=== PATIENT | male | born 1960 | race African-American/Black ===

== ENCOUNTER 2017-07-22 15:47 | Inpatient (IN) | payer OTHER ==
[2017-07-22 17:05] LABS: Absolute Lymphocytes (CBC) 0.5 K/uL (0.7-4.9); Absolute Monocytes 0.3 K/uL (0.1-1.3); Absolute Neutrophil 5.4 K/uL (1.8-8.0); Basophils % 0.5 % (0-1.3); Eosinophils % 0.2 % (0-4.4); Hematocrit 24.8 % (39.6-49.0); Lymphocytes % 7.8 % (15.3-44.8); MCH 27.8 pg (27.0-35.0); MCV 83.8 fL (80-100); MPV 8.9 fL (7.6-11.3); Monocytes % 5.3 % (3.3-12.3); RBC Red Blood Cell Count 2.96 M/uL (4.33-5.43)
--- NOTE | 2017-07-22 17:05 | RAD REPORT ---
EXAM DESCRIPTION: CT - Head Brain Wo Cont - 07/22/2017 4:57 pm CLINICAL HISTORY: Alteration of consciousness/ mental status change COMPARISON: August 2016 TECHNIQUE: Computed axial tomography of the head was obtained. IV contrast was not requested. All CT scans are performed using dose optimization technique as appropriate and may include automated exposure control or mA/KV adjustment according to patient size. FINDINGS: Some images are degraded by patient motion artifact. An intracranial bleed is not seen . The ventricles are normal in caliber. No extra-axial fluid collection is noted. A 33 millimeter area of cystic encephalomalacia is present within the left occipital lobe. A moderate to large area of cystic encephalomalacia within the right parietal lobe is present. These probably are secondary to old infarctions. Fluid within the sinuses/ mastoids is not seen. IMPRESSION: No acute intracranial abnormality is seen. If patient's symptoms persist MRI of the bra in would be recommended.
[2017-07-22 17:10] LABS: Protime INR 1.06
[2017-07-22 17:39] LABS: Albumin 3.9 g/dL (3.2-5.5); Bilirubin Direct 0.1 mg/dL (0-0.2); Bilirubin Total 0.7 mg/dL (0.3-1.2); Protein, Total 7.4 g/dL (6.0-8.3)
[2017-07-22 17:43] LABS: Urine Bacteria NONE SEEN /HPF (NONE SEEN); Urine Culture Reflex Order NOT NEEDED
[2017-07-22 17:43] LABS: CKMB Creatine Kinase MB 13.9 ng/ml (0.3-4.0)
[2017-07-22 17:46] LABS: Potassium 7.4 mEq/L (3.6-5.0)
--- NOTE | 2017-07-22 17:57 | RAD REPORT ---
EXAM DESCRIPTION: RAD - Chest Single View - 07/22/2017 5:37 pm CLINICAL HISTORY: Shortness of breath. COMPARISON: None. FINDINGS: Portable technique limits examination quality. Moderate bilateral pulmonary opacities are noted likely representing pulmonary edema. The heart is no rmal in size. No displaced fractures.Right-sided venous catheter tip in SVC. IMPRESSION: Moderate pulmonary edema.
[2017-07-22] MEDS ORDERED: CALCIUM GLUCONATE 1gm/100 ML NS (4.65 mEq/100mL) IV ONE ×2 (18:00)
[2017-07-22] MEDS ORDERED: SOD POLYSTYREN SUL 15 GM/60 ML UCUP ONE (18:14)
--- NOTE | 2017-07-22 18:15 | ER ---
Nurse's Notes [facility] Name: Juan Lozano Age: 56 yrs Sex: Male : 1960 Arrival Date: 07/22/2017 Time: 15:52 Bed 7 Private MD: Diagnosis: Altered mental status, unspecified;Hyperkalemia Presentation: 07/22 15:52 Presenting complaint: EMS states: EMS states [facility] [place] [facility] staff reported ae1 patient is normally A \T\ O x 4 and is now only oriented to self. They report patient refused dialysis today and the previous Wednesday as well. Transition of care: [facility]. Onset of symptoms is unknown. Care prior to arrival: Glucose check: 168 Oxygen administered. via a non-rebreather mask, reported room air sat of 81%. 15:52 Method Of Arrival: EMS: [facility] ae1 15:52 Acuity: DORIS 3 ae1 Triage Assessment: 15:58 General: Appears in no apparent distress. Behavior is cooperative, quiet. Pain: Denies ae1 pain. Neuro: Level of Consciousness is obeys commands, lethargic, responds to verbal stimuli, eye remain closed. Oriented to person. Derm: dialysis port to the right upper chest. Thrill palpated to the right forearm. 15:58 EENT: No signs and/or symptoms were reported regarding the EENT system. Cardiovascular: ae1 Heart tones S1 S2 present Patient's skin is warm and dry. Rhythm is regular. Respiratory: Airway is patent Respiratory effort is even, unlabored, Respiratory pattern is regular, symmetrical, Breath sounds are clear bilaterally. GI: No signs and/or symptoms were reported involving the gastrointestinal system. Abdomen is round non-distended, Bowel sounds present X 4 quads. Abd is soft and non tender X 4 quads. Patient currently denies. : Urine is Patient has adult brief applied. Musculoskeletal: Range of motion: limited in left shoulder and left elbow. Historical: - Allergies: 16:09 No Known Allergies; ae1 - PMHx: 16:09 CVA; ae1 - Immunization history:: Adult Immunizations up to date. - Social history:: Smoking status: unknown. Screenin:26 Abuse screen: Denies threats or abuse. Nutritional screening: No deficits noted. ap3 Tuberculosis screening: No symptoms or risk factors identified. 17:00 Fall Risk Secondary diagnosis (15 points) CVA, IV access (20 points). Ambulatory Aid- ae1 None/Bed Rest/Nurse Assist (0 pts). Gait- Weak (10 pts.). Mental Status- Overestimates/Forgets Limitations (15 pts.). Assessment: 16:09 Reassessment: Spoke to nurse Varghese at [facility] via telephone to obtain ae1 health hx and medication list. Fax number provided, Varghese states he will fax over information. 16:23 Reassessment: patient laying in bed, eyes closed, arms held close to chest, legs bent. ap3 Respirations even and unlabored. Bed locked and in lowest level. Side rales up X's 2. 17:28 Reassessment: Provider notified of scant amount of urine returned from straight cath, ae1 per provider, sent to lab for urine microscope and urine culture. Estella in lab notified by telephone that tiny amount of urine was being sent. 17:38 Reassessment: Patient incontinent of stool, per-area cleansed, new adult brief applied. ae1 New bedding applied. Patient tolerated well. 18:44 Reassessment: Respiratory therapist at bedside for ABG draw. ae1 19:15 Reassessment: Patient appears in no apparent distress at this time. Patient and/or jd3 family updated on plan of care and expected duration. Pain level reassessed. pt resting in bed eyes closed, even and unlabored respirations, no distress noted at this time, call rivera in reach. 19:32 Reassessment: Verified Lasix order and dosage with Provider and Charge nurse. Per ae1 provider, ok to give. 20:30 Reassessment: Patient appears in no apparent distress at this time. No changes from jd3 previously documented assessment. Patient and/or family updated on plan of care and expected duration. Pain level reassessed. 21:00 Reassessment: Patient appears in no apparent distress at this time. No changes from jd3 previously documented assessment. Patient and/or family updated on plan of care and expected duration. Pain level reassessed. pt taken up to ICU for bedside report to Frida SARKAR. Vital Signs: 15:56 BP 175 / 110; Pulse 75; Resp 16; Temp 97.6(A); Pulse Ox 98% on R/A; Weight 79.38 kg (R);ae1 17:39 BP 196 / 110; Pulse 86; Resp 21; Pulse Ox 94% on 4 lpm NC; ae1 18:46 BP 207 / 114; Pulse 94; Resp 20; Pulse Ox 98% on 3 lpm NC; ae1 19:14 BP 197 / 121; Pulse 88; Resp 15 S; Pulse Ox 97% on 2 lpm NC; Pain 0/10; jd3 20:31 BP 169 / 102; Pulse 88; Resp 22; Pulse Ox 95% on 2 lpm NC; tl2 ED Course: 15:52 Patient arrived in ED. ae1 15:56 Triage completed. ae1 15:56 EKG done, by education technician. reviewed by Eris Karimi MD. at1 16:11 Bed in low position. Call light in reach. Side rails up X2. clinical research monitor on. Pulse ae1 ox on. NIBP on. 16:12 Arm band placed on right wrist. EKG completed in triage. Results shown to MD. ae1 16:28 Eris Petersen PA is PHCP. cp 16:28 Eris Karimi MD is Attending Physician. cp 16:49 Tristan Monroe, ANTONINA is Primary Nurse. ae1 16:57 CT Head Brain wo Cont In Process Unspecified. EDMS 17:25 Straight cath inserted, using sterile technique, 16 Fr. Specimen obtained. scant amount ae1 of urine obtained. Returned clear yellow urine. Patient tolerated poorly. Inserted saline lock: 18 gauge in left EJ, using aseptic technique. ,using aseptic technique. By JOSE Tsai. Blood collected. 17:34 X-ray completed. Portable x-ray completed in exam room. Patient tolerated procedure ag1 poorly. 17:36 Chest Single View XRAY In Process Unspecified. EDMS 18:14 Yahir Peña DO is Hospitalizing Provider. cp 20:59 No provider procedures requiring assistance completed. Patient admitted, IV remains in jd3 place. Administered Medications: 18:12 CANCELLED (Physician Discretion): hydrALAZINE 5 mg IV at calculated rate once cp 18:14 Drug: Insulin Regular Human 10 units {Co-Signature: jl7 (Ascencion Silva RN).} Route: IVP; ae1 Site: left jugular; 19:38 Follow up: Response: No adverse reaction jd3 18:15 Drug: D50W 50 ml Route: IVP; Site: Other; ae1 19:39 Follow up: Response: No adverse reaction jd3 18:20 Drug: Calcium Gluconate 1 grams Route: IVPB; Infused Over: 20 mins; Site: left jugular; ae1 19:31 Follow up: IV Status: Completed infusion ae1 18:21 Drug: Kayexalate 45 grams Route: PO; ae1 19:39 Follow up: Response: No adverse reaction jd3 18:23 Drug: Albuterol 2.5 mg Route: Inhalation; ae1 18:23 Drug: Albuterol 2.5 mg Route: Inhalation; ae1 19:25 Drug: Lasix 100 mg {Note: given by Ingrid SARKAR.} Route: IVP; Site: left jugular; jd3 20:08 Follow up: Response: No adverse reaction jd3 19:27 Drug: Zosyn 2.25 grams Route: IVPB; Infused Over: 60 mins; Site: left jugular; ae1 20:08 Follow up: Response: No adverse reaction; IV Status: Completed infusion jd3 19:31 Drug: Albuterol 2.5 mg Route: Inhalation; jd3 20:08 Drug: vancoMYCIN 1 grams Route: IVPB; Infused Over: 2 hrs; Site: left jugular; jd3 21:02 Follow up: Response: No adverse reaction; IV Status: Infusion continued upon admission jd3 Point of Care Testing: Blood Glucose: 15:57 Blood Glucose: 141 mg/dL; ae1 Ranges: Outcome: 18:15 Decision to Hospitalize by Provider. cp 20:59 Admitted to ICU accompanied by nurse, accompanied by tech, via stretcher, room 6, with jd3 oxygen, on monitor, with chart, Report called to bedside report given to Frida SARKAR 20:59 Condition: stable 20:59 Instructed on the need for admit, Demonstrated understanding of instructions. 21:04 Patient left the ED. jd3 Signatures: Dispatcher [employer] EDMS Marcia dowd, production control scheduler EKG Tat1 Tracey You ag1 Eris Petersen PA PA cp Yoly Brito RN RN tl2 Tristan Monroe RN RN ae1 Ulises Gilman RN RN jd3 Marcia Valle ap3 Ascencion Silva RN jl7 Corrections: (The following items were deleted from the chart) 21:06 19:15 Reassessment: Patient appears in no apparent distress at this time. Patient jd3 and/or family updated on plan of care and expected duration. Pain level reassessed. Patient is alert, oriented x 3, equal unlabored respirations, skin warm/dry/pink. pt resting in bed eyes closed, even and unlabored respirations, no distress noted at this time, call rivera in reach jd3
--- NOTE | 2017-07-22 18:15 | EDPHYS ---
Physician Documentation [facility] Name: Juan Lozano Age: 56 yrs Sex: Male : 1960 Arrival Date: 07/22/2017 Time: 15:52 Bed 7 Private MD: ED Physician Eris Karimi HPI: 07/22 16:40 This 56 yrs old Black Male presents to ER via EMS with complaints of Altered Mental cp Status. 16:40 The patient presents with decreased mental status. Onset: The symptoms/episode cp began/occurred at an unknown time. Possible causes: ESRD. Associated signs and symptoms: Pertinent negatives: fever. Patient's baseline: Neuro: alert and fully oriented, Motor: left-sided weakness, Speech: normal, The patient has a previous history of CVA. Unable to obtain HPI due to altered mental status. Patient resident of [facility] and referred to ED by nursing staff this afternoon after being found to be altered this afternoon. Onset of symptoms unknown. Nursing staff reports patient has refused last 2 appointments for dialysis and patient was last dialyzed this past Wednesday. Historical: - Allergies: 16:09 No Known Allergies; ae1 - PMHx: 16:09 CVA; ae1 - Immunization history:: Adult Immunizations up to date. - Social history:: Smoking status: unknown. ROS: 16:45 Constitutional: Negative for fever. cp 16:45 Neuro: Positive for altered mental status. cp 16:45 Neuro: Positive for weakness, of the left arm and left leg. cp 16:45 Unable to obtain ROS due to baseline dementia. cp Exam: 16:45 Constitutional: The patient appears in no acute distress, non-diaphoretic, well cp developed, unkempt. 16:45 Head/Face: Normocephalic, atraumatic. cp 16:45 Eyes: Periorbital structures: appear normal, Pupils: equal, round, and reactive to light and accomodation, Conjunctiva: normal, no exudate, no injection, Sclera: no appreciated abnormality, Lids and lashes: appear normal, bilaterally. 16:45 ENT: External ear(s): are unremarkable, Ear canal(s): are normal, clear, TM's: bulging, is not appreciated, bilaterally, dullness, bilaterally, erythema, is not appreciated, bilaterally, Nose: is normal, Mouth: Lips: dry, Oral mucosa: dry, Posterior pharynx: Airway: no evidence of obstruction, patent, Uvula: midline, swelling, is not appreciated, erythema, is not appreciated, exudate, is not appreciated. 16:45 Neck: ROM/movement: is normal, is supple, no range of motions limitations, no meningismus, no nuchal rigidity. 16:45 Chest/axilla: Inspection: normal, Palpation: crepitus, is not appreciated, tenderness, is not appreciated. 16:45 Cardiovascular: Rate: normal, Rhythm: regular, Pulses: Pulses are 2+ in right radial artery and left radial artery. Edema: is not appreciated, JVD: is not appreciated. 16:45 Respiratory: the patient does not display signs of respiratory distress, Respirations: normal, no use of accessory muscles, no retractions, no splinting, no tachypnea, labored breathing, is not present, Breath sounds: rhonchi, are not appreciated, stridor, is not appreciated, wheezing: is not appreciated. 16:45 Abdomen/GI: Inspection: abdomen appears normal, Bowel sounds: active, all quadrants, Palpation: abdomen is soft and non-tender, in all quadrants, involuntary guarding, is not appreciated. 16:45 Musculoskeletal/extremity: Extremities: grossly normal except: noted in the left arm: contracted. 16:45 Skin: cellulitis, is not appreciated, no rash present. 16:45 Neuro: Orientation: Not oriented to person, place, situation, Mentation: confused, somnolent, Cerebellar function: unable to test. Vital Signs: 15:56 BP 175 / 110; Pulse 75; Resp 16; Temp 97.6(A); Pulse Ox 98% on R/A; Weight 79.38 kg (R);ae1 17:39 BP 196 / 110; Pulse 86; Resp 21; Pulse Ox 94% on 4 lpm NC; ae1 18:46 BP 207 / 114; Pulse 94; Resp 20; Pulse Ox 98% on 3 lpm NC; ae1 19:14 BP 197 / 121; Pulse 88; Resp 15 S; Pulse Ox 97% on 2 lpm NC; Pain 0/10; jd3 20:31 BP 169 / 102; Pulse 88; Resp 22; Pulse Ox 95% on 2 lpm NC; tl2 MDM: 16:28 Patient medically screened. cp 17:00 Differential Diagnosis: CVA, electrolyte abnormality, hypoglycemia, intracranial bleed, cp pneumonia, seizure, sepsis, volume depletion. 17:00 ED course: VSS. Patient not a candidate for tpa due to fact of unknown onset of AMS. cp 18:00 Data reviewed: vital signs, nurses notes, lab test result(s), EKG, radiologic studies, cp CT scan, plain films. 18:00 Test interpretation: by ED physician or midlevel provider: ECG, plain radiologic cp studies. 18:04 Physician consultation: Yahir Peña DO was contacted at 18:04, regarding admission, cp to the telemetry unit. patient's condition, and will see patient in ED, immediately. 18:20 Physician consultation: Brendon Mejia MD was called at 18:20, was contacted cp at 18:20, regarding consult, patient's condition, would like medications started, 1 grm Vancomycin and 2.25 gm Zosyn q 8 hrs. 07/22 16:45 Order name: Urine Culture 07/22 16:45 Order name: Urine Microscopic Only 07/22 16:45 Order name: Basic Metabolic Panel 07/22 16:45 Order name: BNP 07/22 16:45 Order name: CBC with Diff / 16:45 Order name: Ckmb 07/22 16:45 Order name: CPK 07/22 16:45 Order name: Lactate; Complete Time: 17:46 07/22 16:45 Order name: LFT's 07/22 16:45 Order name: Lipase / 16:45 Order name: Procalcitonin; Complete Time: 17:58 04/ 17:58 Interpretation: Abnormal: Procalcitonin 1.56. / 16:45 Order name: Protime (+inr); Complete Time: 17:46 07/22 16:45 Order name: Ptt, Activated; Complete Time: 17:46 07/22 16:45 Order name: Troponin (emerg Dept Use Only); Complete Time: 17:46 07/22 17:59 Interpretation: TROPED 0.11; Reviewed. 07/22 16:45 Order name: AMMONIA; Complete Time: 17:46 07/22 16:45 Order name: Urine Culture EDDE 07/22 16:45 Order name: Urine Microscopic Only; Complete Time: 17:46 EDMS 07/22 16:45 Order name: Basic Metabolic Panel EDDE 07/22 18:00 Interpretation: Normal except: NA 134; K 7.4; CO2 18; CRE 13.85; GFR 5. cp 07/22 16:45 Order name: BNP B-Type Natriuretic Peptide; Complete Time: 17:46 EDDE 07/22 16:45 Order name: CBC with Automated Diff; Complete Time: 17:12 EDDE 07/22 17:13 Interpretation: Normal except: RBC 2.96; HGB 8.2; HCT 24.8; RDW 16.9; ALEX% 86.2; LYM% cp 7.8; LYMA 0.5. 07/22 17:00 Order name: Blood Culture EDDE 07/22 18:27 Order name: ABG Arterial Blood Gas EDDE 07/22 18:31 Order name: Hep B Surface AG w/ Confirm EDDE 07/22 18:31 Order name: Hepatitis B Core Ab, Total EDDE 07/22 18:31 Order name: Hepatitis B Surface Antibody EDDE 07/22 18:31 Order name: Hepatitis C Antibody(Anti HCV) EDDE 07/22 18:45 Order name: CKMB Creatine Kinase MB EDDE 07/22 18:45 Order name: Creatine Phosphokinase EDDE 07/22 16:45 Order name: CT Head Brain wo Cont; Complete Time: 17:12 cp 07/22 16:45 Order name: Chest Single View XRAY; Complete Time: 17:58 cp 07/22 16:45 Order name: Accucheck; Complete Time: 16:50 cp 07/22 16:45 Order name: Cardiac monitoring; Complete Time: 16:50 cp 07/22 16:45 Order name: EKG - Nurse/Tech; Complete Time: 16:50 cp 07/22 16:45 Order name: IV Saline Lock - Large Bore; Complete Time: 16:50 cp 07/22 16:45 Order name: Labs collected and sent; Complete Time: 17:00 cp 07/22 16:45 Order name: O2 Per Protocol; Complete Time: 16:50 cp 05 16:45 Order name: O2 Sat Monitoring; Complete Time: 16:50 cp 07/22 16:45 Order name: Urine Dipstick-Ancillary (obtain specimen); Complete Time: 17:42 cp 0405 16:56 Order name: EKG Electrocardiogram EDMS 07/22 18:45 Order name: CONS Pharmacy Consult EDMS 07/22 18:45 Order name: CONS Physician Consult EDMS 07/22 18:45 Order name: Echo with Doppler EDMS 07/22 18:45 Order name: NPO EDMS 07/22 18:45 Order name: Social Service Consult EDMS 07/22 18:45 Order name: Troponin I EDMS 07/22 18:46 Order name: Respiratory Therapy Consult EDMS Administered Medications: 18:12 CANCELLED (Physician Discretion): hydrALAZINE 5 mg IV at calculated rate once cp 18:14 Drug: Insulin Regular Human 10 units {Co-Signature: jl7 (Ascencion Silva RN).} Route: IVP; ae1 Site: left jugular; 19:38 Follow up: Response: No adverse reaction jd3 18:15 Drug: D50W 50 ml Route: IVP; Site: Other; ae1 19:39 Follow up: Response: No adverse reaction jd3 18:20 Drug: Calcium Gluconate 1 grams Route: IVPB; Infused Over: 20 mins; Site: left jugular; ae1 19:31 Follow up: IV Status: Completed infusion ae1 18:21 Drug: Kayexalate 45 grams Route: PO; ae1 19:39 Follow up: Response: No adverse reaction jd3 18:23 Drug: Albuterol 2.5 mg Route: Inhalation; ae1 18:23 Drug: Albuterol 2.5 mg Route: Inhalation; ae1 19:25 Drug: Lasix 100 mg {Note: given by Ingrid BARRERA} Route: IVP; Site: left jugular; jd3 20:08 Follow up: Response: No adverse reaction jd3 19:27 Drug: Zosyn 2.25 grams Route: IVPB; Infused Over: 60 mins; Site: left jugular; ae1 20:08 Follow up: Response: No adverse reaction; IV Status: Completed infusion jd3 19:31 Drug: Albuterol 2.5 mg Route: Inhalation; jd3 20:08 Drug: vancoMYCIN 1 grams Route: IVPB; Infused Over: 2 hrs; Site: left jugular; jd3 21:02 Follow up: Response: No adverse reaction; IV Status: Infusion continued upon admission jd3 Point of Care Testing: Blood Glucose: 15:57 Blood Glucose: 141 mg/dL; ae1 Ranges: Critical Glucose Levels:Adult <50 mg/dl or >400 mg/dl <40 mg/dl or >180 mg/dl Disposition: 22:00 Chart complete. cp 07/23 10:36 Co-signature as Attending Physician, Eris Karimi MD I agree with the assessment and gail plan of care. Disposition: 07/22/17 18:15 Hospitalization ordered by Yahir Peña for Inpatient Admission. Preliminary diagnosis are Altered mental status, unspecified, Hyperkalemia. - Bed requested for Intensive Care Unit. - Status is Inpatient Admission. jd3 - Condition is Stable. - Problem is new. - Symptoms are unchanged. UTI on Admission? No Signatures: Dispatcher [employer] EDMS Gosia Garcia RN RN kl Anderson, Corey, MD MD cha Page, Corey, JOSE PA cp Tristan Monroe RN RN ae1 Carole Truong RN RN df Ulises Gilman RN RN jd3 Ascencion Silva RN jl7 Corrections: (The following items were deleted from the chart) 07/22 16:46 16:45 Blood Culture ordered. EDMS EDMS 18:12 17:58 hydrALAZINE 5 mg IV at calculated rate once ordered. cp cp 07/23 03:01 07/22 16:45 Unable to obtain ROS due to altered mental status, cp cp
[2017-07-22] MEDS ORDERED: ALBUTEROL 2.5 MG/3 ML NEB SOL ONE ×3 (18:25→19:49)
[2017-07-22] MEDS ORDERED: INSULIN -REGULAR HUMAN 50 UNIT/0.5 ML ML ONE (18:25)
[2017-07-22] MEDS ORDERED: D50W 25 GM/50 ML SYRINGE IV ONE (18:25)
[2017-07-22] MEDS ORDERED: HYDRALAZINE HCL 20 MG/ML VIAL ONE (18:28)
[2017-07-22] MEDS ORDERED: ACETAMINOPHEN 500 MG TAB PO PRN (18:33)
[2017-07-22] MEDS ORDERED: ACETAMINOPHEN 650MG/RECT SUPP PR PRN (18:33)
[2017-07-22] MEDS ORDERED: SODIUM CHLORIDE 0.9% 10ML INJ IV PRN (18:33)
[2017-07-22] MEDS ORDERED: ONDANSETRON 4 MG/2 ML VIAL IV PRN (18:33)
--- NOTE | 2017-07-22 18:51 | P.HP ---
Certification for Inpatient Patient admitted to: Inpatient With expected LOS: >2 Midnights Patient will require the following post-hospital care: Other Practitioner: I am a practitioner with admitting privileges, knowledge of patient current condition, hospital course, and medical plan of care. Services: Services provided to patient in accordance with Admission requirements found in Title 42 Section 412.3 of the Code of Federal Regulations Patient History Date of Service: 07/22/17 Primary Care Provider: [facility] Reason for admission: Altered mental status History of Present Illness: 56-year-old male presented to the emergency room from the [facility] with altered mental status. Most of the history came from the ER physician and the . The ER reports that the patient had refused dialysis over the last week. He had missed 2 dialysis. The patient had altered mental status changes today. Patient usually alert an oriented. Patient was able to follow commands but not able to verbalize. Patient came to the ER for further evaluation. In the ER the patient was evaluated. Patient found to have sodium of 134, potassium 7.4. GFR 5. Hemoglobin 8.2, white count 6.3, platelet count of 172. CK of 4.09. CK MB 13. Troponin 0.11 with a BNP of 1591. Pro calcitonin 1.15. The patient was provided medication for hyperkalemia. The patient was admitted for further evaluation and treatment. Patient given antibiotics in the emergency room. Blood cultures obtained. When I spoke to the the reports that the patient had recently been transferred to the [facility]. The patient had been in residential. He was poor rolled to the [facility]. reports that the patient had been refusing dialysis at a prior location. He had also been refusing dialysis recently. There was some discussion that the patient did not want any further dialysis and that hospice would be arranged. She is to come tomorrow for more details. Home medications list reviewed: Yes - Past Medical/Surgical History Diabetic: Yes -: Diabetes mellitus type 2 -: Hypertension -: History CVA with residual left-sided weakness -: End stage renal disease -: History of noncompliance -: Anxiety disorder -: Hypothyroidism -: Conversion disorder with seizures -: Anemia -: Chronic pain syndrome Past Surgical History: Unable to obtain Psychosocial/ Personal History: Patient in residential. Patient recently paroled to the [facility]. - Family History Family History: Reviewed- Non-Contributory - Social History Smoking Status: Unknown if ever smoked Alcohol use: No Caffeine use: No Place of Residence: [facility] Review of Systems is unable to be obtained Physical Examination - Physical Exam General: Alert, In no apparent distress, Other (Patient able to follow commands but not able to verbalize.) HEENT: Atraumatic, Normocephalic, Other (Dry Mucous membranes) Neck: Supple Respiratory: Diminished (To the bases), Crackles/rales (Bilateral) Cardiovascular: Normal pulses, Regular rate/rhythm Gastrointestinal: Normal bowel sounds, Soft and benign, Non-distended, No masses , No rebound, No guarding Musculoskeletal: No tenderness, No warmth, Contractures (Contractures to the left side. Patient with left-sided residual weakness with history of CVA.) Integumentary: No erythema, No warmth, No cyanosis Neurological: Other (Patient alert but not oriented), Abnormal strength ( History of left-sided ender paresis.) - Studies Laboratory Data (last 24 hrs) 07/22/17 16:43: PT 12.5, INR 1.06, APTT 33.9 07/22/17 16:43: WBC 6.3, Hgb 8.2 L, Hct 24.8 L, Plt Count 171 07/22/17 16:43: B-Natriuretic Peptide 1591 H 07/22/17 16:43: Sodium 134 L, Potassium 7.4 H*, Creatinine 13.85 H*, Glucose 112 , Total Bilirubin 0.7, AST 18, ALT 12, Alkaline Phosphatase 63, Lipase 82 H Assessment and Plan - Problems (Diagnosis) (1) Encephalopathy Current Visit: Yes Status: Acute Plan: Encephalopathy likely related to uremia due to missed dialysis. Blood cultures obtained. Will start IV antibiotic therapy to cover for possible infection. Patient with history of CVA with left-sided residual weakness, hypothyroidism, hypertension, end-stage renal disease on dialysis, conversion disorder with history of seizure. Case discussed with . Patient currently in residential but paroled to the [facility]. Patient has been refusing dialysis in the past and recently at the [facility]. There is some discussion that he no longer wants dialysis. They are considering hospice for the patient. will come tomorrow to further address. For now patient will receive dialysis. (2) End stage renal disease Current Visit: Yes Status: Acute Plan: Patient will get emergent dialysis. Nephrology consulted. (3) Hyperkalemia Current Visit: Yes Status: Acute Plan: Patient get emergent dialysis. (4) Hypertension Current Visit: Yes Status: Chronic Plan: Will need to review [facility] medication. Will provide medication as needed. Qualifiers: Hypertension type: essential hypertension Qualified Code(s): I10 - Essential (primary) hypertension (5) Diabetes mellitus Current Visit: Yes Status: Chronic Plan: Will provide sliding scale. Will check A1c. Qualifiers: Diabetes mellitus type: type 2 Diabetes mellitus intermediate insulin use: unspecified terminal press operator insulin use status Diabetes mellitus complication status : with other specified complication Qualified Code(s): E11.69 - Type 2 diabetes mellitus with other specified complication (6) Hypothyroidism Current Visit: Yes Status: Chronic Plan: Need to verify [facility] medication. Will check TSH Qualifiers: Hypothyroidism type: unspecified Qualified Code(s): E03.9 - Hypothyroidism , unspecified (7) Conversion disorder with seizures or convulsions Current Visit: Yes Status: Chronic Plan: Will need to verify [facility] medication and restart. (8) History of CVA with residual deficit Current Visit: Yes Status: Chronic Plan: Patient with left-sided ender paresis. CT scan unremarkable except for chronic encephalomalacia (9) Anxiety Current Visit: Yes Status: Chronic Plan: Will provide medication as needed (10) Chronic pain Current Visit: Yes Status: Chronic Plan: Will need to review [facility] medication Qualifiers: Chronic pain type: chronic pain syndrome Qualified Code(s): G89.4 - Chronic pain syndrome (11) History of noncompliance with medical treatment Current Visit: Yes Status: Chronic Plan: Patient has been non compliant with dialysis in the past. Continue as above. Discharge Plan: Other (FCI) Plan to discharge in: Greater than 2 days - Advance Directives Does patient have a Living Will: No Does patient have a Durable POA for Healthcare: No Time Spent Managing Pts Care (In Minutes): 55
[2017-07-22] MEDS ORDERED: GLUCAGON 1 MG/VIAL IM PRN (18:55)
[2017-07-22] MEDS ORDERED: D50W 25 GM/50 ML SYRINGE IV PRN (18:55)
--- NOTE | 2017-07-22 19:07 | EKG ---
Test Date: 2017-07-22 Test Time: 15:50:09 Computer Numerical Control Machinist: ASHKAN MEASUREMENT RESULTS: Intervals: Rate: 84 DC: 178 QRSD: 100 QT: 398 QTc: 470 Harrod: P: 73 DC: 178 QRS: 3 T: 77 INTERPRETIVE STATEMENTS: Normal sinus rhythm Possible Left atrial enlargement Borderline ECG No previous ECG available for comparison Electronically Signed On 07-22-17 19:06:48 CDT by Zachary Celis
[2017-07-22] MEDS ORDERED: FUROSEMIDE 100 MG/10 ML VIAL IV ONE (19:17)
[2017-07-22] MEDS ORDERED: VANCOMYCIN/NS 1 gm 1 GM/250 ML BAG ONE (19:18)
[2017-07-22] MEDS ORDERED: PIPER/TAZO/NS 2.25gm 2.25 GM/50 ML BAG ONE (19:18)
[2017-07-22] MEDS: PIPER/TAZO/NS 3.375gm 3.375 GM/100 ML BAG IVPB SCH (21:00)
[2017-07-22] MEDS: INSULIN -REGULAR HUMAN 50 UNIT/0.5 ML ML SQ SCH (21:00)
[2017-07-22] MEDS: ENOXAPARIN 30 MG/0.3 ML SQ SCH (21:00)
[2017-07-22] MEDS ORDERED: VANCOMYCIN/NS 1 gm 1 GM/250 ML BAG IV SCH (21:00)
[2017-07-22 21:20] LABS: CKMB Creatine Kinase MB 14.1 ng/ml (0.3-4.0)
[2017-07-22] MEDS: HYDRALAZINE HCL 20 MG/ML VIAL IV PRN (22:29)
[2017-07-22] MEDS ORDERED: LORazepam 2 MG/ML VIAL IV ONE (23:15)
[2017-07-22] MEDS ORDERED: LORazepam 2 MG/ML VIAL ONE (23:15)
[2017-07-23] MEDS ORDERED: LORazepam 2 MG/ML VIAL IV ONE (00:44)
[2017-07-23] MEDS: PIPER/TAZO/NS 3.375gm 3.375 GM/100 ML BAG IVPB SCH ×2 (00:52→09:00)
[2017-07-23] MEDS ORDERED: NA CHLORIDE 0.9% 100 ML ONE (01:08)
[2017-07-23] MEDS ORDERED: PIPERACIL/TAZO 3.375 GM VIAL IV ONE (01:08)
[2017-07-23] MEDS: HYDRALAZINE HCL 20 MG/ML VIAL IV PRN (04:23)
[2017-07-23 04:58] LABS: Absolute Lymphocytes (CBC) 0.6 K/uL (0.7-4.9); Absolute Monocytes 0.4 K/uL (0.1-1.3); Absolute Neutrophil 4.8 K/uL (1.8-8.0); Eosinophils % 0.4 % (0-4.4); Hematocrit 28.7 % (39.6-49.0); Lymphocytes % 10.6 % (15.3-44.8); MPV 8.5 fL (7.6-11.3); Monocytes % 6.1 % (3.3-12.3); RBC Red Blood Cell Count 3.46 M/uL (4.33-5.43)
[2017-07-23] MEDS ORDERED: TRAMADOL HCL 50 MG TAB PO PRN (06:05)
[2017-07-23 06:21] LABS: Potassium 3.9 mEq/L (3.6-5.0); Thyroid Stimulating Hormone 1.48 uIU/mL (0.34-5.60)
[2017-07-23] MEDS ORDERED: LORazepam 2 MG/ML VIAL IV PRN (07:06)
[2017-07-23] MEDS: INSULIN -REGULAR HUMAN 50 UNIT/0.5 ML ML SQ SCH ×4 (07:30→21:00)
[2017-07-23] MEDS: RISPERIDONE 0.25 MG TABLET PO SCH (07:50)
[2017-07-23] MEDS: NIFEDIPINE XL 90 MG TABLET PO SCH (07:51)
[2017-07-23] MEDS: ISOSORBIDE DINIT 20 MG TAB PO SCH ×2 (07:52→15:18)
[2017-07-23] MEDS: METOPROLOL TAR 50 MG TAB PO SCH (07:52)
--- NOTE | 2017-07-23 07:54 | P.PN ---
Subjective Date of Service: 07/23/17 Primary Care Provider: [facility] Chief Complaint: Altered mental status Subjective: Other (Patient was agitated last night. Patient only had partial dialysis due to agitation. Patient improved this morning. Patient follows commands and is appropriate.) Physical Examination - Vital Signs Temperature: 98.5 F Blood Pressure: 194/114 Pulse: 92 Respirations: 14 Pulse Ox (%): 93 - Physical Exam General: Alert, Cooperative, Other (Patient follows commands. More appropriate than yesterday. Patient able to verbalize.) HEENT: Atraumatic Neck: Supple Respiratory: Crackles/rales (Bilateral) Cardiovascular: Normal pulses, Regular rate/rhythm Gastrointestinal: Normal bowel sounds, Soft and benign, Non-distended, No tenderness, No masses, No rebound, No guarding Musculoskeletal: No erythema, No tenderness, No warmth, Contractures ( Contractures noted to upper and lower extremity.) Integumentary: No warmth, No cyanosis Neurological: Normal speech, Normal strength at 5/5 x4 extr (Left-sided ender paresis), Normal tone, Normal affect (Patient does not appear agitated this morning.) - Studies Laboratory Data (last 24 hrs) 07/22/17 16:43: PT 12.5, INR 1.06, APTT 33.9 07/22/17 16:43: WBC 6.3, Hgb 8.2 L, Hct 24.8 L, Plt Count 171 07/22/17 16:43: B-Natriuretic Peptide 1591 H 07/22/17 16:43: Sodium 134 L, Potassium 7.4 H*, BUN 130 H, Creatinine 13.85 H*, Glucose 112, Total Bilirubin 0.7, AST 18, ALT 12, Alkaline Phosphatase 63, Lipase 82 H Medications List Reviewed: Yes Assessment & Plan - Problems (Diagnosis) (1) Encephalopathy Current Visit: Yes Status: Acute Plan: Encephalopathy likely related to uremia due to missed dialysis. Patient is alert and appropriate. Patient agitated last night while receiving dialysis. Patient only received partial dialysis. I suspect the patient will need dialysis again today. Blood pressure still elevated. Will adjust and review and restart [facility] medication. Patient with history of CVA with left- sided residual weakness, hypothyroidism, hypertension, end-stage renal disease on dialysis, conversion disorder with history of seizure. Case discussed with last night. Patient currently in [facility] but [facility] to the [facility]. Patient has been refusing dialysis in the past and recently at the [facility]. There is some discussion that he no longer wants dialysis. They are considering hospice for the patient. will come today to further address. Will discuss further with nephrology. I will be out of town this weekend. Dr. Palomino will cover for me. (2) End stage renal disease Current Visit: Yes Status: Chronic Plan: Patient will get emergent dialysis. Patient has been refusing dialysis in the past and most recently. There has been some discussion by about stopping dialysis entirely and considering hospice. to come today to address further. (3) Hyperkalemia Current Visit: Yes Status: Acute Plan: This has improved with dialysis. Will continue to monitor. (4) Hypertension Current Visit: Yes Status: Chronic Plan: Medications from [facility] have been reviewed. Will restart medications for better control. Qualifiers: Hypertension type: essential hypertension Qualified Code(s): I10 - Essential (primary) hypertension (5) Diabetes mellitus Current Visit: Yes Status: Chronic Plan: Will provide sliding scale. Will check A1c. Qualifiers: Diabetes mellitus type: type 2 Diabetes mellitus [facility] insulin use: unspecified keno terminal operator insulin use status Diabetes mellitus complication status : with other specified complication Qualified Code(s): E11.69 - Type 2 diabetes mellitus with other specified complication (6) Hypothyroidism Current Visit: Yes Status: Chronic Plan: Will continue with medication. Tsh within normal range. Qualifiers: Hypothyroidism type: unspecified Qualified Code(s): E03.9 - Hypothyroidism , unspecified (7) Conversion disorder with seizures or convulsions Current Visit: Yes Status: Chronic Plan: Will continue with his medication (8) History of CVA with residual deficit Current Visit: Yes Status: Chronic Plan: Patient with left-sided ender paresis. This remained stable. CT head scan unremarkable except for chronic encephalomalacia (9) Anxiety Current Visit: Yes Status: Chronic Plan: Will continue to provide medication as needed (10) Chronic pain Current Visit: Yes Status: Chronic Plan: Will review [facility]p medication and restart. Qualifiers: Chronic pain type: chronic pain syndrome Qualified Code(s): G89.4 - Chronic pain syndrome (11) History of noncompliance with medical treatment Current Visit: Yes Status: Chronic Plan: Patient has been non compliant with dialysis in the past. Family and considering hospice and discontinuing dialysis entirely. to come today to discuss further Discharge Plan: Jail Plan to discharge in: Greater than 2 days Time Spent Managing Pts Care (In Minutes): 55
[2017-07-23] MEDS: SEVELAMER CARBONATE 800 MG TABLET PO SCH ×3 (08:00→17:00)
[2017-07-23] MEDS: PANTOPRAZOLE 40MG TABLET PO SCH ×2 (08:57→10:13)
[2017-07-23] MEDS ORDERED: VANCOMYCIN 1 GM in NA CHLORIDE 0.9% 500 ML IVPB SCH (09:00)
[2017-07-23] MEDS: SUCRALFATE 1 GM TABLET PO SCH ×3 (09:00→21:00)
[2017-07-23] MEDS ORDERED: DRISDOL (VITAMIN D=ERGOCALCIFEROL) 50000 UNIT CAP PO SCH (09:00)
[2017-07-23] MEDS ORDERED: CLONIDINE 0.3 MG/PATCH TD SCH (09:00)
[2017-07-23] MEDS: PANTOPRAZOLE 40 MG INJ IVP SCH (09:00)
--- NOTE | 2017-07-23 09:08 | RAD REPORT ---
EXAM DESCRIPTION: RAD - Chest Single View - 07/23/2017 7:11 am CLINICAL HISTORY: Shortness of breath. COMPARISON: 07/22/2017 FINDINGS: Portable technique limits examination quality. The lower all changes seen in bilateral pulmonary opacities likely representing pulmonary edema. The patient's hand obscures a portion of the left upper lobe of the lung. The heart is mildly enlarged in size. Right-sided venous catheter is in place, unchanged. No displaced fractures. IMPRESSION: Stable chest since 07/22/2017 study.
[2017-07-23] MEDS: ENOXAPARIN 30 MG/0.3 ML SQ SCH (10:13)
[2017-07-23] MEDS: FOLIC ACID 1 MG TABLET PO SCH (10:13)
[2017-07-23] MEDS: ASPIRIN EC 81 MG TAB PO SCH (10:13)
[2017-07-23] MEDS: levETIRAcetam 500 MG TAB PO SCH ×2 (10:13→21:00)
[2017-07-23] MEDS: LEVOTHYROXINE SOD 0.05 MG TABLET PO SCH (10:13)
[2017-07-23 11:35] LABS: CKMB Creatine Kinase MB 9.7 ng/ml (0.3-4.0)
--- NOTE | 2017-07-23 14:58 | ECHO ---
HEIGHT: 6 ft 1 in WEIGHT: 179 lb 0 oz DATE OF STUDY: 07/23/[address]: Yahir Peña DO 2-DIMENSIONAL: YES M.MODE: YES DOPPLER: YES COLOR FLOW: YES TDS: NO PORTABLE: NO DEFINITY: NO BUBBLE STUDY: NO DIAGNOSIS: PULMONARY EDEMA, RENAL DISEASE CARDIAC HISTORY: CATHERIZATION: NO SURGERY: NO PROSTHETIC VALVE: NO PACEMAKER: NO MEASUREMENTS (cm) DIASTOLIC (NORMALS) SYSTOLIC (NORMALS) IVSd 1.3 (0.6-1.2) LA Diam 3.4 (1.9-4.0) LVEF 63% LVIDd 4.7 (3.5-5.7) LVIDs 3.1 (2.0-3.5) %FS 34% LVPWd 1.4 (0.6-1.2) Ao Diam 3.0 (2.0-3.7) 2 DIMENSIONAL ASSESSMENT: RIGHT ATRIUM: NORMAL LEFT ATRIUM: NORMAL RIGHT VENTRICLE: NORMAL LEFT VENTRICLE: LEFT VENTRICULAR HYPERTROPHY TRICUSPID VALVE: NORMAL MITRAL VALVE: NORMAL PULMONIC VALVE: NORMAL AORTIC VALVE: NORMAL PERICARDIAL EFFUSION: NONE AORTIC ROOT: NORMAL LEFT VENTRICULAR WALL MOTION: NORMAL. DOPPLER/COLOR FLOW: MILD MITRAL REGURGITATION. IMPAIRED LEFT VENTRICULAR RELAXATION. COMMENTS: NORMAL LEFT VENTRICULAR EJECTION FRACTION. LEFT VENTRICULAR HYPERTROPHY. MILD MITRAL REGURGITATION. IMPAIRED LEFT VENTRICULAR RELAXATION. TECHNOLOGIST: JOSE JEWELL
[2017-07-23] MEDS ORDERED: PIPER/TAZO/NS 2.25gm 2.25 GM/50 ML BAG IVPB SCH (15:00)
[2017-07-23 16:25] LABS: Potassium 4.7 mEq/L (3.6-5.0)
[2017-07-23] MEDS: PIPER/TAZO/NS 2.25gm 2.25 GM/50 ML BAG IVPB SCH (17:25)
[2017-07-24] MEDS: ISOSORBIDE DINIT 20 MG TAB PO SCH ×3 (00:42→15:21)
[2017-07-24] MEDS: PIPER/TAZO/NS 2.25gm 2.25 GM/50 ML BAG IVPB SCH ×2 (00:43→08:35)
[2017-07-24] MEDS: METOPROLOL TAR 50 MG TAB PO SCH ×2 (00:43→08:35)
--- NOTE | 2017-07-24 03:29 | CON ---
Date of Consultation: 07/23/2017 Chief Complaint: End-stage renal disease. History Of Present Illness: The patient presented to the hospital after he missed dialysis on 3 consecutive occasions. When lab work was done in the Er he was found to have severe hyperkalemia. Potassium was 7.4. The patient was treated with calcium gluconate, IV insulin with dextrose, albuterol inhaler and he received Kayexalate. The patient was found to have severe hyperazotemia. BUN was 130, creatinine 13.85. He was fluid overloaded and had congestive heart failure with interstitial pulmonary edema. He was admitted to ICU. He was treated for hypertensive emergency. Blood pressure systolic was up to 200. Stat dialysis was ordered to control a fluid overload and to treat a severe life-threatening hyperkalemia. The patient was short of breath. He was confuse and he was evaluated for possible acute myocardial infarction. Troponin 0.11. He had severe shortness of breath, hypoxemia, and BNP were 1591. He received dialysis with ultrafiltration and shortness of breath somewhat improved. After dialysis, potassium was evaluated and improved. The patient received dialysis with 1 potassium dialysate. The patient had echo done, which showed normal ejection fraction and left ventricular hypertrophy. The patient has history of hypertensive heart and kidney disease. He is dialysis dependent. He had been dialyzed 3 times per week, although the patient is noncompliant and he has missed 3 dialysis on 3 consecutive occasions and when he was admitted to the hospital STAT hemodialysis was done to provide metabolic clearance and to treat severe hyperkalemia and fluid overload. EMS was called because the patient was confused and his called 911 and brought him to the hospital. He was found to have anemia. Hemoglobin was 8.2. Procalcitonin was 1.15. Blood cultures were obtained and pending. The patient remains in ICU. Review of Systems: General: He denies fever, chills. Eyes: Denies new vision changes. Ears, Nose, Mouth, and Throat: Denies sore throat or earache. Respiratory: Denies PND or orthopnea. He is bed bound. GI: Denies nausea and vomiting. : Denies dysuria, hematuria. Musculoskeletal: Denies muscle ache. Denies gout. Cardiovascular: Denies chest pain. All other systems reviewed and all are negative. Past Medical History: Hypertension, hypertensive heart and kidney disease, CVA , renal osteodystrophy, anemia in CKD, history of noncompliance with medication and dialysis, diabetes mellitus type 2, chronic back pain, hypothyroidism, anxiety, history of CVA with residual left-sided weakness. Social History: Denies tobacco, alcohol, or illicit drugs. Family History: No kidney disease in the family. Physical Examination: General: The patient is alert, oriented x2. Eyes: Anicteric sclerae. EOMI. Ears, Nose, Mouth, and Throat: Oral mucosa moist. No pallor. Neck: Supple. No JVD. No bruits. Lungs: Crackles bilaterally at bases. Heart: S1, S2. No pericardial friction rub. Abdomen: Soft, benign. Extremities: Some edema present. No clubbing. No cyanosis. Neurological: Moving extremities. Cranial nerves intact. Psychiatric: Alert and oriented x2. Normal affect. Laboratory Data: Sodium 144, potassium 7.4, creatinine 13.85, glucose 112, total bilirubin 0.7. AST 18, ALT 12, AP 63, lipase 82, INR 1.068. APTT 33.9, PT 12.5. WBC 6.3, hemoglobin 8.2, platelet count 171,000. Impression And Plan: 1. Altered mental status, confusion. The patient presented to the hospital and was found to have confusion due to likely encephalopathy secondary to uremia. BUN was severely elevated. The patient has underlying history of cerebrovascular accident with left-sided weakness and history of conversion disorder with seizure. 2. Hypertension. Blood pressure was severely elevated. Continue blood pressure medication. Stat dialysis was done to obtain ultrafiltration and treat fluid overload. Stat dialysis was done with 1 potassium dialysate to treat severe hyperkalemia. The patient had emergent medical treatment for severe life-threatening hyperkalemia and subsequently emergent dialysis was done to control potassium level. 3. Diabetes mellitus. Continue insulin. 4. Renal osteodystrophy. Continue renal diet and binders. 5. Hypothyroid. Monitor TSH. Adjust medication. 6. Renal osteodystrophy. Continue low phosphorus diet. Monitor calcium and phosphorus level. 7. Hyperkalemia. After dialysis potassium improved to 3.9. Metabolic acidosis , controlled. The patient will have dialysis today to control hyperazotemia. Potassium level is within normal limits. BUN is 83. There is improvement of uremic symptomatology. The patient is alert and azotemia has improved with dialysis. The patient decided today that he wants to continue dialysis 3 times per week outpatient and he agreed to have dialysis in the hospital as well, to provide treatment for uremia. BRYAN/LUPE Voice ID: [id number] Report ID: [id number] DAVID
[2017-07-24] MEDS: HYDRALAZINE HCL 20 MG/ML VIAL IV PRN (05:52)
[2017-07-24] MEDS: LEVOTHYROXINE SOD 0.05 MG TABLET PO SCH (05:52)
[2017-07-24 05:56] LABS: Absolute Lymphocytes (CBC) 0.8 K/uL (0.7-4.9); Absolute Monocytes 0.5 K/uL (0.1-1.3); Absolute Neutrophil 2.4 K/uL (1.8-8.0); Basophils % 1.9 % (0-1.3); MCV 82.9 fL (80-100); MPV 8.8 fL (7.6-11.3); Monocytes % 11.6 % (3.3-12.3); RBC Red Blood Cell Count 3.38 M/uL (4.33-5.43)
[2017-07-24 06:03] LABS: Potassium 4.1 mEq/L (3.6-5.0)
[2017-07-24] MEDS: INSULIN -REGULAR HUMAN 50 UNIT/0.5 ML ML SQ SCH ×2 (07:30→11:22)
[2017-07-24] MEDS: NIFEDIPINE XL 90 MG TABLET PO SCH (08:34)
[2017-07-24] MEDS: FOLIC ACID 1 MG TABLET PO SCH (08:35)
[2017-07-24] MEDS: levETIRAcetam 500 MG TAB PO SCH (08:35)
[2017-07-24] MEDS: ASPIRIN EC 81 MG TAB PO SCH (08:35)
[2017-07-24] MEDS: PANTOPRAZOLE 40MG TABLET PO SCH (08:35)
[2017-07-24] MEDS: SEVELAMER CARBONATE 800 MG TABLET PO SCH ×2 (08:35→11:07)
[2017-07-24] MEDS: SUCRALFATE 1 GM TABLET PO SCH ×2 (08:36→15:21)
[2017-07-24] MEDS: ENOXAPARIN 30 MG/0.3 ML SQ SCH (08:36)
[2017-07-24] MEDS: PANTOPRAZOLE 40 MG INJ IVP SCH (08:37)
[2017-07-24] MEDS: RISPERIDONE 0.25 MG TABLET PO SCH (08:37)
[2017-07-24] MEDS ORDERED: D50W 25 GM/50 ML SYRINGE IV PRN (09:53)
[2017-07-24] MEDS ORDERED: GLUCAGON 1 MG/VIAL IM PRN (09:53)
[2017-07-24] MEDS ORDERED: EPOETIN ALFA 10,000 UNIT/ML SQ SCH (10:00)
[2017-07-24 11:18] LABS: Phosphorus 6.3 mg/dL (2.5-4.3)
[2017-07-24 11:30] LABS: Magnesium 1.9 mg/dL (1.8-2.5)
--- NOTE | 2017-07-24 11:38 | P.DS ---
Admission Date: 07/22/17 (Hospitalist) Discharge Date: 07/24/17 Primary Care Provider: [facility] [place] Disposition: ROUTINE DISCHARGE Discharge Condition: FAIR Reason for Admission: Altered mental status Consultations: Nephrology Brief History of Present Illness: Patient is 56 years of age who refused dialysis admitted with altered mental status, acute on chronic renal failure Hospital Course: Patient did well no new complications 2 he underwent dialysis and was discharged today at the time of discharge he was alert oriented responsive cooperative vital signs all stable oxygenation satisfactory chest clear cardiovascular muscles normal abdomen soft extremities minimal edema Vital Signs/Physical Exam: Temp Pulse Resp BP Pulse Ox 98 F 68 13 113/80 97 07/24/17 08:00 07/24/17 11:00 07/24/17 11:00 07/24/17 11:00 07/24/17 11:00 Laboratory Data at Discharge: WBC 3.9 K/uL (4.3-10.9) L D 07/24/17 05:14 Hgb 9.1 g/dL (13.6-17.9) L 07/24/17 05:14 Hct 28.0 % (39.6-49.0) L 07/24/17 05:14 Plt Count 199 K/uL (152-406) 07/24/17 05:14 PT 12.5 SECONDS (9.5-12.5) 07/22/17 16:43 INR 1.06 07/22/17 16:43 APTT 33.9 SECONDS (24.3-36.9) 07/22/17 16:43 Sodium 137 mEq/L (135-145) 07/24/17 05:14 Potassium 4.1 mEq/L (3.6-5.0) 07/24/17 05:14 BUN 55 mg/dL (6-20) H D 07/24/17 05:14 Creatinine 7.85 mg/dL (0.61-1.24) H* D 07/24/17 05:14 Glucose 112 mg/dL (65-120) 07/24/17 05:14 Phosphorus 6.3 mg/dL (2.5-4.3) H 07/24/17 10:55 Magnesium 1.9 mg/dL (1.8-2.5) 07/24/17 10:55 Total Bilirubin 0.7 mg/dL (0.3-1.2) 07/22/17 16:43 AST 18 IU/L (10-42) 07/22/17 16:43 ALT 12 IU/L (10-60) 07/22/17 16:43 Alkaline Phosphatase 63 IU/L (42-121) 07/22/17 16:43 Troponin I 0.14 ng/mL (<0.03) H 07/23/17 10:45 B-Natriuretic Peptide 1591 pg/ml (<=100) H 07/22/17 16:43 Triglycerides 82 mg/dL (35-160) 07/23/17 04:11 Cholesterol 96 mg/dL (<200) 07/23/17 04:11 HDL Cholesterol 45 mg/dL (27-67) 07/23/17 04:11 Cholesterol/HDL Ratio 2.13 07/23/17 04:11 Lipase 82 U/L (22-51) H 07/22/17 16:43 Home Medications: Aspirin [Aspirin EC 81 MG] 81 mg PO DAILY 07/23/17 Cholecalciferol (Vitamin D3) [Vitamin D3] 2 cap PO DAILY 07/23/17 Clonidine Patch [Catapres-Tts 3*] 1 patch TD EVERY 7TH DAY 07/23/17 Ergocalciferol (Vitamin D2) [Vitamin D 50,000 Unit Cap] 50,000 unit PO EVERY 7TH DAY 07/23/17 Folic Acid 1 mg PO DAILY 07/23/17 Isosorbide Dinit [Isordil*] 20 mg PO TID 07/23/17 Levetiracetam [Keppra] 500 mg PO BID 07/23/17 Levothyroxine [Synthroid*] 50 mcg PO DAILY 07/23/17 Metoprolol Tartrate [Lopressor] 50 mg PO BID 07/23/17 Nifedipine [Nifedipine ER] 90 mg PO DAILY 07/23/17 Pantoprazole Sodium [Protonix] 40 mg PO DAILY 07/23/17 Risperidone 0.5 mg PO DAILY 07/23/17 Sevelamer HCl [Renagel] 3 tab PO TID 07/23/17 Sucralfate [Carafate] 1 gm PO TID 07/23/17 Tramadol HCl [Ultram] 50 mg PO Q6HR PRN 07/23/17 Diet: Low sodium
--- NOTE | 2017-07-24 15:16 | PN ---
Date of Progress Note: 07/24/2017 Chief Complaint: End-stage renal disease, on dialysis. History Of Present Illness: The patient has history of noncompliance. He missed 3 dialysis sessions and was brought to the hospital because of altered mental status. He was found to have severely elevated BUN. He was uremic and had severe hyperkalemia, potassium was 7.4. The patient was initiated on medication treatment to stabilize potassium and stat dialysis was done to treat hyperkalemia. The patient agreed to continue dialysis. Primarily he decided that he wants to go on hospice after he had stat dialysis done for hyperkalemia but yesterday as well as today definitely, he said that he wants to continue dialysis and today he stated he wants to continue dialysis for end-stage renal disease 3 times per week and wants to have dialysis in outpatient setting. Review of Systems: Denies fever or chills. Physical Examination: Lungs: Clear to auscultation bilaterally. Heart: S1, S2. Abdomen: Soft, benign, and nontender. Extremities: No edema. Laboratory Data: Sodium 137, potassium 4.1, chloride 102, CO2 26, BUN 55, creatinine 7.85, glucose 112, calcium 8.8, magnesium 2.2. Hematology: Hemoglobin 9.1, WBC 3.1, platelet count 1,99,000. Impression And Plan: 1. End-stage renal disease. Azotemia improving with dialysis. The patient is stable and potassium level is controlled. The patient will continue low- potassium diet. Dietary consult will be obtained for education as far as dietary limitation with low potassium, low phosphorous, low sodium. Continue p.o. fluid restriction to prevent hypervolemia. 2. Hypertension. Blood pressure is improving. 3. Anemia and chronic kidney disease. Continue KEEGAN for anemia due to chronic kidney disease. EB/MODL Voice ID: [id number] Report ID: [id number] DAVID
--- NOTE | 2017-07-24 18:03 | RAD REPORT ---
EXAM DESCRIPTION: US - Renal Ultrasound-Complete - 07/24/2017 5:27 pm CLINICAL HISTORY: End-stage renal disease. COMPARISON: None. FINDINGS: Both kidneys are small in size with preserved corticomedullary differentiation. The right kidney measures 8.6 x 4.6 x 3.6 cm. No hydronephrosis, focal mass or perinephric fluid. The left kidney measures 9.1 x 5.0 x 4.4 cm. No hydronephrosis, focal mass or perinephric fluid. IMPRESSION: Mild renal atrophy, otherwise negative study.
[2017-07-25] MEDS ORDERED: THIAMINE HCL 100 MG TABLET PO SCH (09:00)
[2017-07-26 03:34] LABS: HBsAG Nonreactive (Nonreactive)
[2017-07-27 09:12] LABS: HIV 1/2 Antibody Diff Not indicated.; HIV AG/AB 4TH GEN Non-reactive (Non-reactive)
== END 2017-07-24 17:00 | DRG 70 ==
LOC: ER 15:47 → ERHOLD 19:00 → 3RD-ICU 19:11
PROVIDERS: ADMIT Family Medicine; ATTEND Internal Medicine Sleep Medicine
PROC: 5A1D70Z Performance of Urinary Filtration, Intermittent, Less than 6 Hours Per Day (ICD-10-PCS; principal; 2017-07-22)
PROC: 5A1D70Z Performance of Urinary Filtration, Intermittent, Less than 6 Hours Per Day (ICD-10-PCS; 2017-07-23)
DX: G93.49 Other encephalopathy (principal); N18.6 End stage renal disease; I69.354 Hemiplegia and hemiparesis following cerebral infarction affecting left non-dominant side; I12.0 Hypertensive chronic kidney disease with stage 5 chronic kidney disease or end stage renal disease; E87.5 Hyperkalemia; E11.22 Type 2 diabetes mellitus with diabetic chronic kidney disease; E03.9 Hypothyroidism, unspecified; D63.1 Anemia in chronic kidney disease; F44.5 Conversion disorder with seizures or convulsions; G89.4 Chronic pain syndrome; F41.9 Anxiety disorder, unspecified; Z91.15 Patient's noncompliance with renal dialysis; Z99.2 Dependence on renal dialysis
CPT/HCPCS: 36415; 51702; 70450; 71045; 76770; 80048; 80061; 80076; 81015; 82140; 82306; 82550; 82553; 82962; 83605; 83690; 83735; 83880; 84100; 84145; 84439; 84443; 84484; 85025; 85610; 85730; 86704; 86706; 86803; 87040; 87086; 87088; 87340; 87389; 90935; 93005; 93306; 99285; C9113; J0360; J0610; J0885; J1650; J2543; J3370

== ENCOUNTER 2017-11-25 16:43 | Emergency (ER) | payer OTHER ==
--- OUTSIDE RECORDS SUMMARY | 2017-11-25 16:48 | XMS REPORT | Summary of Care ---
:1960 Author Organization [facility] Address [address], [place] [address]- Encounter HQ Jenifer(DAMIEN) [phone] Date(s): 09/17/16 - 09/18/16 [facility] [address] [place] [phone]- Discharge Disposition: Home or Self Care Attending Physician: Laura Randall DO Admitting Physician: Laura Randall DO Vital Signs Most recent to oldest [Reference 1 2 3 Range]: Height 180.34 cm (09/17/16 8:03 PM) Temperature Oral [96.4-99.1 DegF] 98.2 DegF 98.3 DegF 97.5 DegF (09/18/16 9:02 PM) (09/18/16 5:32 PM) (09/18/16 11:46 AM) Blood Pressure [90-140/60-90 140/82 mmHg 172/89 mmHg 141/86 mmHg mmHg] (09/18/16 9:02 PM) *HI* *HI* (09/18/16 5:32 PM) (09/18/16 11:46 AM) Respiratory Rate [14-20 BRMIN] 22 BRMIN 20 BRMIN 20 BRMIN *HI* (09/18/16 5:32 PM) (09/18/16 11:46 AM) (09/18/16 9:02 PM) Peripheral Pulse Rate [60-100 77 bpm 72 bpm 76 bpm bpm] (09/18/16 9:02 PM) (09/18/16 5:32 PM) (09/18/16 11:46 AM) Weight 109.091 kg (09/17/16 8:03 PM) Body Mass Index 33.54 m2 (09/17/16 8:03 PM) Problem List Condition Effective Dates Status Health Status Informant CAD (coronary artery Resolved disease)(Confirmed) CVA (cerebral infarction)(Confirmed) Resolved Diabetes mellitus(Confirmed) Resolved Diabetic neuropathy(Confirmed) Resolved Diabetic retinopathy(Confirmed) Resolved Hyperlipemia(Confirmed) Resolved Hypertension(Confirmed) Resolved Hypothyroidism(Confirmed) Resolved MA (myocardial Resolved infarction)(Confirmed) Spasms, infantile(Confirmed) Resolved Allergies, Adverse Reactions, Alerts Substance Reaction Severity Status NKDA Active Medications acetaminophen 650 mg, 2 tab, Route: PO, Drug form: TAB, Q4H, Dosing Weight 109.091, kg, PRN Pain 1-3/Temp > 100.4 F, Start date: 09/18/16 2:08:00 CDT, Duration: 30 day, Stop date: 10/18/16 2:07:00 CDT Notes: Do not exceed 4 gm/day. (Same as: Tylenol) Start Date: 09/18/16 Stop Date: 09/19/16 Status: Discontinuedalbumin human 25% intravenous solution 12.5 gm, 50 mL, Route: IVPB, Drug form: INJ, PRN, Dosing Weight 109.091, kg, PRN Dialysis, Start date: 09/18/16 10:21:00 CDT, Duration: 30 day, Stop date: 10:20:00 CDT, (Give up to two doses prn each dialysis) Notes: LOT#: Mfg: WASTE: F/P - Red; E -Red (Same as: Albuminar)"blood product derivative" Start Date: 09/18/16 Stop Date: 09/19/16 Status: Discontinuedatorvastatin 40 mg, 1 tab, Route: PO, Drug form: TAB, Bedtime, Dosing Weight 109.091, kg, Start date: 09/18/16 21:00:00 CDT, Duration: 30 day, Stop date: 10/17/16 21:00: 00 CDT Notes: (Same as: Lipitor) Start Date: 09/18/16 Stop Date: 09/19/16 Status: Discontinuedcalcitriol 0.25 microgram, 1 cap, Route: PO, Drug form: CAP, Daily, Dosing Weight 109.091, kg, Start date: 09/19/16 9:00:00 CDT, Duration: 30 day, Stop date: 10/18/16 9:00 :00 CDT Notes: (Same As: Rocaltrol) Start Date: 09/19/16 Stop Date: 09/19/16 Status: Canceledcalcium carbonate 500 mg (200 mg elemental calcium) oral tablet 1,000 mg, 2 tab, Route: CHEW, Drug form: CHEWTAB, TID, Dosing Weight 109.091, kg , PRN Indigestion, Start date: 09/18/16 12:12:00 CDT, Duration: 30 day, Stop date: 10/18/16 12:11:00 CDT Notes: (Same As: Tums)Calcium Carbonate 500 bj=698 mg elemental calcium Dose=_ mg calcium carbonate ( mg elemental calcium) Start Date: 09/18/16 Stop Date: 09/19/16 Status: Discontinuedcarvedilol 12.5 mg, 1 tab, Route: PO, Drug form: TAB, Q12H, Dosing Weight 109.091, kg, Start date: 09/18/16 9:00:00 CDT, Duration: 30 day, Stop date: 10/17/16 21:00: 00 CDT Notes: Give with food. (Same As: Coreg) Start Date: 09/18/16 Stop Date: 09/18/16 Status: Discontinuedcarvedilol 25 mg, 1 tab, Route: PO, Drug form: TAB, BID, Dosing Weight 109.091, kg, Start date: 09/18/16 17:00:00 CDT, Duration: 30 day, Stop date: 10/18/16 9:00:00 CDT Notes: Give with food. (Same As: Coreg) Start Date: 09/18/16 Stop Date: 09/19/16 Status: Discontinuedclopidogrel 75 mg, 1 tab, Route: PO, Drug form: TAB, Daily, Dosing Weight 109.091, kg, Start date: 09/19/16 9:00:00 CDT, Duration: 30 day, Stop date: 10/18/16 9:00:00 CDT Notes: (Same As: Plavix) Start Date: 09/19/16 Stop Date: 09/19/16 Status: CanceledDextrose 50% Syringe 25 gm, 50 mL, Route: IVP, Drug Form: INJ, Dosing Weight 109.091, kg, PRN, PRN Blood Glucose Results,Start date: 09/18/16 2:25:00 CDT, Duration: 30 day, Stop date: 10/18/16 2:24:00 CDT Start Date: 09/18/16 Stop Date: 09/19/16 Status: DiscontinuedDextrose 50% Syringe 12.5 gm, 25 mL, Route: IVP, Drug Form: INJ, Dosing Weight 109.091, kg, PRN, PRN Blood Glucose Results, Start date: 09/18/16 2:25:00 CDT, Duration: 30 day, Stop date: 10/18/16 2:24:00 CDT Start Date: 09/18/16 Stop Date: 09/19/16 Status: Discontinueddocusate 100 mg, 1 cap, Route: PO, Drug form: CAP, BID, Dosing Weight 109.091, kg, Start date: 09/18/16 9:00:00 CDT, Duration: 30 day, Stop date: 10/17/16 17:00:00 CDT Notes: (Same as: Colace) (Do Not Crush) Start Date: 09/18/16 Stop Date: 09/19/16 Status: Discontinuedepoetin aniket (ESRD) 10,000 unit, 1 mL, Route: IVP, Drug form: INJ, PRN, Dosing Weight 109.091, kg, PRN Dialysis, (recommended dosing range - 50-100 units/Kg) 3 times/ Week, Start date: 09/18/16 10:21:00 CDT, Duration: 30 day, Stop date: 10/18/16 10:20:00 CDT Notes: (Same as: Procrit) epoetin aniket 42844 unit/1 ml VL.For dialysis use only. (Procrit)WASTE: F/P- Red; E -Red MEDICATION WASTE Product Size: 12254 unitProduct Wasted: ___ unit Start Date: 09/18/16 Stop Date: 09/19/16 Status: Discontinuedergocalciferol 50,000 IntlUnit, 1 cap, Route: PO, Drug form: CAP, QFri, Dosing Weight 109.091, kg, Start date: 09/18/16 21:00:00 CDT, Duration: 30 day, Stop date: 10/16/16 21: 00:00 CDT Notes: (Same as: Vitamin D) "Do Not Crush" Start Date: 09/18/16 Stop Date: 09/19/16 Status: Discontinuedferrous sulfate 325 mg, 1 tab, Route: PO, Drug form: ECTAB, Daily, Dosing Weight 109.091, kg, Start date: 09/19/16 9:00:00 CDT, Duration: 30 day, Stop date: 10/18/16 9:00:00 CDT Notes: Give with food. "Do Not Crush" Start Date: 09/19/16 Stop Date: 09/19/16 Status: Canceledfolic acid 1 mg, 1 tab, Route: PO, Drug form: TAB, Daily, Dosing Weight 109.091, kg, Start date: 09/19/16 9:00:00 CDT, Duration: 30 day, Stop date: 10/18/16 9:00:00 CDT Notes: (Same as: Folvite) Start Date: 09/19/16 Stop Date: 09/19/16 Status: Canceledfurosemide 40 mg, 1 tab, Route: PO, Drug form: TAB, BID, Dosing Weight 109.091, kg, Start date: 09/18/16 17:00:00 CDT, Duration: 30 day, Stop date: 10/18/16 9:00:00 CDT Notes: (Same as: Lasix) May cause GI upset. Give with food or milk. Start Date: 09/18/16 Stop Date: 09/19/16 Status: Discontinuedglucagon 1 mg, Route: IM, Drug form: PDR/INJ, PRN, Dosing Weight 109.091, kg, PRN Blood Glucose Results, Start date: 09/18/16 2:25:00 CDT, Duration: 30 day, Stop date: 10/18/16 2:24:00 CDT Start Date: 09/18/16 Stop Date: 09/19/16 Status: DiscontinuedhydrALAZINE 20 mg, 1 mL, Route: IVP, Drug form: INJ, Q6H, Dosing Weight 109.091, kg, PRN Elevated BP, Start date: 09/18/16 10:32:00 CDT, Duration: 30 day, Stop date: 06/05 10:31:00 CDT, SBP more than 160mmHg Q 4 to 6hrly Notes: (Same as: Apresoline)Push over 5 minutes Start Date: 09/18/16 Stop Date: 09/19/16 Status: DiscontinuedhydrALAZINE 10 mg, 0.5 mL, Route: IVP, Drug form: INJ, Q4H, Dosing Weight 109.091, kg, PRN Hypertension, Start date: 09/18/16 2:51:00 CDT, Duration: 30 day, Stop date: 06/05 2:50:00 CDT Notes: (Same as: Apresoline)Push over 5 minutes Start Date: 09/18/16 Stop Date: 09/18/16 Status: Discontinuedinsulin aspart 4 unit, 0.04 mL, Route: SUB-Q, Drug form: SOLN, Bedtime, Dosing Weight 109.091, kg, PRN Blood Glucose Results, Start date: 09/18/16 2:25:00 CDT, Duration: 30 day, Stop date: 10/18/16 2:24:00 CDT Notes: Roll in palms of hands gently; Do not shake vigorously. (Same as: NovoLOG)"single patient use only"WASTE: F/P - Black; E - Municipal Trash Bin Stable for 28 days at room temperature.Expires in days from Date Start Date: 09/18/16 Stop Date: 09/19/16 Status: Discontinuedinsulin aspart 8 unit, 0.08 mL, Route: SUB-Q, Drug form: SOLN, TID-Before Meals, Dosing Weight 109.091, kg, PRN Blood Glucose Results, Start date: 09/18/16 2:25:00 CDT, Duration: 30 day, Stop date: 10/18/16 2:24:00 CDT Notes: Roll in palms of hands gently; Do not shake vigorously. (Same as: NovoLOG)"single patient use only"WASTE: F/P - Black; E - Municipal Trash Bin Stable for 28 days at room temperature.Expires in days from Date Start Date: 09/18/16 Stop Date: 09/19/16 Status: Discontinuedinsulin aspart 10 unit, 0.1 mL, Route: SUB-Q, Drug form: SOLN, TID-Before Meals, Dosing Weight 109.091, kg, PRN Blood Glucose Results, Start date: 09/18/16 2:25:00 CDT, Duration: 30 day, Stop date: 10/18/16 2:24:00 CDT Notes: Roll in palms of hands gently; Do not shake vigorously. (Same as: Amino Apps)"single patient use only"WASTE: F/P - Black; E - Municipal Trash Bin Stable for 28 days at room temperature.Expires in days from Date Start Date: 09/18/16 Stop Date: 09/19/16 Status: Discontinuedinsulin aspart 6 unit, 0.06 mL, Route: SUB-Q, Drug form: SOLN, TID-Before Meals, Dosing Weight 109.091, kg, PRN Blood Glucose Results, Start date: 09/18/16 2:25:00 CDT, Duration: 30 day, Stop date: 10/18/16 2:24:00 CDT Notes: Roll in palms of hands gently; Do not shake vigorously. (Same as: Amino Apps)"single patient use only"WASTE: F/P - Black; E - Municipal Trash Bin Stable for 28 days at room temperature.Expires in days from Date Start Date: 09/18/16 Stop Date: 09/19/16 Status: Discontinuedinsulin aspart 3 unit, 0.03 mL, Route: SUB-Q, Drug form: SOLN, Bedtime, Dosing Weight 109.091, kg, PRN Blood Glucose Results, Start date: 09/18/16 2:25:00 CDT, Duration: 30 day, Stop date: 10/18/16 2:24:00 CDT Notes: Roll in palms of hands gently; Do not shake vigorously. (Same as: Get SatisfactionLOG)"single patient use only"WASTE: F/P - Black; E - Municipal Trash Bin Stable for 28 days at room temperature.Expires in days from Date Start Date: 09/18/16 Stop Date: 09/19/16 Status: Discontinuedinsulin aspart 1 unit, 0.01 mL, Route: SUB-Q, Drug form: SOLN, Bedtime, Dosing Weight 109.091, kg, PRN Blood Glucose Results, Start date: 09/18/16 2:25:00 CDT, Duration: 30 day, Stop date: 10/18/16 2:24:00 CDT Notes: Roll in palms of hands gently; Do not shake vigorously. (Same as: NovoLOG)"single patient use only"WASTE: F/P - Black; E - Municipal Trash Bin Stable for 28 days at room temperature.Expires in days from Date Start Date: 09/18/16 Stop Date: 09/19/16 Status: Discontinuedinsulin aspart 2 unit, 0.02 mL, Route: SUB-Q, Drug form: SOLN, Bedtime, Dosing Weight 109.091, kg, PRN Blood Glucose Results, Start date: 09/18/16 2:25:00 CDT, Duration: 30 day, Stop date: 10/18/16 2:24:00 CDT Notes: Roll in palms of hands gently; Do not shake vigorously. (Same as: NovoLOG)"single patient use only"WASTE: F/P - Black; E - Municipal Trash Bin Stable for 28 days at room temperature.Expires in days from Date Start Date: 09/18/16 Stop Date: 09/19/16 Status: Discontinuedinsulin aspart 4 unit, 0.04 mL, Route: SUB-Q, Drug form: SOLN, TID-Before Meals, Dosing Weight 109.091, kg, PRN Blood Glucose Results, Start date: 09/18/16 2:25:00 CDT, Duration: 30 day, Stop date: 10/18/16 2:24:00 CDT Notes: Roll in palms of hands gently; Do not shake vigorously. (Same as: NovoLOG)"single patient use only"WASTE: F/P - Black; E - Municipal Trash Bin Stable for 28 days at room temperature.Expires in days from Date Start Date: 09/18/16 Stop Date: 09/19/16 Status: Discontinuedinsulin aspart 2 unit, 0.02 mL, Route: SUB-Q, Drug form: SOLN, TID-Before Meals, Dosing Weight 109.091, kg, PRN Blood Glucose Results, Start date: 09/18/16 2:25:00 CDT, Duration: 30 day, Stop date: 10/18/16 2:24:00 CDT Notes: Roll in palms of hands gently; Do not shake vigorously. (Same as: NovoLOG)"single patient use only"WASTE: F/P - Black; E - Municipal Trash Bin Stable for 28 days at room temperature.Expires in days from Date Start Date: 09/18/16 Stop Date: 09/19/16 Status: Discontinuedisosorbide mononitrate 30 mg, 1 tab, Route: PO, Drug form: ERTAB, Daily, Dosing Weight 109.091, kg, Start date: 09/19/16 9:00:00 CDT, Duration: 30 day, Stop date: 10/18/16 9:00:00 CDT Notes: (Same as:Imdur)"Do Not Crush" Take on empty stomach/ full glass of water. Do not crush Start Date: 09/19/16 Stop Date: 09/18/16 Status: Deletedisosorbide mononitrate extended release 30 mg, 1 tab, Route: PO, Drug form: ERTAB, QAM, Dosing Weight 109.091, kg, Start date: 09/18/16 9:00:00 CDT, Duration: 30 day, Stop date: 10/17/16 9:00:00 CDT Notes: (Same as:Imdur)"Do Not Crush" Take on empty stomach/ full glass of water. Do not crush Start Date: 09/18/16 Stop Date: 09/19/16 Status: Discontinuedlactulose 10 g/15 mL oral syrup 20 gm, 30 mL, Route: PO, Drug form: SYRP, PRN, Dosing Weight 109.091, kg, PRN as needed for constipation, Start date: 09/18/16 10:33:00 CDT, Duration: 30 day , Stop date: 10/18/16 10:32:00 CDT Notes: (Same as:Chronulac) Start Date: 09/18/16 Stop Date: 09/19/16 Status: DiscontinuedlevETIRAcetam 500 mg, 1 tab, Route: PO, Drug form: TAB, BID, Dosing Weight 109.091, kg, Start date: 09/18/16 12:12:00 CDT, Duration: 30 day, Stop date: 10/18/16 9:00:00 CDT Notes: (Same as:David) Start Date: 09/18/16 Stop Date: 09/19/16 Status: Discontinuedlevothyroxine 50 microgram, 1 tab, Route: PO, Drug form: TAB, Q630AM, Dosing Weight 109.091, kg, Start date: 09/18/16 6:30:00 CDT, Duration: 30 day, Stop date: 10/17/16 6:30 :00 CDT Notes: Take 1 hour before or 2 hours after meal; Enteral feeds may interefere with the absorption ofthis medication.(Same as:Levothroid, Synthroid) Start Date: 09/18/16 Stop Date: 09/19/16 Status: Discontinuedmagnesium sulfate 2 gm, 50 mL, Route: IV, Drug form: INJ, PRN, Dosing Weight 109.091, kg, PRN Abnormal Lab Result, Start date: 09/18/16 10:33:00 CDT, Duration: 30 day, Stop date: 10/18/16 10:32:00 CDT, to be given IV "PRN" only for s. magnesium if < 1.7 Notes: WASTE: F/P - Sink; E - Municipal Trash Bin Start Date: 09/18/16 Stop Date: 09/19/16 Status: Discontinuedminoxidil 5 mg, 2 tab, Route: PO, Drug form: TAB, Q12H, Dosing Weight 109.091, kg, Start date: 09/18/16 9:00:00 CDT, Duration: 30 day, Stop date: 10/17/16 21:00:00 CDT Notes: (Same as:Loniten) Start Date: 09/18/16 Stop Date: 09/19/16 Status: DiscontinuedNephro-Pawan 1 tab, Route: PO, Drug Form: TAB, Dosing Weight 109.091, kg, Daily, Start date: 09/19/16 9:00:00 CDT, Duration: 30 day, Stop date: 10/18/16 9:00:00 CDT Notes: (Same as: Nephro-Pawan Rx and Diatx) Give with food. Start Date: 09/19/16 Stop Date: 09/19/16 Status: CanceledNIFEdipine 30 mg oral tablet, extended release 30 mg, 1 tab, Route: PO, Drug form: ERTAB, Daily, Dosing Weight 109.091, kg, Start date: 09/18/16 9:00:00 CDT, Duration: 30 day, Stop date: 10/17/16 9:00:00 CDT Notes: (Same as: Adalat CC, Procardia XL) h. Take 1 hour before or 2 hours after meal; "Avoid grapefruit and grapefruit juice". Do not crush Start Date: 09/18/16 Stop Date: 09/19/16 Status: Discontinuedondansetron 4 mg, 2 mL, Route: IVP, Drug form: INJ, Q6H, Dosing Weight 109.091, kg, PRN Nausea & Vomiting, Start date: 09/18/16 2:08:00 CDT, Duration: 30 day, Stop date: 10/18/16 2:07:00 CDT Notes: (Same as: Nicole) MEDICATION WASTE Product Size: 4 mgProduct Wasted: ___ mg Start Date: 09/18/16 Stop Date: 09/19/16 Status: Discontinuedparicalcitol 5 microgram, 1 mL, Route: IV, Drug form: INJ, During Dialysis, Dosing Weight 109.091, kg, PRN Other -See Comment, Start date: 09/18/16 10:21:00 CDT, Duration : 30 day, Stop date: 10/18/16 10:20:00 CDT Notes: (Same as: Zemplar) MEDICATION WASTE Product Size: 5 microgram Product Wasted: ___microgram Start Date: 09/18/16 Stop Date: 09/19/16 Status: Discontinuedpotassium chloride 20 mEq, 1 tab, Route: PO, Drug form: ERTAB, PRN, Dosing Weight 109.091, kg, PRN Abnormal Lab Result,Start date: 09/18/16 10:32:00 CDT, Duration: 30 day, Stop date: 10/18/16 10:31:00 CDT Notes: (Same as: K-Dur 20)"Do Not Crush" With food and full glass of water Start Date: 09/18/16 Stop Date: 09/19/16 Status: Discontinuedpotassium chloride 40 mEq, 2 tab, Route: PO, Drug form: ERTAB, PRN, Dosing Weight 109.091, kg, PRN Abnormal Lab Result,Start date: 09/18/16 10:32:00 CDT, Duration: 30 day, Stop date: 10/18/16 10:31:00 CDT Notes: (Same as: K-Dur 20)"Do Not Crush" With food and full glass of water Start Date: 09/18/16 Stop Date: 09/19/16 Status: Discontinuedpotassium chloride 20 mEq, 1 tab, Route: PO, Drug form: ERTAB, PRN, Dosing Weight 109.091, kg, PRN Abnormal Lab Result,Start date: 09/18/16 10:32:00 CDT, Duration: 30 day, Stop date: 10/18/16 10:31:00 CDT Notes: (Same as: K-Dur 20)"Do Not Crush" With food and full glass of water Start Date: 09/18/16 Stop Date: 09/19/16 Status: Discontinuedpotassium chloride 40 mEq, 2 tab, Route: PO, Drug form: ERTAB, PRN, Dosing Weight 109.091, kg, PRN Abnormal Lab Result,Start date: 09/18/16 10:32:00 CDT, Duration: 30 day, Stop date: 10/18/16 10:31:00 CDT Notes: (Same as: K-Dur 20)"Do Not Crush" With food and full glass of water Start Date: 09/18/16 Stop Date: 09/19/16 Status: DiscontinuedRenagel 1,600 mg, 2 tab, Route: PO, Drug form: TAB, TID, Dosing Weight 109.091, kg, Start date: 09/18/16 13:00:00 CDT, Duration: 30 day, Stop date: 10/18/16 9:00: 00 CDT Notes: Same as: Renvela Start Date: 09/18/16 Stop Date: 09/19/16 Status: Discontinuedsodium chloride 0.9% 1000 ml INJ 1,000 mL 1,000 mL, Rate: prn on hdx only ml/hr, Route: IV, Dosing Weight 109.091 kg, Total Volume: 1,000, Start date: 09/18/16 10:21:00 CDT, Duration: 30 day, Stop date: 10/18/16 10:20:00 CDT Start Date: 09/18/16 Stop Date: 09/19/16 Status: Discontinuedsodium chloride 0.9% INJ 250 mL 250 mL, Rate: [employer] for use with blood product administration., Dosing Weight 109.091, kg, Route: IV, Total Volume: 250, Priority: Routine, Start Date: 23:00:00 CDT, Duration: 30 day, Stop date: 10/17/16 22:59:00 CDT, Replace Every: 24 hr Start Date: 09/17/16 Stop Date: 09/19/16 Status: Discontinuedsodium citrate 5 mL, Route: IV, Drug Form: INJ, After Dialysis, PRN Dialysis, Start date: 09/18 14:47:00 CDT, Duration: 30 day, Stop date: 10/18/16 14:46:00 CDT Notes: (Same as: Sodium Citrate, anticoagulant) For Dialysis Only Start Date: 09/18/16 Stop Date: 09/19/16 Status: Discontinuedthiamine 50 mg, 0.5 tab, Route: PO, Drug form: TAB, Daily, Dosing Weight 109.091, kg, Start date: 09/19/16 9:00:00 CDT, Duration: 30 day, Stop date: 10/18/16 9:00:00 CDT Notes: (Same As: Vitamin B1) Start Date: 09/19/16 Stop Date: 09/19/16 Status: CanceledUltram 50 mg oral tablet 50 mg, 1 tab, Route: PO, Drug form: TAB, Q6H, Dosing Weight 109.091, kg, PRN Pain Score 6-10, Start date: 09/18/16 12:13:00 CDT, Duration: 30 day, Stop date : 10/18/16 12:12:00 CDT Notes: Not to exceed 400mg/day. (Same As: Ultram) Start Date: 09/18/16 Stop Date: 09/19/16 Status: Discontinued Results BLOOD BANK RESULTS Most recent to oldest [Reference Range]: 1 ABO/Rh B POS *Unknown* (09/18/16 12:41 AM) Antibody Scrn Negative (09/18/16 12:41 AM) RBC product Product available 1 (09/17/16 11:00 PM) 1Result Comment: 09/18/2016 01:53 [id number] Called [place] readyELECTROLYTES Most recent to oldest [Reference Range]: 1 Sodium Lvl [135-145 mEq/L] 141 mEq/L (09/17/16 9:30 PM) Potassium Lvl [3.5-5.1 mEq/L] 4.2 mEq/L (09/17/16 9:30 PM) Chloride Lvl [95-109 mEq/L] 105 mEq/L (09/17/16 9:30 PM) CO2 [24-32 mEq/L] 26 mEq/L (09/17/16 9:30 PM) AGAP [10.0-20.0 mEq/L] 14.2 mEq/L (09/17/16 9:30 PM) CHEM PANEL Most recent to oldest [Reference Range]: 1 Creatinine Lvl [0.50-1.40 mg/dL] 10.90 mg/dL *HI* (09/17/16 9:30 PM) eGFR 6 mL/min/1.73m2 1 *NA* (09/17/16 9:30 PM) BUN [7-22 mg/dL] 79 mg/dL *HI* (09/17/16 9:30 PM) B/C Ratio [6-25] 7 (09/17/16 9:30 PM) Glucose Lvl [70-99 mg/dL] 129 mg/dL *HI* (09/17/16 9:30 PM) Uric Acid [3.8-8.0 mg/dL] 4.3 mg/dL (09/18/16 2:20 PM) Total Protein [6.4-8.4 g/dL] 6.8 g/dL (09/17/16 9:30 PM) Albumin Lvl [3.5-5.0 g/dL] 3.1 g/dL *LOW* (09/17/16 9:30 PM) Globulin [2.7-4.2 g/dL] 3.7 g/dL (09/17/16 9:30 PM) A/G Ratio [0.7-1.6] 0.8 (09/17/16 9:30 PM) Calcium Lvl [8.5-10.5 mg/dL] 7.9 mg/dL *LOW* (09/17/16 9:30 PM) ALT [0-65 unit/L] 20 unit/L (09/17/16 9:30 PM) AST [0-37 unit/L] 19 unit/L (09/17/16 9:30 PM) Alk Phos [39-136 unit/L] 35 unit/L *LOW* (09/17/16 9:30 PM) Bili Total [0.2-1.3 mg/dL] 0.3 mg/dL (09/17/16 9:30 PM) 1Result Comment: The eGFR is calculated using the CKD-EPI formula. In most young , healthy individualsthe eGFR will be >90 mL/min/1.73m2. The eGFR declines with age. An eGFR of 60-89 may be normal in some populations, particularly the elderly, for whom the CKD-EPI formula has not been extensively validated. Use of the eGFR is not recommended in the following populations: Individuals with unstable creatinine concentrations, including patients and those with serious co-morbid conditions. Patients with extremes in muscle mass or diet. The data above are obtained from the National Kidney Disease Education Program ( NKDEP) which additionally recommends that when the eGFR is used in patients with extremes of body mass index for purposesof drug dosing, the eGFR should be multiplied by the estimated BMI.IMMUNOLOGY Most recent to oldest [Reference Range]: 1 Hep Bs Ag [Negative] Negative *NA* (09/18/16 2:20 PM) HEMATOLOGY Most recent to oldest [Reference Range]: 1 WBC [3.7-10.4 K/CMM] 4.8 K/CMM (09/17/16 9:30 PM) RBC [4.70-6.10 M/CMM] 2.13 M/CMM *LOW* (09/17/16 9:30 PM) Hgb [14.0-18.0 g/dL] 6.3 g/dL 1 *CRIT* (09/17/16 9:30 PM) Hct [42.0-54.0 %] 18.6 % *CRIT* (09/17/16 9:30 PM) MCV [80.0-94.0 fL] 87.5 fL (09/17/16 9:30 PM) MCH [27.0-31.0 pg] 29.6 pg (09/17/16 9:30 PM) MCHC [32.0-36.0 g/dL] 33.8 g/dL (09/17/16 9:30 PM) RDW [11.5-14.5 %] 18.5 % *HI* (09/17/16 9:30 PM) Platelet [133-450 K/CMM] 202 K/CMM (09/17/16 9:30 PM) MPV [7.4-10.4 fL] 8.5 fL (09/17/16 9:30 PM) Segs [45.0-75.0 %] 69.2 % (09/17/16 9:30 PM) Lymphocytes [20.0-40.0 %] 18.5 % *LOW* (09/17/16 9:30 PM) Monocytes [2.0-12.0 %] 7.9 % (09/17/16 9:30 PM) Eosinophils [0.0-4.0 %] 3.3 % (09/17/16 9:30 PM) Basophils [0.0-1.0 %] 1.1 % *HI* (09/17/16 9:30 PM) Segs-Bands # [1.5-8.1 K/CMM] 3.3 K/CMM (09/17/16 9:30 PM) Lymphocytes # [1.0-5.5 K/CMM] 0.9 K/CMM *LOW* (09/17/16 9:30 PM) Monocytes # [0.0-0.8 K/CMM] 0.4 K/CMM (09/17/16 9:30 PM) Eosinophils # [0.0-0.5 K/CMM] 0.2 K/CMM (09/17/16 9:30 PM) Basophils # [0.0-0.2 K/CMM] 0.1 K/CMM (09/17/16 9:30 PM) RBC Morph Normal (09/17/16 9:30 PM) Plt Morph Normal (09/17/16 9:30 PM) PT [12.0-14.7 seconds] 13.2 seconds (09/17/16 9:30 PM) INR [0.85-1.17] 0.98 (09/17/16 9:30 PM) PTT [22.9-35.8 seconds] 45.0 seconds *HI* (09/17/16 9:30 PM) 1Result Comment: Critical Result(s) called to Issa DEJESUS at 09/17/2016 22:10 [facility]. Read back OK. Immunizations No data available for this section Procedures Procedure Date Related Diagnosis Body Site Adjustment of intraluminal device of arteriovenous fistula Social History Social History Type Response Substance Abuse Use: None. Sexual Sexually active: No. Alcohol Past Smoking Status Current every day smoker; Type: Cigarettes; Exposure to Tobacco Smoke None; Cigarette Smoking Last 365 Days Yes; Reg Smoking Cessation Counseling Yes Assessment and Plan Extracted from: Title: Discharge Summary *template Author: Haseeb Hairston MD Date : 09/18/16 Discharge Information Home Care Instructions Notify Physician if any of the Following Occur : Bleeding, Fever, Nausea, Pain, Shortness of breath, Signs of infection, Swelling Special Home Care Instructions : Keep appointments for your dialysis as prescribed Come back to ER if bleeding recurs. Haseeb Hairston MD - 09/18/2016 12:09 CDT Discharge Diet Home Diet : Diet Renal 80,2,2,1 (pro, sod, pot, phos) Fluid Restriction : Yes Fluid Restriction Amount : 1.5 Liters (50 ounces) Discharge Weight Gain : Call for weight gain of 3 pounds in 48 hours Haseeb Hairston MD - 09/18/2016 12:09 CDT Physician Follow-Up v2 Follow-Up With Provider : Non-[facility] physician Non Provider #1 : FU with your Insurance And Benefits Clerk or Dr Mckee Follow-Up Call : Call for appointment Follow-Up Within : 5 Days Reason : Follow Up On Treatment Discharge Plan Discharge Summary Plan Discharge Status: fair. Discharge instructions given: to patient. Discharge disposition: discharge to home. Prescriptions: continue same medications. Education and Follow-up Counseled: patient, family.
--- OUTSIDE RECORDS SUMMARY | 2017-11-25 16:48 | XMS REPORT | Continuity of Care Document ---
:1960 Author Organization Interface Problems Problem Status Onset Classification Date Comments Source Date Reported ESRD NEEDING Active 10/19/19 DIALYS[facility]/HYPO[facility]ALE [facility] [place] KUSHAL WEAKNESS Active 10/19/19 [facility] UNK Active 09/30/19 [facility] [place] R ARM PAIN OR Active 09/18/19 [facility] INJURY [facility] [place] SEVERE ANEMIA, Active 09/18/19 [facility] ESRD ON DIALYSIS, [facility] [place] BLEEDIN END STAGE RENAL Active 06/01/19 [facility] DISEASE [facility] [place] END STAGE RENAL Active 06/01/19 [facility] DISEASE [facility] [place] CHEST PAIN RULE Active 05/18/19 [facility] OUT ACUTE PR [facility] [place] CHEST PAIN Active 05/18/19 [facility] [place] Bipolar disorder Active Problem 10/22/2017 [facility] CAD (<span Resolved Problem 10/22/2017 ID="[id number]"> [place], Confirmed</span>) H [facility] CVA (<span Resolved Problem 10/22/2017 ID="[id number]"> [place], Confirmed</span>) H [facility] Diabetes mellitus Resolved Problem 10/22/2017 [place], [facility] DM (<span Active Problem 10/22/2017 ID="[id number]" [facility] >Confirmed</span> ) 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 [place], [facility] Diabetic Resolved Problem 10/22/2017 retinopathy [place], [facility] ESRD (<span Active Problem 10/22/2017 ID="[id number]" [facility] >Confirmed</span> ) Hyperlipemia Resolved Problem 10/22/2017 [place], [facility] Hyperlipidemia Active Problem 10/22/2017 [facility] Hypertension Resolved Problem 10/22/2017 [place] HTN (<span Active Problem 10/22/2017 ID="[id number]" [facility] >Confirmed</span> ) Hypothyroidism Resolved Problem 10/22/2017 [place], [facility] PR (<span Resolved Problem 10/22/2017 [facility] ID="[id number]"> [place], Confirmed</span>) H [facility] [place] Seizure disorder Active Problem 10/22/2017 [facility] Spasms, infantile Resolved Problem 10/22/2017 [facility], H [facility] END STAGE RENAL Active [facility] DISEASE [place] ANEMIA, Active [facility] UNSPECIFIED [place] HEMORRHAGE DUE TO Active [facility] VASCULAR PROSTH [place] DEV/GR Medications Medication Details Route Status Patient Ordering Order Source Instructions Provider Date Fentanyl 50 microgram, Inactive Route: IVP, 2017 [facility] Q5Min, Dosing Weight 90.909, kg, PRN Pain Score 7-10, Priority: Routine, Start date: 10/19/17 15:46:00 CDT, Duration: 2 doses or times, Stop date: Limited # of times Meperidine 12.5 mg, Route: Inactive 10/19[facility] IVP, Q30Min, 2017 [facility] Dosing Weight 90.909, kg, PRN Other -See Comment, For shivering, Start date: 10/19/17 15:46:00 CDT, Duration: 2 doses or times, Stop date: Limited # of times Ondansetron 4 mg, Route: Inactive 10/19[facility] IVP, ONCE, 2017 [facility] Dosing Weight 90.909, kg, PRN Nausea & Vomiting, Start date: 10/19/17 15:46:00 CDT Diphenhydramine 12.5 mg, Route: Inactive 10/19[facility] IVP, Drug form: 2017 [facility] INJ, Q6H, Dosing Weight 90.909, kg, PRN Itching, Start date: 10/19/17 15:46:00 CDT, Duration: 30 day, Stop date: 11/18/17 15:45:00 CDT Albuterol 0.83 2.49 mg, Route: Inactive MG/ML Inhalant NEB, Q20Min, 2017 [facility] Solution Dosing Weight 90.909, kg, PRN Wheezing, Priority: STAT, Start date: 10/19/17 15:46:00 CDT, Duration: 30 day, Stop date: 11/18/17 15:45:00 CDT Promethazine 6.25 mg, Route: Inactive 10/19[facility] IVPB, ONCE, 2017 [facility] Dosing Weight 90.909, kg, PRN Nausea & Vomiting, Start date: 10/19/17 15:46:00 CDT Naloxone 0.4 mg, Route: Inactive IVP, Q2MIN, 2017 [facility] Dosing Weight 90.909, kg, PRN Narcotic Reversal, Start date: 10/19/17 15:46:00 CDT, Duration: 8 doses or times, Stop date: Limited # of times Flumazenil 0.2 mg, Route: Inactive IVP, PRN, 2018 [facility] Dosing Weight 90.909, kg, PRN Benzodiazepine Reversal, Initial dose, Start date: 10/19/17 15:46:00 CDT, Duration: 30 day, Stop date: 11/18/17 15:45:00 CDT Hydralazine 10 mg, Route: Inactive IVP, Q20Min, 2017 [facility] Dosing Weight 90.909, kg, PRN Elevated BP, Start date: 10/19/17 15:46:00 CDT, Duration: 2 doses or times, Stop date: Limited # of times esmolol 10 mg, Route: Inactive IVP, Q5Min, 2017 [facility] Dosing Weight 90.909, kg, PRN Other -See Comment, Start date: 10/19/17 15:46:00 CDT, Duration: 5 doses or times, Stop date: Limited # of times Labetalol 10 mg, Route: Inactive IVP, Q5Min, 2017 [facility] Dosing Weight 90.909, kg, PRN Elevated BP, Start date: 10/19/17 15:46:00 CDT, Duration: 5 doses or times, Stop date: Limited # of times Calcium Chloride 1,000 mL, Rate: Inactive 0.0014 MEQ/ML / 125 ml/hr, 2017 [facility] Potassium Infuse over: 8 Chloride 0.004 hr, Route: IV, MEQ/ML / Sodium Dosing Weight Chloride 0.103 90.909 kg, MEQ/ML / Sodium Total Volume: Lactate 0.028 1,000, Start MEQ/ML Injectable date: 10/19/17 Solution 15:46:00 CDT, Duration: 30 day, Stop date: 11/18/17 15:45:00 CDT, 2.15, m2 Sodium Chloride 500 mL, Rate: Inactive 0.9% IV 500 mL 25 ml/hr, 2017 [facility] Infuse over: 20 hr, Route: IV, Dosing Weight 90.909 kg, Total Volume: 500, Start date: 10/19/17 14:29:00 CDT, Duration: 30 day, Stop date: 11/18/17 14:28:00 CDT, 2.15, m2 Albuterol 0.833 3 mL, Route: Inactive MG/ML / NEB, Dosing 2017 [facility] Ipratropium Weight 90.909, [place] 0.167 kg, ONCE, STAT, MG/ML Inhalant Start date: Solution 10/19/17 14:28:00 CDT, Stop date: 10/19/17 14:28:00 CDT Calcium Chloride 1,000 mL, Rate: Inactive 0.0014 MEQ/ML / 25 ml/hr, 2017 [facility] Potassium Infuse over: 40 Chloride 0.004 hr, Route: IV, MEQ/ML / Sodium Dosing Weight Chloride 0.103 90.909 kg, MEQ/ML / Sodium Total Volume: Lactate 0.028 1,000, Start MEQ/ML Injectable date: 10/19/17 Solution 14:28:00 CDT, Duration: 30 day, Stop date: 11/18/17 14:27:00 CDT, 2.15, m2 Sucralfate 1 gm, 1 tab, Inactive Route: PO, Drug 2017 [facility] form: TAB, TID, Dosing Weight 90.909, kg, Start date: 10/19/17 9:00:00 CDT, Duration: 30 day, Stop date: 11/17/17 17:00:00 CDTNotes: May interfere w/enteral feeds - Take 1 hr before or 2 hr after antacids, dairy pdt, meals & minerals - On empty stomach. For patients unable to swallow tablet, dissolve in 10mL - 30mL of water or juice and stir before giving. (Same As: Carafate) RenaGel 3,200 mg, No Longer Route: PO, Drug Active 2017 [facility] form: TAB, TID, Dosing Weight 90.909, kg, Start date: 10/19/17 9:00:00 CDT, Duration: 30 day, Stop date: 11/17/17 17:00:00 CDT Risperdal 0.25 mg, 1 tab, Inactive Route: PO, Drug 2017 [facility] form: TAB, Daily, Dosing Weight 90.909, kg, Start date: 10/19/17 9:00:00 CDT, Duration: 30 day, Stop date: 11/17/17 9:00:00 CDTNotes: (Same as: Risperdal) sevelamer 3,200 mg, 4 Inactive tab, Route: PO, 2017 [facility] Drug form: TAB, TID, Start date: 10/19/17 9:00:00 CDT, Duration: 30 day, Stop date: 11/17/17 17:00:00 CDTNotes: Same as: Renvela NIFEdipine 90 mg 90 mg, 1 tab, Inactive oral tablet, Route: PO, Drug 2017 [facility] extended release form: ERTAB, Daily, Dosing Weight 90.909, kg, Start date: 10/19/17 9:00:00 CDT, Duration: 30 day, Stop date: 11/17/17 9:00:00 CDTNotes: (Same as: Adalat CC,Procardia XL) "Do Not Crush" "Avoid grapefruit and grapefruit juice" Nephro-Pawan 1 tab, Route: Inactive PO, Drug Form: 2017 [facility] TAB, Dosing Weight 90.909, kg, Daily, Start date: 10/19/17 9:00:00 CDT, Duration: 30 day, Stop date: 11/17/17 9:00:00 CDTNotes: (Same as: Nephro-Pawan Rx and Diatx) Give with food. Levetiracetam 500 500 mg, 1 tab, Inactive MG Oral Tablet Route: PO, Drug 2017 [facility] [Keppra] form: TAB, BID, Dosing Weight 90.909, kg, Start date: 10/19/17 9:00:00 CDT, Duration: 30 day, Stop date: 11/17/17 17:00:00 CDTNotes: (Same as:Keppra) Isosorbide 20 mg, 2 tab, Inactive Route: PO, Drug 2017 [facility] form: TAB, TID, Dosing Weight 90.909, kg, Start date: 10/19/17 9:00:00 CDT, Duration: 30 day, Stop date: 11/17/17 17:00:00 CDTNotes: (Same as:Monoket) Take on empty stomach/ full glass of water Folic Acid 1 mg, 1 tab, Inactive Route: PO, Drug 2017 [facility] form: TAB, Daily, Dosing Weight 90.909, kg, Start date: 10/19/17 9:00:00 CDT, Duration: 30 day, Stop date: 11/17/17 9:00:00 CDTNotes: (Same as: Folvite) Divalproex Sodium 125 mg, 1 cap, Inactive 125 MG Enteric Route: PO, Drug 2017 [facility] Coated Capsule form: CAP, BID, [Depakote] Dosing Weight 90.909, kg, Start date: 10/19/17 9:00:00 CDT, Duration: 30 day, Stop date: 11/17/17 17:00:00 CDTNotes: (Same as: Depakote Sprinkles) Do not confuse with 250mg capsule or tablets Do not crush. May sprinkle on food. Sensipar 30 mg, 1 tab, Inactive Route: PO, Drug 2017 [facility] form: TAB, Daily, Dosing Weight 90.909, kg, Start date: 10/19/17 9:00:00 CDT, Duration: 30 day, Stop date: 11/17/17 9:00:00 CDTNotes: (Same as: Sensipar) Cholecalciferol 2,000 IntlUnit, Inactive 2000 UNT Oral 2 tab, Route: 2018 [facility] Tablet PO, Drug form: TAB, Daily, Dosing Weight 90.909, kg, Start date: 10/19/17 9:00:00 CDT, Duration: 30 day, Stop date: 11/17/17 9:00:00 CDTNotes: Same as : Vitamin D3 Protonix 40 mg, 1 tab, Inactive Route: PO, Drug 2017 [facility] form: ECTAB, Before Breakfast, Dosing Weight 90.909, kg, Start date: 10/19/17 7:30:00 CDT, Duration: 30 day, Stop date: 11/17/17 7:30:00 CDTNotes: Tablet should not be chewed or crushed. (Same as: Protonix) Thyroxine 50 microgram, 1 Inactive tab, Route: PO, 2017 [facility] Drug form: TAB, Q630AM, Dosing Weight 90.909, kg, Start date: 10/19/17 6:30:00 CDT, Duration: 30 day, Stop date: 11/17/17 6:30:00 CDTNotes: Take 1 hour before or 2 hours after meal; Enteral feeds may interefere with the absorption of this medication.(Garcia e as:Levothroid, Synthroid) Hydralazine 50 mg, 1 tab, Inactive Hydrochloride 50 Route: PO, Drug 2017 [facility] Oral Tablet form: TAB, Q8H, Dosing Weight 90.909, kg, Start date: 10/19/17 0:00:00 CDT, Duration: 30 day, Stop date: 11/17/17 16:00:00 CDTNotes: (Same as: Apresoline) May interfere w/enteral feedings Take With Food Lopressor 50 mg, 1 tab, No Longer Route: PO, Drug Active 2017 [facility] form: TAB, BID, Dosing Weight 90.909, kg, Start date: 10/18/17 21:00:00 CDT, Duration: 30 day, Stop date: 11/17/17 9:00:00 CDTNotes: (Same as: Lopressor) Ergocalciferol 50,000 Inactive 26436 UNT Oral IntlUnit, 1 2017 [facility] Capsule cap, Route: PO, Drug form: CAP, qWeek, Dosing Weight 90.909, kg, Start date: 10/18/17 19:00:00 CDT, Duration: 30 day, Stop date: 11/15/17 9:00:00 CDT 168 HR Clonidine 1 patch, Route: No Longer 0.0125 MG/HR TOP, Drug Form: Active 2017 [facility] Transdermal Patch ERFILM, Dosing Weight 90.909, kg, qWeek, Start date: 10/18/17 19:00:00 CDT, Duration: 30 day, Stop date: 11/15/17 9:00:00 CDTNotes: Patch delivers 0.3 mg/24 hours; Patch is applied weekly. [id number] . "Remove old patch before application of new patch" Aspirin 81 mg, 1 tab, No Longer Route: PO, Drug Active 2017 [facility] form: ECTAB, Daily, Dosing Weight 90.909, kg, Start date: 10/18/17 19:00:00 CDT, Duration: 30 day, Stop date: 11/17/17 9:00:00 CDTNotes: Do not crush or chew. (Same As: Ecotrin) tramadol 50 mg, 1 tab, No Longer hydrochloride 50 Route: PO, Drug Active 2017 [place] [facility] Oral Tablet form: TAB, Q6H, Dosing Weight 90.909, kg, PRN Pain Score 1-5, Start date: 10/18/17 18:32:00 CDT, Duration: 30 day, Stop date: 11/17/17 18:31:00 CDTNotes: Not to exceed 400mg/day. (Same As: Ultram) pneumococcal 0.5 mL, Route: No Longer capsular IM, Drug Form: Active 2017 [facility] polysaccharide INJ, ONCALL, type 1 vaccine / Start date: pneumococcal 10/18/17 capsular 17:06:15 CDT, polysaccharide Stop date: type 10A vaccine 11/17/17 / pneumococcal 17:01:15 capsular CDTNotes: (Same polysaccharide as: Pneumovax type 11A vaccine 23) / pneumococcal Refrigerate capsular polysaccharide type 12F vaccine / pneumococcal capsular polysacchar Risperdal 0.5 mg, 1 tab, Inactive Route: PO, Drug 2017 [facility] form: TAB, Daily, Dosing Weight 90.909, kg, Priority: STAT, Start date: 10/18/17 16:45:00 CDT, Duration: 30 day, Stop date: 11/17/17 9:00:00 CDTNotes: (Same as: Risperdal) Albuterol 0.83 20 mg, Route: Inactive MG/ML Inhalant NEB, ONCE, 2018 [facility] Solution Dosing Weight 90.909, kg, Priority: STAT, Start date: 10/18/17 11:11:00 CDT, Stop date: 10/18/17 11:11:00 CDT Calcium Gluconate 1 gm, 50 mL, Inactive Route: IVPB2017 [facility] Drug form: INJ, ONCE, Dosing Weight 90.909, kg, Priority: STAT, Start date: 10/18/17 11:11:00 CDT, Stop date: 10/18/17 11:11:00 CDTNotes: WASTE: F/P - Sink; E - Municipal Trash Bin Sodium 50 mEq, 50 mL, Inactive Bicarbonate Route: IVP2017 [facility] Drug form: INJ, ONCE, Dosing Weight 90.909, kg, Priority: STAT, Start date: 10/18/17 11:11:00 CDT, Stop date: 10/18/17 11:11:00 CDTNotes: (sodium bicarb 8.4% (1 mEq/ml) 50 ml syringe) Thiamine 50 mg, 0.5 tab, Inactive [facility] Route: PO, Drug 2016 [facility] form: TAB, Daily, Dosing Weight 109.091, kg, Start date: 09/19/16 9:00:00 CDT, Duration: 30 day, Stop date: 10/18/16 9:00:00 CDTNotes: (Same As: Vitamin B1) Nephro-Pawan 1 tab, Route: Inactive PO, Drug Form: 2016 TAB, Dosing Weight 109.091, kg, Daily, Start date: 09/19/16 9:00:00 CDT, Duration: 30 day, Stop date: 10/18/16 9:00:00 CDTNotes: (Same as: Nephro-Pawan Rx and Diatx) Give with food. Isosorbide 30 mg, 1 tab, No Longer Greater Route: PO, Drug Active 2016 [facility] form: ERTAB, Daily, Dosing Weight 109.091, kg, Start date: 09/19/16 9:00:00 CDT, Duration: 30 day, Stop date: 10/18/16 9:00:00 CDTNotes: (Same as:Imdur) "Do Not Crush" Take on empty stomach/ full glass of water. Do not crush Folic Acid 1 mg, 1 tab, Inactive [facility] Route: PO, Drug 2016 [facility] form: TAB, Daily, Dosing Weight 109.091, kg, Start date: 09/19/16 9:00:00 CDT, Duration: 30 day, Stop date: 10/18/16 9:00:00 CDTNotes: (Same as: Folvite) ferrous sulfate 325 mg, 1 tab, Inactive [facility] Route: PO, Drug 2016 [place] form: ECTAB, Daily, Dosing Weight 109.091, kg, Start date: 09/19/16 9:00:00 CDT, Duration: 30 day, Stop date: 10/18/16 9:00:00 CDTNotes: Give with food. "Do Not Crush" clopidogrel 75 mg, 1 tab, Inactive Route: PO, Drug 2016 [facility] form: TAB, Daily, Dosing Weight 109.091, kg, Start date: 09/19/16 9:00:00 CDT, Duration: 30 day, Stop date: 10/18/16 9:00:00 CDTNotes: (Same As: Plavix) Calcitriol 0.25 microgram, Inactive Greater 1 cap, Route: 2016 PO, Drug form: CAP, Daily, Dosing Weight 109.091, kg, Start date: 09/19/16 9:00:00 CDT, Duration: 30 day, Stop date: 10/18/16 9:00:00 CDTNotes: (Same As: Rocaltrol) ergocalciferol 50,000 No Longer Greater IntlUnit, 1 Active 2016 [facility] cap, Route: PO, Drug form: CAP, QFri, Dosing Weight 109.091, kg, Start date: 09/18/16 21:00:00 CDT, Duration: 30 day, Stop date: 10/16/16 21:00:00 CDTNotes: (Same as: Vitamin D) "Do Not Crush" atorvastatin 40 mg, 1 tab, No Longer Greater Route: PO, Drug Active 2016 [facility] form: TAB, Bedtime, Dosing Weight 109.091, kg, Start date: 09/18/16 21:00:00 CDT, Duration: 30 day, Stop date: 10/17/16 21:00:00 CDTNotes: (Same as: Lipitor) Furosemide 40 mg, 1 tab, No Longer Greater Route: PO, Drug Active 2016 form: TAB, BID, Dosing Weight 109.091, kg, Start date: 09/18/16 17:00:00 CDT, Duration: 30 day, Stop date: 10/18/16 9:00:00 CDTNotes: (Same as: Lasix) May cause GI upset. Give with food or milk. carvedilol 25 mg, 1 tab, No Longer Greater Route: PO, Drug Active 2016 form: TAB, BID, Dosing Weight 109.091, kg, Start date: 09/18/16 17:00:00 CDT, Duration: 30 day, Stop date: 10/18/16 9:00:00 CDTNotes: Give with food. (Same As: Coreg) sodium citrate 5 mL, Route: No Longer Greater IV, Drug Form: Active 2016 INJ, After Dialysis, PRN Dialysis, Start date: 09/18/16 14:47:00 CDT, Duration: 30 day, Stop date: 10/18/16 14:46:00 CDTNotes: (Same as: Sodium Citrate, anticoagulant) For Dialysis Only RenaGel 1,600 mg, 2 No Longer Greater tab, Route: PO, Active 2016 Drug form: TAB, TID, Dosing Weight 109.091, kg, Start date: 09/18/16 13:00:00 CDT, Duration: 30 day, Stop date: 10/18/16 9:00:00 CDTNotes: Same as: Renvela tramadol 50 mg, 1 tab, No Longer Greater hydrochloride 50 Route: PO, Drug Active 2016 [facility] Oral Tablet form: TAB, Q6H, [Ultram] Dosing Weight 109.091, kg, PRN Pain Score 6-10, Start date: 09/18/16 12:13:00 CDT, Duration: 30 day, Stop date: 10/18/16 12:12:00 CDTNotes: Not to exceed 400mg/day. (Same As: Ultram) Levetiracetam 500 mg, 1 tab, No Longer Greater Route: PO, Drug Active 2016 form: TAB, BID, Dosing Weight 109.091, kg, Start date: 09/18/16 12:12:00 CDT, Duration: 30 day, Stop date: 10/18/16 9:00:00 CDTNotes: (Same as:David) Calcium Carbonate 1,000 mg, 2 No Longer Greater 500 MG Chewable tab, Route: 2016 Tablet CHEW, Drug form: CHEWTAB, TID, Dosing Weight 109.091, kg, PRN Indigestion, Start date: 09/18/16 12:12:00 CDT, Duration: 30 day, Stop date: 10/18/16 12:11:00 CDTNotes: (Same As: Tomy) Calcium Carbonate 500 sl=672 mg elemental calcium Dose= mg calcium carbonate ( mg elemental calcium) Magnesium Sulfate 2 gm, 50 mL, No Longer Greater Route: IV, Drug Active 2016 [facility] form: INJ, PRN, Dosing Weight 109.091, kg, PRN Abnormal Lab Result, Start date: 09/18/16 10:33:00 CDT, Duration: 30 day, Stop date: 10/18/16 10:32:00 CDT, to be given IV "PRN" only for s. magnesium if Notes: WASTE: F/P - Sink; E - [employer] Trash Bin Lactulose 667 20 gm, 30 mL, No Longer Greater MG/ML Oral Route: PO, Drug Active 2016 Solution form: SYRP, PRN, Dosing Weight 109.091, kg, PRN as needed for constipation, Start date: 09/18/16 10:33:00 CDT, Duration: 30 day, Stop date: 10/18/16 10:32:00 CDTNotes: (Same as:Chronulac) Hydralazine 20 mg, 1 mL, No Longer Greater Route: IVP, Active 2016 Drug form: INJ, Q6H, Dosing Weight 109.091, kg, PRN Elevated BP, Start date: 09/18/16 10:32:00 CDT, Duration: 30 day, Stop date: 10/18/16 10:31:00 CDT, SBP more than 160mmHg Q 4 to 6hrlyNotes: (Same as: Apresoline) Push over 5 minutes potassium 20 mEq, 1 tab, No Longer Greater chloride Route: PO, Drug Active 2016 [facility] form: ERTAB, PRN, Dosing Weight 109.091, kg, PRN Abnormal Lab Result, Start date: 09/18/16 10:32:00 CDT, Duration: 30 day, Stop date: 10/18/16 10:31:00 CDTNotes: (Same as: K-Dur 20) "Do Not Crush" With food and full glass of water epoetin aniket 10,000 unit, 1 No Longer Greater (ESRD) mL, Route: IVP, Active 2016 Drug form: INJ, PRN, Dosing Weight 109.091, kg, PRN Dialysis, (recommended dosing range - 50-100 units/Kg) 3 times/ Week, Start date: 09/18/16 10:21:00 CDT, Duration: 30 day, Stop date: 10/18/16 10:20:00 CDTNotes: (Same as: Procrit) epoetin aniket 74670 unit/1 ml VL. For dialysis use only. (Procrit) WASTE: F/P - Red; E -Red MEDICATION WASTE Product Size: 92820 unit Product Wasted: ___ unit sodium chloride 1,000 mL, Rate: No Longer Greater 0.9% 1000 ml INJ prn on hdx only 2016 [facility] 1,000 mL ml/hr, Route: IV, Dosing Weight 109.091 kg, Total Volume: 1,000, Start date: 09/18/16 10:21:00 CDT, Duration: 30 day, Stop date: 10/18/16 10:20:00 CDT albumin human 25% 12.5 gm, 50 mL, No Longer Greater intravenous Route: IVPB, Active 2016 [facility] solution Drug form: INJ, PRN, Dosing Weight 109.091, kg, PRN Dialysis, Start date: 09/18/16 10:21:00 CDT, Duration: 30 day, Stop date: 10/18/16 10:20:00 CDT, (Give up to two doses prn each dialysis)Notes: LOT#: Mfg: WASTE: F/P - Red; E -Red (Same as: Albuminar) "blood product derivative" paricalcitol 5 microgram, 1 No Longer Greater mL, Route: IV, Active 2016 Drug form: INJ, During Dialysis, Dosing Weight 109.091, kg, PRN Other -See Comment, Start date: 09/18/16 10:21:00 CDT, Duration: 30 day, Stop date: 10/18/16 10:20:00 CDTNotes: (Same as: Zemplar) MEDICATION WASTE Product Size: 5 microgram Product Wasted: ___ microgram isosorbide 30 mg, 1 tab, No Longer Greater mononitrate Route: PO, Drug Active 2016 extended release form: ERTAB, QAM, Dosing Weight 109.091, kg, Start date: 09/18/16 9:00:00 CDT, Duration: 30 day, Stop date: 10/17/16 9:00:00 CDTNotes: (Same as:Imdur) "Do Not Crush" Take on empty stomach/ full glass of water. Do not crush Docusate 100 mg, 1 cap, No Longer Greater Route: PO, Drug Active 2016 form: CAP, BID, Dosing Weight 109.091, kg, Start date: 09/18/16 9:00:00 CDT, Duration: 30 day, Stop date: 10/17/16 17:00:00 CDTNotes: (Same as: Colace) (Do Not Crush) Minoxidil 5 mg, 2 tab, No Longer Greater Route: PO, Drug Active 2016 form: TAB, Q12H, Dosing Weight 109.091, kg, Start date: 09/18/16 9:00:00 CDT, Duration: 30 day, Stop date: 10/17/16 21:00:00 CDTNotes: (Same as:Loniten) 24 HR Nifedipine 30 mg, 1 tab, No Longer Greater 30 MG Extended Route: PO, Drug Active 2016 Release Tablet form: ERTAB, Daily, Dosing Weight 109.091, kg, Start date: 09/18/16 9:00:00 CDT, Duration: 30 day, Stop date: 10/17/16 9:00:00 CDTNotes: (Same as: Adalat CC, Procardia XL) h. Take 1 hour before or 2 hours after meal; "Avoid grapefruit and grapefruit juice". Do not crush carvedilol 12.5 mg, 1 tab, Inactive Greater Route: PO, Drug 2016 form: TAB, Q12H, Dosing Weight 109.091, kg, Start date: 09/18/16 9:00:00 CDT, Duration: 30 day, Stop date: 10/17/16 21:00:00 CDTNotes: Give with food. (Same As: Coreg) Thyroxine 50 microgram, 1 No Longer Greater tab, Route: PO, Active 2016 Drug form: TAB, Q630AM, Dosing Weight 109.091, kg, Start date: 09/18/16 6:30:00 CDT, Duration: 30 day, Stop date: 10/17/16 6:30:00 CDTNotes: Take 1 hour before or 2 hours after meal; Enteral feeds may interefere with the absorption of this medication.(Garcia e as:Levothroid, Synthroid) Hydralazine 10 mg, 0.5 mL, Inactive Greater Route: IVP, 2016 Drug form: INJ, Q4H, Dosing Weight 109.091, kg, PRN Hypertension, Start date: 09/18/16 2:51:00 CDT, Duration: 30 day, Stop date: 10/18/16 2:50:00 CDTNotes: (Same as: Apresoline) Push over 5 minutes Insulin, Aspart, 4 unit, 0.04 No Longer Greater Human mL, Route: Active 2016 SUB-Q, Drug form: SOLN, Bedtime, Dosing Weight 109.091, kg, PRN Blood Glucose Results, Start date: 09/18/16 2:25:00 CDT, Duration: 30 day, Stop date: 10/18/16 2:24:00 CDTNotes: Roll in palms of hands gently; Do not shake vigorously. (Same as: NovoLOG) "single patient use only" WASTE: F/P - Black; E - Municipal Trash Bin Stable for 28 days at room temperature. Expires in days from D ate Glucagon 1 mg, Route: No Longer Greater IM, Drug form: GlobaTrek 2016 [facility] PDR/INJ, PRN, Dosing Weight 109.091, kg, PRN Blood Glucose Results, Start date: 09/18/16 2:25:00 CDT, Duration: 30 day, Stop date: 10/18/16 2:24:00 CDT Dextrose 50% 25 gm, 50 mL, No Longer Greater Syringe Route: IVP, [facility] 2016 [facility] Drug Form: INJ, Dosing Weight 109.091, kg, PRN, PRN Blood Glucose Results, Start date: 09/18/16 2:25:00 CDT, Duration: 30 day, Stop date: 10/18/16 2:24:00 CDT Acetaminophen 650 mg, 2 tab, No Longer Greater Route: PO, Drug [facility] 2016 [facility] form: TAB, Q4H, Dosing Weight 109.091, kg, PRN Pain 1-3/Temp > 100.4 F, Start date: 09/18/16 2:08:00 CDT, Duration: 30 day, Stop date: 10/18/16 2:07:00 CDTNotes: Do not exceed 4 gm/day. (Same as: Tylenol) Ondansetron 4 mg, 2 mL, No Longer Greater Route: IVP, Active 2016 [facility] Drug form: INJ, Q6H, Dosing Weight 109.091, kg, PRN Nausea & Vomiting, Start date: 09/18/16 2:08:00 CDT, Duration: 30 day, Stop date: 10/18/16 2:07:00 CDTNotes: (Same as: Nicole) MEDICATION WASTE Product Size: 4 mg Product Wasted: ___ mg sodium chloride 250 mL, Rate: No Longer Greater 0.9% INJ 250 mL Packaging Mechanic for use [facility] 2016 [facility] with blood product administration. , Dosing Weight 109.091, kg, Route: IV, Total Volume: 250, Priority: Routine, Start Date: 09/17/16 23:00:00 CDT, Duration: 30 day, Stop date: 10/17/16 22:59:00 CDT, Replace Every: 24 hr Hydralazine 10 mg, 0.5 mL, Inactive 06/08/ MH Greater Route: IVP, 2016 [facility] Drug form: INJ, Q20Min, Dosing Weight 104, kg, PRN Elevated BP, Start date: 06/08/16 9:49:00 MILK COLLECTOR, Duration: 2 doses or times, Stop date: Limited # of timesNotes: (Same as: Apresoline) Push over 5 minutes Hydromorphone 0.5 mg, 0.25 Inactive MH Greater mL, Route: IVP2016 [facility] Drug form: INJ, Q5Min, Dosing Weight 104, kg, PRN Pain Score 7-10, Start date: 06/08/16 9:49:00 MILK COLLECTOR, Duration: 4 doses or times, Stop date: Limited # of timesNotes: Same as Dilaudid Oxycodone 10 mg, 2 tab, Inactive MH Greater Route: PO, Drug 2016 [facility] form: TAB, Q4H, Dosing Weight 104, kg, PRN Pain Score 7-10, Start date: 06/08/16 9:49:00 MILK COLLECTOR, Duration: 30 day, Stop date: 07/08/16 9:48:00 CDTNotes: (Same as: Roxicodone) Labetalol 10 mg, 2 mL, Inactive MH Greater Route: IVP2016 [facility] Drug form: INJ, Q5Min, Dosing Weight 104, kg, PRN Elevated BP, Start date: 06/08/16 9:49:00 MILK COLLECTOR, Duration: 5 doses or times, Stop date: Limited # of times Ondansetron 4 mg, 2 mL, Inactive MH [facility] Route: IVP2016 [facility] Drug form: INJ, ONCE, Dosing Weight 104, kg, PRN Nausea & Vomiting, Start date: 06/08/16 9:49:00 CSTNotes: (Same as: Zofran) MEDICATION WASTE Product Size: 4 mg Product Wasted: ___ mg Naloxone 0.4 mg, 1 mL, Inactive Greater Route: IVP, 2016 Drug form: INJ, Q2MIN, Dosing Weight 104, kg, PRN Narcotic Reversal, Start date: 06/08/16 9:49:00 MILK COLLECTOR, Duration: 8 doses or times, Stop date: Limited # of timesNotes: Same as Narcan Flumazenil 0.2 mg, 2 mL, Inactive Greater Route: IVP, 2016 Drug form: INJ, PRN, Dosing Weight 104, kg, PRN Benzodiazepine Reversal, Initial dose, Start date: 06/08/16 9:49:00 MILK COLLECTOR, Duration: 30 day, Stop date: 07/08/16 10:48:00 CDTNotes: (Same as: Romazicon) Dexamethasone 4 mg, 1 mL, Inactive MH [facility] Route: IV2016 Drug form: INJ, ONCE, Dosing Weight 104, kg, PRN Nausea & Vomiting, Start date: 06/08/16 9:49:00 CSTNotes: Concentration: 4mg/ml Promethazine 6.25 mg, 0.25 Inactive MH Greater mL, Route: 2016 IVPB, ONCE, Dosing Weight 104, kg, PRN Nausea & Vomiting, Start date: 06/08/16 9:49:00 CSTNotes: Do not give IV push. (Same as: Phenergan) Acetaminophen 300 1 tab, PO, Q6H, Active MH [facility] MG / Codeine PRN Pain, X 7 2016 Phosphate 30 MG day, # 28 tab, Oral Tablet 0 Refill(s) [Tylenol with Codeine #3] heparin (ANES) Route: IV, Drug Inactive Greater form: INJ, 2016 ONCE, Stop date: 06/08/16 9:22:00 MILK COLLECTOR metoprolol (ANES) Route: IV, Drug Inactive 06/08/ MH [facility] form: INJ, 2016 ONCE, Stop date: 06/08/16 9:22:00 MILK COLLECTOR ketAMINE (ANES) Route: IV, Drug Inactive 06/08/ MH [facility] form: INJ, 2016 ONCE, Stop date: 06/08/16 9:18:00 MILK COLLECTOR propofol (ANES) Route: IV, Drug Inactive 02/20/ MH Greater form: INJ, 2016 ONCE, Stop date: 06/08/16 9:03:00 MILK COLLECTOR ceFAZolin (ANES) Route: IV, Drug Inactive Greater form: INJ, 2016 ONCE, Stop date: 06/08/16 9:03:00 MILK COLLECTOR ondansetron Route: IV, Drug Inactive Greater (ANES) form: INJ, 2016 ONCE, Stop date: 06/08/16 9:02:00 MILK COLLECTOR sodium chloride Route: IV, Inactive Greater 0.9% 500 ml INJ Total Volume: 2016 (ANES) 500, Start date: 06/08/16 8:20:00 MILK COLLECTOR, Stop date: 06/08/16 9:20:00 MILK COLLECTOR Sodium Chloride 500 mL, Route: Inactive Greater 0.154 MEQ/ML IV, ONCE, 2016 Injectable Dosing Weight Solution 104.545 kg, Start date: 06/08/16 7:52:00 MILK COLLECTOR, Stop date: 06/08/16 7:52:00 MILK COLLECTOR, Bolus thiamine 50 mg 50 mg=1 tab, Active Greater oral tablet PO, Daily, # 7 2016 [facility] tab, 0 Refill(s) Folic Acid 1 mg, PO, Active Greater Daily, 0 2016 [facility] Refill(s) clopidogrel 75 mg, PO, Active Greater Daily, 0 2016 [facility] Refill(s) 24 HR Nifedipine 30 mg=1 tab, Active Greater 30 MG Extended PO, Daily, # 30 2016 [facility] Release Tablet tab, 0 Refill(s) Furosemide 40 mg, PO, BID, Active Greater 0 Refill(s) 2016 Isosorbide 30 mg, PO, Active Greater Daily, 0 2016 [facility] Refill(s) ferrous sulfate 325 mg, PO, Active Greater Daily, 0 2016 [facility] Refill(s) Calcitriol 0.25 microgram, Active Greater PO, Daily, 0 2016 [facility] Refill(s) loperamide 1 mg/5 2 mg=10 ml, PO, Active Greater mL oral liquid QID, PRN Loose 2016 Stools, # 120 ml, 0 Refill(s) Loperamide 2 mg, PO, Q4H, Active Greater PRN, 0 2016 Refill(s) tramadol 50 mg=1 tab, Active Greater hydrochloride 50 PO, Q6H, PRN 2016 [facility] Oral Tablet pain, # 20 tab, [Ultram] 0 Refill(s) Calcium Carbonate 1,000 mg=2 tab, Active Greater 500 MG Chewable CHEW, TID, PRN 2016 [facility] Tablet for indigestion, # 30 tab, 0 Refill(s) Nystatin 100 1 appl, TOP, Active Greater UNT/MG Topical BID, # 30 gm, 1 2016 [facility] Powder Refill(s) Nephro-Pawan 1 tab, PO, Active Greater Daily, 0 2016 [facility] Refill(s) RenaGel 1,600 mg, PO, Active Greater TID, 0 2016 Refill(s) Levetiracetam 500 mg, PO, Active Greater BID, 0 2016 Refill(s) Aspirin 81 MG 81 mg, 1 tab, Inactive Greater Enteric Coated Route: PO, Drug 2014 Tablet form: ECTAB, Daily, Dosing Weight 104.545, kg, Start date: 05/19/14 9:00:00, Duration: 30 day, Stop date: 06/17/14 9:00:00Notes: Do not crush or chew. (Same As: Ecotrin) Saline Flush 0.9% 10 ml, Route: No Longer IVP, Drug Form: Active 2014 INJ, Dosing Weight 104.545, kg, Q12H, Start date: 05/18/14 21:00:00, Duration: 30 day, Stop date: 06/17/14 9:00:00Notes: Same as: BD Posiflush Sterile Hydralazine 50 mg=1 tab, No Longer Greater Hydrochloride 50 PO, TID, 0 Active 2014 MG Oral Tablet Refill(s) levothyroxine 50 50 microgram=1 Active Greater mcg (0.05 mg) tab, PO, Daily, 2014 oral tablet # 30 tab, 0 Refill(s) amLODIPine 10 mg 10 mg=1 tab, Active Greater oral tablet PO, Daily, 0 2014 Refill(s) minoxidil 2.5 mg 2.5 mg=1 tab, Active Greater oral tablet PO, BID, 0 2014 Refill(s) baclofen 10 mg 10 mg=1 tab, Active Greater oral tablet PO, TID, 0 2014 Refill(s) Nitroglycerin 0.4 0.4 mg=1 tab, Active Greater MG Sublingual SL, Q5Min, 2014 Tablet Chest Pain, # [Nitrostat] 100 tab, 0 Refill(s) Novolin R 0 Refill(s) No Longer Greater Active 2014 Novolin N 15 unit, SUB-Q, Active Greater Bedtime, 0 2014 Refill(s) carvedilol 25 mg 25 mg=1 tab, Active Greater oral tablet PO, BID, 0 2014 Refill(s) isosorbide 60 mg=1 tab, No Longer Greater mononitrate 60 mg PO, Daily, 0 Active 2014 oral tablet, Refill(s) extended release atorvastatin 40 40 mg=1 tab, Active Greater mg oral tablet PO, Bedtime, # 2014 30 tab, 0 Refill(s) risperidone 1 mg 1 mg=1 tab, PO, Active Greater oral tablet BID, 0 2014 Refill(s) Protonix 40 mg, Route: No Longer Greater IVP, Drug form: Active 2014 INJ, Before Dinner, Dosing Weight 104.545, kg, Patient is NPO, Start date: 05/18/14 16:30:00, Duration: 30 day, Stop date: 06/16/14 16:30:00Notes: For IV push reconstitute with 10 ml 0.9% sodium chloride and push over 2 minutes. (Same as: Protonix) Sucralfate 100 1 gm, 10 mL, No Longer Greater MG/ML Oral Route: PO, Drug Active 2014 Suspension form: SUSP, QID, Dosing Weight 104.545, kg, Start date: 05/18/14 13:00:00, Duration: 30 day, Stop date: 06/17/14 9:00:00Notes: Enteral feeds may interfere with the absorption of this medication. Shake well. Take 1 hr before or 2 hrs after antacids, dairy pdt, minerals & meals. (Same As: Carafate) Enoxaparin 40 mg, 0.4 mL, No Longer Greater Route: SUB-Q, Active 2014 Drug form: INJ, [id number], Dosing Weight 104.545, kg, Start date: 05/18/14 11:00:00, Duration: 30 day, Stop date: 06/16/14 11:00:00Notes: (Same as: Lovenox) Insulin, Aspart, 3 unit, 0.03 No Longer Greater Human mL, Route: 2014 SUB-Q, Drug form: SOLN, TID-Before Meals, Dosing Weight 104.545, kg, PRN Blood Glucose Results, Start date: 05/18/14 10:09:00, Duration: 30 day, Stop date: 06/17/14 10:08:00Notes: Roll in palms of hands gently; Do not shake vigorously. (Same as: NovoLOG) "single patient use only" Stable for 28 days at room temperature. Expires in days from D ate Saline Flush 0.9% 10 ml, Route: No Longer Greater IVP, Drug Form: Active 2014 INJ, Dosing Weight 104.545, kg, PRN, PRN Line Flush, Start date: 05/18/14 10:08:00, Duration: 30 day, Stop date: 06/17/14 10:07:00Notes: Same as: BD Posiflush Sterile aspirin 325 mg 325 mg, 1 tab, Inactive Greater tablet Route: PO, Drug 2014 form: TAB, ONCE, Dosing Weight 104.545, kg, Start date: 05/18/14 10:08:00, Stop date: 05/18/14 10:08:00Notes: Take with food. Diphenhydramine 25 mg, 1 cap, No Longer Greater Route: PO, Drug Active 2014 form: CAP, Bedtime, Dosing Weight 104.545, kg, PRN Insomnia, Start date: 05/18/14 10:08:00, Duration: 30 day, Stop date: 06/17/14 10:07:00Notes: (Same as: Benadryl) Ondansetron 4 mg, 1 tab, No Longer Greater Route: PO, Drug Active 2014 [facility] form: TAB, Q8H, Dosing Weight 104.545, kg, PRN Nausea & Vomiting, Start date: 05/18/14 10:08:00, Duration: 30 day, Stop date: 06/17/14 10:07:00Notes: (Same as: Zofran) Nitroglycerin 0.4 mg, 1 tab, No Longer Greater Route: SL, Drug Active 2014 [facility] form: TAB, Q5Min, Dosing Weight 104.545, kg, PRN Chest Pain, Start date: 05/18/14 10:08:00, Duration: 3 doses or times, Stop date: Limited # of timesNotes: (Same as:Nitroquick, Nitrostat) "Do Not Crush" Sublingual tablet metoprolol 50 mg, 1 tab, Inactive Greater tartrate Route: PO, Drug 2014 form: TAB, ONCE, Dosing Weight 104.545, kg, Priority: STAT, Start date: 05/18/14 8:35:00, Stop date: 05/18/14 8:35:00Notes: (Same as: Lopressor) Allergies, Adverse Reactions, Alerts Substance Category Reaction Severity Reaction Status Date Comments Source type Reported NKDA Assertion Drug Active allergy [facility] Immunizations Immunization Date Given Site Status Last Updated Comments Source Results Order Name Results Value Reference Date Interpretation Comments Source Range CHEM PANEL eGFR 10/19 Result Comment: The eGFR is calculated using the CKD-EPI formula. In most young, healthy individuals the eGFR will be >90 mL/ min/1.73m2. The eGFR declines with age. An eGFR of 60-89 may be normal in mL/min/1. some populations, particularly the elderly, for whom the CKD-EPI formula has not been extensively validated. Use of the eGFR is not recommended in the following populations: [facility] 3m2 Individuals with unstable creatinine concentrations, including patients and those with serious co-morbid conditions. Patients with extremes in muscle mass or diet. The data above are obtained from the National Kidney Disease Education Program (NKDEP) which additionally recommends that when the eGFR is used in patients with extremes of body mass index for purposes of drug dosing, the eGFR should be multiplied by the estimated BMI. CHEM PANEL Chloride Lvl 101 meq/L 95 - 109 10/19 [facility] CHEM PANEL Potassium 5.0 meq/L 3.5 - 5.1 10/19 MH Lvl [facility] CHEM PANEL Sodium Lvl 141 meq/L 135 - 145 10/19 [facility] CHEM PANEL Creatinine 9.89 mg/dL 0.50 - 10/19 MH Lvl 1.40 /2017 [facility] CHEM PANEL BUN 56 mg/dL 7 - 22 10/19 [facility] CHEM PANEL AGAP 17.0 meq/L 10.0 - 10/19 MH 20.0 [facility] CHEM PANEL Calcium Lvl 8.7 mg/dL 8.5 - 10.5 10/19 [facility] CHEM PANEL CO2 28 meq/L 24 - 32 10/19 [facility] CHEM PANEL Glucose Lvl 91 mg/dL 70 - 99 10/19 [facility] IMMUNOLOGY Hep Bs Ag Negative Negative 10/18 [facility] *NA* (10/18/17 12:25 PM) CHEM PANEL Uric Acid 4.3 mg/dL 3.8 - 8.0 09/18 [facility] IMMUNOLOGY Hep Bs Ag Negative Negative 09/18 [facility] *NA* (09/18/16 2:20 PM) BLOOD BANK ABO/Rh B POS 09/18 Greater RESULTS [facility] BLOOD BANK Antibody Negative 09/18 Greater RESULTS Scrn [facility] (09/18/16 12:41 AM) BLOOD BANK RBC product Product available 09/18 Result Comment: 2016 01:53 [id number] Called [place] begum [facility] (09/17/16 11:00 PM) ELECTROLYT AGAP 14.2 meq/L 10.0 - 09/18 Greater ES 20.0 [facility] ELECTROLYT B/C Ratio 7 6 - 25 09/18 Greater ES [facility] ELECTROLYT A/G Ratio 0.8 0.7 - 1.6 09/18 Greater ES [facility] ELECTROLYT Globulin 3.7 g/dL 2.7 - 4.2 / MH Greater ES [facility] ELECTROLYT eGFR 6 09/18 Result Comment: The eGFR is calculated using the CKD-EPI formula. In most young, healthy individuals the eGFR will be >90 mL/ min/1.73m2. The eGFR declines with age. An eGFR of 60-89 may be normal in MH Greater ES mL/min/1.7 /2017 some populations, particularly the elderly, for whom the CKD-EPI formula has not been extensively validated. Use of the eGFR is not recommended in the following populations: [facility] 3m2 Individuals with unstable creatinine concentrations, including patients and those with serious co-morbid conditions. Patients with extremes in muscle mass or diet. The data above are obtained from the National Kidney Disease Education Program (NKDEP) which additionally recommends that when the eGFR is used in patients with extremes of body mass index for purposes of drug dosing, the eGFR should be multiplied by the estimated BMI. ELECTROLYT Albumin Lvl 3.1 g/dL 3.5 - 5.0 / MH Greater [facility] ELECTROLYT Bili Total 0.3 mg/dL 0.2 - 1.3 / MH Greater [facility] ELECTROLYT ALT 20 unit/L 0 - 65 / MH Greater [facility] ELECTROLYT AST 19 unit/L 0 - 37 / MH Greater ES [facility] ELECTROLYT Alk Phos 35 unit/L 39 - 136 / MH Greater ES [facility] ELECTROLYT Chloride Lvl 105 meq/L 95 - 109 / MH Greater [facility] ELECTROLYT Potassium 4.2 meq/L 3.5 - 5.1 / MH Greater ES Lvl [facility] ELECTROLYT Total 6.8 g/dL 6.4 - 8.4 / MH Greater ES [facility] ELECTROLYT Calcium Lvl 7.9 mg/dL 8.5 - 10.5 / MH Greater [facility] ELECTROLYT CO2 26 meq/L 24 - 32 06/ MH Greater ES [facility] ELECTROLYT Sodium Lvl 141 meq/L 135 - 145 / MH Greater [facility] ELECTROLYT BUN 79 mg/dL 7 - 22 06/ MH Greater ES [facility] ELECTROLYT Creatinine 10.90 0.50 - 06/02 MH Greater ES Lvl mg/dL 1.40 /2016 [facility] ELECTROLYT Glucose Lvl 129 mg/dL 70 - 99 06/02 Greater ES HEMATOLOGY RBC Morph Normal 09/18 (09/17/16 9:30 PM) HEMATOLOGY Plt Morph Normal 09/18 (09/17/16 9:30 PM) HEMATOLOGY Eosinophils 3.3 % 0.0 - 4.0 06/02 HEMATOLOGY Basophils 1.1 % 0.0 - 1.0 06 HEMATOLOGY Lymphocytes 18.5 % 20.0 - 06/02 MH Greater 40.0 /2016 HEMATOLOGY Basophils # 0.1 K/CMM 0.0 - 0.2 06 HEMATOLOGY Segs-Bands # 3.3 K/CMM 1.5 - 8.1 06 HEMATOLOGY Lymphocytes 0.9 K/CMM 1.0 - 5.5 06 HEMATOLOGY Eosinophils 0.2 K/CMM 0.0 - 0.5 06 HEMATOLOGY Monocytes # 0.4 K/CMM 0.0 - 0.8 06/02 HEMATOLOGY Monocytes 7.9 % 2.0 - 12.0 06 HEMATOLOGY Segs 69.2 % 45.0 - 06/ Greater 75.0 /2016 HEMATOLOGY PTT 45.0 s 22.9 - 09/18 Greater 35.8 /2016 HEMATOLOGY PT 13.2 s 12.0 - 06 Greater 14.7 HEMATOLOGY INR 0.98 0.85 - 09/18 Greater 1.17 HEMATOLOGY RDW 18.5 % 11.5 - 06/02 Greater 14.5 [facility] HEMATOLOGY Platelet 202 K/CMM 133 - 450 06 HEMATOLOGY MPV 8.5 fL 7.4 - 10.4 09/18 HEMATOLOGY RBC X 10x6 2.13 M/CMM 4.70 - 06/02 Greater 6.10 HEMATOLOGY WBC X 10x3 4.8 K/CMM 3.7 - 10.4 06 HEMATOLOGY Hct 18.6 % 42.0 - 06 Greater 54.0 /2017 [facility] HEMATOLOGY MCV 87.5 fL 80.0 - 09/18 Greater 94.0 [facility] HEMATOLOGY Hgb 6.3 g/dL 14.0 - 09/18 Result 18. Comment: [facility] Critical Result(s) called to Issa DEJESUS at 09/17/2016 22:10 by. Read back OK. HEMATOLOGY MCH 29.6 pg 27.0 - 09/18 Greater 31.0 [facility] HEMATOLOGY MCHC 33.8 g/dL 32.0 - 09/18 36.0 [facility] CHEM PANEL eGFR 61 05/19 1Result Comment: The eGFR is calculated using the CKD-EPI formula. In most young, healthy individuals the eGFR will be >90 mL/ min/1.73m2. The eGFR declines with age. An eGFR of 60-89 may be normal in mL/min/1. some populations, particularly the elderly, for whom the CKD-EPI formula has not been extensively validated. Use of the eGFR is not recommended in the following populations: [facility] 3m2 Individuals with unstable creatinine concentrations, including patients and those with serious co-morbid conditions. Patients with extremes in muscle mass or diet. The data above are obtained from the National Kidney Disease Education Program (NKDEP) which additionally recommends that when the eGFR is used in patients with extremes of body mass index for purposes of drug dosing, the eGFR should be multiplied by the estimated BMI. CHEM PANEL Potassium 4.0 meq/L 3.5 - 5.1 05/19 [facility] CHEM PANEL Chloride Lvl 112 meq/L 95 - 109 05/19 [facility] CHEM PANEL CO2 25 meq/L 24 - 32 05/19 [facility] CHEM PANEL Calcium Lvl 8.9 mg/dL 8.5 - 10.5 05/19 [facility] CHEM PANEL Sodium Lvl 144 meq/L 135 - 145 05/19 [facility] CHEM PANEL Glucose Lvl 121 mg/dL 70 - 99 05/19 4Interpretive Data: Adult reference range values reflect the clinical guidelines of the [place] [employer]. [facility] CHEM PANEL BUN 22 mg/dL 7 - 22 05/19 [facility] CHEM PANEL Creatinine 1.5 mg/dL 0.5 - 1.4 05/19 [facility] CHEM PANEL AGAP 11.0 meq/L 10.0 - 05/19 MH Greater 20.0 CARDIAC CK MB Index 1.2 0.0 - 2.5 05/19 Greater ENZYMES CARDIAC CK MB 1.2 ng/mL 0.5 - 3.6 05/19 MH Greater ENZYMES CARDIAC Troponin-I 0.02 ng/mL 0.00 - 05/19 MH Greater ENZYMES 0. CARDIAC Total CK 97 unit/L 05/19 MH Greater ENZYMES CARDIAC CK MB Index 1.0 0.0 - 2.5 05/18 MH Greater ENZYMES CARDIAC CK MB 1.1 ng/mL 0.5 - 3.6 05/18 Greater ENZYMES CARDIAC Troponin-I 0.02 ng/mL 0.00 - 05/18 MH Greater ENZYMES 0.40 CARDIAC Total CK 105 unit/L 05/18 Greater ENZYMES [facility] CHEM PANEL eGFR 46 05/18 2Result Comment: The eGFR is calculated using the CKD-EPI formula. In most young, healthy individuals the eGFR will be >90 mL/ min/1.73m2. The eGFR declines with age. An eGFR of 60-89 may be normal in mL/min/1.7 /2014 some populations, particularly the elderly, for whom the CKD-EPI formula has not been extensively validated. Use of the eGFR is not recommended in the following populations: [facility] 3m2 Individuals with unstable creatinine concentrations, including patients and those with serious co-morbid conditions. Patients with extremes in muscle mass or diet. The data above are obtained from the National Kidney Disease Education Program (NKDEP) which additionally recommends that when the eGFR is used in patients with extremes of body mass index for purposes of drug dosing, the eGFR should be multiplied by the estimated BMI. CHEM PANEL Creatinine 1.9 mg/dL 0.5 - 1.4 05/18 Greater Lvl [facility] DRUG U Ruchi Scr Negative Negative 05/18 MH Greater SCREEN [facility] *NA* (05/18/14 10:28 AM) DRUG U Amph Scr Negative Negative 05/18 MH Greater SCREEN [facility] *NA* (05/18/14 10:28 AM) DRUG U Phencyc Negative Negative 05/18 Greater SCREEN Scr [facility] *NA* (05/18/14 10:28 AM) DRUG U Cannab Scr Negative Negative 05/18 [facility] *NA* (05/18/14 10:28 AM) DRUG U Opiate Scr Negative Negative 05/18 [facility] *NA* (05/18/14 10:28 AM) DRUG U Benzodia Negative Negative 05/18 [facility] *NA* (05/18/14 10:28 AM) DRUG U Cocaine Negative Negative 05/18 [facility] *NA* (05/18/14 10:28 AM) DRUG UDS Note See Note 6 05/18 6Interpretive Data: Drugs reported as positive have not been confirmed by a second method and should be used for medical purposes only. To order [facility] *NA* confirmation, contact laboratory. (05/18/14 10:28 AM) note: Below are cut-off concentrations for all urine drugs of abuse performed in the laboratory. Some drugs listed in the table may not be included in this panel. Description Cut-off concentration Amphetamine 1000 ng/mL Barbiturates 200 ng/mL Benzodiazepines 300 ng/mL Cocaine metabolites 300 ng/mL Opiates 300 ng/mL Phencyclidine 25 ng/mL Propoxyphene 300 ng/mL Marijuana metabolites 50 ng/mL Methadone 300 ng/mL Urine alcohol 20 mg/dL HEMATOLOGY Platelet 202 K/CMM 133 - 450 05/18 [facility] HEMATOLOGY PTT 36.5 s 22.9 - 05/18 9Interpretive [facility] 35.8 Data: Heparin [facility] Therapeutic Range: 57 - 92 Seconds HEMATOLOGY INR 1.02 0.85 - 05/18 7Interpretive Data: RECOMMENDED RANGES FOR PROTIME INR: [facility] 05.05 2.0-3.0 for most medical and surgical thromboembolic states. [facility] 2.5-3.5 for artificial heart valves and recurrent embolism. INR SHOULD BE USED ONLY FOR PATIENTS ON STABLE ANTICOAGULANT THERAPY. HEMATOLOGY PT 13.4 s 12.0 - 05/18 Greater 14.7 [facility] LIPIDS VLDL 17 05/18 [facility] LIPIDS LDL 44 mg/dL <=99 mg/dL 05/18 Greater (Calculated) [facility] LIPIDS Chol 103 mg/dL <=199 05/18 mg/dL LIPIDS Trig 85 mg/dL <=149 05/18 Greater mg/dL [facility] LIPIDS HDL 42 mg/dL >=61 mg/dL 05/18 [facility] LIPIDS CHD Risk 2.45 4.00 - 05/18 Greater 7. [facility] CARDIAC Troponin-I 0.02 ng/mL 0.00 - 05/18 MH Greater ENZYMES 0.40 [facility] CARDIAC CK MB 1.3 ng/mL 0.5 - 3.6 05/18 Greater ENZYMES [facility] CARDIAC Total CK 103 unit/L 12 - 191 05/18 ENZYMES [facility] CARDIAC CK MB Index 1.3 0.0 - 2.5 05/18 Greater ENZYMES [facility] CHEM PANEL eGFR 46 05/18 3Result Comment: The eGFR is calculated using the CKD-EPI formula. In most young, healthy individuals the eGFR will be >90 mL/ min/1.73m2. The eGFR declines with age. An eGFR of 60-89 may be normal in mL/min/1.7 some populations, particularly the elderly, for whom the CKD-EPI formula has not been extensively validated. Use of the eGFR is not recommended in the following populations: [facility] 3m2 Individuals with unstable creatinine concentrations, including patients and those with serious co-morbid conditions. Patients with extremes in muscle mass or diet. The data above are obtained from the National Kidney Disease Education Program (NKDEP) which additionally recommends that when the eGFR is used in patients with extremes of body mass index for purposes of drug dosing, the eGFR should be multiplied by the estimated BMI. CHEM PANEL Calcium Lvl 8.6 mg/dL 8.5 - 10.5 05/18 [facility] CHEM PANEL CO2 24 meq/L 24 - 32 05/18 [facility] CHEM PANEL Total 7.1 g/dL 6.4 - 8.4 05/18 Protein [facility] CHEM PANEL Chloride Lvl 109 meq/L 95 - 109 05/18 [facility] CHEM PANEL Potassium 3.8 meq/L 3.5 - 5.1 05/18 Lvl [facility] CHEM PANEL A/G Ratio 0.8 0.7 - 1.6 05/18 [facility] [facility] CHEM PANEL Bili Total 0.2 mg/dL 0.2 - 1.3 05/18 [facility] CHEM PANEL Globulin 4.0 g/dL 2.0 - 4.0 05/18 [facility] CHEM PANEL B/C Ratio 15 6 - 25 05/18 [facility] CHEM PANEL AGAP 11.8 meq/L 10.0 - 05/18 20.0 [facility] CHEM PANEL Alk Phos 44 unit/L 39 - 136 05/18 [facility] CHEM PANEL AST 13 unit/L 0 - 37 05/18 [facility] CHEM PANEL ALT 15 unit/L 0 - 65 05/18 [facility] CHEM PANEL Sodium Lvl 141 meq/L 135 - 145 05/18 [facility] CHEM PANEL Creatinine 1.9 mg/dL 0.5 - 1.4 05/18 [facility] CHEM PANEL Albumin Lvl 3.1 g/dL 3.5 - 5.0 05/18 [facility] CHEM PANEL BUN 28 mg/dL 7 - 22 05/18 [facility] CHEM PANEL Glucose Lvl 197 mg/dL 70 - 99 05/18 5Interpretive Data: Adult reference range values reflect the clinical guidelines of the [place] [employer]. [facility] HEMATOLOGY MCH 27.4 pg 27.0 - 05/18 31.0 [facility] HEMATOLOGY RDW 17.6 % 11.5 - 05/18 14. [facility] HEMATOLOGY MCHC 33.2 g/dL 32.0 - 05/18 36.0 [facility] HEMATOLOGY MPV 10.8 fL 7.4 - 10.4 05/18 [facility] HEMATOLOGY Platelet 208 K/CMM 133 - 450 05/18 [facility] HEMATOLOGY WBC 4.6 K/CMM 3.7 - 10.4 05/18 [facility] HEMATOLOGY Hgb 9.4 g/dL 14.0 - 05/18 18.0 [facility] HEMATOLOGY RBC 3.43 M/CMM 4.70 - 05/18 [facility]. [facility] HEMATOLOGY MCV 82.6 fL 80.0 - 05/18 94.0 /2014 HEMATOLOGY Hct 28.3 % 42.0 - 05/18 [facility] 54.0 HEMATOLOGY INR 0.96 0.85 - 05/18 8Interpretive Data: RECOMMENDED RANGES FOR PROTIME INR: [facility] 1. 2.0-3.0 for most medical and surgical thromboembolic states. [place] 2.5-3.5 for artificial heart valves and recurrent embolism. INR SHOULD BE USED ONLY FOR PATIENTS ON STABLE ANTICOAGULANT THERAPY. HEMATOLOGY PT 12.8 s 12.0 - 05/18 [facility] 14.7 HEMATOLOGY Basophils # 0.0 K/CMM 0.0 - 0.2 05/18 HEMATOLOGY Eosinophils 0.2 K/CMM 0.0 - 0.5 05/18 HEMATOLOGY Segs-Bands # 2.6 K/CMM 1.5 - 8.1 05/18 HEMATOLOGY Lymphocytes 1.4 K/CMM 1.0 - 5.5 05/18 [facility] # /2014 HEMATOLOGY Monocytes # 0.4 K/CMM 0.0 - 0.8 05/18 [facility] HEMATOLOGY Lymphocytes 29.4 % 20.0 - 05/18 [facility] 40.0 HEMATOLOGY Monocytes 8.8 % 2.0 - 12.0 05/18 HEMATOLOGY Eosinophils 3.5 % 0.0 - 4.0 05/18 HEMATOLOGY Basophils 0.8 % 0.0 - 1.0 05/18 [facility] HEMATOLOGY Segs 57.5 % 45.0 - 05/18 [facility] 75.0 [facility] Vital Signs Vital Sign Value Date Comments Source Systolic (mm Hg) 138 10/19/2017 [facility] Diastolic (mm Hg) 85 10/19/2017 [facility] Respitory Rate 10 10/19/2017 [facility] Systolic (mm Hg) 140 10/19/2017 [facility] Diastolic (mm Hg) 87 10/19/2017 [facility] Respitory Rate 15 10/19/2017 [facility] Systolic (mm Hg) 137 10/19/2017 [facility] Diastolic (mm Hg) 79 10/19/2017 [facility] Respitory Rate 19 10/19/2017 [facility] Heart Rate 65 10/19/2017 [facility] Heart Rate 61 10/19/2017 [facility] Temperature Oral (F) 97.7 F 10/19/2017 [facility] Heart Rate 58 10/19/2017 [facility] Temperature Oral (F) 98 F 10/19/2017 [facility] Temperature Oral (F) 97.5 F 10/19/2017 [facility] BMI Calculated 27.95 10/18/2017 [facility] Weight 90.909 10/18/2017 [facility] Height 180.34 cm 10/18/2017 [facility] Systolic (mm Hg) 140 09/19/2016 [facility] Diastolic (mm Hg) 82 09/19/2016 [facility] Temperature Oral (F) 98.2 F 09/19/2016 [facility] Respitory Rate 22 09/19/2016 [facility] Heart Rate 77 09/19/2016 [facility] Respitory Rate 20 09/18/2016 [facility] Systolic (mm Hg) 172 09/18/2016 [facility] Diastolic (mm Hg) 89 09/18/2016 [facility] Heart Rate 72 09/18/2016 [facility] Temperature Oral (F) 98.3 F 09/18/2016 [facility] Temperature Oral (F) 97.5 F 09/18/2016 [facility] Heart Rate 76 09/18/2016 [facility] Systolic (mm Hg) 141 09/18/2016 [facility] Diastolic (mm Hg) 86 09/18/2016 [facility] Respitory Rate 20 09/18/2016 [facility] Weight 109.091 09/18/2016 [facility] Height 180.34 cm 09/18/2016 [facility] BMI Calculated 33.54 09/18/2016 [facility] Systolic (mm Hg) 116 06/08/2016 [facility] Diastolic (mm Hg) 70 06/08/2016 [facility] Respitory Rate 16 06/08/2016 [facility] Systolic (mm Hg) 113 06/08/2016 [facility] Diastolic (mm Hg) 70 06/08/2016 [facility] Respitory Rate 16 06/08/2016 [facility] Systolic (mm Hg) 113 06/08/2016 [facility] Diastolic (mm Hg) 56 06/08/2016 [facility] Respitory Rate 15 06/08/2016 [facility] Height 180.34 cm 06/08/2016 [facility] Weight 104 06/08/2016 [facility] BMI Calculated 31.98 06/08/2016 [facility] Heart Rate 76 06/08/2016 [facility] Diastolic (mm Hg) 80 05/19/2014 [facility] Heart Rate 70 05/19/2014 [facility] Systolic (mm Hg) 142 05/19/2014 [facility] Respitory Rate 18 05/19/2014 [facility] Temperature Oral (F) 98.3 F 05/19/2014 [facility] Systolic (mm Hg) 171 05/19/2014 [facility] Diastolic (mm Hg) 100 05/19/2014 [facility] Temperature Oral (F) 98.4 F 05/19/2014 [facility] Heart Rate 74 05/19/2014 [facility] Respitory Rate 18 05/19/2014 [facility] Respitory Rate 20 05/19/2014 [facility] Temperature Oral (F) 98.2 F 05/19/2014 [facility] Heart Rate 85 05/19/2014 [facility] Diastolic (mm Hg) 83 05/19/2014 [facility] Systolic (mm Hg) 158 05/19/2014 [facility] Height 180.34 cm 05/18/2014 [facility] Height 180.34 cm 05/18/2014 [facility] Weight 104.545 05/18/2014 [facility] BMI Calculated 32.15 05/18/2014 [facility] Encounters Location Location Encounter Encounter Reason Attending ADM DC Status Source Details Type Number For Provider Date Date Visit [facility] [id number] Samantha 05/18 05/20 [facility] Maricruz /2014 [facility] [id number] Eddie 06/08 06/08 Kenneth Butler /2016 [facility] [id number] Youngestrella 09/18 09/19 Kenneth Randall /2016 [facility] Observation [id number] Gyanendra 10/18 10/19 Kenneth Bonds /2017 [facility] Procedures Procedure Code Date Perfomer Comments Source Adjustment of [id number] [facility] intraluminal device [place] of arteriovenous fistula
--- OUTSIDE RECORDS SUMMARY | 2017-11-25 16:49 | XMS REPORT | Summary of Care ---
:1960 Author Encounter RIO Kenney) [id number] Date(s): 05/18/14 - 05/19/[address] Discharge Disposition: Snf Facility Physician Attending: Samantha Alcantara DO Physician Admitting: Samantha Alcantara DO Reason for Visit CHEST PAIN RULE OUT ACUTE GA Vital Signs Most recent to oldest 1 2 3 [Reference Range]: Height 180.34 cm 180.34 cm (05/18/14 5:20 PM) (05/18/14 5:37 AM) Current Weight 89.205 kg 95.472 kg (05/19/14 5:33 AM) (05/18/14 5:20 PM) Temperature Oral [96.4-99.1 98.3 DegF 98.4 DegF 98.2 DegF DegF] (05/19/14 3:54 PM) (05/19/14 12:29 PM) (05/19/14 7:26 AM) Systolic Blood Pressure 142 mmHg 171 mmHg 158 mmHg [90-140 mmHg] *HI* *HI* *HI* (05/19/14 3:54 PM) (05/19/14 12:29 PM) (05/19/14 7:26 AM) Diastolic Blood Pressure 80 mmHg 100 mmHg 83 mmHg [60-90 mmHg] (05/19/14 3:54 PM) *HI* (05/19/14 7:26 AM) (05/19/14 12:29 PM) Respiratory Rate [14-20 18 BRMIN 18 BRMIN 20 BRMIN BRMIN] (05/19/14 3:54 PM) (05/19/14 12:29 PM) (05/19/14 11:38 AM) Peripheral Pulse Rate [60-100 70 bpm 74 bpm 85 bpm bpm] (05/19/14 3:54 PM) (05/19/14 12:29 PM) (05/19/14 7:26 AM) Weight 104.545 kg (05/18/14 5:37 AM) Body Mass Index 32.15 m2 (05/18/14 5:37 AM) Problem List Condition Effective Dates Status Health Status Informant CAD (coronary artery Resolved disease)(Confirmed) CVA (cerebral infarction)(Confirmed) Resolved Diabetes mellitus(Confirmed) Resolved Diabetic neuropathy(Confirmed) Resolved Diabetic retinopathy(Confirmed) Resolved Hyperlipemia(Confirmed) Resolved Hypertension(Confirmed) Resolved Hypothyroidism(Confirmed) Resolved GA (myocardial Resolved infarction)(Confirmed) Spasms, infantile(Confirmed) Resolved Allergies, Adverse Reactions, Alerts Substance Reaction Severity Status NKDA Active Medications amLODIPine 10 mg oral tablet 10 mg=1 tab, PO, Daily, 0 Refill(s) Start Date: 05/18/14 Status: Orderedaspirin 325 mg tablet 325 mg, 1 tab, Route: PO, Drug form: TAB, ONCE, Dosing Weight 104.545, kg, Start date: 05/18/14 10:08:00, Stop date: 05/18/14 10:08:00 Notes: Take with food. Start Date: 05/18/14 Stop Date: 05/18/14 Status: Completedaspirin 81 mg tablet, enteric coated 81 mg, 1 tab, Route: PO, Drug form: ECTAB, Daily, Dosing Weight 104.545, kg, Start date: 05/19/14 9:00:00, Duration: 30 day, Stop date: 06/17/14 9:00:00 Notes: Do not crush or chew.(Same As: Ecotrin) Start Date: 05/19/14 Stop Date: 05/19/14 Status: Discontinuedatorvastatin 40 mg oral tablet 40 mg=1 tab, PO, Bedtime, # 30 tab, 0 Refill(s) Start Date: 05/18/14 Status: Orderedbaclofen 10 mg oral tablet 10 mg=1 tab, PO, TID, 0 Refill(s) Start Date: 05/18/14 Status: Orderedcarvedilol 25 mg oral tablet 25 mg=1 tab, PO, BID, 0 Refill(s) Start Date: 05/18/14 Status: OrdereddiphenhydrAMINE 25 mg, 1 cap, Route: PO, Drug form: CAP, Bedtime, Dosing Weight 104.545, kg, PRN Insomnia, Start date: 05/18/14 10:08:00, Duration: 30 day, Stop date: 10:07:00 Notes: (Same as: Benadryl) Start Date: 05/18/14 Stop Date: 05/19/14 Status: Discontinuedenoxaparin 40 mg, 0.4 mL, Route: SUB-Q, Drug form: INJ, [id number], Dosing Weight 104.545, kg , Start date: 05/18/14 11:00:00, Duration: 30 day, Stop date: 06/16/14 11:00:00 Notes: (Same as: Lovenox) Start Date: 05/18/14 Stop Date: 05/19/14 Status: DiscontinuedhydrALAZINE 50 mg oral tablet 50 mg=1 tab, PO, TID, 0 Refill(s) Start Date: 05/18/14 Stop Date: 05/19/14 Status: Discontinuedinsulin aspart 3 unit, 0.03 mL, Route: SUB-Q, Drug form: SOLN, TID-Before Meals, Dosing Weight 104.545, kg, PRN Blood Glucose Results, Start date: 05/18/14 10:09:00, Duration : 30 day, Stop date: 06/17/14 10:08:00 Notes: Roll in palms of hands gently; Do not shake vigorously. (Same as: NovoLOG)"single patient use only" Stable for 28 days at room temperature.Expires in days from Date Start Date: 05/18/14 Stop Date: 05/19/14 Status: Discontinuedinsulin aspart 6 unit, 0.06 mL, Route: SUB-Q, Drug form: SOLN, TID-Before Meals, Dosing Weight 104.545, kg, PRN Blood Glucose Results, Start date: 05/18/14 10:09:00, Duration : 30 day, Stop date: 06/17/14 10:08:00 Notes: Roll in palms of hands gently; Do not shake vigorously. (Same as: NovoLOG)"single patient use only" Stable for 28 days at room temperature.Expires in days from Date Start Date: 05/18/14 Stop Date: 05/19/14 Status: Discontinuedinsulin aspart 9 unit, 0.09 mL, Route: SUB-Q, Drug form: SOLN, TID-Before Meals, Dosing Weight 104.545, kg, PRN Blood Glucose Results, Start date: 05/18/14 10:09:00, Duration : 30 day, Stop date: 06/17/14 10:08:00 Notes: Roll in palms of hands gently; Do not shake vigorously. (Same as: NovoLOG)"single patient use only" Stable for 28 days at room temperature.Expires in days from Date Start Date: 05/18/14 Stop Date: 05/19/14 Status: Discontinuedinsulin aspart 12 unit, 0.12 mL, Route: SUB-Q, Drug form: SOLN, TID-Before Meals, Dosing Weight 104.545, kg, PRN Blood Glucose Results, Start date: 05/18/14 10:09:00, Duration: 30 day, Stop date: 06/17/14 10:08:00 Notes: Roll in palms of hands gently; Do not shake vigorously. (Same as: NovoLOG)"single patient use only" Stable for 28 days at room temperature.Expires in days from Date Start Date: 05/18/14 Stop Date: 05/19/14 Status: Discontinuedinsulin aspart 15 unit, 0.15 mL, Route: SUB-Q, Drug form: SOLN, TID-Before Meals, Dosing Weight 104.545, kg, PRN Blood Glucose Results, Start date: 05/18/14 10:09:00, Duration: 30 day, Stop date: 06/17/14 10:08:00 Notes: Roll in palms of hands gently; Do not shake vigorously. (Same as: NovoLOG)"single patient use only" Stable for 28 days at room temperature.Expires in days from Date Start Date: 05/18/14 Stop Date: 05/19/14 Status: Discontinuedisosorbide mononitrate 60 mg oral tablet, extended release 60 mg=1 tab, PO, Daily, 0 Refill(s) Start Date: 05/18/14 Stop Date: 05/19/14 Status: Discontinuedlevothyroxine 50 mcg (0.05 mg) oral tablet 50 microgram=1 tab, PO, Daily, # 30 tab, 0 Refill(s) Start Date: 05/18/14 Status: Orderedmetoprolol tartrate 50 mg, 1 tab, Route: PO, Drug form: TAB, ONCE, Dosing Weight 104.545, kg, Priority: STAT, Start date: 05/18/14 8:35:00, Stop date: 05/18/14 8:35:00 Notes: (Same as: Lopressor) Start Date: 05/18/14 Stop Date: 05/18/14 Status: Completedminoxidil 2.5 mg oral tablet 2.5 mg=1 tab, PO, BID, 0 Refill(s) Start Date: 05/18/14 Status: Orderednitroglycerin SL Tab 0.4 mg, 1 tab, Route: SL, Drug form: TAB, Q5Min, Dosing Weight 104.545, kg, PRN Chest Pain, Start date: 05/18/14 10:08:00, Duration: 3 doses or times, Stop date : Limited # of times Notes: (Same as:Nitroquick, Nitrostat)"Do Not Crush" Sublingual tablet Start Date: 05/18/14 Stop Date: 05/19/14 Status: DiscontinuedNitrostat 0.4 mg sublingual tablet 0.4 mg=1 tab, SL, Q5Min, Chest Pain, # 100 tab, 0 Refill(s) Start Date: 05/18/14 Status: OrderedNovoLIN N 15 unit, SUB-Q, Bedtime, 0 Refill(s) Start Date: 05/18/14 Status: OrderedNovoLIN R 0 Refill(s) Start Date: 05/18/14 Stop Date: 05/19/14 Status: Discontinuedondansetron 4 mg, 1 tab, Route: PO, Drug form: TAB, Q8H, Dosing Weight 104.545, kg, PRN Nausea & Vomiting, Start date: 05/18/14 10:08:00, Duration: 30 day, Stop date: 06/17/14 10:07:00 Notes: (Same as: Zofran) Start Date: 05/18/14 Stop Date: 05/19/14 Status: DiscontinuedProtonix 40 mg, Route: IVP, Drug form: INJ, Before Dinner, Dosing Weight 104.545, kg, Patient is NPO, Start date: 05/18/14 16:30:00, Duration: 30 day, Stop date: 16:30:00 Notes: For IV push reconstitute with 10 ml 0.9% sodium chloride and push over 2 minutes. (Same as: Protonix) Start Date: 05/18/14 Stop Date: 05/19/14 Status: Discontinuedrisperidone 1 mg oral tablet 1 mg=1 tab, PO, BID, 0 Refill(s) Start Date: 05/18/14 Status: OrderedSaline Flush 0.9% 10 ml, Route: IVP, Drug Form: INJ, Dosing Weight 104.545, kg, PRN, PRN Line Flush, Start date: 05/18/14 10:08:00, Duration: 30 day, Stop date: 06/17/14 10: 07:00 Notes: Same as: BD Posiflush Sterile Start Date: 05/18/14 Stop Date: 05/19/14 Status: DiscontinuedSaline Flush 0.9% 10 ml, Route: IVP, Drug Form: INJ, Dosing Weight 104.545, kg, Q12H, Start date: 05/18/14 21:00:00, Duration: 30 day, Stop date: 06/17/14 9:00:00 Notes: Same as: BD Posiflush Sterile Start Date: 05/18/14 Stop Date: 05/19/14 Status: Discontinuedsucralfate 1 g/10 mL oral suspension 1 gm, 10 mL, Route: PO, Drug form: SUSP, QID, Dosing Weight 104.545, kg, Start date: 05/18/14 13:00:00, Duration: 30 day, Stop date: 06/17/14 9:00:00 Notes: Enteral feeds may interfere with the absorption of this medication. Shake well. Take 1 hr before or 2 hrs after antacids, dairy pdt, minerals & meals. (Same As: Carafate) Start Date: 05/18/14 Stop Date: 05/19/14 Status: Discontinued Results ELECTROLYTES Most recent to oldest [Reference Range]: 1 2 3 Sodium Lvl [135-145 mEq/L] 144 mEq/L 141 mEq/L (05/19/14 7:06 AM) (05/18/14 6:24 AM) Potassium Lvl [3.5-5.1 mEq/L] 4.0 mEq/L 3.8 mEq/L (05/19/14 7:06 AM) (05/18/14 6:24 AM) Chloride Lvl [95-109 mEq/L] 112 mEq/L 109 mEq/L *HI* (05/18/14 6:24 AM) (05/19/14 7:06 AM) CO2 [24-32 mEq/L] 25 mEq/L 24 mEq/L (05/19/14 7:06 AM) (05/18/14 6:24 AM) AGAP [10.0-20.0 mEq/L] 11.0 mEq/L 11.8 mEq/L (05/19/14 7:06 AM) (05/18/14 6:24 AM) CHEM PANEL Most recent to oldest 1 2 3 [Reference Range]: Creatinine Lvl [0.5-1.4 1.5 mg/dL 1.9 mg/dL 1.9 mg/dL mg/dL] *HI* *HI* *HI* (05/19/14 7:06 AM) (05/18/14 10:28 AM) (05/18/14 6:24 AM) eGFR 61 mL/min/1.73m2 1 46 mL/min/1.73m2 2 46 mL/min/1.73m2 3 *NA* *NA* *NA* (05/19/14 7:06 AM) (05/18/14 10:28 AM) (05/18/14 6:24 AM) BUN [7-22 mg/dL] 22 mg/dL 28 mg/dL (05/19/14 7:06 AM) *HI* (05/18/14 6:24 AM) B/C Ratio [6-25] 15 (05/18/14 6:24 AM) Glucose Lvl [70-99 mg/dL] 121 mg/dL 4 197 mg/dL 5 *HI* *HI* (05/19/14 7:06 AM) (05/18/14 6:24 AM) Total Protein [6.4-8.4 7.1 g/dL g/dL] (05/18/14 6:24 AM) Albumin Lvl [3.5-5.0 g/dL] 3.1 g/dL *LOW* (05/18/14 6:24 AM) Globulin [2.0-4.0 g/dL] 4.0 g/dL (05/18/14 6:24 AM) A/G Ratio [0.7-1.6] 0.8 (05/18/14 6:24 AM) Calcium Lvl [8.5-10.5 8.9 mg/dL 8.6 mg/dL mg/dL] (05/19/14 7:06 AM) (05/18/14 6:24 AM) ALT [0-65 unit/L] 15 unit/L (05/18/14 6:24 AM) AST [0-37 unit/L] 13 unit/L (05/18/14 6:24 AM) Alk Phos [39-136 unit/L] 44 unit/L (05/18/14 6:24 AM) Bili Total [0.2-1.3 mg/dL] 0.2 mg/dL (05/18/14 6:24 AM) 1Result Comment: The eGFR is calculated using [...] eGFR should be multiplied by the estimated BMI.2Result Comment: The eGFR is calculated using the CKD-EPI formula. In most young, healthy individualsthe eGFR will be >90 mL/ min/1.73m2. The [...] eGFR should be multiplied by the estimated BMI.3Result Comment: The eGFR is calculated using the CKD-EPI formula. In most young, healthy individualsthe eGFR will be >90 mL/ min/1.73m2. The [...] eGFR should be multiplied by the estimated BMI.4Interpretive Data: Adult reference range values reflect the clinical guidelines of the [place] [employer].5Interpretive Data: Adult reference range values reflect the clinical guidelines of the [place] [employer].CARDIAC ENZYMES Most recent to oldest 1 2 3 [Reference Range]: Total CK [12-191 unit/L] 97 unit/L 105 unit/L 103 unit/L (05/18/14 8:47 PM) (05/18/14 12:34 PM) (05/18/14 6:24 AM) CK MB [0.5-3.6 ng/mL] 1.2 ng/mL 1.1 ng/mL 1.3 ng/mL (05/18/14 8:47 PM) (05/18/14 12:34 PM) (05/18/14 6:24 AM) CK MB Index [0.0-2.5] 1.2 1.0 1.3 (05/18/14 8:47 PM) (05/18/14 12:34 PM) (05/18/14 6:24 AM) Troponin-I [0.00-0.40 0.02 ng/mL 0.02 ng/mL 0.02 ng/mL ng/mL] (05/18/14 8:47 PM) (05/18/14 12:34 PM) (05/18/14 6:24 AM) LIPIDS Most recent to oldest [Reference Range]: 1 2 3 CHD Risk [4.00-7.30] 2.45 *LOW* (05/18/14 10:28 AM) Chol [<=199 mg/dL] 103 mg/dL (05/18/14 10:28 AM) Trig [<=149 mg/dL] 85 mg/dL (05/18/14 10:28 AM) HDL [>=61 mg/dL] 42 mg/dL *LOW* (05/18/14 10:28 AM) LDL (Calculated) [<=99 mg/dL] 44 mg/dL (05/18/14 10:28 AM) VLDL 17 *NA* (05/18/14 10:28 AM) DRUG SCREEN Most recent to oldest [Reference Range]: 1 2 3 U Amph Scr [Negative] Negative *NA* (05/18/14 10:28 AM) U Ruchi Scr [Negative] Negative *NA* (05/18/14 10:28 AM) U Benzodia Scr [Negative] Negative *NA* (05/18/14 10:28 AM) U Cocaine Scr [Negative] Negative *NA* (05/18/14 10:28 AM) U Opiate Scr [Negative] Negative *NA* (05/18/14 10:28 AM) U Phencyc Scr [Negative] Negative *NA* (05/18/14 10:28 AM) U Cannab Scr [Negative] Negative *NA* (05/18/14 10:28 AM) UDS Note See Note 6 *NA* (05/18/14 10:28 AM) 6Interpretive Data: Drugs reported as positive have not been confirmed by a second method and should be used for medical purposes only. To order confirmation, contact laboratory. note: Below are cut-off concentrations for all urine drugs of abuse performed in the laboratory. Some drugs listed in the table may not be included in this panel. Description Cut-off concentration Amphetamine 1000 ng/mL Barbiturates 200 ng/mL Benzodiazepines 300 ng/mL Cocaine metabolites 300 ng/mL Opiates 300 ng/mL Phencyclidine 25 ng/mL Propoxyphene 300 ng/mL Marijuana metabolites 50 ng/mL Methadone 300 ng/mL Urine alcohol 20 mg/dLHEMATOLOGY Most recent to oldest [Reference Range]: 1 2 3 WBC [3.7-10.4 K/CMM] 4.6 K/CMM (05/18/14 6:24 AM) RBC [4.70-6.10 M/CMM] 3.43 M/CMM *LOW* (05/18/14 6:24 AM) Hgb [14.0-18.0 g/dL] 9.4 g/dL *LOW* (05/18/14 6:24 AM) Hct [42.0-54.0 %] 28.3 % *LOW* (05/18/14 6:24 AM) MCV [80.0-94.0 fL] 82.6 fL (05/18/14 6:24 AM) MCH [27.0-31.0 pg] 27.4 pg (05/18/14 6:24 AM) MCHC [32.0-36.0 g/dL] 33.2 g/dL (05/18/14 6:24 AM) RDW [11.5-14.5 %] 17.6 % *HI* (05/18/14 6:24 AM) Platelet [133-450 K/CMM] 202 K/CMM 208 K/CMM (05/18/14 10:28 AM) (05/18/14 6:24 AM) MPV [7.4-10.4 fL] 10.8 fL *HI* (05/18/14 6:24 AM) Segs [45.0-75.0 %] 57.5 % (05/18/14 6:24 AM) Lymphocytes [20.0-40.0 %] 29.4 % (05/18/14 6:24 AM) Monocytes [2.0-12.0 %] 8.8 % (05/18/14 6:24 AM) Eosinophils [0.0-4.0 %] 3.5 % (05/18/14 6:24 AM) Basophils [0.0-1.0 %] 0.8 % (05/18/14 6:24 AM) Segs-Bands # [1.5-8.1 K/CMM] 2.6 K/CMM (05/18/14 6:24 AM) Lymphocytes # [1.0-5.5 K/CMM] 1.4 K/CMM (05/18/14 6:24 AM) Monocytes # [0.0-0.8 K/CMM] 0.4 K/CMM (05/18/14 6:24 AM) Eosinophils # [0.0-0.5 K/CMM] 0.2 K/CMM (05/18/14 6:24 AM) Basophils # [0.0-0.2 K/CMM] 0.0 K/CMM (05/18/14 6:24 AM) PT [12.0-14.7 seconds] 13.4 seconds 12.8 seconds (05/18/14 10:28 AM) (05/18/14 6:24 AM) INR [0.85-1.17] 1.02 7 0.96 8 (05/18/14 10:28 AM) (05/18/14 6:24 AM) PTT [22.9-35.8 seconds] 36.5 seconds 9 *HI* (05/18/14 10:28 AM) 7Interpretive Data: RECOMMENDED RANGES FOR PROTIME INR: 2.0-3.0 for most medical and surgical thromboembolic states. 2.5-3.5 for artificial heart valves and recurrent embolism. INR SHOULD BE USED ONLY FOR PATIENTS ON STABLE ANTICOAGULANT THERAPY.8Interpretive Data: RECOMMENDED RANGES FOR PROTIME INR: 2.0-3.0 for most medical and surgical thromboembolic states. 2.5-3.5 for artificial heart valves and recurrent embolism. INR SHOULD BE USED ONLY FOR PATIENTS ON STABLE ANTICOAGULANT THERAPY.9Interpretive Data: Heparin Therapeutic Range: 57 - 92 Seconds Medications Administered During Your Visit No data available for this section Immunizations No data available for this section Social History Social History Type Response Substance Abuse Use: None Sexual Sexually active: No Alcohol Use: Past, Type: Liquor, Frequency: 1-2 times per year, Previous treatment: None, Has alcohol use interfered with work or home life? No, Do you ever drink more than intended? No, Has anyone been hurt or at risk by your drinking? No Smoking Status Former smoker, Exposure to Tobacco Smoke None, Cigarette Smoking Last 365 Days No, Reg Smoking Cessation Counseling No
--- OUTSIDE RECORDS SUMMARY | 2017-11-25 16:49 | XMS REPORT | Summary of Care ---
:1960 Author Organization [facility] Address [address] [place], [place] [address]- Encounter HQ Jenifer(FIN) [phone] Date(s): 10/18/17 - 10/19/17 [facility] [address] [place] [address]- Discharge Disposition: Retirement Facility Attending Physician: Mary Anne Bonds MD Admitting Physician: Mary Anne Bonds MD Vital Signs Most recent to oldest [Reference 1 2 3 Range]: Height 180.34 cm (10/18/17 10:45 AM) Temperature Oral [96.4-99.1 DegF] 97.7 DegF 98 DegF 97.5 DegF (10/19/17 1:03 PM) (10/19/17 8:04 AM) (10/19/17 3:14 AM) Blood Pressure [90-140/60-90 138/85 mmHg 140/87 mmHg 137/79 mmHg mmHg] (10/19/17 4:30 PM) (10/19/17 4:15 PM) (10/19/17 4:00 PM) Respiratory Rate [14-20 BRMIN] 10 BRMIN 15 BRMIN 19 BRMIN *LOW* (10/19/17 4:15 PM) (10/19/17 4:00 PM) (10/19/17 4:30 PM) Peripheral Pulse Rate [60-100 65 bpm 61 bpm 58 bpm bpm] (10/19/17 2:34 PM) (10/19/17 1:03 PM) *LOW* (10/19/17 8:04 AM) Weight 90.909 kg (10/18/17 10:45 AM) Body Mass Index 27.95 m2 (10/18/17 10:45 AM) Problem List Condition Effective Dates Status Health Status Informant Bipolar disorder(Confirmed) Active CAD (coronary artery Resolved disease)(Confirmed) CVA (cerebral infarction)(Confirmed) Resolved Diabetes mellitus(Confirmed) Resolved DM (diabetes mellitus)(Confirmed) Active Diabetic neuropathy(Confirmed) Resolved Diabetic retinopathy(Confirmed) Resolved ESRD (end stage renal Active disease)(Confirmed) Hyperlipemia(Confirmed) Resolved Hyperlipidemia(Confirmed) Active Hypertension(Confirmed) Resolved HTN (hypertension)(Confirmed) Active Hypothyroidism(Confirmed) Resolved Hypothyroidism(Confirmed) Active CT (myocardial Resolved infarction)(Confirmed) Seizure disorder(Confirmed) Active Spasms, infantile(Confirmed) Resolved Allergies, Adverse Reactions, Alerts Substance Reaction Severity Status NKDA Active Medications albuterol 0.083% inhalation solution 20 mg, Route: NEB, ONCE, Dosing Weight 90.909, kg, Priority: STAT, Start date: 10/18/17 11:11:00 CDT, Stop date: 10/18/17 11:11:00 CDT Start Date: 10/18/17 Stop Date: 10/18/17 Status: Completedalbuterol-ipratropium 2.5-0.5 mg inhalation solution 3 mL, Route: NEB, Dosing Weight 90.909, kg, ONCE, STAT, Start date: 10/19/17 14: 28:00 CDT, Stop date: 10/19/17 14:28:00 CDT Start Date: 10/19/17 Stop Date: 10/19/17 Status: DiscontinuedANES albuterol 0.083% inhalation solution 2.49 mg, Route: NEB, Q20Min, Dosing Weight 90.909, kg, PRN Wheezing, Priority: STAT, Start date: 10/19/17 15:46:00 CDT, Duration: 30 day, Stop date: 11/18/17 15:45:00 CDT Start Date: 10/19/17 Stop Date: 10/19/17 Status: DiscontinuedANES diphenhydrAMINE 12.5 mg, Route: IVP, Drug form: INJ, Q6H, Dosing Weight 90.909, kg, PRN Itching , Start date: 10/19/17 15:46:00 CDT, Duration: 30 day, Stop date: 11/18/17 15:45 :00 CDT Start Date: 10/19/17 Stop Date: 10/19/17 Status: DiscontinuedANES esmolol 10 mg, Route: IVP, Q5Min, Dosing Weight 90.909, kg, PRN Other -See Comment, Start date: 10/19/17 15:46:00 CDT, Duration: 5 doses or times, Stop date: Limited # of times Start Date: 10/19/17 Stop Date: 10/19/17 Status: DiscontinuedANES fentaNYL 50 microgram, Route: IVP, Q5Min, Dosing Weight 90.909, kg, PRN Pain Score 7-10, Priority: Routine, Start date: 10/19/17 15:46:00 CDT, Duration: 2 doses or times , Stop date: Limited # of times Start Date: 10/19/17 Stop Date: 10/19/17 Status: DiscontinuedANES fentaNYL 25 microgram, Route: IVP, Q5Min, Dosing Weight 90.909, kg, PRN Pain Score 4-6, Priority: Routine, Start date: 10/19/17 15:46:00 CDT, Duration: 4 doses or times , Stop date: Limited # of times Start Date: 10/19/17 Stop Date: 10/19/17 Status: DiscontinuedANES flumazenil 0.2 mg, Route: IVP, PRN, Dosing Weight 90.909, kg, PRN Benzodiazepine Reversal, Initial dose, Start date: 10/19/17 15:46:00 CDT, Duration: 30 day, Stop date: 15:45:00 CDT Start Date: 10/19/17 Stop Date: 10/19/17 Status: DiscontinuedANES hydrALAZINE 10 mg, Route: IVP, Q20Min, Dosing Weight 90.909, kg, PRN Elevated BP, Start date : 10/19/17 15:46:00 CDT, Duration: 2 doses or times, Stop date: Limited # of times Start Date: 10/19/17 Stop Date: 10/19/17 Status: DiscontinuedANES labetalol 10 mg, Route: IVP, Q5Min, Dosing Weight 90.909, kg, PRN Elevated BP, Start date : 10/19/17 15:46:00 CDT, Duration: 5 doses or times, Stop date: Limited # of times Start Date: 10/19/17 Stop Date: 10/19/17 Status: DiscontinuedANES meperidine 12.5 mg, Route: IVP, Q30Min, Dosing Weight 90.909, kg, PRN Other -See Comment, For shivering, Start date: 10/19/17 15:46:00 CDT, Duration: 2 doses or times, Stop date: Limited # of times Start Date: 10/19/17 Stop Date: 10/19/17 Status: DiscontinuedANES naloxone 0.4 mg, Route: IVP, Q2MIN, Dosing Weight 90.909, kg, PRN Narcotic Reversal, Start date: 10/19/17 15:46:00 CDT, Duration: 8 doses or times, Stop date: Limited # of times Start Date: 10/19/17 Stop Date: 10/19/17 Status: DiscontinuedANES ondansetron 4 mg, Route: IVP, ONCE, Dosing Weight 90.909, kg, PRN Nausea & Vomiting, Start date: 10/19/17 15:46:00 CDT Start Date: 10/19/17 Stop Date: 10/19/17 Status: DiscontinuedANES promethazine 6.25 mg, Route: IVPB, ONCE, Dosing Weight 90.909, kg, PRN Nausea & Vomiting , Start date: 10/19/17 15:46:00 CDT Start Date: 10/19/17 Stop Date: 10/19/17 Status: Discontinuedaspirin 81 mg, 1 tab, Route: PO, Drug form: ECTAB, Daily, Dosing Weight 90.909, kg, Start date: 10/18/17 19:00:00 CDT, Duration: 30 day, Stop date: 11/17/17 9:00: 00 CDT Notes: Do not crush or chew.(Same As: Ecotrin) Start Date: 10/18/17 Stop Date: 10/19/17 Status: Discontinuedcalcium gluconate 1 gm, 50 mL, Route: IVPB, Drug form: INJ, ONCE, Dosing Weight 90.909, kg, Priority: STAT, Start date: 10/18/17 11:11:00 CDT, Stop date: 10/18/17 11:11:00 CDT Notes: WASTE: F/P - Sink; E - Municipal Trash Bin Start Date: 10/18/17 Stop Date: 10/18/17 Status: Completedcholecalciferol 2,000 IntlUnit, 2 tab, Route: PO, Drug form: TAB, Daily, Dosing Weight 90.909, kg, Start date: 10/19/17 9:00:00 CDT, Duration: 30 day, Stop date: 11/17/17 9:00 :00 CDT Notes: Same as : Vitamin D3 Start Date: 10/19/17 Stop Date: 10/19/17 Status: DiscontinuedcloNIDine 0.3 mg/24 hr transdermal film, extended release 1 patch, Route: TOP, Drug Form: ERFILM, Dosing Weight 90.909, kg, qWeek, Start date: 10/18/17 19:00:00 CDT, Duration: 30 day, Stop date: 11/15/17 9:00:00 CDT Notes: Patch delivers 0.3 mg/24 hours; Patch is applied weekly. [id number]. "Remove old patch before application of new patch" Start Date: 10/18/17 Stop Date: 10/19/17 Status: DiscontinuedDepakote Sprinkles 125 mg oral delayed release capsule 125 mg, 1 cap, Route: PO, Drug form: CAP, BID, Dosing Weight 90.909, kg, Start date: 10/19/17 9:00:00 CDT, Duration: 30 day, Stop date: 11/17/17 17:00:00 CDT Notes: (Same as: Depakote Sprinkles)Do not confuse with 250mg capsule or tablets Do not crush. Jill on food. Start Date: 10/19/17 Stop Date: 10/19/17 Status: Discontinuedergocalciferol 50,000 intl units oral capsule 50,000 IntlUnit, 1 cap, Route: PO, Drug form: CAP, qWeek, Dosing Weight 90.909, kg, Start date: 10/18/17 19:00:00 CDT, Duration: 30 day, Stop date: 11/15/17 9: 00:00 CDT Start Date: 10/18/17 Stop Date: 10/18/17 Status: Discontinuedfolic acid 1 mg, 1 tab, Route: PO, Drug form: TAB, Daily, Dosing Weight 90.909, kg, Start date: 10/19/17 9:00:00 CDT, Duration: 30 day, Stop date: 11/17/17 9:00:00 CDT Notes: (Same as: Folvite) Start Date: 10/19/17 Stop Date: 10/19/17 Status: DiscontinuedhydrALAZINE 50 mg oral tablet 50 mg, 1 tab, Route: PO, Drug form: TAB, Q8H, Dosing Weight 90.909, kg, Start date: 10/19/17 0:00:00CDT, Duration: 30 day, Stop date: 11/17/17 16:00:00 CDT Notes: (Same as: Apresoline) May interfere w/enteral feedings Take With Food Start Date: 10/19/17 Stop Date: 10/19/17 Status: Discontinuedisosorbide mononitrate 20 mg, 2 tab, Route: PO, Drug form: TAB, TID, Dosing Weight 90.909, kg, Start date: 10/19/17 9:00:00CDT, Duration: 30 day, Stop date: 11/17/17 17:00:00 CDT Notes: (Same as:Monoket) Take on empty stomach/ full glass of water Start Date: 10/19/17 Stop Date: 10/19/17 Status: DiscontinuedKeppra 500 mg oral tablet 500 mg, 1 tab, Route: PO, Drug form: TAB, BID, Dosing Weight 90.909, kg, Start date: 10/19/17 9:00:00 CDT, Duration: 30 day, Stop date: 11/17/17 17:00:00 CDT Notes: (Same as:Keppra) Start Date: 10/19/17 Stop Date: 10/19/17 Status: DiscontinuedLactated Ringers Injection IV 1000 mL 1,000 mL, Rate: 125 ml/hr, Infuse over: 8 hr, Route: IV, Dosing Weight 90.909 kg , Total Volume: 1,000, Start date: 10/19/17 15:46:00 CDT, Duration: 30 day, Stop date: 11/18/17 15:45:00 CDT, 2.15, m2 Start Date: 10/19/17 Stop Date: 10/19/17 Status: DiscontinuedLactated Ringers Injection IV 1000 mL 1,000 mL, Rate: 25 ml/hr, Infuse over: 40 hr, Route: IV, Dosing Weight 90.909 kg , Total Volume: 1,000, Start date: 10/19/17 14:28:00 CDT, Duration: 30 day, Stop date: 11/18/17 14:27:00 CDT, 2.15, m2 Start Date: 10/19/17 Stop Date: 10/19/17 Status: Discontinuedlevothyroxine 50 microgram, 1 tab, Route: PO, Drug form: TAB, Q630AM, Dosing Weight 90.909, kg , Start date: 10/19/17 6:30:00 CDT, Duration: 30 day, Stop date: 11/17/17 6:30: 00 CDT Notes: Take 1 hour before or 2 hours after meal; Enteral feeds may interefere with the absorption ofthis medication.(Same as:Levothroid, Synthroid) Start Date: 10/19/17 Stop Date: 10/19/17 Status: DiscontinuedLopressor 50 mg, 1 tab, Route: PO, Drug form: TAB, BID, Dosing Weight 90.909, kg, Start date: 10/18/17 21:00:00 CDT, Duration: 30 day, Stop date: 11/17/17 9:00:00 CDT Notes: (Same as: Lopressor) Start Date: 10/18/17 Stop Date: 10/19/17 Status: DiscontinuedNephro-Pawan 1 tab, Route: PO, Drug Form: TAB, Dosing Weight 90.909, kg, Daily, Start date: 10/19/17 9:00:00 CDT,Duration: 30 day, Stop date: 11/17/17 9:00:00 CDT Notes: (Same as: Nephro-Pawan Rx and Diatx) Give with food. Start Date: 10/19/17 Stop Date: 10/19/17 Status: DiscontinuedNIFEdipine 90 mg oral tablet, extended release 90 mg, 1 tab, Route: PO, Drug form: ERTAB, Daily, Dosing Weight 90.909, kg, Start date: 10/19/17 9:00:00 CDT, Duration: 30 day, Stop date: 11/17/17 9:00:00 CDT Notes: (Same as: Adalat CC,Procardia XL)"Do Not Crush" "Avoid grapefruit and grapefruit juice" Start Date: 10/19/17 Stop Date: 10/19/17 Status: Discontinuedpneumococcal 23-valent vaccine 0.5 mL, Route: IM, Drug Form: INJ, ONCALL, Start date: 10/18/17 17:06:15 CDT, Stop date: 11/17/17 17:01:15 CDT Notes: (Same as: Pneumovax 23) Refrigerate Start Date: 10/18/17 Stop Date: 10/19/17 Status: DiscontinuedProtonix 40 mg, 1 tab, Route: PO, Drug form: ECTAB, Before Breakfast, Dosing Weight 90.909, kg, Start date: 10/19/17 7:30:00 CDT, Duration: 30 day, Stop date: 11/17 7:30:00 CDT Notes: Tablet should not be chewed or crushed.(Same as: Protonix) Start Date: 10/19/17 Stop Date: 10/19/17 Status: DiscontinuedRenagel 3,200 mg, Route: PO, Drug form: TAB, TID, Dosing Weight 90.909, kg, Start date: 10/19/17 9:00:00 CDT, Duration: 30 day, Stop date: 11/17/17 17:00:00 CDT Start Date: 10/19/17 Stop Date: 10/18/17 Status: DeletedRisperdal 0.25 mg, 1 tab, Route: PO, Drug form: TAB, Daily, Dosing Weight 90.909, kg, Start date: 10/19/17 9:00:00 CDT, Duration: 30 day, Stop date: 11/17/17 9:00:00 CDT Notes: (Same as: Risperdal) Start Date: 10/19/17 Stop Date: 10/19/17 Status: DiscontinuedRisperdal 0.5 mg, 1 tab, Route: PO, Drug form: TAB, Daily, Dosing Weight 90.909, kg, Priority: STAT, Start date: 10/18/17 16:45:00 CDT, Duration: 30 day, Stop date: 11/17/17 9:00:00 CDT Notes: (Same as: Risperdal) Start Date: 10/18/17 Stop Date: 10/18/17 Status: DiscontinuedSensipar 30 mg, 1 tab, Route: PO, Drug form: TAB, Daily, Dosing Weight 90.909, kg, Start date: 10/19/17 9:00:00 CDT, Duration: 30 day, Stop date: 11/17/17 9:00:00 CDT Notes: (Same as: Sensipar) Start Date: 10/19/17 Stop Date: 10/19/17 Status: Discontinuedsevelamer 3,200 mg, 4 tab, Route: PO, Drug form: TAB, TID, Start date: 10/19/17 9:00:00 CDT, Duration: 30 day,Stop date: 11/17/17 17:00:00 CDT Notes: Same as: Renvela Start Date: 10/19/17 Stop Date: 10/19/17 Status: Discontinuedsodium bicarbonate 50 mEq, 50 mL, Route: IVP, Drug form: INJ, ONCE, Dosing Weight 90.909, kg, Priority: STAT, Start date: 10/18/17 11:11:00 CDT, Stop date: 10/18/17 11:11:00 CDT Notes: (sodium bicarb 8.4% (1 mEq/ml) 50 ml syringe) Start Date: 10/18/17 Stop Date: 10/18/17 Status: CompletedSodium Chloride 0.9% IV 500 mL 500 mL, Rate: 25 ml/hr, Infuse over: 20 hr, Route: IV, Dosing Weight 90.909 kg, Total Volume: 500, Start date: 10/19/17 14:29:00 CDT, Duration: 30 day, Stop date: 11/18/17 14:28:00 CDT, 2.15, m2 Start Date: 10/19/17 Stop Date: 10/19/17 Status: Discontinuedsucralfate 1 gm, 1 tab, Route: PO, Drug form: TAB, TID, Dosing Weight 90.909, kg, Start date: 10/19/17 9:00:00 CDT, Duration: 30 day, Stop date: 11/17/17 17:00:00 CDT Notes: May interfere w/enteral feeds - Take 1 hr before or 2 hr after antacids , dairy pdt, meals & minerals - On empty stomach.For patients unable to swallow tablet, dissolve in 10mL - 30mL of water or juice and stir before giving. (Same As: Carafate) Start Date: 10/19/17 Stop Date: 10/19/17 Status: Discontinuedtramadol 50 mg oral tablet 50 mg, 1 tab, Route: PO, Drug form: TAB, Q6H, Dosing Weight 90.909, kg, PRN Pain Score 1-5, Start date: 10/18/17 18:32:00 CDT, Duration: 30 day, Stop date: 11/17/17 18:31:00 CDT Notes: Not to exceed 400mg/day. (Same As: Ultram) Start Date: 10/18/17 Stop Date: 10/19/17 Status: Discontinued Results ELECTROLYTES Most recent to oldest [Reference Range]: 1 Sodium Lvl [135-145 mEq/L] 141 mEq/L (10/19/17 3:13 AM) Potassium Lvl [3.5-5.1 mEq/L] 5.0 mEq/L (10/19/17 3:13 AM) Chloride Lvl [95-109 mEq/L] 101 mEq/L (10/19/17 3:13 AM) CO2 [24-32 mEq/L] 28 mEq/L (10/19/17 3:13 AM) AGAP [10.0-20.0 mEq/L] 17.0 mEq/L (10/19/17 3:13 AM) CHEM PANEL Most recent to oldest [Reference Range]: 1 Creatinine Lvl [0.50-1.40 mg/dL] 9.89 mg/dL *HI* (10/19/17 3:13 AM) eGFR 6 mL/min/1.73m2 1 *NA* (10/19/17 3:13 AM) BUN [7-22 mg/dL] 56 mg/dL *HI* (10/19/17 3:13 AM) Glucose Lvl [70-99 mg/dL] 91 mg/dL (10/19/17 3:13 AM) Calcium Lvl [8.5-10.5 mg/dL] 8.7 mg/dL (10/19/17 3:13 AM) 1Result Comment: The eGFR is calculated using the CKD-EPI formula. In most young , healthy individualsthe eGFR will be >90 mL/min/1.73m2. The eGFR declines with age. An eGFR of 60-89 may be normal insome populations, particularly the elderly, for whom the [...] 1 Hep Bs Ag [Negative] Negative *NA* (10/18/17 12:25 PM) Immunizations No data available for this section Procedures No data available for this section Social History Social History Type Response Substance Abuse Use: None. Sexual Sexually active: No. Alcohol Past Smoking Status Current every day smoker; Type: Cigarettes; Ready to change: No ; Concerns about tobacco use in household: No; Exposure to Tobacco Smoke None; Cigarette Smoking Last 365 Days Yes; Reg Smoking Cessation Counseling No; Tobacco use per day: 6; entered on: 10/18/17 Assessment and Plan Extracted from: Title: Nephrology * Author: Aly Gonzalez MD Date: 10/18/17 Impression and Plan 1.Severe hyperkalemia 2.ESRD on HD 3.Hypertensive heart and CKD 4.Renal osteodystrophy 5.DM2 Recs Emergent HD for metabolic clearance 3.5 hrs 350/600 2 K bath UF as toelrated HTN control No KEEGAN today Vascular follow up after HD Seen in HD suite getting HD D/w patient, HD RN and Dr Bonds Extracted from: Title: History and Physical Author: Mary Anne Bonds MD Date: 10/18/17 56 years old -[place] male with past medical history of ESRD on hemodialysis Wednesday through Wednesday and Wednesdaywasreferred to the emergency department because ofpreoperative analysis show s potassium of 6.8and admitted to the medical floor with following impression. Impression: Hyperkalemia ESRD on hemodialysis History of diabetes mellitus, hypertension,prior CVA,coronary artery disease, hypothyroidism. Plan: Patient is getting hemodialysis; discussed with the nephrology; patient is clear from nephrology point of view for discharge We will follow-up withvascular surgery if they can doAV fistula creation today; if patient cannot have a surgery today patient can be discharged home after hemodialysisand follow-up with AV fistula creation as an outpatient. We will resume home medication once available [facility] CDU Discussed with the patient/family member(s) about the plan of care. The above note is created using voice recognization software (Zscaler). There maystill be errors in spellings/word in spite of careful proof-reading. Please interpret accordingly. [facility] Hospitalist/Internal Medicine Mary Anne Bonds MD
--- OUTSIDE RECORDS SUMMARY | 2017-11-25 16:49 | XMS REPORT | Summary of Care ---
:1960 Author Organization [facility] Address [address], [place] [address]- Encounter RIO Burgess(DAMIEN) [id number] Date(s): 06/08/16 - 06/08/16 [facility] [address] [place] [address]- Discharge Disposition: Home or Self Care Attending Physician: Eddie Butler DO Referring Physician: Eddie Butler DO Vital Signs Most recent to oldest 1 2 3 [Reference Range]: Height 180.34 cm (06/08/16 7:52 AM) Blood Pressure [90-140/60-90 116/70 mmHg 113/70 mmHg 113/56 mmHg mmHg] (06/08/16 11:45 AM) (06/08/16 11:30 AM) (06/08/16 11:15 AM) Respiratory Rate [14-20 16 BRMIN 16 BRMIN 15 BRMIN BRMIN] (06/08/16 11:45 AM) (06/08/16 11:30 AM) (06/08/16 11:15 AM) Peripheral Pulse Rate 76 bpm [60-100 bpm] (06/08/16 7:35 AM) Weight 104 kg (06/08/16 7:52 AM) Body Mass Index 31.98 m2 (06/08/16 7:52 AM) Problem List Condition Effective Dates Status Health Status Informant CAD (coronary artery Resolved disease)(Confirmed) CVA (cerebral infarction)(Confirmed) Resolved Diabetes mellitus(Confirmed) Resolved Diabetic neuropathy(Confirmed) Resolved Diabetic retinopathy(Confirmed) Resolved Hyperlipemia(Confirmed) Resolved Hypertension(Confirmed) Resolved Hypothyroidism(Confirmed) Resolved ID (myocardial Resolved infarction)(Confirmed) Spasms, infantile(Confirmed) Resolved Allergies, Adverse Reactions, Alerts Substance Reaction Severity Status NKDA Active Medications ANES dexamethasone 4 mg, 1 mL, Route: IVP, Drug form: INJ, ONCE, Dosing Weight 104, kg, PRN Nausea & Vomiting, Start date: 06/08/16 9:49:00 CAREERS COUNSELLOR Notes: Concentration: 4mg/ml Start Date: 06/08/16 Stop Date: 06/08/16 Status: DiscontinuedANES flumazenil 0.2 mg, 2 mL, Route: IVP, Drug form: INJ, PRN, Dosing Weight 104, kg, PRN Benzodiazepine Reversal, Initial dose, Start date: 06/08/16 9:49:00 CAREERS COUNSELLOR, Duration: 30 day, Stop date: 07/08/16 10:48:00 CDT Notes: (Same as: Romazicon) Start Date: 06/08/16 Stop Date: 06/08/16 Status: DiscontinuedANES hydrALAZINE 10 mg, 0.5 mL, Route: IVP, Drug form: INJ, Q20Min, Dosing Weight 104, kg, PRN Elevated BP, Start date: 06/08/16 9:49:00 CAREERS COUNSELLOR, Duration: 2 doses or times, Stop date: Limited # of times Notes: (Same as: Apresoline)Push over 5 minutes Start Date: 06/08/16 Stop Date: 06/08/16 Status: DiscontinuedANES HYDROmorphone 0.5 mg, 0.25 mL, Route: IVP, Drug form: INJ, Q5Min, Dosing Weight 104, kg, PRN Pain Score 7-10, Start date: 06/08/16 9:49:00 CAREERS COUNSELLOR, Duration: 4 doses or times, Stop date: Limited # of times Notes: Same as Dilaudid Start Date: 06/08/16 Stop Date: 06/08/16 Status: DiscontinuedANES labetalol 10 mg, 2 mL, Route: IVP, Drug form: INJ, Q5Min, Dosing Weight 104, kg, PRN Elevated BP, Start date: 06/08/16 9:49:00 CAREERS COUNSELLOR, Duration: 5 doses or times, Stop date: Limited # of times Start Date: 06/08/16 Stop Date: 06/08/16 Status: DiscontinuedANES naloxone 0.4 mg, 1 mL, Route: IVP, Drug form: INJ, Q2MIN, Dosing Weight 104, kg, PRN Narcotic Reversal, Startdate: 06/08/16 9:49:00 CAREERS COUNSELLOR, Duration: 8 doses or times, Stop date: Limited # of times Notes: Same as Narcan Start Date: 06/08/16 Stop Date: 06/08/16 Status: DiscontinuedANES ondansetron 4 mg, 2 mL, Route: IVP, Drug form: INJ, ONCE, Dosing Weight 104, kg, PRN Nausea & Vomiting, Start date: 06/08/16 9:49:00 CAREERS COUNSELLOR Notes: (Same as: Zofran) MEDICATION WASTE Product Size: 4 mgProduct Wasted: ___ mg Start Date: 06/08/16 Stop Date: 06/08/16 Status: DiscontinuedANES oxyCODONE 10 mg, 2 tab, Route: PO, Drug form: TAB, Q4H, Dosing Weight 104, kg, PRN Pain Score 7-10, Start date: 06/08/16 9:49:00 CAREERS COUNSELLOR, Duration: 30 day, Stop date: 07/08 9:48:00 CDT Notes: (Same as: Roxicodone) Start Date: 06/08/16 Stop Date: 06/08/16 Status: DiscontinuedANES oxyCODONE 5 mg, 1 tab, Route: PO, Drug form: TAB, Q4H, Dosing Weight 104, kg, PRN Pain Score 4-6, Start date: 06/08/16 9:49:00 CAREERS COUNSELLOR, Duration: 30 day, Stop date: 9:48:00 CDT Notes: (Same as: Roxicodone) Start Date: 06/08/16 Stop Date: 06/08/16 Status: DiscontinuedANES promethazine + sodium chloride 0.9% INJ 50 mL 6.25 mg, 0.25 mL, Route: IVPB, ONCE, Dosing Weight 104, kg, PRN Nausea & Vomiting, Start date: 06/08/16 9:49:00 CAREERS COUNSELLOR Notes: Do not give IV push. (Same as: Phenergan) Start Date: 06/08/16 Stop Date: 06/08/16 Status: Discontinuedcalcitriol 0.25 microgram, PO, Daily, 0 Refill(s) Start Date: 06/05/16 Status: Orderedcalcium carbonate 500 mg (200 mg elemental calcium) oral tablet 1,000 mg=2 tab, CHEW, TID, PRN for indigestion, # 30 tab, 0 Refill(s) Start Date: 06/05/16 Status: OrderedceFAZolin (ANES) Route: IV, Drug form: INJ, ONCE, Stop date: 06/08/16 9:03:00 CAREERS COUNSELLOR Start Date: 06/08/16 Stop Date: 06/08/16 Status: Completedclopidogrel 75 mg, PO, Daily, 0 Refill(s) Start Date: 06/05/16 Status: Orderedferrous sulfate 325 mg, PO, Daily, 0 Refill(s) Start Date: 06/05/16 Status: Orderedfolic acid 1 mg, PO, Daily, 0 Refill(s) Start Date: 06/05/16 Status: Orderedfurosemide 40 mg, PO, BID, 0 Refill(s) Start Date: 06/05/16 Status: Orderedheparin (ANES) Route: IV, Drug form: INJ, ONCE, Stop date: 06/08/16 9:22:00 CAREERS COUNSELLOR Start Date: 06/08/16 Stop Date: 06/08/16 Status: Completedisosorbide mononitrate 30 mg, PO, Daily, 0 Refill(s) Start Date: 06/05/16 Status: OrderedketAMINE (ANES) Route: IV, Drug form: INJ, ONCE, Stop date: 06/08/16 9:18:00 CAREERS COUNSELLOR Start Date: 06/08/16 Stop Date: 06/08/16 Status: CompletedlevETIRAcetam 500 mg, PO, BID, 0 Refill(s) Start Date: 06/05/16 Status: Orderedloperamide 2 mg, PO, Q4H, PRN, 0 Refill(s) Start Date: 06/05/16 Status: Orderedloperamide 1 mg/5 mL oral liquid 2 mg=10 ml, PO, QID, PRN Loose Stools, # 120 ml, 0 Refill(s) Start Date: 06/05/16 Stop Date: 06/08/16 Status: Orderedmetoprolol (ANES) Route: IV, Drug form: INJ, ONCE, Stop date: 06/08/16 9:22:00 CAREERS COUNSELLOR Start Date: 06/08/16 Stop Date: 06/08/16 Status: CompletedNephro-Pawan 1 tab, PO, Daily, 0 Refill(s) Start Date: 06/05/16 Status: OrderedNIFEdipine 30 mg oral tablet, extended release 30 mg=1 tab, PO, Daily, # 30 tab, 0 Refill(s) Start Date: 06/05/16 Status: Orderednystatin topical 100,000 units/g powder 1 appl, TOP, BID, # 30 gm, 1 Refill(s) Start Date: 06/05/16 Stop Date: 06/12/16 Status: Orderedondansetron (ANES) Route: IV, Drug form: INJ, ONCE, Stop date: 06/08/16 9:02:00 CAREERS COUNSELLOR Start Date: 06/08/16 Stop Date: 06/08/16 Status: Completedpropofol (ANES) Route: IV, Drug form: INJ, ONCE, Stop date: 06/08/16 9:03:00 CAREERS COUNSELLOR Start Date: 06/08/16 Stop Date: 06/08/16 Status: CompletedRenagel 1,600 mg, PO, TID, 0 Refill(s) Start Date: 06/05/16 Status: OrderedSodium Chloride 0.9% (Bolus) IV 500 mL, Route: IV, ONCE, Dosing Weight 104.545 kg, Start date: 06/08/16 7:52:00 CAREERS COUNSELLOR, Stop date: 06/08/16 7:52:00 CAREERS COUNSELLOR, Bolus Start Date: 06/08/16 Stop Date: 06/08/16 Status: Completedsodium chloride 0.9% 500 ml INJ (ANES) Route: IV, Total Volume: 500, Start date: 06/08/16 8:20:00 CAREERS COUNSELLOR, Stop date: 06/08 9:20:00 CAREERS COUNSELLOR Start Date: 06/08/16 Stop Date: 06/08/16 Status: Completedthiamine 50 mg oral tablet 50 mg=1 tab, PO, Daily, # 7 tab, 0 Refill(s) Start Date: 06/08/16 Stop Date: 06/15/16 Status: OrderedTylenol with Codeine #3 oral tablet 1 tab, PO, Q6H, PRN Pain, X 7 day, # 28 tab, 0 Refill(s) Start Date: 06/08/16 Stop Date: 06/15/16 Status: OrderedUltram 50 mg oral tablet 50 mg=1 tab, PO, Q6H, PRN pain, # 20 tab, 0 Refill(s) Start Date: 06/05/16 Stop Date: 06/08/16 Status: Ordered Results No data available for this section Immunizations No data available for this section Procedures No data available for this section Social History Social History Type Response Substance Abuse Use: None. Sexual Sexually active: No. Alcohol Past, Type Liquor. Frequency: 1-2 times per year. Previous treatment: None. Alcohol use interferes with work or home: No. Drinks more than intended: No. Others hurt by drinking: No. Smoking Status Former smoker; Exposure to Tobacco Smoke None; Cigarette Smoking Last 365 Days No; Reg Smoking Cessation Counseling No Assessment and Plan No data available for this section
[2017-11-25 17:26] LABS: Absolute Lymphocytes (CBC) 0.7 K/uL (0.7-4.9); Absolute Monocytes 0.3 K/uL (0.1-1.3); Absolute Neutrophil 2.7 K/uL (1.8-8.0); Basophils % 1.2 % (0-1.3); Eosinophils % 3.5 % (0-4.4); Hematocrit 35.2 % (39.6-49.0); Lymphocytes % 18.8 % (15.3-44.8); MCH 29.3 pg (27.0-35.0); MCV 90.9 fL (80-100); Monocytes % 8.8 % (3.3-12.3); RBC Red Blood Cell Count 3.88 M/uL (4.33-5.43)
[2017-11-25 17:55] LABS: Potassium 7.6 mmol/L (3.5-5.1)
--- NOTE | 2017-11-25 18:13 | EDPHYS ---
Physician Documentation [facility] Name: Juan Lozano Age: 56 yrs Sex: Male : 1960 Arrival Date: 11/25/2017 Time: 16:44 Bed 4 Private MD: Unknown, Unknown ED Physician Michael Dozier HPI: 11/25 17:48 This 56 yrs old Black Male presents to ER via Wheelchair with complaints of Abnormal jr8 Lab Results. 17:48 Patient brought to ED for potassium check because they were concerned it was elevated. jr8 Had results yesterday that were high . Onset: The symptoms/episode began/occurred acutely, today. It is unknown whether or not the patient has had similar symptoms in the past. The patient has not recently seen a physician. Patient denies any pain, shortness of breath, weakness, dizziness, visual changes, or any other s/s. Stated that he feels fine and wants to go home . Historical: - Allergies: 17:31 NKA; iw - PMHx: 17:27 CVA; Dialysis; iw - Immunization history:: Adult Immunizations unknown. - Social history:: Smoking status: unknown. - Ebola Screening: : Patient negative for fever greater than or equal to 101.5 degrees Fahrenheit, and additional compatible Ebola Virus Disease symptoms Patient denies exposure to infectious person Patient denies travel to an Ebola-affected area in the 21 days before illness onset No symptoms or risks identified at this time. ROS: 17:48 Eyes: Negative for injury, pain, redness, and discharge, ENT: Negative for injury, jr8 pain, and discharge, Neck: Negative for injury, pain, and swelling, Cardiovascular: Negative for chest pain, palpitations, and edema, Respiratory: Negative for shortness of breath, cough, wheezing, and pleuritic chest pain, Abdomen/GI: Negative for abdominal pain, nausea, vomiting, diarrhea, and constipation, Back: Negative for injury and pain, MS/Extremity: Negative for injury and deformity, Skin: Negative for injury, rash, and discoloration, Neuro: Negative for headache, weakness, numbness, tingling, and seizure. Exam: 17:48 Eyes: Pupils equal round and reactive to light, extra-ocular motions intact. Lids and jr8 lashes normal. Conjunctiva and sclera are non-icteric and not injected. Cornea within normal limits. Periorbital areas with no swelling, redness, or edema. ENT: Nares patent. No nasal discharge, no septal abnormalities noted. Tympanic membranes are normal and external auditory canals are clear. Oropharynx with no redness, swelling, or masses, exudates, or evidence of obstruction, uvula midline. Mucous membranes moist. Neck: Trachea midline, no thyromegaly or masses palpated, and no cervical lymphadenopathy. Supple, full range of motion without nuchal rigidity, or vertebral point tenderness. No Meningismus. Cardiovascular: Regular rate and rhythm with a normal S1 and S2. No gallops, murmurs, or rubs. Normal PMI, no JVD. No pulse deficits. Respiratory: Lungs have equal breath sounds bilaterally, clear to auscultation and percussion. No rales, rhonchi or wheezes noted. No increased work of breathing, no retractions or nasal flaring. Abdomen/GI: Soft, non-tender, with normal bowel sounds. No distension or tympany. No guarding or rebound. No evidence of tenderness throughout. Back: No spinal tenderness. No costovertebral tenderness. Full range of motion. Skin: Warm, dry with normal turgor. Normal color with no rashes, no lesions, and no evidence of cellulitis. MS/ Extremity: Pulses equal, no cyanosis. Neurovascular intact. Full, normal range of motion. 17:48 Neuro: Orientation: to person, place \T\ time. Mentation: is normal, Memory: is normal, Cranial nerves: CN I not tested, CN II- XII are normal as tested, visual wasserman are intact. extraocular movements are intact, Motor: left sided weakness due to previous CVA, Sensation: no obvious gross deficits. Vital Signs: 17:26 iw 17:26 pt refused vital signs iw MDM: 16:50 Patient medically screened. jr8 18:09 Data reviewed: vital signs, nurses notes, lab test result(s). Data interpreted: Pulse jr8 oximetry: on room air is 100 %. Interpretation: normal. Counseling: I had a detailed discussion with the patient and/or guardian regarding: the historical points, exam findings, and any diagnostic results supporting the discharge/admit diagnosis, lab results, the need for further work-up and treatment in the hospital. ED course: Patient refusing treatment of potassium and admission. Stated that he does not want to stay. Offered to him to treat him down here so he did not have to be admitted just to stabilize his potassium until he can be dialyzed tomorrow. Patient still refuses but stated that he would go to dialysis tomorrow if we arrange it. I called Dr. Freitas and he will call them to insure he has a chair first thing in the morning since they are closed now. Nurse on staff here is calling his NH to insure they correlate the right time with dialysis center for patient. Patient alert and oriented to person, place, time, event. Understands the risks involved with this including due to high level of potassium. Patient signed AMA form and discharged back to [place]. 11/25 16:50 Order name: Basic Metabolic Panel; Complete Time: 17:58 jr8 11/25 16:51 Order name: CBC with Diff; Complete Time: 17:47 jr8 Administered Medications: No medications were administered Disposition: 18:49 Co-signature as Attending Physician, Michael Dozier MD. rn Disposition: 11/25/17 18:12 Patient has left against medical advice. Impression: Hyperkalemia, Chronic kidney disease (CKD). - Patients states they are going to Home. - Condition is Stable. - Discharge Instructions: Hyperkalemia, Chronic Kidney Disease, Adult. Follow up: Gisell Gallegos MD; When: Tomorrow; Reason: Recheck today's complaints, Continuance of care, Re-evaluation by your physician. - Problem is new. - Symptoms are unchanged. Signatures: Dispatcher [employer] Ida Egan RN RN iw Nieto, Roman, MD MD rn Roszak, Josh, PA PA jr8 Corrections: (The following items were deleted from the chart) 17:34 16:50 IV Saline Lock ordered. jr8 iw 18:31 18:12 11/25/2017 18:12 Patients has left against medical advice. Impression: iw Hyperkalemia; Chronic kidney disease (CKD). Patient states they are going to Home. Condition is Stable. Follow up: Gisell Gallegos; When: Tomorrow; Reason: Recheck today's complaints, Continuance of care, Re-evaluation by your physician. Problem is new. Symptoms are unchanged. jr8
--- NOTE | 2017-11-25 18:13 | ER ---
Nurse's Notes [facility] Name: Juan Lozano Age: 56 yrs Sex: Male : 1960 Arrival Date: 11/25/2017 Time: 16:44 Bed 4 Private MD: Unknown, Unknown Diagnosis: Hyperkalemia;Chronic kidney disease (CKD) Presentation: 11/25 17:14 Presenting complaint: pt was dropped off by [facility] service, pt refused iw dialysis and was sent here for high potassium level, pt states no one felecia his labs so how do they know his potassium is high, last dialysis was Wednesday, pt A\T\OX3, pt refuses to allow me to take vital signs. 17:24 Transition of care: patient was received from another setting of care (long-term care facility), [facility]. Onset of symptoms was November 25, 2017. Risk Assessment: Do you want to hurt yourself or someone else? Patient reports no desire to harm self or others. Initial Sepsis Screen: Does the patient meet any 2 criteria? No. Patient's initial sepsis screen is negative. Does the patient have a suspected source of infection? No. Patient's initial sepsis screen is negative. Care prior to arrival: None. 17:24 Method Of Arrival: Wheelchair iw 17:24 Acuity: DORIS 3 iw Historical: - Allergies: 17:31 NKA; iw - PMHx: 17:27 CVA; Dialysis; iw - Immunization history:: Adult Immunizations unknown. - Social history:: Smoking status: unknown. - Ebola Screening: : Patient negative for fever greater than or equal to 101.5 degrees Fahrenheit, and additional compatible Ebola Virus Disease symptoms Patient denies exposure to infectious person Patient denies travel to an Ebola-affected area in the 21 days before illness onset No symptoms or risks identified at this time. Assessment: 17:30 Reassessment: pt remains in ER lobby. iw 17:56 Reassessment: critical result relayed by school laboratory technician Ashley- K- 7.6 mmol and creatinine- mg2 16.8. 18:15 Reassessment: Naldo Avila spoke with pt at length about pt needing to e medicated for iw high potassium level, pt adamantly refuses treatment, refuses IV, refuses oral meds, refuses breathing treatment. 18:25 Reassessment: Report called to [facility] by Rober [place], ANTONINA, Dr. Freitas was iw notified by Naldo Avila, dialysis is set up for tomorrow morning. Vital Signs: 17:26 iw 17:26 pt refused vital signs iw ED Course: 16:44 Patient arrived in ED. mr 16:44 Unknown, Unknown is Private Physician. mr 16:50 Naldo Avila PA is PHCP. jr8 16:50 Michael Dozier MD is Attending Physician. jr8 17:24 Ida Buck, RN is Primary Nurse. iw 17: Triage completed. iw 18:12 Gisell Gallegos MD is Referral Physician. jr8 Administered Medications: No medications were administered Outcome: 18: AMA AMA form signed iw 18: Condition: unchanged 18:31 Patient left the ED. iw Signatures: Bailey Villalobos mr Ida Buck, ANTONINA RN iw Naldo Avila PA PA jr8 Bruce Layton RN RN mg2 Corrections: (The following items were deleted from the chart) : 17:14 Presenting complaint: pt was dropped off by [facility] service, pt iw refused dialysis iw
== END 2017-11-25 18:31 | disposition left against medical advice (07) ==
LOC: ER 16:43
DX: E87.5 Hyperkalemia (principal); N18.9 Chronic kidney disease, unspecified
CPT/HCPCS: 36415; 80048; 85025; 99281

== ENCOUNTER 2017-12-12 08:52 | Observation (INO) | payer OTHER ==
--- OUTSIDE RECORDS SUMMARY | 2017-12-12 08:56 | XMS REPORT | Continuity of Care Document ---
[...] PAIN RULE Active 05/18/19 [facility] [place] CHEST PAIN Active 05/18/19 [facility] [place] Bipolar disorder Active Problem 10/22/2017 [facility] CAD (<span Resolved Problem 10/22/2017 ID="[id number]"> [place], Confirmed</span>) H [facility] CVA (<span Resolved Problem 10/22/2017 ID="[id number]"> [place], Confirmed</span>) H [facility] Diabetes mellitus Resolved Problem 10/22/2017 [place] DM (<span Active Problem 10/22/2017 ID="[id number]" [place] >Confirmed</span> ) 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 [place], H [facility] Diabetic Resolved Problem 10/22/2017 retinopathy [place], H [facility] ESRD (<span Active Problem 10/22/2017 ID="[id number]" [place] >Confirmed</span> ) Hyperlipemia Resolved Problem 10/22/2017 [place] H [facility] Hyperlipidemia Active Problem 10/22/2017 [facility] Hypertension Resolved Problem 10/22/2017 [place] HTN (<span Active Problem 10/22/2017 ID="[id number]" [place] >Confirmed</span> ) Hypothyroidism Resolved Problem 10/22/2017 [place] H [facility] OK (<span Resolved Problem 10/22/2017 [facility] ID="[id number]"> [place], Confirmed</span>) H [facility] [place] Seizure disorder Active Problem 10/22/2017 [facility] Spasms, infantile Resolved Problem 10/22/2017 [facility], H [facility] END STAGE RENAL Active [facility] DISEASE [place] ANEMIA, Active [facility] UNSPECIFIED [place] HEMORRHAGE DUE TO Active [facility] VASCULAR PROSTH [place] DEV/GR Medications Medication Details Route Status Patient Ordering Order Source Instructions Provider Date Fentanyl 50 microgram, Inactive Route: IVP, 2017 [facility] Q5Min, Dosing Weight 90.909, kg, PRN Pain Score 7-10, Priority: Routine, Start date: 10/19/17 15:46:00 CDT, Duration: 2 doses or times, Stop date: Limited # of times Meperidine 12.5 mg, Route: Inactive 10/19[facility] IVP, Q30Min, 2017 [facility] Dosing Weight 90.909, kg, PRN Other -See Comment, For shivering, Start date: 10/19/17 15:46:00 CDT, Duration: 2 doses or times, Stop date: Limited # of times Ondansetron 4 mg, Route: Inactive 10/19[facility] IVP, ONCE, 2017 [facility] Dosing Weight 90.909, kg, PRN Nausea & Vomiting, Start date: 10/19/17 15:46:00 CDT Diphenhydramine 12.5 mg, Route: Inactive 10/19[facility] IVP, Drug form: 2017 [facility] INJ, Q6H, Dosing Weight 90.909, kg, PRN Itching, Start date: 10/19/17 15:46:00 CDT, Duration: 30 day, Stop date: 11/18/17 15:45:00 CDT Albuterol 0.83 2.49 mg, Route: Inactive MG/ML Inhalant NEB, Q20Min, 2017 [facility] Solution Dosing Weight 90.909, kg, PRN Wheezing, Priority: STAT, Start date: 10/19/17 15:46:00 CDT, Duration: 30 day, Stop date: 11/18/17 15:45:00 CDT Promethazine 6.25 mg, Route: Inactive 10/19[facility] IVPB, ONCE, 2017 [facility] Dosing Weight 90.909, kg, PRN Nausea & Vomiting, Start date: 10/19/17 15:46:00 CDT Naloxone 0.4 mg, Route: Inactive IVP, Q2MIN, 2017 [facility] Dosing Weight 90.909, kg, PRN Narcotic Reversal, Start date: 10/19/17 15:46:00 CDT, Duration: 8 doses or times, Stop date: Limited # of times Flumazenil 0.2 mg, Route: Inactive IVP, PRN, 2018 [facility] Dosing Weight 90.909, kg, PRN Benzodiazepine Reversal, Initial dose, Start date: 10/19/17 15:46:00 CDT, Duration: 30 day, Stop date: 11/18/17 15:45:00 CDT Hydralazine 10 mg, Route: Inactive IVP, Q20Min, 2017 [facility] Dosing Weight 90.909, kg, PRN Elevated BP, Start date: 10/19/17 15:46:00 CDT, Duration: 2 doses or times, Stop date: Limited # of times esmolol 10 mg, Route: Inactive IVP, Q5Min, 2017 [facility] Dosing Weight 90.909, kg, PRN Other -See Comment, Start date: 10/19/17 15:46:00 CDT, Duration: 5 doses or times, Stop date: Limited # of times Labetalol 10 mg, Route: Inactive IVP, Q5Min, 2017 [facility] Dosing Weight 90.909, kg, PRN Elevated BP, Start date: 10/19/17 15:46:00 CDT, Duration: 5 doses or times, Stop date: Limited # of times Calcium Chloride 1,000 mL, Rate: Inactive 0.0014 MEQ/ML / 125 ml/hr, 2017 [facility] Potassium Infuse over: 8 Chloride 0.004 hr, Route: IV, MEQ/ML / Sodium Dosing Weight Chloride 0.103 90.909 kg, MEQ/ML / Sodium Total Volume: Lactate 0.028 1,000, Start MEQ/ML Injectable date: 10/19/17 Solution 15:46:00 CDT, Duration: 30 day, Stop date: 11/18/17 15:45:00 CDT, 2.15, m2 Sodium Chloride 500 mL, Rate: Inactive 0.9% IV 500 mL 25 ml/hr, 2017 [facility] Infuse over: 20 hr, Route: IV, Dosing Weight 90.909 kg, Total Volume: 500, Start date: 10/19/17 14:29:00 CDT, Duration: 30 day, Stop date: 11/18/17 14:28:00 CDT, 2.15, m2 Albuterol 0.833 3 mL, Route: Inactive MG/ML / NEB, Dosing 2017 [facility] Ipratropium Weight 90.909, [place] 0.167 kg, ONCE, STAT, MG/ML Inhalant Start date: Solution 10/19/17 14:28:00 CDT, Stop date: 10/19/17 14:28:00 CDT Calcium Chloride 1,000 mL, Rate: Inactive 0.0014 MEQ/ML / 25 ml/hr, 2017 [facility] Potassium Infuse over: 40 Chloride 0.004 hr, Route: IV, MEQ/ML / Sodium Dosing Weight Chloride 0.103 90.909 kg, MEQ/ML / Sodium Total Volume: Lactate 0.028 1,000, Start MEQ/ML Injectable date: 10/19/17 Solution 14:28:00 CDT, Duration: 30 day, Stop date: 11/18/17 14:27:00 CDT, 2.15, m2 Sucralfate 1 gm, 1 tab, Inactive Route: PO, Drug 2017 [facility] form: TAB, TID, Dosing Weight 90.909, [...] No Longer Route: PO, Drug Active 2017 [facility] form: TAB, TID, Dosing Weight 90.909, kg, Start date: 10/19/17 9:00:00 CDT, Duration: 30 day, Stop date: 11/17/17 17:00:00 CDT Risperdal 0.25 mg, 1 tab, Inactive Route: PO, Drug 2017 [facility] form: TAB, Daily, Dosing Weight 90.909, kg, Start date: 10/19/17 9:00:00 CDT, Duration: 30 day, Stop date: 11/17/17 9:00:00 CDTNotes: (Same as: Risperdal) sevelamer 3,200 mg, 4 Inactive tab, Route: PO, 2017 [facility] Drug form: TAB, TID, Start date: 10/19/17 9:00:00 CDT, Duration: 30 day, Stop date: 11/17/17 17:00:00 CDTNotes: Same as: Renvela NIFEdipine 90 mg 90 mg, 1 tab, Inactive oral tablet, Route: PO, Drug 2017 [facility] extended release form: ERTAB, Daily, Dosing Weight 90.909, kg, Start date: 10/19/17 9:00:00 CDT, Duration: 30 day, Stop date: 11/17/17 9:00:00 CDTNotes: (Same as: Adalat CC,Procardia XL) "Do Not Crush" "Avoid grapefruit and grapefruit juice" Nephro-Pawan 1 tab, Route: Inactive PO, Drug Form: 2017 [facility] TAB, Dosing Weight 90.909, kg, Daily, Start date: 10/19/17 9:00:00 CDT, Duration: 30 day, Stop date: 11/17/17 9:00:00 CDTNotes: (Same as: Nephro-Pawan Rx and Diatx) Give with food. Levetiracetam 500 500 mg, 1 tab, Inactive MG Oral Tablet Route: PO, Drug 2017 [facility] [Keppra] form: TAB, BID, Dosing Weight 90.909, kg, Start date: 10/19/17 9:00:00 CDT, Duration: 30 day, Stop date: 11/17/17 17:00:00 CDTNotes: (Same as:Keppra) Isosorbide 20 mg, 2 tab, Inactive Route: PO, Drug 2017 [facility] form: TAB, TID, Dosing Weight 90.909, kg, Start date: 10/19/17 9:00:00 CDT, Duration: 30 day, Stop date: 11/17/17 17:00:00 CDTNotes: (Same as:Monoket) Take on empty stomach/ full glass of water Folic Acid 1 mg, 1 tab, Inactive Route: PO, Drug 2017 [facility] form: TAB, Daily, Dosing Weight 90.909, kg, Start date: 10/19/17 9:00:00 CDT, Duration: 30 day, Stop date: 11/17/17 9:00:00 CDTNotes: (Same as: Folvite) Divalproex Sodium 125 mg, 1 cap, Inactive 125 MG Enteric Route: PO, Drug 2017 [facility] Coated Capsule form: CAP, BID, [Depakote] Dosing Weight 90.909, kg, Start date: 10/19/17 9:00:00 CDT, Duration: 30 day, Stop date: 11/17/17 17:00:00 CDTNotes: (Same as: Depakote Sprinkles) Do not confuse with 250mg capsule or tablets Do not crush. May sprinkle on food. Sensipar 30 mg, 1 tab, Inactive Route: PO, Drug 2017 [facility] form: TAB, Daily, Dosing Weight 90.909, kg, Start date: 10/19/17 9:00:00 CDT, Duration: 30 day, Stop date: 11/17/17 9:00:00 CDTNotes: (Same as: Sensipar) Cholecalciferol 2,000 IntlUnit, Inactive 2000 UNT Oral 2 tab, Route: 2018 [facility] Tablet PO, Drug form: TAB, Daily, Dosing Weight 90.909, kg, Start date: 10/19/17 9:00:00 CDT, Duration: 30 day, Stop date: 11/17/17 9:00:00 CDTNotes: Same as : Vitamin D3 Protonix 40 mg, 1 tab, Inactive Route: PO, Drug 2017 [facility] form: ECTAB, Before Breakfast, Dosing Weight 90.909, kg, Start date: 10/19/17 7:30:00 CDT, Duration: 30 day, Stop date: 11/17/17 7:30:00 CDTNotes: Tablet should not be chewed or crushed. (Same as: Protonix) Thyroxine 50 microgram, 1 Inactive tab, Route: PO, 2017 [facility] Drug form: TAB, [id number], Dosing Weight [...] No Longer Route: PO, Drug Active 2017 [facility] form: TAB, BID, Dosing Weight 90.909, kg, Start date: 10/18/17 21:00:00 CDT, Duration: 30 day, Stop date: 11/17/17 9:00:00 CDTNotes: (Same as: Lopressor) Ergocalciferol 50,000 Inactive 74584 UNT Oral IntlUnit, 1 2017 [facility] Capsule cap, Route: PO, Drug form: CAP, qWeek, Dosing Weight 90.909, kg, Start date: 10/18/17 19:00:00 CDT, Duration: 30 day, Stop date: 11/15/17 9:00:00 CDT 168 HR Clonidine 1 patch, Route: No Longer 0.0125 MG/HR TOP, Drug Form: Active 2017 [facility] Transdermal Patch ERFILM, Dosing Weight 90.909, kg, qWeek, Start date: 10/18/17 19:00:00 CDT, Duration: 30 day, Stop date: 11/15/17 9:00:00 CDTNotes: Patch delivers 0.3 mg/24 hours; Patch is applied weekly. [id number] . "Remove old patch before application of new patch" Aspirin 81 mg, 1 tab, No Longer Route: PO, Drug Active 2017 [facility] form: ECTAB, Daily, Dosing Weight 90.909, [...] Longer capsular IM, Drug Form: Active 2017 [facility] polysaccharide INJ, ONCALL, type 1 vaccine / Start date: pneumococcal 10/18/17 capsular 17:06:15 CDT, polysaccharide Stop date: type 10A vaccine 11/17/17 / pneumococcal 17:01:15 capsular CDTNotes: (Same polysaccharide as: Pneumovax type 11A vaccine 23) / pneumococcal Refrigerate capsular polysaccharide type 12F vaccine / pneumococcal capsular polysacchar Risperdal 0.5 mg, 1 tab, Inactive Route: PO, Drug 2017 [facility] form: TAB, Daily, Dosing Weight 90.909, kg, Priority: STAT, Start date: 10/18/17 16:45:00 CDT, Duration: 30 day, Stop date: 11/17/17 9:00:00 CDTNotes: (Same as: Risperdal) Albuterol 0.83 20 mg, Route: Inactive MG/ML Inhalant NEB, ONCE, 2018 [facility] Solution Dosing Weight 90.909, kg, Priority: STAT, Start date: 10/18/17 11:11:00 CDT, Stop date: 10/18/17 11:11:00 CDT Calcium Gluconate 1 gm, 50 mL, Inactive Route: IVPB2017 [facility] Drug form: INJ, ONCE, Dosing Weight 90.909, kg, Priority: STAT, Start date: 10/18/17 11:11:00 CDT, Stop date: 10/18/17 11:11:00 CDTNotes: WASTE: F/P - Sink; E - [employer] Trash Bin Sodium 50 mEq, 50 mL, Inactive Bicarbonate Route: IVP2017 [facility] Drug form: INJ, ONCE, Dosing Weight 90.909, kg, Priority: STAT, Start date: 10/18/17 11:11:00 CDT, Stop date: 10/18/17 11:11:00 CDTNotes: (sodium bicarb 8.4% (1 mEq/ml) 50 ml syringe) Thiamine 50 mg, 0.5 tab, Inactive [facility] Route: PO, Drug 2016 [facility] form: TAB, Daily, Dosing Weight 109.091, kg, [...] Longer [facility] Route: PO, Drug Active 2016 [facility] form: ERTAB, Daily, Dosing Weight 109.091, kg, Start date: 09/19/16 9:00:00 CDT, Duration: 30 day, Stop date: 10/18/16 9:00:00 CDTNotes: (Same as:Imdur) "Do Not Crush" Take on empty stomach/ full glass of water. Do not crush Folic Acid 1 mg, 1 tab, Inactive [facility] Route: PO, Drug 2016 [facility] form: TAB, Daily, Dosing Weight 109.091, kg, [...] 1 tab, Inactive Route: PO, Drug 2016 [facility] form: TAB, Daily, Dosing Weight 109.091, kg, [...] No Longer [facility] IntlUnit, 1 Active 2016 [facility] cap, Route: PO, Drug form: CAP, QFri, Dosing Weight 109.091, kg, Start date: 09/18/16 21:00:00 CDT, Duration: 30 day, Stop date: 10/16/16 21:00:00 CDTNotes: (Same as: Vitamin D) "Do Not Crush" atorvastatin 40 mg, 1 tab, No Longer [facility] Route: PO, Drug Active 2016 [facility] form: TAB, Bedtime, Dosing Weight 109.091, kg, [...] CDTNotes: (Same As: Tomy) Calcium Carbonate 500 uw=355 mg elemental calcium Dose= mg calcium carbonate ( mg elemental calcium) Magnesium Sulfate 2 gm, 50 mL, No Longer [facility] Route: IV, Drug Active 2016 [facility] form: INJ, PRN, Dosing Weight 109.091, kg, PRN Abnormal Lab Result, Start date: 09/18/16 10:33:00 CDT, Duration: 30 day, Stop date: 10/18/16 10:32:00 CDT, to be given IV "PRN" only for s. magnesium if Notes: WASTE: F/P - Sink; E - [employer] Trash Bin Lactulose 667 20 gm, 30 [...] Greater chloride Route: PO, Drug Active 2016 [facility] form: ERTAB, PRN, Dosing Weight 109.091, kg, [...] 10:20:00 CDTNotes: (Same as: Procrit) epoetin aniket 64221 unit/1 ml VL. For dialysis use only. (Procrit) WASTE: F/P - Red; E -Red MEDICATION WASTE Product Size: 76246 unit Product Wasted: ___ unit sodium chloride 1,000 mL, Rate: No Longer [facility] 0.9% 1000 ml INJ prn on hdx only 2016 [facility] 1,000 mL ml/hr, Route: IV, Dosing Weight 109.091 kg, Total Volume: 1,000, Start date: 09/18/16 10:21:00 CDT, Duration: 30 day, Stop date: 10/18/16 10:20:00 CDT albumin human 25% 12.5 gm, 50 mL, No Longer [facility] intravenous Route: IVPB, Active 2016 [facility] solution Drug form: INJ, PRN, Dosing Weight [...] Route: No Longer [facility] IM, Drug form: [employer] 2016 [facility] PDR/INJ, PRN, Dosing Weight 109.091, kg, PRN Blood Glucose Results, Start date: 09/18/16 2:25:00 CDT, Duration: 30 day, Stop date: 10/18/16 2:24:00 CDT Dextrose 50% 25 gm, 50 mL, No Longer [facility] Syringe Route: IVP, [facility] 2016 [facility] Drug Form: INJ, Dosing Weight 109.091, kg, PRN, PRN Blood Glucose Results, Start date: 09/18/16 2:25:00 CDT, Duration: 30 day, Stop date: 10/18/16 2:24:00 CDT Acetaminophen 650 mg, 2 tab, No Longer [facility] Route: PO, Drug [facility] 2016 [facility] form: TAB, Q4H, Dosing Weight 109.091, kg, PRN Pain 1-3/Temp > 100.4 F, Start date: 09/18/16 2:08:00 CDT, Duration: 30 day, Stop date: 10/18/16 2:07:00 CDTNotes: Do not exceed 4 gm/day. (Same as: Tylenol) Ondansetron 4 mg, 2 mL, No Longer [facility] Route: IVP, Active 2016 [facility] Drug form: INJ, Q6H, Dosing Weight 109.091, kg, PRN Nausea & Vomiting, Start date: 09/18/16 2:08:00 CDT, Duration: 30 day, Stop date: 10/18/16 2:07:00 CDTNotes: (Same as: Nicole) MEDICATION WASTE Product Size: 4 mg Product Wasted: ___ mg sodium chloride 250 mL, Rate: No Longer [facility] 0.9% INJ 250 mL Drug Safety Data Management Specialist for use [facility] 2016 [facility] with blood product administration. , Dosing Weight 109.091, kg, Route: IV, Total Volume: 250, Priority: Routine, Start Date: 09/17/16 23:00:00 CDT, Duration: 30 day, Stop date: 10/17/16 22:59:00 CDT, Replace Every: 24 hr Hydralazine 10 mg, 0.5 mL, Inactive 06/08/ MH [facility] Route: IVP, 2016 [facility] Drug form: INJ, Q20Min, Dosing Weight 104, kg, PRN Elevated BP, Start date: 06/08/16 9:49:00 SKEIN WINDER, Duration: 2 doses or times, Stop date: Limited # of timesNotes: (Same as: Apresoline) Push over 5 minutes Hydromorphone 0.5 mg, 0.25 Inactive [facility] mL, Route: IVP2016 [facility] Drug form: INJ, Q5Min, Dosing Weight 104, kg, PRN Pain Score 7-10, Start date: 06/08/16 9:49:00 SKEIN WINDER, Duration: 4 doses or times, Stop date: Limited # of timesNotes: Same as Dilaudid Oxycodone 10 mg, 2 tab, Inactive [facility] Route: PO, Drug 2016 [facility] form: TAB, Q4H, Dosing Weight 104, kg, PRN Pain Score 7-10, Start date: 06/08/16 9:49:00 SKEIN WINDER, Duration: 30 day, Stop date: 07/08/16 9:48:00 CDTNotes: (Same as: Roxicodone) Labetalol 10 mg, 2 mL, Inactive [facility] Route: IVP2016 [facility] Drug form: INJ, Q5Min, Dosing Weight 104, kg, PRN Elevated BP, Start date: 06/08/16 9:49:00 S[place]IN WINDER, Duration: 5 doses or times, Stop date: Limited # of times Ondansetron 4 mg, 2 mL, Inactive [facility] Route: IVP2016 [facility] Drug form: INJ, ONCE, Dosing Weight 104, kg, PRN Nausea & Vomiting, Start date: 06/08/16 9:49:00 CSTNotes: (Same as: Zofran) MEDICATION WASTE Product Size: 4 mg Product Wasted: ___ mg Naloxone 0.4 mg, 1 mL, Inactive [facility] Route: IVP, 2016 Drug form: INJ, Q2MIN, Dosing Weight 104, kg, PRN Narcotic Reversal, Start date: 06/08/16 9:49:00 SKEIN WINDER, Duration: 8 doses or times, Stop date: Limited # of timesNotes: Same as Narcan Flumazenil 0.2 mg, 2 mL, Inactive [facility] Route: IVP, 2016 Drug form: INJ, PRN, Dosing Weight 104, kg, PRN Benzodiazepine Reversal, Initial dose, Start date: 06/08/16 9:49:00 SKEIN WINDER, Duration: 30 day, Stop date: 07/08/16 10:48:00 [...] INJ, 2016 ONCE, Stop date: 06/08/16 9:22:00 SKEIN WINDER metoprolol (ANES) Route: IV, Drug Inactive 06/08/ MH [facility] form: INJ, 2016 ONCE, Stop date: 06/08/16 9:22:00 S[place]IN WINDER ketAMINE (ANES) Route: IV, Drug Inactive 06/08/ MH [facility] form: INJ, 2016 ONCE, Stop date: 06/08/16 9:18:00 SKEIN WINDER propofol (ANES) Route: IV, Drug Inactive 02/20/ MH [facility] form: INJ, 2016 ONCE, Stop date: 06/08/16 9:03:00 [place] W[place]ER ceFAZolin (ANES) Route: IV, Drug Inactive [facility] form: INJ, 2016 ONCE, Stop date: 06/08/16 9:03:00 SKEIN WINDER ondansetron Route: IV, Drug Inactive Greater (ANES) form: INJ, 2016 ONCE, Stop date: 06/08/16 9:02:00 SKEIN WINDER sodium chloride Route: IV, Inactive [facility] 0.9% 500 ml INJ Total Volume: 2016 (ANES) 500, Start date: 06/08/16 8:20:00 SKEIN WINDER, Stop date: 06/08/16 9:20:00 S[place]IN WINDER Sodium Chloride 500 mL, Route: Inactive [facility] 0.154 MEQ/ML IV, ONCE, 2016 Injectable Dosing Weight Solution 104.545 kg, Start date: 06/08/16 7:52:00 SKEIN WINDER, Stop date: 06/08/16 7:52:00 SKEIN WINDER, Bolus thiamine 50 mg 50 mg=1 tab, Active Greater oral tablet PO, Daily, # 7 2016 [facility] tab, 0 Refill(s) Folic Acid 1 mg, PO, Active Greater Daily, 0 2016 [facility] Refill(s) clopidogrel 75 mg, PO, Active Greater Daily, 0 2016 [facility] Refill(s) 24 HR Nifedipine 30 mg=1 tab, Active Greater 30 MG Extended PO, Daily, # 30 2016 [facility] Release Tablet tab, 0 Refill(s) Furosemide 40 mg, PO, BID, Active Greater 0 Refill(s) 2016 Isosorbide 30 mg, PO, Active Greater Daily, 0 2016 [facility] Refill(s) ferrous sulfate 325 mg, PO, Active Greater Daily, 0 2016 [facility] Refill(s) Calcitriol 0.25 microgram, Active Greater PO, Daily, 0 2016 [facility] Refill(s) loperamide 1 mg/5 2 mg=10 ml, [...] 500 MG Chewable CHEW, TID, PRN 2016 [facility] Tablet for indigestion, # 30 tab, 0 Refill(s) Nystatin 100 1 appl, TOP, Active Greater UNT/MG Topical BID, # 30 gm, 1 2016 [facility] Powder Refill(s) Nephro-Pawan 1 tab, PO, Active Greater Daily, 0 2016 [facility] Refill(s) RenaGel 1,600 mg, PO, Active Greater [...] Route: SUB-Q, Active 2014 Drug form: INJ, [id number], Dosing Weight 104.545, kg, Start date: 05/18/14 [...] Longer Greater Route: PO, Drug Active 2014 [facility] form: TAB, Q8H, Dosing Weight 104.545, kg, PRN Nausea & Vomiting, Start date: 05/18/14 10:08:00, Duration: 30 day, Stop date: 06/17/14 10:07:00Notes: (Same as: Zofran) Nitroglycerin 0.4 mg, 1 tab, No Longer Greater Route: SL, Drug Active 2014 [facility] form: TAB, Q5Min, Dosing Weight 104.545, kg, [...] type Reported NKDA Assertion Drug Active allergy [facility] Immunizations Immunization Date Given Site Status [...] is not recommended in the following populations: [facility] 3m2 Individuals with unstable creatinine concentrations, [...] Lvl 101 meq/L 95 - 109 10/19 [facility] CHEM PANEL Potassium 5.0 meq/L 3.5 - 5.1 10/19 MH Lvl [facility] CHEM PANEL Sodium Lvl 141 meq/L 135 - 145 10/19 [facility] CHEM PANEL Creatinine 9.89 mg/dL 0.50 - 10/19 MH Lvl 1.40 /2017 [facility] CHEM PANEL BUN 56 mg/dL 7 - 22 10/19 [facility] CHEM PANEL AGAP 17.0 meq/L 10.0 - 10/19 MH 20.0 [facility] CHEM PANEL Calcium Lvl 8.7 mg/dL 8.5 - 10.5 10/19 [facility] CHEM PANEL CO2 28 meq/L 24 - 32 10/19 [facility] CHEM PANEL Glucose Lvl 91 mg/dL 70 - 99 10/19 [facility] IMMUNOLOGY Hep Bs Ag Negative Negative 10/18 [facility] *NA* (10/18/17 12:25 PM) CHEM PANEL Uric Acid 4.3 mg/dL 3.8 - 8.0 09/18 [facility] IMMUNOLOGY Hep Bs Ag Negative Negative 09/18 [facility] *NA* (09/18/16 2:20 PM) BLOOD BANK ABO/Rh B POS 09/18 Greater RESULTS [facility] BLOOD BANK Antibody Negative 09/18 Greater RESULTS [facility] (09/18/16 12:41 AM) BLOOD BANK RBC product Product available 09/18 Result Comment: 2016 01:53 [id number] Called [place] begum [facility] (09/17/16 11:00 PM) ELECTROLYT AGAP 14.2 meq/L 10.0 - 09/18 [facility] ES 20.0 [facility] ELECTROLYT B/C Ratio 7 6 - 25 09/18 Greater ES [facility] ELECTROLYT A/G Ratio 0.8 0.7 - 1.6 09/18 [facility] ES [facility] ELECTROLYT Globulin 3.7 g/dL 2.7 - 4.2 / MH Greater ES [facility] ELECTROLYT eGFR 6 09/18 Result Comment: The [...] is not recommended in the following populations: [facility] 3m2 Individuals with unstable creatinine concentrations, including [...] g/dL 3.5 - 5.0 / MH Greater [facility] ELECTROLYT Bili Total 0.3 mg/dL 0.2 - 1.3 / MH Greater [facility] ELECTROLYT ALT 20 unit/L 0 - 65 / MH Greater [facility] ELECTROLYT AST 19 unit/L 0 - 37 / MH Greater ES [facility] ELECTROLYT Alk Phos 35 unit/L 39 - 136 / MH Greater ES [facility] ELECTROLYT Chloride Lvl 105 meq/L 95 - 109 / MH Greater [facility] ELECTROLYT Potassium 4.2 meq/L 3.5 - 5.1 / MH Greater ES Lvl [facility] ELECTROLYT Total 6.8 g/dL 6.4 - 8.4 / MH Greater ES [facility] ELECTROLYT Calcium Lvl 7.9 mg/dL 8.5 - 10.5 / MH Greater [facility] ELECTROLYT CO2 26 meq/L 24 - 32 06/ MH Greater ES [facility] ELECTROLYT Sodium Lvl 141 meq/L 135 - 145 / MH Greater [facility] ELECTROLYT BUN 79 mg/dL 7 - 22 06/ MH Greater ES [facility] ELECTROLYT Creatinine 10.90 0.50 - 06/02 MH [...] 87.5 fL 80.0 - 09/18 Greater 94.0 [facility] HEMATOLOGY Hgb 6.3 g/dL 14.0 - 09/18 Result 18. Comment: [facility] Critical Result(s) called to Issa DEJESUS at 09/17/2016 22:10 by. Read back OK. HEMATOLOGY [facility] 29.6 pg 27.0 - 09/18 [facility] 31.0 [facility] HEMATOLOGY [facility] 33.8 g/dL 32.0 - 09/18 36.0 [facility] CHEM PANEL eGFR 61 05/19 1Result Comment: [...] is not recommended in the following populations: [facility] 3m2 Individuals with unstable creatinine concentrations, including [...] Potassium 4.0 meq/L 3.5 - 5.1 05/19 [facility] CHEM PANEL Chloride Lvl 112 meq/L 95 - 109 05/19 [facility] CHEM PANEL CO2 25 meq/L 24 - 32 05/19 [facility] CHEM PANEL Calcium Lvl 8.9 mg/dL 8.5 - 10.5 05/19 [facility] CHEM PANEL Sodium Lvl 144 meq/L 135 - 145 05/19 [facility] CHEM PANEL Glucose Lvl 121 mg/dL 70 - 99 05/19 4Interpretive Data: Adult reference range values reflect the clinical guidelines of the [place] [employer]. [facility] CHEM PANEL BUN 22 mg/dL 7 - 22 05/19 [facility] CHEM PANEL Creatinine 1.5 mg/dL 0.5 - 1.4 05/19 [facility] CHEM PANEL AGAP 11.0 meq/L 10.0 - [...] Total CK 105 unit/L 05/18 [facility] ENZYMES [facility] CHEM PANEL eGFR 46 05/18 2Result Comment: [...] mg/dL 0.5 - 1.4 05/18 [facility] Lvl [facility] DRUG U Ruchi Scr Negative Negative 05/18 [...] Platelet 202 K/CMM 133 - 450 05/18 [facility] HEMATOLOGY PTT 36.5 s 22.9 - 05/18 9Interpretive [facility] 35.8 Data: Heparin [facility] Therapeutic Range: 57 - 92 Seconds HEMATOLOGY INR 1.02 0.85 - 05/18 7Interpretive Data: RECOMMENDED RANGES FOR PROTIME INR: [facility] 05.05 2.0-3.0 for most medical and surgical thromboembolic states. [facility] 2.5-3.5 for artificial heart valves and recurrent embolism. INR SHOULD BE USED ONLY FOR PATIENTS ON STABLE ANTICOAGULANT THERAPY. HEMATOLOGY PT 13.4 s 12.0 - 05/18 [facility] 14.7 [facility] LIPIDS VLDL 17 05/18 [facility] LIPIDS LDL 44 mg/dL <=99 mg/dL 05/18 [facility] (Calculated) [facility] LIPIDS Chol 103 mg/dL <=199 05/18 mg/dL LIPIDS Trig 85 mg/dL <=149 05/18 [facility] mg/dL [facility] LIPIDS HDL 42 mg/dL >=61 mg/dL 05/18 [facility] LIPIDS CHD Risk 2.45 4.00 - 05/18 [facility] 7. [facility] CARDIAC Troponin-I 0.02 ng/mL 0.00 - 05/18 [facility] EN[facility]YMES 0.40 [facility] CARDIAC CK MB 1.3 ng/mL 0.5 - 3.6 05/18 [facility] EN[facility] CARDIAC Total CK 103 unit/L 12 - 191 05/18 ENZYMES [facility] CARDIAC CK MB Index 1.3 0.0 - 2.5 05/18 [facility] EN[facility] CHEM PANEL eGFR 46 05/18 3Result Comment: [...] is not recommended in the following populations: [facility] 3m2 Individuals with unstable creatinine concentrations, including [...] Lvl 8.6 mg/dL 8.5 - 10.5 05/18 [facility] CHEM PANEL CO2 24 meq/L 24 - 32 05/18 [facility] CHEM PANEL Total 7.1 g/dL 6.4 - 8.4 05/18 Protein [facility] CHEM PANEL Chloride Lvl 109 meq/L 95 - 109 05/18 [facility] CHEM PANEL Potassium 3.8 meq/L 3.5 - 5.1 05/18 Lvl [facility] CHEM PANEL A/G Ratio 0.8 0.7 - 1.6 05/18 [facility] CHEM PANEL Bili Total 0.2 mg/dL 0.2 - 1.3 05/18 [facility] CHEM PANEL Globulin 4.0 g/dL 2.0 - 4.0 05/18 [facility] CHEM PANEL B/C Ratio 15 6 - 25 05/18 [facility] CHEM PANEL AGAP 11.8 meq/L 10.0 - 05/18 20.0 [facility] CHEM PANEL Alk Phos 44 unit/L 39 - 136 05/18 [facility] CHEM PANEL AST 13 unit/L 0 - 37 05/18 [facility] CHEM PANEL ALT 15 unit/L 0 - 65 05/18 [facility] CHEM PANEL Sodium Lvl 141 meq/L 135 - 145 05/18 [facility] CHEM PANEL Creatinine 1.9 mg/dL 0.5 - 1.4 05/18 [facility] CHEM PANEL Albumin Lvl 3.1 g/dL 3.5 - 5.0 05/18 [facility] CHEM PANEL BUN 28 mg/dL 7 - 22 05/18 [facility] CHEM PANEL Glucose Lvl 197 mg/dL 70 - 99 05/18 5Interpretive Data: Adult reference range values reflect the clinical guidelines of the [place] [employer]. [facility] HEMATOLOGY MCH 27.4 pg 27.0 - 05/18 31.0 [facility] HEMATOLOGY RDW 17.6 % 11.5 - 05/18 14. [facility] HEMATOLOGY MCHC 33.2 g/dL 32.0 - 05/18 36.0 [facility] HEMATOLOGY MPV 10.8 fL 7.4 - 10.4 05/18 [facility] HEMATOLOGY Platelet 208 K/CMM 133 - 450 05/18 [facility] HEMATOLOGY WBC 4.6 K/CMM 3.7 - 10.4 05/18 [facility] HEMATOLOGY Hgb 9.4 g/dL 14.0 - 05/18 18.0 [facility] HEMATOLOGY RBC 3.43 M/CMM 4.70 - 05/18 [facility] 6. [facility] HEMATOLOGY MCV 82.6 fL 80.0 - 05/18 [...] # 0.4 K/CMM 0.0 - 0.8 05/18 [facility] HEMATOLOGY Lymphocytes 29.4 % 20.0 - 05/18 [facility] 40.0 HEMATOLOGY Monocytes 8.8 % 2.0 - 12.0 05/18 HEMATOLOGY Eosinophils 3.5 % 0.0 - 4.0 05/18 HEMATOLOGY Basophils 0.8 % 0.0 - 1.0 05/18 [facility] HEMATOLOGY Segs 57.5 % 45.0 - 05/18 [facility] 75.0 [facility] Vital Signs Vital Sign Value Date Comments Source Systolic (mm Hg) 138 10/19/2017 [facility] Diastolic (mm Hg) 85 10/19/2017 [facility] Respitory Rate 10 10/19/2017 [facility] Systolic (mm Hg) 140 10/19/2017 [facility] Diastolic (mm Hg) 87 10/19/2017 [facility] Respitory Rate 15 10/19/2017 [facility] Systolic (mm Hg) 137 10/19/2017 [facility] Diastolic (mm Hg) 79 10/19/2017 [facility] Respitory Rate 19 10/19/2017 [facility] Heart Rate 65 10/19/2017 [facility] Heart Rate 61 10/19/2017 [facility] Temperature Oral (F) 97.7 F 10/19/2017 [facility] Heart Rate 58 10/19/2017 [facility] Temperature Oral (F) 98 F 10/19/2017 [facility] Temperature Oral (F) 97.5 F 10/19/2017 [facility] BMI Calculated 27.95 10/18/2017 [facility] Weight 90.909 10/18/2017 [facility] Height 180.34 cm 10/18/2017 [facility] Systolic [...] [facility] [place] BMI Calculated 32.15 05/18/2014 [facility] Encounters Location Location Encounter Encounter Reason Attending ADM DC Status Source Details Type Number For Provider Date Date Visit [facility] [id number] Samantha 05/18 05/20 Kenneth Observation Mar[place] /2014 [facility] Day Surgery [id number] Eddie 06/08 06/08 Kenneth Butler /2016 [facility] Observation [id number] Youngestrella 09/18 09/19 Kenneth Randall /2016 [facility] Observation [id number] Gyanendra 10/18 10/19 Kenneth Bonds /2017 [facility] Procedures Procedure Code Date Perfomer Comments Source Adjustment of [id number] [facility] intraluminal device [place] of arteriovenous fistula
[2017-12-12 09:54] LABS: Absolute Lymphocytes (CBC) 0.6 K/uL (0.7-4.9); Absolute Monocytes 0.4 K/uL (0.1-1.3); Absolute Neutrophil 3.5 K/uL (1.8-8.0); Basophils % 1.3 % (0-1.3); Eosinophils % 2.9 % (0-4.4); Hematocrit 33.1 % (39.6-49.0); Lymphocytes % 13.3 % (15.3-44.8); MCH 28.4 pg (27.0-35.0); MCV 89.4 fL (80-100); MPV 8.6 fL (7.6-11.3); Monocytes % 8.5 % (3.3-12.3); RBC Red Blood Cell Count 3.71 M/uL (4.33-5.43)
[2017-12-12 09:57] LABS: Protime INR 1.02
[2017-12-12 10:21] LABS: ALT/SGPT 16 U/L (12-78); AST/SGOT 12 U/L (15-37); Albumin 3.6 g/dL (3.4-5.0); Alkaline Phosphatase 69 U/L (45-117); BUN Blood Urea Nitrogen 131 mg/dL (7-18); Bicarbonate 18 mmol/L (21-32); Bilirubin Direct < 0.1 mg/dL (0-0.2); Bilirubin Total 0.4 mg/dL (0.2-1.0); CKMB Creatine Kinase MB 8.2 ng/mL (0.3-3.6); Creatine Phosphokinase 295 U/L (39-308); Glucose Level 83 mg/dL (74-106); Lipase 337 U/L (73-393); Magnesium 3.5 mg/dL (1.8-2.4); Protein, Total 7.5 g/dL (6.4-8.2); Sodium Level 138 mmol/L (136-145)
[2017-12-12 10:26] LABS: NT PRO-BNP 43074 pg/mL (<125)
[2017-12-12 10:28] LABS: Potassium 7.5 mmol/L (3.5-5.1)
--- NOTE | 2017-12-12 10:34 | EDPHYS ---
Physician Documentation [facility] Name: Juan Lozano Age: 56 yrs Sex: Male : 1960 Arrival Date: 12/12/2017 Time: 08:54 Bed 6 Private MD: ED Physician Eris Karimi HPI: 12/12 09:03 This 56 yrs old Black Male presents to ER via EMS with complaints of Abdominal gail Distention, Missed Dialysis. 09:03 The patient has shortness of breath at rest, with light activity. Onset: The gail symptoms/episode began/occurred 3 day(s) ago. The patient's shortness of breath has no apparent modifying factors. The patient presents with abdominal distention in the upper abdomen, in the lower abdomen. Onset: The symptoms/episode began/occurred 3 day(s) ago. Possible causes: missed dialysis. Historical: - Allergies: 09:03 NKA; tw2 - Home Meds: 09:03 aspirin 81 mg Oral chew 1 tab once daily [Active]; cholecalciferol (vitamin D3) 1,000 tw2 unit oral cap [Active]; Clonidine 0.3 mg/24hr Oral 0.3 mg [Active]; Depakote Sprinkles 125 mg Oral cpSP 2 caps every 12 hours [Active]; folic acid 1 mg Oral tab 1 tab once daily [Active]; isosorbide dinitrate 20 mg Oral tab 1 tab 3 times per day [Active]; Keppra 500 mg Oral tab 1 tab 2 times per day [Active]; levothyroxine 50 mcg tab 1 tab once daily [Active]; metoprolol tartrate 100 mg Oral tab 1 tab once daily [Active]; Protonix 40 mg Oral TbEC 1 tab once daily [Active]; sevelamer HCl oral 800 mg oral 2 tabs 3 times per day [Active]; Risperdal 0.25 mg Oral tab 1 tabs 2 times per day [Active]; cinacalcet oral 30 mg oral 2 tabs once daily [Active]; sorbitol-saliva stim cb#1-malic acid-Ca phos mucous membrane sun wed mucous membrane [Active]; tramadol 50 mg Oral tab 2 tabs every 6 hours [Active]; - PMHx: 09:03 CVA; Dialysis; TIA; Bipolar disorder; Hypertension; Diabetes - NIDDM; tw2 - Immunization history:: Adult Immunizations up to date. - Social history:: Smoking status: Smoking status: Patient uses tobacco products, smokes one pack cigarettes per day. - Family history:: not pertinent. - Ebola Screening: : Patient denies travel to an Ebola-affected area in the 21 days before illness onset. ROS: 09:03 Eyes: Negative for injury, pain, redness, and discharge, ENT: Negative for injury, gail pain, and discharge, Neck: Negative for injury, pain, and swelling, Cardiovascular: Negative for chest pain, palpitations, and edema, Respiratory: Negative for shortness of breath, cough, wheezing, and pleuritic chest pain, Back: Negative for injury and pain, : Negative for injury, bleeding, discharge, and swelling, MS/Extremity: Negative for injury and deformity, Skin: Negative for injury, rash, and discoloration, Psych: Negative for depression, anxiety, suicide ideation, homicidal ideation, and hallucinations, Allergy/Immunology: Negative for hives, rash, and allergies, Endocrine: Negative for neck swelling, polydipsia, polyuria, polyphagia, and marked weight changes, Hematologic/Lymphatic: Negative for swollen nodes, abnormal bleeding, and unusual bruising. 09:03 Constitutional: Positive for malaise, poor PO intake. 09:03 Abdomen/GI: Positive for abdominal cramps, abdominal distension. 09:03 Neuro: Positive for altered mental status, weakness. Exam: 09:03 Head/Face: Normocephalic, atraumatic. Eyes: Pupils equal round and reactive to light, gail extra-ocular motions intact. Lids and lashes normal. Conjunctiva and sclera are non-icteric and not injected. Cornea within normal limits. Periorbital areas with no swelling, redness, or edema. ENT: Nares patent. No nasal discharge, no septal abnormalities noted. Tympanic membranes are normal and external auditory canals are clear. Oropharynx with no redness, swelling, or masses, exudates, or evidence of obstruction, uvula midline. Mucous membranes moist. Neck: Trachea midline, no thyromegaly or masses palpated, and no cervical lymphadenopathy. Supple, full range of motion without nuchal rigidity, or vertebral point tenderness. No Meningismus. Chest/axilla: Normal chest wall appearance and motion. Nontender with no deformity. No lesions are appreciated. Cardiovascular: Regular rate and rhythm with a normal S1 and S2. No gallops, murmurs, or rubs. Normal PMI, no JVD. No pulse deficits. Respiratory: Lungs have equal breath sounds bilaterally, clear to auscultation and percussion. No rales, rhonchi or wheezes noted. No increased work of breathing, no retractions or nasal flaring. Back: No spinal tenderness. No costovertebral tenderness. Full range of motion. Male : Normal genitalia with no discharge or lesions. Skin: Warm, dry with normal turgor. Normal color with no rashes, no lesions, and no evidence of cellulitis. MS/ Extremity: Pulses equal, no cyanosis. Neurovascular intact. Full, normal range of motion. Psych: Awake, alert, with orientation to person, place and time. Behavior, mood, and affect are within normal limits. 09:03 Constitutional: The patient appears in obvious distress, mildly distressed. 09:03 Respiratory: the patient does not display signs of respiratory distress, Respirations: normal, Breath sounds: are clear throughout. Vital Signs: 08:56 BP 164 / 83; Pulse 68; Resp 16; Temp 97.5(O); Pulse Ox 95% on R/A; tw2 10:15 BP 187 / 108; Pulse 63; Resp 18; Pulse Ox 95% on R/A; tw2 11:29 BP 137 / 84; Pulse 57; Resp 17; Pulse Ox 95% on R/A; tw2 11:51 BP 151 / 86; Pulse 63; Resp 17; Pulse Ox 95% on R/A; tw2 MDM: 08:55 Patient medically screened. [facility] 09:10 Data reviewed: vital signs, nurses notes, lab test result(s), EKG, radiologic studies, [facility] CT scan, plain films. 12/12 09:02 Order name: Basic Metabolic Panel; Complete Time: 11:30 [facility] 12/12 09:02 Order name: CBC with Diff; Complete Time: 10:27 [facility] 12/12 09:02 Order name: Ckmb; Complete Time: 11:30 [facility] 12/12 09:02 Order name: CPK; Complete Time: 11:30 [facility] 12/12 09:02 Order name: LFT's; Complete Time: 11:30 [facility] 12/12 09:02 Order name: Magnesium; Complete Time: 11:30 [facility] 12/12 09:02 Order name: NT PRO-BNP; Complete Time: 11:30 [facility] 12/12 09:02 Order name: PT-INR; Complete Time: 10:27 [facility] 12/12 09:02 Order name: Ptt, Activated; Complete Time: 10:27 [facility] 12/12 09:02 Order name: Troponin (emerg Dept Use Only); Complete Time: 10:27 [facility] 12/12 09:02 Order name: Lipase; Complete Time: 11:30 [facility] 12/12 09:02 Order name: Blood Culture Adult (2) [facility] 12/12 09:11 Order name: Depakote; Complete Time: 10:27 [facility] 12/12 09:11 Order name: AMMONIA; Complete Time: 11:30 [facility] 12/12 09:02 Order name: EKG; Complete Time: 09:02 [facility] 12/12 09:02 Order name: Cardiac monitoring; Complete Time: 11:35 [facility] 12/12 09:02 Order name: EKG - Nurse/Tech; Complete Time: 09:53 [facility] 12/12 09:02 Order name: IV Saline Lock; Complete Time: 11:35 [facility] 12/12 09:02 Order name: Labs collected and sent; Complete Time: 11:35 [facility] 12/12 09:02 Order name: CT Traumagram (Head C Spine CAP wo con); Complete Time: 11:30 [facility] 12/12 10:12 Order name: Urine Dipstick--Ancillary (enter results); Complete Time: 11:30 12/12 10:40 Order name: CONS Physician Consult [facility] 12/12 11:34 Order name: RAD [facility] 12/12 09:02 Order name: O2 Per Protocol; Complete Time: 11:35 [facility] 12/12 09:02 Order name: O2 Sat Monitoring; Complete Time: 11:35 [facility] 12/12 09:02 Order name: Urine Dipstick-Ancillary (obtain specimen); Complete Time: 11:35 [facility] Administered Medications: 10:50 Drug: Kayexalate 60 grams Route: PO; tw2 11:36 Follow up: Response: No adverse reaction tw2 10:57 Drug: Sodium Bicarbonate 1 amp Route: IVP; Site: right jugular; tw2 11:35 Follow up: Response: No adverse reaction tw2 10:58 Drug: D50W 50 ml Route: IVP; Site: right jugular; tw2 11:36 Follow up: Response: No adverse reaction tw2 11:00 Drug: Insulin Regular Human 10 units {Co-Signature: la1 (Rober Hardy RN).} Route: IVP; tw2 Site: right antecubital; 11:36 Follow up: Response: No adverse reaction tw2 11:02 Drug: Calcium Gluconate 1 grams Route: IVPB; Infused Over: 10 mins; Site: right jugular;tw2 11:51 Follow up: Response: No adverse reaction; IV Status: Completed infusion tw2 11:03 Drug: Albuterol 7.5 mg Route: Inhalation; tw2 11:36 Follow up: Response: No adverse reaction tw2 Disposition: 12/12/17 10:34 Hospitalization ordered by Kerri Jeter for Inpatient Admission. Preliminary diagnosis are Weakness, End stage renal disease, Hyperkalemia, Essential (primary) hypertension. - Bed requested for Intensive Care Unit. - Status is Inpatient Admission. tw2 - Condition is Serious. - Problem is an acute exacerbation. - Symptoms are unchanged. UTI on Admission? No Signatures: Dispatcher [employer] [facility] Elizabeth Cisneros Corey, MD MD cha Wise, Tara, RN RN tw2 Rober Hardy RN la1 Corrections: (The following items were deleted from the chart) 10:04 09:02 Chest Single View+[email or web address] ordered. [facility] 11:43 10:34 Hospitalization Ordered by Kerri Jeter MD for Inpatient Admission. bd Preliminary diagnosis is Weakness; End stage renal disease; Hyperkalemia; Essential (primary) hypertension. Bed requested for Intensive Care Unit. Status is Inpatient Admission. Condition is Serious. Problem is an acute exacerbation. Symptoms are unchanged. UTI on Admission? No. gail 12:13 11:43 12/12/2017 10:34 Hospitalization Ordered by Kerri Jeter MD for Inpatient tw2 Admission. Preliminary diagnosis is Weakness; End stage renal disease; Hyperkalemia; Essential (primary) hypertension. Bed requested for Intensive Care Unit. Status is Inpatient Admission. Condition is Serious. Problem is an acute exacerbation. Symptoms are unchanged. UTI on Admission? No. bd
--- NOTE | 2017-12-12 10:34 | ER ---
Nurse's Notes [facility] Name: Juan Lozano Age: 56 yrs Sex: Male : 1960 Arrival Date: 12/12/2017 Time: 08:54 Bed 6 Private MD: Diagnosis: Weakness;End stage renal disease;Hyperkalemia;Essential (primary) hypertension Presentation: 12/12 08:54 Presenting complaint: EMS states: pt from [facility], last dialysis was last Wednesday tw2 and it wasn't completed as he refused, he is now agreeable to dialysis, abdominal distension, sacrum pain, RA was 90%, placed on 2 L NC, hypertensive systolic. Transition of care: patient was received from another setting of care (long-term care facility), [facility]. Onset of symptoms was December 12, 2017. Risk Assessment: Do you want to hurt yourself or someone else? Patient reports no desire to harm self or others. Initial Sepsis Screen: Does the patient meet any 2 criteria? No. Patient's initial sepsis screen is negative. Does the patient have a suspected source of infection? No. Patient's initial sepsis screen is negative. Care prior to arrival: Oxygen administered. via nasal cannula. 08:54 Method Of Arrival: EMS: [facility] tw2 08:54 Acuity: DORIS 2 tw2 Historical: - Allergies: 09:03 NKA; tw2 - Home Meds: 09:03 aspirin 81 mg Oral chew 1 tab once daily [Active]; cholecalciferol (vitamin D3) 1,000 tw2 unit oral cap [Active]; Clonidine 0.3 mg/24hr Oral 0.3 mg [Active]; Depakote Sprinkles 125 mg Oral cpSP 2 caps every 12 hours [Active]; folic acid 1 mg Oral tab 1 tab once daily [Active]; isosorbide dinitrate 20 mg Oral tab 1 tab 3 times per day [Active]; Keppra 500 mg Oral tab 1 tab 2 times per day [Active]; levothyroxine 50 mcg tab 1 tab once daily [Active]; metoprolol tartrate 100 mg Oral tab 1 tab once daily [Active]; Protonix 40 mg Oral TbEC 1 tab once daily [Active]; sevelamer HCl oral 800 mg oral 2 tabs 3 times per day [Active]; Risperdal 0.25 mg Oral tab 1 tabs 2 times per day [Active]; cinacalcet oral 30 mg oral 2 tabs once daily [Active]; sorbitol-saliva stim cb#1-malic acid-Ca phos mucous membrane sun mon wed fri mucous membrane [Active]; tramadol 50 mg Oral tab 2 tabs every 6 hours [Active]; - PMHx: 09:03 CVA; Dialysis; TIA; Bipolar disorder; Hypertension; Diabetes - NIDDM; tw2 - Immunization history:: Adult Immunizations up to date. - Social history:: Smoking status: Smoking status: Patient uses tobacco products, smokes one pack cigarettes per day. - Family history:: not pertinent. - Ebola Screening: : Patient denies travel to an Ebola-affected area in the 21 days before illness onset. Screenin:30 Abuse screen: Denies threats or abuse. Nutritional screening: No deficits noted. tw2 Tuberculosis screening: No symptoms or risk factors identified. Fall Risk Secondary diagnosis (15 points) TIA, impaired mobility, CVA. Assessment: 08:57 Reassessment: provider at bedside at this time. tw2 09:00 General: Appears Behavior is obtunded. Pain: Complains of pain in abdomen. Neuro: Level tw2 of Consciousness is obtunded, Oriented to person. Cardiovascular: Heart tones S1 S2 Patient's skin is warm and dry. Cardiovascular: Dialysis shunt: in the right clavicle and anterior aspect of right upper chest. Respiratory: Airway is patent Respiratory effort is even, unlabored, Respiratory pattern is regular, Breath sounds with wheezes bilaterally. GI: Abdomen is round distended, Bowel sounds present X 4 quads. Abd is soft X 4 quads. : No signs and/or symptoms were reported regarding the genitourinary system. EENT: No signs and/or symptoms were reported regarding the EENT system. Derm: No signs and/or symptoms reported regarding the dermatologic system. Skin is intact, is healthy with good turgor, Skin temperature is warm. Musculoskeletal: Range of motion: limited in left shoulder, left elbow, left wrist, left hip, left knee and left ankle. 10:00 Reassessment: Patient appears in no apparent distress at this time. Patient and/or tw2 family updated on plan of care and expected duration. Pain level reassessed. 11:29 Reassessment: Patient appears in no apparent distress at this time. Patient and/or tw2 family updated on plan of care and expected duration. Pain level reassessed. 11:50 Reassessment: Patient appears in no apparent distress at this time. No changes from tw2 previously documented assessment. Patient and/or family updated on plan of care and expected duration. Pain level reassessed. Vital Signs: 08:56 BP 164 / 83; Pulse 68; Resp 16; Temp 97.5(O); Pulse Ox 95% on R/A; tw2 10:15 BP 187 / 108; Pulse 63; Resp 18; Pulse Ox 95% on R/A; tw2 11:29 BP 137 / 84; Pulse 57; Resp 17; Pulse Ox 95% on R/A; tw2 11:51 BP 151 / 86; Pulse 63; Resp 17; Pulse Ox 95% on R/A; tw2 ED Course: 08:54 Patient arrived in ED. tw2 08:55 Eris Karimi MD is Attending Physician. gail 08:56 Triage completed. tw2 08:56 Bed in low position. Call light in reach. Side rails up X2. retail sales assistant on. Pulse tw2 ox on. NIBP on. 08:57 Arm band placed on. tw2 09:01 EKG done, by ED staff, reviewed by Eris Karimi MD. em1 09:19 Missed attempt(s): 22 gauge in right antecubital area. Bleeding controlled, band aid tw2 applied, catheter tip intact. Missed attempt(s): 22 gauge in right hand. Dr. Karimi notified of no IV at this time EJ needed. Bleeding controlled, band aid applied, catheter tip intact. 09:35 Inserted saline lock: 20 gauge in right EJ, using aseptic technique. ,using aseptic tw2 technique. By Dr. Karimi. 09:44 Leanne Huitron, RN is Primary Nurse. tw2 10:00 CT Traumagram (Head C Spine CAP wo con) In Process Unspecified. EDMS 10:00 CT completed. Patient tolerated procedure well. Patient moved to radiology Patient kw1 moved back from CT. 10:32 Kerri Jeter MD is Hospitalizing Provider. gail 11:51 No provider procedures requiring assistance completed. Patient admitted, IV remains in tw2 place. Administered Medications: 10:50 Drug: Kayexalate 60 grams Route: PO; tw2 11:36 Follow up: Response: No adverse reaction tw2 10:57 Drug: Sodium Bicarbonate 1 amp Route: IVP; Site: right jugular; tw2 11:35 Follow up: Response: No adverse reaction tw2 10:58 Drug: D50W 50 ml Route: IVP; Site: right jugular; tw2 11:36 Follow up: Response: No adverse reaction tw2 11:00 Drug: Insulin Regular Human 10 units {Co-Signature: la1 (Rober Hardy RN).} Route: IVP; tw2 Site: right antecubital; 11:36 Follow up: Response: No adverse reaction tw2 11:02 Drug: Calcium Gluconate 1 grams Route: IVPB; Infused Over: 10 mins; Site: right jugular;tw2 11:51 Follow up: Response: No adverse reaction; IV Status: Completed infusion tw2 11:03 Drug: Albuterol 7.5 mg Route: Inhalation; tw2 11:36 Follow up: Response: No adverse reaction tw2 Outcome: 10:34 Decision to Hospitalize by Provider. gail 11:51 Admitted to ICU accompanied by nurse, via stretcher, room 2, with chart, Report called tw2 to ANTONINA Brewer 11:51 Condition: stable 11:51 Instructed on the need for admit. 12:13 Patient left the ED. tw2 Signatures: Dispatcher [employer] Eris Marquez MD MD cha Martinez, Eric em1 Leanne Huitron RN RN tw2 Gosia Vogel kw1 Rober [email or web address]
[2017-12-12 10:38] LABS: Urine Blood TRACE (NEG); Urine Glucose TRACE (NEG); Urine Protein 3+ (NEG)
[2017-12-12] MEDS ORDERED: INSULIN -REGULAR HUMAN 50 UNIT/0.5 ML ML ONE (10:42)
[2017-12-12] MEDS ORDERED: SOD POLYSTYREN SUL 15 GM/60 ML UCUP ONE (10:43)
[2017-12-12] MEDS ORDERED: ALBUTEROL 2.5 MG/3 ML NEB SOL ONE (10:43)
[2017-12-12] MEDS ORDERED: D50W 25 GM/50 ML SYRINGE IV ONE (10:45)
--- NOTE | 2017-12-12 10:52 | RAD REPORT ---
EXAM DESCRIPTION: CT - Head C Spine Cap Wo Con - 12/12/2017 10:00 am CLINICAL HISTORY: Trauma, head and neck injury. Chest, abdomen and pelvis pain. PAIN COMPARISON: Head Brain Wo Cont dated 07/22/2017 TECHNIQUE: CT head without contrast. CT cervical spine without contrast with coronal and sagittal reformatted images. CT chest, abdomen and pelvis without contrast with coronal and sagittal reformatted images of the [facility]. All CT scans are performed using dose optimization technique as appropriate and may include automated exposure control or mA/KV adjustment according to patient size. FINDINGS: CT HEAD WITHOUT CONTRAST: No intracranial hemorrhage, hydrocephalus or extra-axial fluid collection. Bilateral areas encephalo malacia are seen compatible with old infarcts. The paranasal sinuses and mastoids are clear. The calvarium is intact. CT CERVICAL SPINE WITHOUT CONTRAST: No fracture or subluxation. The prevertebral soft tissues are normal in thickness. CT CHEST, ABDOMEN, PELVIS WITHOUT CONTRAST: NOTE: Lack of contrast is a significant limitation in the assessment of trauma related findings. Spec ifically, solid organ, vascular and bowel evaluation is significantly limited. Mild interstitial pulmonary edema suspected.Trace right pleural fluid is seen. No evidence of intra-abdominal visceral injury, free fluid or free air is seen within the above detai led limitations. Both kidneys are mildly atrophic. Cholecystectomy clips. Small fat containing left inguinal hernia. Scattered colonic diverticulosis. Moderate fecal retention in the colon. No fractures. IMPRESSION: Evidence of prior CVA without acute intracranial process. Mild interstitial pulmonary edema. Moderate fecal retention in the colon.
[2017-12-12] MEDS ORDERED: SODIUM BICARB 50 MEQ/50ML VIAL ONE (10:59)
[2017-12-12] MEDS ORDERED: CALCIUM GLUCONATE 1gm/100 ML NS (4.65 mEq/100mL) IV ONE ×2 (11:00)
[2017-12-12] MEDS ORDERED: SOD POLYSTYREN SUL 15 GM/60 ML UCUP PO ONE ×2 (11:10→16:07)
[2017-12-12] MEDS ORDERED: ALBUTEROL 2.5 MG/3 ML NEB SOL NEB ONE ×2 (11:11→17:00)
[2017-12-12] MEDS ORDERED: D50W 25 GM/50 ML SYRINGE IV PRN (11:23)
[2017-12-12] MEDS ORDERED: GLUCAGON 1 MG/VIAL IM PRN (11:23)
[2017-12-12] MEDS ORDERED: INSULIN -REGULAR HUMAN 50 UNIT/0.5 ML ML IV ONE (11:30)
--- NOTE | 2017-12-12 11:34 | RAD REPORT ---
EXAM DESCRIPTION: RAD - Chest Single View - 12/12/2017 11:28 am CLINICAL HISTORY: esrd hd Chest pain. COMPARISON: Chest Single View dated 07/23/2017; Chest Single View dated 07/22/2017 FINDINGS: Portable technique limits examination quality. Mild interstitial pulmonary edema seen. Right-sided venous catheter its tip in the SVC. The heart is mildly enlarged in size. No displaced fractures. IMPRESSION: Mild CHF/ volume overload pattern.
[2017-12-12] MEDS ORDERED: ACETAMINOPHEN 650MG/RECT SUPP PR PRN (13:54)
[2017-12-12] MEDS ORDERED: ONDANSETRON 4 MG/2 ML VIAL IV PRN (13:54)
[2017-12-12] MEDS ORDERED: ASPIRIN EC 81 MG TAB PO SCH (15:00)
[2017-12-12] MEDS ORDERED: RISPERIDONE 0.25 MG TABLET PO SCH (15:00)
[2017-12-12] MEDS ORDERED: CLONIDINE 0.3 MG/PATCH TD SCH (15:00)
[2017-12-12] MEDS ORDERED: DIVALPROEX NA 125 MG CAP PO SCH (15:00)
[2017-12-12] MEDS ORDERED: FOLIC ACID 1 MG TABLET PO SCH (15:00)
[2017-12-12] MEDS ORDERED: ISOSORBIDE DINIT 20 MG TAB PO SCH (15:00)
[2017-12-12] MEDS ORDERED: METOPROLOL TAR 50 MG TAB PO SCH (15:00)
[2017-12-12] MEDS ORDERED: VITAMIN D 1000 UNIT TAB PO SCH (15:00)
[2017-12-12] MEDS ORDERED: PANTOPRAZOLE 40MG TABLET PO SCH (15:00)
[2017-12-12] MEDS ORDERED: levETIRAcetam 500 MG TAB PO SCH (15:00)
--- NOTE | 2017-12-12 16:14 | EKG ---
Test Date: 2017-12-12 Test Time: 08:58:22 Shelf Stocker: RADHA MEASUREMENT RESULTS: Intervals: Rate: 64 ND: 192 QRSD: 102 QT: 444 QTc: 458 Davenport: P: 75 ND: 192 QRS: -31 T: 42 INTERPRETIVE STATEMENTS: Normal sinus rhythm Possible Left atrial enlargement Left axis deviation Abnormal ECG Compared to ECG 07/22/2017 15:50:09 Left-axis deviation now present Electronically Signed On 12-12-17 16:13:54 CDT by Zachary Celis
[2017-12-12] MEDS: TRAMADOL HCL 50 MG TAB PO PRN (16:27)
[2017-12-12] MEDS: HEPARIN 5000 UNIT/ML 1 ML VIAL SQ SCH (16:28)
[2017-12-12] MEDS: SEVELAMER CARBONATE 800 MG TABLET PO SCH (16:28)
[2017-12-12] MEDS: HYDRALAZINE HCL 25 MG TABLET PO SCH ×2 (16:28→20:36)
[2017-12-12] MEDS: INSULIN -REGULAR HUMAN 50 UNIT/0.5 ML ML SQ SCH ×2 (16:30→20:49)
[2017-12-12] MEDS ORDERED: SODIUM BICARB 50 MEQ/50ML VIAL IV ONE (17:00)
[2017-12-12] MEDS ORDERED: CALCIUM GLUC 10% INJ 4.65 MEQ in NA CHLORIDE 0.9% 100 ML IV ONE (18:00)
[2017-12-12] MEDS ORDERED: MANNITOL 25% 12.5 GM/50 ML VIAL IV PRN (20:16)
[2017-12-12] MEDS ORDERED: NA CHLORIDE 0.9% 1,000 ML IV PRN (20:16)
[2017-12-12] MEDS: DIVALPROEX NA 125 MG CAP PO SCH (20:37)
[2017-12-12] MEDS: levETIRAcetam 500 MG TAB PO SCH (20:37)
[2017-12-12] MEDS: ISOSORBIDE DINIT 20 MG TAB PO SCH (20:37)
[2017-12-12] MEDS: CINACALCET HCL 30 MG TAB PO SCH (20:38)
[2017-12-12] MEDS: METOPROLOL TAR 50 MG TAB PO SCH (20:38)
[2017-12-12] MEDS ORDERED: CINACALCET HCL 60 MG PO SCH (21:00)
[2017-12-12] MEDS ORDERED: SEVELAMER HCL PO SCH (21:00)
[2017-12-12] MEDS ORDERED: HOME MED 1 EA UNK (Divalproex Sodium [Depakote] 125 MG) PO SCH (21:00)
[2017-12-12] MEDS ORDERED: ALBUMIN HUMAN 25% 50 ML IV SCH (21:00)
[2017-12-12 23:36] LABS: Potassium 3.5 mmol/L (3.5-5.1)
[2017-12-12 23:36] LABS: Urine Appearance CLEAR; Urine Bilirubin NEGATIVE (NEG); Urine Blood TRACE (NEG); Urine Color YELLOW; Urine Glucose TRACE (NEG); Urine Protein 3+ (NEG); Urine Specific Gravity 1.015 (1.005-1.030); Urine Urobilinogen 0.2 mg/dL (0.2-1.0); Urine pH 6.5 (5.0-7.0)
[2017-12-12 23:42] LABS: Urine Microscopic Reflex ORDER UMIC
[2017-12-12 23:57] LABS: Urine Bacteria <20 /HPF (NONE SEEN); Urine Culture Reflex Order NOT NEEDED; Urine RBC <5 /HPF (NONE SEEN)
[2017-12-13] MEDS: TRAMADOL HCL 50 MG TAB PO PRN ×3 (00:22→14:43)
--- NOTE | 2017-12-13 01:16 | HP ---
Date of Admission: 12/12/2017 Reason For Admission: Abdominal distention with missing dialysis. History Of Present Illness: This is a 56-year-old gentleman with past medical history significant fo r multiple medical problems including diabetes mellitus, hypertension, CVA with left-sided weakness, end-stage renal disease, on hemodialysis, noncompliance, anxiety, hypothyroidism, presented to the em ergency room from the alf with progressive abdominal distention after hemodialysis for almos t 2 weeks. According to the emergency room records, the patient evaluated in the emergency room and found to have potassium of 7.5, creatinine of 20.4, who was given 60 of Kayexalate orally with the D5 0 and 10 units of insulin. He also was given 1 amp of bicarb and calcium gluconate 1 g IV. He was a dmitted to the ICU. The patient had a large bowel movement in the ICU. He is waiting for hemodialys is at this point. He is slightly sleepy. His is not at the bedside. The patient had a recent admission last July because he was refusing dialysis as well. Currently, he is lying in bed. He lo oks comfortable. He had no chest pain. No abdominal pain. He is just tired. His ammonia level was 31. Review of system otherwise as below. Past Medical History: Significant for diabetes mellitus, hypertension, CVA with residual left-sided weakness, end-stage renal disease noncompliance, anxiety disorder, hypothyroidism, conversion disorde r with seizure, anemia, chronic pain syndrome. Past Surgical History: Unobtainable. The patient is not able to give me any information. He is a p oor historian. Social History: Apparently, the patient lives in alf. From the records, it seems like danica ent in brace. is not at the bedside, so I could not tell if he is still in the brace under rivas el in the alf. He does not drink, smoke, or use any drugs currently. He is unemployed or d isabled. Family History: He said his both parents , but he is not sure from what. Allergies: NO REPORTED ALLERGIC MEDICATION. Medication List: Is not available from the alf. We will try to obtain that, so we can reor abimael his home medication. Review of Systems: Unobtainable except that the patient is feeling tired, was not able to tell me much. Physical Examination: Vital Signs: Currently blood pressure is 151/86, respiratory rate 17, pulse 63, saturating 95%. He is on room air. Temperature 97.5. General: The patient is alert, but not well oriented. Does not look in any distress. HEENT: Atraumatic, normocephalic. PERRLA. Oral mucosa is dry. Neck: Supple. No JVD. No bruits. Chest: Clear to auscultation with fine crackles in the bases. Heart: Regular rate and rhythm. S1, S2 normal. No gallop. Abdomen: Soft, distended, tympanic. Not tender. Positive bowel sounds. Extremities: No clubbing, no cyanosis, no edema. Neurologic: Deferred. The patient is not able to follow commands. Laboratory Data: Labs today showed CBC with hemoglobin 10.5, platelet 220, white blood cells 4.7. C hemistry within normal except for potassium 7.5, creatinine 20.4, glucose 83, calcium 8, magnesium 3. 5, AST of 12. Troponin 0.05. BNP at 43,000. CAT scan of the chest, abdomen, pelvis, head and neck was done in the emergency room and did show stephanie dence of prior CVA without acute intracranial process, mild interstitial pulmonary edema noted, moder ate fecal retention in the colon. Assessment And Plan: This is a 56-year-old gentleman with history of end-stage renal disease, on hem odialysis with poor compliance. 1.Pulmonary edema secondary to noncompliance with hemodialysis. We will proceed with the Nephrology consult and start dialysis as soon as possible. 2.Hyperkalemia. The patient had received already Kayexalate, insulin, and D5, albuterol and calcium gluconate in the emergency room in order to have a large bowel movement. We will recheck potassium and hopefully with dialysis will be back to normal. 3.Hypertension. We will resume his home medication when receive the list from the alf. 4.Diabetes mellitus. We will resume his home medication as well and check hemoglobin A1c. He will be on insulin sliding scale. 5.Hypothyroidism. We will resume his Synthroid and check his TSH. 6.History of cerebrovascular accident with residual deficits. CAT scan was negative except for hist ory of prior cerebrovascular accident, so no further workup warranted at this point. 7.Noncompliance. As the patient to be compliant he have to understand how severe is a condition the missing dialysis could have serious consequences. 8.Deep vein thrombosis prophylaxis with heparin 5000 units twice a day. RUBEN Voice ID: [id number]
[2017-12-13] MEDS: HEPARIN 5000 UNIT/ML 1 ML VIAL SQ SCH ×3 (02:01→17:00)
--- NOTE | 2017-12-13 04:08 | CON ---
Date of Consultation: 12/12/2017 Chief Complaint: End-stage renal disease, severe hyperkalemia. History Of Present Illness: The patient was brought to the hospital by ambulance. He is a [facility] resident. He missed dialysis on 2 consecutive days last week and was instructed to be taken in the hospital for evaluation. The patient has history of noncompliance. He was found to have severe hyperkalemia. Potassium was 7.5, BUN was up to 131, creatinine 20. There was metabolic acidosis present with bicarbonate 18. The patient was treated with albuterol nebulizer, Kayexalate, IV sodium bicarbonate and calcium gluconate with IV glucose and dextrose to stabilize potassium. Potassium improved to 6.7 and stat dialysis was ordered, although patient was reluctant to initiate dialysis. Subsequently, he agreed to have dialysis and is undergoing dialysis this evening. The patient was instructed about necessity of dialysis for control of hyperkalemia, which is life threatening condition and may cause cardiac arrest and subsequently he agreed to have dialysis and sign the consent. Review of Systems: The patient denies fever, chills. Eyes: Denies vision changes. Ears, Nose, Mouth, and Throat: Denies sore throat, earache. Respiratory: Denies PND, orthopnea. Cardiovascular: Denies chest pain, palpitation. GI: Denies nausea, vomiting. : Denies dysuria, hematuria. Musculoskeletal: Denies muscle aches or joint swelling. All other systems reviewed and all are negative. Past Medical History: End-stage renal disease, hypertensive heart and kidney disease, anemia, CKD, renal osteodystrophy, obesity, coronary artery disease, hypertension, hyperlipidemia, bipolar disorder, [id number] diabetes mellitus. Social History: Denies tobacco, alcohol, or illicit drugs. Family History: No kidney disease in the family. Physical Examination: Vital Signs: Blood pressure is 187/108, heart rate 63, respiratory rate 18, SpO2 95%. Eyes: Anicteric sclerae. EOMI. Ears, Nose, Mouth, and Throat: Oral mucosa moist. No pallor. Neck: Supple. No JVD. No bruits. Lungs: Clear to auscultation bilaterally. Heart: S1, S2. No pericardial friction rub. Abdomen: Soft, benign, nontender. Extremities: No clubbing. No cyanosis. No obvious edema present in both legs. Neurological: Moving extremities. Cranial nerves intact. Psychiatric: Alert, oriented x3. Normal affect. Laboratory Data: Sodium 138, potassium 7.5, chloride 105, CO2 18, BUN 131, creatinine 20.4, glucose 83, calcium 8.0, magnesium 2.5, CK-MB 8.2, CK 295, troponin 0.05. Hemoglobin 10.5, WBC 4.7, platelet count is 220. Impression And Plan: 1. End-stage renal disease, severe hyperkalemia. The patient was treated with Kayexalate IV and dextrose with insulin, IV calcium gluconate nebulizer with albuterol and received Kayexalate. Potassium level is gradually improving. The patient was reluctant to initiate dialysis, although subsequently he agreed to have dialysis. Continue dialysis with 1 potassium dialysate to treat severe hyperkalemia. Reevaluate potassium after dialysis. 2. Metabolic acidosis. The patient will have IV sodium bicarbonate. Continue dialysis to correct metabolic acidosis. 3. Fluid overload. The patient will continue low-sodium diet. Ultrafiltration will be done with dialysis. 4. Anemia, chronic kidney disease. Monitor hemoglobin level and adjust KEEGAN as needed. BRYAN/LUPE Voice ID: [id number] Report ID: [id number] DAVID
[2017-12-13 05:07] LABS: Absolute Lymphocytes (CBC) 0.6 K/uL (0.7-4.9); Absolute Monocytes 0.4 K/uL (0.1-1.3); Absolute Neutrophil 2.1 K/uL (1.8-8.0); Eosinophils % 3.4 % (0-4.4); Hematocrit 27.6 % (39.6-49.0); Lymphocytes % 19.1 % (15.3-44.8); MCH 28.8 pg (27.0-35.0); MCV 87.7 fL (80-100); MPV 9.1 fL (7.6-11.3); Monocytes % 11.9 % (3.3-12.3); RBC Red Blood Cell Count 3.15 M/uL (4.33-5.43)
[2017-12-13 05:34] LABS: Albumin 3.1 g/dL (3.4-5.0); Bilirubin Total 0.4 mg/dL (0.2-1.0); Potassium 4.2 mmol/L (3.5-5.1); Protein, Total 6.8 g/dL (6.4-8.2)
[2017-12-13] MEDS ORDERED: LEVOTHYROXINE SOD 0.05 MG TABLET PO SCH (06:00)
[2017-12-13] MEDS: INSULIN -REGULAR HUMAN 50 UNIT/0.5 ML ML SQ SCH ×3 (07:30→16:30)
[2017-12-13] MEDS ORDERED: PANTOPRAZOLE 40MG TABLET PO SCH (07:30)
[2017-12-13] MEDS ORDERED: HOME MED 1 EA UNK (Risperidone [Risperidone] 0.5 MG) PO SCH (09:00)
[2017-12-13] MEDS ORDERED: VITAMIN D 1000 UNIT TAB PO SCH (09:00)
[2017-12-13] MEDS ORDERED: FOLIC ACID 1 MG TABLET PO SCH (09:00)
[2017-12-13] MEDS ORDERED: CHOLECALCIFEROL PO SCH (09:00)
[2017-12-13] MEDS ORDERED: RISPERIDONE 0.25 MG TABLET PO SCH (09:00)
[2017-12-13] MEDS ORDERED: ASPIRIN EC 81 MG TAB PO SCH (09:00)
[2017-12-13] MEDS ORDERED: CLONIDINE 0.3 MG/PATCH TD SCH (09:00)
[2017-12-13] MEDS: SEVELAMER CARBONATE 800 MG TABLET PO SCH ×3 (09:01→17:00)
[2017-12-13] MEDS: DIVALPROEX NA 125 MG CAP PO SCH ×2 (09:01→20:36)
[2017-12-13] MEDS: HYDRALAZINE HCL 25 MG TABLET PO SCH ×3 (09:02→20:36)
[2017-12-13] MEDS: levETIRAcetam 500 MG TAB PO SCH ×2 (09:02→20:36)
[2017-12-13] MEDS: ISOSORBIDE DINIT 20 MG TAB PO SCH ×3 (09:02→20:36)
[2017-12-13] MEDS: METOPROLOL TAR 50 MG TAB PO SCH ×2 (09:03→20:36)
[2017-12-13] MEDS: CINACALCET HCL 30 MG TAB PO SCH (20:37)
[2017-12-13] MEDS ORDERED: JUVEN PACKET PO SCH (21:00)
--- NOTE | 2017-12-14 02:45 | PN ---
Date of Progress Note: 12/13/2017 Chief Complaint: Severe azotemia, end-stage renal disease, severe hyperkalemia. The patient was admitted to ICU when he was found to have severe hyperkalemia, potassium of 7.5. He received Kayexalate IV and dextrose with insulin, calcium gluconate, and IV sodium bicarbonate as well as albuterol nebulizer. Subsequently, when he agreed to have dialysis, he had dialysis done with 1 potassium dialysate. Potassium level has improved, although the patient has persistent hyperazotemia. He is to have dialysis today. Review of Systems: General: He denies PND, orthopnea. Cardiovascular: Denies chest pain, palpitation. GI: Denies nausea, vomiting. Physical Examination: Lungs: Clear to auscultation bilaterally. Heart: S1, S2. Abdomen: Soft, benign, nontender. Extremities: Edema present in both legs. Laboratory Data: Hemoglobin 9.1, WBC 3.3, platelet count 195,000. Sodium 140, potassium 4.2, chloride 102, CO2 27, BUN 78, creatinine 13.9, glucose 90, calcium 7.4. Impression And Plan: 1. End-stage renal disease. Dialysis is scheduled today to obtain metabolic clearance and ultrafiltration. The patient will continue p.o. fluid restriction and renal diet. 2. Hypoalbuminemia. Albumin is 3.1. Increase p.o. protein intake as protein supplement. 3. Hypertension. Blood pressure is elevated. Re-evaluate blood pressure after dialysis. Continue blood pressure medication. 4. Anemia and chronic kidney disease. Continue KEEGAN for anemia due to chronic kidney disease. BRYAN/LUPE Voice ID: [id number] Report ID: [id number] DAVID
--- NOTE | 2017-12-14 15:30 | DS ---
Date of Discharge: 12/13/2017 Consultants: Theodora Purcell M.D. with Nephrology. Admitting Diagnoses: 1.Hyperkalemia. 2.End-stage renal disease, on hemodialysis. 3.Pulmonary edema secondary to noncompliance with hemodialysis. 4.Essential hypertension. 5.Diabetes mellitus type 2 with hyperglycemia with chronic kidney dysfunction. 6.Hypothyroidism. 7.History of cerebrovascular accident with residual deficits. 8.Noncompliance. Discharge Diagnoses: 1.Hyperkalemia, corrected. 2.End-stage renal disease, on hemodialysis. 3.Essential hypertension, stable. 4.Diabetes mellitus type 2 with long-term use of insulin and chronic kidney complications. 5.Hypothyroidism. 6.History of cerebrovascular accident with residual deficits. 7.Noncompliance. Hospital Course: The patient is a 56-year-old male from [facility], comes in with abd ominal distention, some shortness of breath and misting. The patient has been refusing dialysis. Th e patient was evaluated in the ER, found to have a potassium of 7.5. The patient was given Kayexalat e, bicarb, albuterol, calcium gluconate. The patient was also agreeable for emergency dialysis to tr eat the hyperkalemia. Dr. Rinaldi with Nephrology was consulted. The patient did well after dialysis. His shortness of breath also improved. Repeat potassium level was within normal limits. The patien t was counseled regarding compliance and voiced understanding. His blood cultures did not show any g rowth to date. CT scan of the head was done which did not show any acute changes. There was no intr acranial hemorrhage. CT of the cervical spine did not show any fractures. CT of the chest and abdom en and pelvis showed an inguinal hernia. No fractures, evidence of prior CVA without acute intracran ial process, mild interstitial pulmonary edema, moderate fecal retention in the colon. The patient w as then cleared for discharge from Nephrology standpoint. After repeat dialysis, the patient will be transferred [facility] condition. Activity: As tolerated. Fall precautions. Diet: Renal diet. Followup: The patient to follow up with PCP in 2-3 days. Follow up with flight simulator teacher, Dr. Rinaldi in 2 weeks. Return to the ER for worsening condition. Not miss dialysis sessions. Physical Examination: General: Awake, alert, oriented, no acute distress. CV: S1, S2. No murmurs. Respiratory: Moving air well bilaterally. No wheezing Gastrointestinal: Abdomen is soft, nontender , nondistended. Positive bowel sounds. Extremities: No clubbing, cyanosis. Trace edema. SA/MODL Voice ID: [id number] Report ID: [id number]
[2017-12-15 02:33] LABS: HBsAG Nonreactive (Nonreactive)
== END 2017-12-13 21:00 ==
LOC: ER 08:52 → ERHOLD 10:38 → INTOOBSV 10:38 → 3RD-ICU 11:54 → 4TH 12-13 11:23
PROVIDERS: ADMIT Internal Medicine; ATTEND Internal Medicine
PROC: 5A1D70Z Performance of Urinary Filtration, Intermittent, Less than 6 Hours Per Day (ICD-10-PCS; principal; 2017-12-12)
PROC: 5A1D70Z Performance of Urinary Filtration, Intermittent, Less than 6 Hours Per Day (ICD-10-PCS; 2017-12-13)
DX: E87.5 Hyperkalemia (principal); I12.0 Hypertensive chronic kidney disease with stage 5 chronic kidney disease or end stage renal disease; E11.22 Type 2 diabetes mellitus with diabetic chronic kidney disease; N18.6 End stage renal disease; Z99.2 Dependence on renal dialysis; Z91.15 Patient's noncompliance with renal dialysis; E03.9 Hypothyroidism, unspecified; R79.89 Other specified abnormal findings of blood chemistry; D63.1 Anemia in chronic kidney disease; E87.2 Acidosis; E87.70 Fluid overload, unspecified; I69.354 Hemiplegia and hemiparesis following cerebral infarction affecting left non-dominant side; Z79.4 Long term (current) use of insulin
CPT/HCPCS: 36415; 70450; 71045; 71250; 72125; 80048; 80053; 80076; 80164; 80177; 81003; 81015; 82140; 82550; 82553; 82962; 83036; 83690; 83735; 83880; 84132; 84443; 84484; 85025; 85610; 85730; 86704; 86706; 86803; 87040; 87340; 90935; 93005; 94760; 99285; G0378; J0610; J1644; J2150

== ENCOUNTER 2017-12-30 23:18 | Emergency (ER) | payer OTHER ==
--- OUTSIDE RECORDS SUMMARY | 2017-12-30 23:22 | XMS REPORT | Continuity of Care Document ---
[...] PAIN RULE Active 05/18/19 [facility] [place] CHEST PAIN Active 05/18/19 [facility] Bipolar disorder Active Problem 10/22/2017 [facility] CAD (<span Resolved Problem 10/22/2017 ID="[id number]"> [place], Confirmed</span>) H [facility] CVA (<span Resolved Problem 10/22/2017 ID="[id number]"> [place], Confirmed</span>) H [facility] Diabetes mellitus Resolved Problem 10/22/2017 [place], [facility] DM (<span Active Problem 10/22/2017 ID="[id number]" [place] >Confirmed</span> ) 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 [place], H [facility] Diabetic Resolved Problem 10/22/2017 retinopathy [place], [facility] ESRD (<span Active Problem 10/22/2017 ID="[id number]" [place] >Confirmed</span> ) Hyperlipemia Resolved Problem 10/22/2017 [place] Hyperlipidemia Active Problem 10/22/2017 [facility] Hypertension Resolved Problem 10/22/2017 [place] HTN (<span Active Problem 10/22/2017 ID="[id number]" [place] >Confirmed</span> ) Hypothyroidism Resolved Problem 10/22/2017 [place] ID (<span Resolved Problem 10/22/2017 [facility] ID="[id number]"> [place], Confirmed</span>) H [facility] [place] Seizure disorder Active Problem 10/22/2017 [facility] Spasms, infantile Resolved Problem 10/22/2017 [facility], H [facility] END STAGE RENAL Active [facility] DISEASE [place] ANEMIA, Active [facility] UNSPECIFIED [place] HEMORRHAGE DUE TO Active [facility] VASCULAR PROSTH [place] DEV/GR Medications Medication Details Route Status Patient Ordering Order Source Instructions Provider Date Fentanyl 50 microgram, Inactive Route: IVP, 2017 [facility] Q5Min, Dosing Weight 90.909, kg, PRN Pain Score 7-10, Priority: Routine, Start date: 10/19/17 15:46:00 CDT, Duration: 2 doses or times, Stop date: Limited # of times Meperidine 12.5 mg, Route: Inactive 10/19[facility] IVP, Q30Min, 2017 [facility] Dosing Weight 90.909, kg, PRN Other -See Comment, For shivering, Start date: 10/19/17 15:46:00 CDT, Duration: 2 doses or times, Stop date: Limited # of times Ondansetron 4 mg, Route: Inactive 10/19[facility] IVP, ONCE, 2017 [facility] Dosing Weight 90.909, kg, PRN Nausea & Vomiting, Start date: 10/19/17 15:46:00 CDT Diphenhydramine 12.5 mg, Route: Inactive 10/19[facility] IVP, Drug form: 2017 [facility] INJ, Q6H, Dosing Weight 90.909, kg, PRN Itching, Start date: 10/19/17 15:46:00 CDT, Duration: 30 day, Stop date: 11/18/17 15:45:00 CDT Albuterol 0.83 2.49 mg, Route: Inactive MG/ML Inhalant NEB, Q20Min, 2017 [facility] Solution Dosing Weight 90.909, kg, PRN Wheezing, Priority: STAT, Start date: 10/19/17 15:46:00 CDT, Duration: 30 day, Stop date: 11/18/17 15:45:00 CDT Promethazine 6.25 mg, Route: Inactive 10/19[facility] IVPB, ONCE, 2017 [facility] Dosing Weight 90.909, kg, PRN Nausea & Vomiting, Start date: 10/19/17 15:46:00 CDT Naloxone 0.4 mg, Route: Inactive IVP, Q2MIN, 2017 [facility] Dosing Weight 90.909, kg, PRN Narcotic Reversal, Start date: 10/19/17 15:46:00 CDT, Duration: 8 doses or times, Stop date: Limited # of times Flumazenil 0.2 mg, Route: Inactive IVP, PRN, 2018 [facility] Dosing Weight 90.909, kg, PRN Benzodiazepine Reversal, Initial dose, Start date: 10/19/17 15:46:00 CDT, Duration: 30 day, Stop date: 11/18/17 15:45:00 CDT Hydralazine 10 mg, Route: Inactive IVP, Q20Min, 2017 [facility] Dosing Weight 90.909, kg, PRN Elevated BP, Start date: 10/19/17 15:46:00 CDT, Duration: 2 doses or times, Stop date: Limited # of times esmolol 10 mg, Route: Inactive IVP, Q5Min, 2017 [facility] Dosing Weight 90.909, kg, PRN Other -See Comment, Start date: 10/19/17 15:46:00 CDT, Duration: 5 doses or times, Stop date: Limited # of times Labetalol 10 mg, Route: Inactive IVP, Q5Min, 2017 [facility] Dosing Weight 90.909, kg, PRN Elevated BP, Start date: 10/19/17 15:46:00 CDT, Duration: 5 doses or times, Stop date: Limited # of times Calcium Chloride 1,000 mL, Rate: Inactive 0.0014 MEQ/ML / 125 ml/hr, 2017 [facility] Potassium Infuse over: 8 Chloride 0.004 hr, Route: IV, MEQ/ML / Sodium Dosing Weight Chloride 0.103 90.909 kg, MEQ/ML / Sodium Total Volume: Lactate 0.028 1,000, Start MEQ/ML Injectable date: 10/19/17 Solution 15:46:00 CDT, Duration: 30 day, Stop date: 11/18/17 15:45:00 CDT, 2.15, m2 Sodium Chloride 500 mL, Rate: Inactive 0.9% IV 500 mL 25 ml/hr, 2017 [facility] Infuse over: 20 hr, Route: IV, Dosing Weight 90.909 kg, Total Volume: 500, Start date: 10/19/17 14:29:00 CDT, Duration: 30 day, Stop date: 11/18/17 14:28:00 CDT, 2.15, m2 Albuterol 0.833 3 mL, Route: Inactive MG/ML / NEB, Dosing 2017 [facility] Ipratropium Weight 90.909, [place] 0.167 kg, ONCE, STAT, MG/ML Inhalant Start date: Solution 10/19/17 14:28:00 CDT, Stop date: 10/19/17 14:28:00 CDT Calcium Chloride 1,000 mL, Rate: Inactive 0.0014 MEQ/ML / 25 ml/hr, 2017 [facility] Potassium Infuse over: 40 Chloride 0.004 hr, Route: IV, MEQ/ML / Sodium Dosing Weight Chloride 0.103 90.909 kg, MEQ/ML / Sodium Total Volume: Lactate 0.028 1,000, Start MEQ/ML Injectable date: 10/19/17 Solution 14:28:00 CDT, Duration: 30 day, Stop date: 11/18/17 14:27:00 CDT, 2.15, m2 Sucralfate 1 gm, 1 tab, Inactive Route: PO, Drug 2017 [facility] form: TAB, TID, Dosing Weight 90.909, [...] No Longer Route: PO, Drug Active 2017 [facility] form: TAB, TID, Dosing Weight 90.909, kg, Start date: 10/19/17 9:00:00 CDT, Duration: 30 day, Stop date: 11/17/17 17:00:00 CDT Risperdal 0.25 mg, 1 tab, Inactive Route: PO, Drug 2017 [facility] form: TAB, Daily, Dosing Weight 90.909, kg, Start date: 10/19/17 9:00:00 CDT, Duration: 30 day, Stop date: 11/17/17 9:00:00 CDTNotes: (Same as: Risperdal) sevelamer 3,200 mg, 4 Inactive tab, Route: PO, 2017 [facility] Drug form: TAB, TID, Start date: 10/19/17 9:00:00 CDT, Duration: 30 day, Stop date: 11/17/17 17:00:00 CDTNotes: Same as: Renvela NIFEdipine 90 mg 90 mg, 1 tab, Inactive oral tablet, Route: PO, Drug 2017 [facility] extended release form: ERTAB, Daily, Dosing Weight 90.909, kg, Start date: 10/19/17 9:00:00 CDT, Duration: 30 day, Stop date: 11/17/17 9:00:00 CDTNotes: (Same as: Adalat CC,Procardia XL) "Do Not Crush" "Avoid grapefruit and grapefruit juice" Nephro-Pawan 1 tab, Route: Inactive PO, Drug Form: 2017 [facility] TAB, Dosing Weight 90.909, kg, Daily, Start date: 10/19/17 9:00:00 CDT, Duration: 30 day, Stop date: 11/17/17 9:00:00 CDTNotes: (Same as: Nephro-Pawan Rx and Diatx) Give with food. Levetiracetam 500 500 mg, 1 tab, Inactive MG Oral Tablet Route: PO, Drug 2017 [facility] [Keppra] form: TAB, BID, Dosing Weight 90.909, kg, Start date: 10/19/17 9:00:00 CDT, Duration: 30 day, Stop date: 11/17/17 17:00:00 CDTNotes: (Same as:Keppra) Isosorbide 20 mg, 2 tab, Inactive Route: PO, Drug 2017 [facility] form: TAB, TID, Dosing Weight 90.909, kg, Start date: 10/19/17 9:00:00 CDT, Duration: 30 day, Stop date: 11/17/17 17:00:00 CDTNotes: (Same as:[place]et) Take on empty stomach/ full glass of water Folic Acid 1 mg, 1 tab, Inactive Route: PO, Drug 2017 [facility] form: TAB, Daily, Dosing Weight 90.909, kg, Start date: 10/19/17 9:00:00 CDT, Duration: 30 day, Stop date: 11/17/17 9:00:00 CDTNotes: (Same as: Folvite) Divalproex Sodium 125 mg, 1 cap, Inactive 125 MG Enteric Route: PO, Drug 2017 [facility] Coated Capsule form: CAP, BID, [Depakote] Dosing Weight 90.909, kg, Start date: 10/19/17 9:00:00 CDT, Duration: 30 day, Stop date: 11/17/17 17:00:00 CDTNotes: (Same as: Depakote Sprinkles) Do not confuse with 250mg capsule or tablets Do not crush. May sprinkle on food. Sensipar 30 mg, 1 tab, Inactive Route: PO, Drug 2017 [facility] form: TAB, Daily, Dosing Weight 90.909, kg, Start date: 10/19/17 9:00:00 CDT, Duration: 30 day, Stop date: 11/17/17 9:00:00 CDTNotes: (Same as: Sensipar) Cholecalciferol 2,000 IntlUnit, Inactive 2000 UNT Oral 2 tab, Route: 2018 [facility] Tablet PO, Drug form: TAB, Daily, Dosing Weight 90.909, kg, Start date: 10/19/17 9:00:00 CDT, Duration: 30 day, Stop date: 11/17/17 9:00:00 CDTNotes: Same as : Vitamin D3 Protonix 40 mg, 1 tab, Inactive Route: PO, Drug 2017 [facility] form: ECTAB, Before Breakfast, Dosing Weight 90.909, kg, Start date: 10/19/17 7:30:00 CDT, Duration: 30 day, Stop date: 11/17/17 7:30:00 CDTNotes: Tablet should not be chewed or crushed. (Same as: Protonix) Thyroxine 50 microgram, 1 Inactive tab, Route: PO, 2017 [facility] Drug form: TAB, Q630AM, Dosing Weight [...] No Longer Route: PO, Drug Active 2017 [facility] form: TAB, BID, Dosing Weight 90.909, kg, Start date: 10/18/17 21:00:00 CDT, Duration: 30 day, Stop date: 11/17/17 9:00:00 CDTNotes: (Same as: Lopressor) Ergocalciferol 50,000 Inactive 66806 UNT Oral IntlUnit, 1 2017 [facility] Capsule cap, Route: PO, Drug form: CAP, qWeek, Dosing Weight 90.909, kg, Start date: 10/18/17 19:00:00 CDT, Duration: 30 day, Stop date: 11/15/17 9:00:00 CDT 168 HR Clonidine 1 patch, Route: No Longer 0.0125 MG/HR TOP, Drug Form: Active 2017 [facility] Transdermal Patch ERFILM, Dosing Weight 90.909, kg, qWeek, Start date: 10/18/17 19:00:00 CDT, Duration: 30 day, Stop date: 11/15/17 9:00:00 CDTNotes: Patch delivers 0.3 mg/24 hours; Patch is applied weekly. [id number] . "Remove old patch before application of new patch" Aspirin 81 mg, 1 tab, No Longer Route: PO, Drug Active 2017 [facility] form: ECTAB, Daily, Dosing Weight 90.909, [...] Longer capsular IM, Drug Form: Active 2017 [facility] polysaccharide INJ, ONCALL, type 1 vaccine / Start date: pneumococcal 10/18/17 capsular 17:06:15 CDT, polysaccharide Stop date: type 10A vaccine 11/17/17 / pneumococcal 17:01:15 capsular CDTNotes: (Same polysaccharide as: Pneumovax type 11A vaccine 23) / pneumococcal Refrigerate capsular polysaccharide type 12F vaccine / pneumococcal capsular polysacchar Risperdal 0.5 mg, 1 tab, Inactive Route: PO, Drug 2017 [facility] form: TAB, Daily, Dosing Weight 90.909, kg, Priority: STAT, Start date: 10/18/17 16:45:00 CDT, Duration: 30 day, Stop date: 11/17/17 9:00:00 CDTNotes: (Same as: Risperdal) Albuterol 0.83 20 mg, Route: Inactive MG/ML Inhalant NEB, ONCE, 2018 [facility] Solution Dosing Weight 90.909, kg, Priority: STAT, Start date: 10/18/17 11:11:00 CDT, Stop date: 10/18/17 11:11:00 CDT Calcium Gluconate 1 gm, 50 mL, Inactive Route: IVPB2017 [facility] Drug form: INJ, ONCE, Dosing Weight 90.909, kg, Priority: STAT, Start date: 10/18/17 11:11:00 CDT, Stop date: 10/18/17 11:11:00 CDTNotes: WASTE: F/P - Sink; E - [employer] Sodium 50 mEq, 50 mL, Inactive Bicarbonate Route: IVP2017 [facility] Drug form: INJ, ONCE, Dosing Weight 90.909, kg, Priority: STAT, Start date: 10/18/17 11:11:00 CDT, Stop date: 10/18/17 11:11:00 CDTNotes: (sodium bicarb 8.4% (1 mEq/ml) 50 ml syringe) Thiamine 50 mg, 0.5 tab, Inactive [facility] Route: PO, Drug 2016 [facility] form: TAB, Daily, Dosing Weight 109.091, kg, [...] Longer [facility] Route: PO, Drug Active 2016 [facility] form: ERTAB, Daily, Dosing Weight 109.091, kg, Start date: 09/19/16 9:00:00 CDT, Duration: 30 day, Stop date: 10/18/16 9:00:00 CDTNotes: (Same as:Imdur) "Do Not Crush" Take on empty stomach/ full glass of water. Do not crush Folic Acid 1 mg, 1 tab, Inactive [facility] Route: PO, Drug 2016 [facility] form: TAB, Daily, Dosing Weight 109.091, kg, [...] 1 tab, Inactive Route: PO, Drug 2016 [facility] form: TAB, Daily, Dosing Weight 109.091, kg, [...] No Longer [facility] IntlUnit, 1 Active 2016 [facility] cap, Route: PO, Drug form: CAP, QFri, Dosing Weight 109.091, kg, Start date: 09/18/16 21:00:00 CDT, Duration: 30 day, Stop date: 10/16/16 21:00:00 CDTNotes: (Same as: Vitamin D) "Do Not Crush" atorvastatin 40 mg, 1 tab, No Longer [facility] Route: PO, Drug Active 2016 [facility] form: TAB, Bedtime, Dosing Weight 109.091, kg, [...] CDTNotes: (Same As: Tomy) Calcium Carbonate 500 bb=080 mg elemental calcium Dose= mg calcium carbonate ( mg elemental calcium) Magnesium Sulfate 2 gm, 50 mL, No Longer [facility] Route: IV, Drug Active 2016 [facility] form: INJ, PRN, Dosing Weight 109.091, kg, PRN Abnormal Lab Result, Start date: 09/18/16 10:33:00 CDT, Duration: 30 day, Stop date: 10/18/16 10:32:00 CDT, to be given IV "PRN" only for s. magnesium if Notes: WASTE: F/P - Sink; E - [employer] Trash Bin Lactulose 667 20 gm, 30 [...] Greater chloride Route: PO, Drug Active 2016 [facility] form: ERTAB, PRN, Dosing Weight 109.091, kg, [...] 10/18/16 10:20:00 CDTNotes: (Same as: Procrit) epoetin anikte 14136 unit/1 ml VL. For dialysis use only. (Procrit) WASTE: F/P - Red; E -Red MEDICATION WASTE Product Size: 57070 unit Product Wasted: ___ unit sodium chloride 1,000 mL, Rate: No Longer [facility] 0.9% 1000 ml INJ prn on hdx only 2016 [facility] 1,000 mL ml/hr, Route: IV, Dosing Weight 109.091 kg, Total Volume: 1,000, Start date: 09/18/16 10:21:00 CDT, Duration: 30 day, Stop date: 10/18/16 10:20:00 CDT albumin human 25% 12.5 gm, 50 mL, No Longer [facility] intravenous Route: IVPB, Active 2016 [facility] solution Drug form: INJ, PRN, Dosing Weight [...] Route: No Longer [facility] IM, Drug form: Top Hat 2016 [facility] PDR/INJ, PRN, Dosing Weight 109.091, kg, PRN Blood Glucose Results, Start date: 09/18/16 2:25:00 CDT, Duration: 30 day, Stop date: 10/18/16 2:24:00 CDT Dextrose 50% 25 gm, 50 mL, No Longer [facility] Syringe Route: IVP, [facility] 2016 [facility] Drug Form: INJ, Dosing Weight 109.091, kg, PRN, PRN Blood Glucose Results, Start date: 09/18/16 2:25:00 CDT, Duration: 30 day, Stop date: 10/18/16 2:24:00 CDT Acetaminophen 650 mg, 2 tab, No Longer [facility] Route: PO, Drug [facility] 2016 [facility] form: TAB, Q4H, Dosing Weight 109.091, kg, PRN Pain 1-3/Temp > 100.4 F, Start date: 09/18/16 2:08:00 CDT, Duration: 30 day, Stop date: 10/18/16 2:07:00 CDTNotes: Do not exceed 4 gm/day. (Same as: Tylenol) Ondansetron 4 mg, 2 mL, No Longer [facility] Route: IVP, Active 2016 [facility] Drug form: INJ, Q6H, Dosing Weight 109.091, kg, PRN Nausea & Vomiting, Start date: 09/18/16 2:08:00 CDT, Duration: 30 day, Stop date: 10/18/16 2:07:00 CDTNotes: (Same as: Nicole) MEDICATION WASTE Product Size: 4 mg Product Wasted: ___ mg sodium chloride 250 mL, Rate: No Longer [facility] 0.9% INJ 250 mL Plant Control Operator for use [facility] 2016 [facility] with blood product administration. , Dosing Weight 109.091, kg, Route: IV, Total Volume: 250, Priority: Routine, Start Date: 09/17/16 23:00:00 CDT, Duration: 30 day, Stop date: 10/17/16 22:59:00 CDT, Replace Every: 24 hr Hydralazine 10 mg, 0.5 mL, Inactive 06/08/ MH [facility] Route: IVP, 2016 [facility] Drug form: INJ, Q20Min, Dosing Weight 104, kg, PRN Elevated BP, Start date: 06/08/16 9:49:00 [employer] SAL[employer]INEER, Duration: 2 doses or times, Stop date: Limited # of timesNotes: (Same as: Apresoline) Push over 5 minutes Hydromorphone 0.5 mg, 0.25 Inactive MH [facility] mL, Route: IVP2016 [facility] Drug form: INJ, Q5Min, Dosing Weight 104, kg, PRN Pain Score 7-10, Start date: 06/08/16 9:49:00 [employer] SAL[employer] ENGINEER, Duration: 4 doses or times, Stop date: Limited # of timesNotes: Same as Dilaudid Oxycodone 10 mg, 2 tab, Inactive [facility] Route: PO, Drug 2016 [facility] form: TAB, Q4H, Dosing Weight 104, kg, PRN Pain Score 7-10, Start date: 06/08/16 9:49:00 [employer]UC[employer]IP[employer] SALES ENGINEER, Duration: 30 day, Stop date: 07/08/16 9:48:00 CDTNotes: (Same as: Roxicodone) Labetalol 10 mg, 2 mL, Inactive [facility] Route: IVP2016 [facility] Drug form: INJ, Q5Min, Dosing Weight 104, kg, PRN Elevated BP, Start date: 06/08/16 9:49:00 [employer]UC[employer] SAL[employer] ENGINEER, Duration: 5 doses or times, Stop date: Limited # of times Ondansetron 4 mg, 2 mL, Inactive [facility] Route: IVP2016 [facility] Drug form: INJ, ONCE, Dosing Weight 104, kg, PRN Nausea & Vomiting, Start date: 06/08/16 9:49:00 CSTNotes: (Same as: Zofran) MEDICATION WASTE Product Size: 4 mg Product Wasted: ___ mg Naloxone 0.4 mg, 1 mL, Inactive [facility] Route: IVP, 2016 Drug form: INJ, Q2MIN, Dosing Weight 104, kg, PRN Narcotic Reversal, Start date: 06/08/16 9:49:00 [employer] SAL[employer] ENG[employer]ER, Duration: 8 doses or times, Stop date: Limited # of timesNotes: Same as Narcan Flumazenil 0.2 mg, 2 mL, Inactive [facility] Route: IVP, 2016 Drug form: INJ, PRN, Dosing Weight 104, kg, PRN Benzodiazepine Reversal, Initial dose, Start date: 06/08/16 9:49:00 [employer] SAL[employer] ENGINEER, Duration: 30 day, Stop date: 07/08/16 10:48:00 [...] INJ, 2016 ONCE, Stop date: 06/08/16 9:22:00 [employer] ENGINEER metoprolol (ANES) Route: IV, Drug Inactive 06/08/ MH [facility] form: INJ, 2016 ONCE, Stop date: 06/08/16 9:22:00 [employer]UC[employer] SAL[employer] ENGINEER ketAMINE (ANES) Route: IV, Drug Inactive 06/08/ MH [facility] form: INJ, 2016 ONCE, Stop date: 06/08/16 9:18:00 [employer] SAL[employer]INEER propofol (ANES) Route: IV, Drug Inactive 02/20/ MH [facility] form: INJ, 2016 ONCE, Stop date: 06/08/16 9:03:00 [employer]UCLE[employer] EQUIPMENT SALES ENGINEER ceFAZolin (ANES) Route: IV, Drug Inactive [facility] form: INJ, 2016 ONCE, Stop date: 06/08/16 9:03:00 [employer]UC[employer] SALES ENGINEER ondansetron Route: IV, Drug Inactive [facility] (ANES) form: INJ, 2016 ONCE, Stop date: 06/08/16 9:02:00 [employer]UC[employer] E[employer]IP[employer] SALES ENGINEER sodium chloride Route: IV, Inactive [facility] 0.9% 500 ml INJ Total Volume: 2016 (ANES) 500, Start date: 06/08/16 8:20:00 [employer]UC[employer] EQUIP[employer] SALES ENGINEER, Stop date: 06/08/16 9:20:00 [employer]UCLE[employer] EQUIPMENT SALES ENGINEER Sodium Chloride 500 mL, Route: Inactive [facility] 0.154 MEQ/ML IV, ONCE, 2016 Injectable Dosing Weight Solution 104.545 kg, Start date: 06/08/16 7:52:00 [employer]UC[employer] SALES ENGINEER, Stop date: 06/08/16 7:52:00 [employer]UC[employer] E[employer]IP[employer] SALES ENGINEER, Bolus thiamine 50 mg 50 mg=1 tab, Active [facility] oral tablet PO, Daily, # 7 2016 [facility] tab, 0 Refill(s) Folic Acid 1 mg, PO, Active Greater Daily, 0 2016 [facility] Refill(s) clopidogrel 75 mg, PO, Active Greater Daily, 0 2016 [facility] Refill(s) 24 HR Nifedipine 30 mg=1 tab, Active [facility] 30 MG Extended PO, Daily, # 30 2016 [facility] Release Tablet tab, 0 Refill(s) Furosemide 40 mg, PO, BID, Active Greater 0 Refill(s) 2016 Isosorbide 30 mg, PO, Active Greater Daily, 0 2016 [facility] Refill(s) ferrous sulfate 325 mg, PO, Active Greater Daily, 0 2016 [facility] Refill(s) Calcitriol 0.25 microgram, Active Greater PO, Daily, 0 2016 [facility] Refill(s) loperamide 1 mg/5 2 mg=10 ml, [...] 500 MG Chewable CHEW, TID, PRN 2016 [facility] Tablet for indigestion, # 30 tab, 0 Refill(s) Nystatin 100 1 appl, TOP, Active [facility] UNT/MG Topical BID, # 30 gm, 1 2016 [facility] Powder Refill(s) Nephro-Pawan 1 tab, PO, Active Greater Daily, 0 2016 [facility] Refill(s) RenaGel 1,600 mg, PO, Active Greater [...] Route: SUB-Q, Active 2014 Drug form: INJ, [id number], Dosing Weight 104.545, kg, Start date: 05/18/14 [...] Longer Greater Route: PO, Drug Active 2014 [facility] form: TAB, Q8H, Dosing Weight 104.545, kg, PRN Nausea & Vomiting, Start date: 05/18/14 10:08:00, Duration: 30 day, Stop date: 06/17/14 10:07:00Notes: (Same as: Zofran) Nitroglycerin 0.4 mg, 1 tab, No Longer Greater Route: SL, Drug Active 2014 [facility] form: TAB, Q5Min, Dosing Weight 104.545, kg, [...] type Reported NKDA Assertion Drug Active allergy [facility] Immunizations Immunization Date Given Site Status [...] is not recommended in the following populations: [facility] 3m2 Individuals with unstable creatinine concentrations, [...] Lvl 101 meq/L 95 - 109 10/19 [facility] CHEM PANEL Potassium 5.0 meq/L 3.5 - 5.1 10/19 MH Lvl [facility] CHEM PANEL Sodium Lvl 141 meq/L 135 - 145 10/19 [facility] CHEM PANEL Creatinine 9.89 mg/dL 0.50 - 10/19 MH Lvl 1.40 /2017 [facility] CHEM PANEL BUN 56 mg/dL 7 - 22 10/19 [facility] CHEM PANEL AGAP 17.0 meq/L 10.0 - 10/19 MH 20.0 [facility] CHEM PANEL Calcium Lvl 8.7 mg/dL 8.5 - 10.5 10/19 [facility] CHEM PANEL CO2 28 meq/L 24 - 32 10/19 [facility] CHEM PANEL Glucose Lvl 91 mg/dL 70 - 99 10/19 [facility] IMMUNOLOGY Hep Bs Ag Negative Negative 10/18 [facility] *NA* (10/18/17 12:25 PM) CHEM PANEL Uric Acid 4.3 mg/dL 3.8 - 8.0 09/18 [facility] IMMUNOLOGY Hep Bs Ag Negative Negative 09/18 [facility] *NA* (09/18/16 2:20 PM) BLOOD BANK ABO/Rh B POS 09/18 Greater RESULTS [facility] BLOOD BANK Antibody Negative 09/18 [facility] RESULTS [facility] (09/18/16 12:41 AM) BLOOD BANK RBC product Product available 09/18 Result Comment: 2016 01:53 [id number] Called [place] begum [facility] (09/17/16 11:00 PM) ELECTROLYT AGAP 14.2 meq/L 10.0 - 09/18 [facility] ES 20.0 [facility] ELECTROLYT B/C Ratio 7 6 - 25 09/18 [facility] ES [facility] ELECTROLYT A/G Ratio 0.8 0.7 - 1.6 09/18 [facility] ES [facility] ELECTROLYT Globulin 3.7 g/dL 2.7 - 4.2 / MH [facility] ES [facility] ELECTROLYT eGFR 6 09/18 Result Comment: The [...] is not recommended in the following populations: [facility] 3m2 Individuals with unstable creatinine concentrations, including [...] g/dL 3.5 - 5.0 / MH Greater [facility] ELECTROLYT Bili Total 0.3 mg/dL 0.2 - 1.3 / MH Greater [facility] ELECTROLYT ALT 20 unit/L 0 - 65 / MH Greater [facility] ELECTROLYT AST 19 unit/L 0 - 37 / MH [facility] ES [facility] [facility] ELECTROLYT Alk Phos 35 unit/L 39 - 136 / MH [facility] ES [facility] ELECTROLYT Chloride Lvl 105 meq/L 95 - 109 / MH Greater [facility] ELECTROLYT Potassium 4.2 meq/L 3.5 - 5.1 / MH [facility] ES Lvl [facility] ELECTROLYT Total 6.8 g/dL 6.4 - 8.4 / MH [facility] ES [facility] ELECTROLYT Calcium Lvl 7.9 mg/dL 8.5 - 10.5 / MH Greater [facility] ELECTROLYT CO2 26 meq/L 24 - 32 06/ MH [facility] ES [facility] ELECTROLYT Sodium Lvl 141 meq/L 135 - 145 / MH Greater [facility] ELECTROLYT BUN 79 mg/dL 7 - 22 06/ MH [facility] ES [facility] ELECTROLYT Creatinine 10.90 0.50 - 06/02 MH [...] 87.5 fL 80.0 - 09/18 Greater 94.0 [facility] HEMATOLOGY Hgb 6.3 g/dL 14.0 - 09/18 Result 18. Comment: [facility] Critical Result(s) called to Issa DEJESUS at 09/17/2016 22:10 by. Read back OK. HEMATOLOGY MCH 29.6 pg 27.0 - 09/18 Greater 31.0 [facility] HEMATOLOGY MCHC 33.8 g/dL 32.0 - 09/18 36.0 [facility] CHEM PANEL eGFR 61 05/19 1Result Comment: [...] is not recommended in the following populations: [facility] 3m2 Individuals with unstable creatinine concentrations, including [...] Potassium 4.0 meq/L 3.5 - 5.1 05/19 [facility] CHEM PANEL Chloride Lvl 112 meq/L 95 - 109 05/19 [facility] CHEM PANEL CO2 25 meq/L 24 - 32 05/19 [facility] CHEM PANEL Calcium Lvl 8.9 mg/dL 8.5 - 10.5 05/19 [facility] CHEM PANEL Sodium Lvl 144 meq/L 135 - 145 05/19 [facility] CHEM PANEL Glucose Lvl 121 mg/dL 70 - 99 05/19 4Interpretive Data: Adult reference range values reflect the clinical guidelines of the [place] [employer]. [facility] CHEM PANEL BUN 22 mg/dL 7 - 22 05/19 [facility] CHEM PANEL Creatinine 1.5 mg/dL 0.5 - 1.4 05/19 [facility] CHEM PANEL AGAP 11.0 meq/L 10.0 - [...] Total CK 105 unit/L 05/18 Greater ENZYMES [facility] CHEM PANEL eGFR 46 05/18 2Result Comment: [...] mg/dL 0.5 - 1.4 05/18 Greater Lvl [facility] DRUG U Ruchi Scr Negative Negative 05/18 [...] Platelet 202 K/CMM 133 - 450 05/18 [facility] HEMATOLOGY PTT 36.5 s 22.9 - 05/18 9Interpretive [facility] 35.8 Data: Heparin [facility] Therapeutic Range: 57 - 92 Seconds HEMATOLOGY INR 1.02 0.85 - 05/18 7Interpretive Data: RECOMMENDED RANGES FOR PROTIME INR: [facility] 05.05 2.0-3.0 for most medical and surgical thromboembolic states. [facility] 2.5-3.5 for artificial heart valves and recurrent embolism. INR SHOULD BE USED ONLY FOR PATIENTS ON STABLE ANTICOAGULANT THERAPY. HEMATOLOGY PT 13.4 s 12.0 - 05/18 Greater 14.7 [facility] LIPIDS VLDL 17 05/18 [facility] LIPIDS LDL 44 mg/dL <=99 mg/dL 05/18 Greater (Calculated) [facility] LIPIDS Chol 103 mg/dL <=199 05/18 mg/dL LIPIDS Trig 85 mg/dL <=149 05/18 Greater mg/dL [facility] LIPIDS HDL 42 mg/dL >=61 mg/dL 05/18 [facility] LIPIDS CHD Risk 2.45 4.00 - 05/18 Greater 7. [facility] CARDIAC Troponin-I 0.02 ng/mL 0.00 - 05/18 MH Greater ENZYMES 0.40 [facility] CARDIAC CK MB 1.3 ng/mL 0.5 - 3.6 05/18 Greater ENZYMES [facility] CARDIAC Total CK 103 unit/L 12 - 191 05/18 ENZYMES [facility] CARDIAC CK MB Index 1.3 0.0 - 2.5 05/18 Greater ENZYMES [facility] CHEM PANEL eGFR 46 05/18 3Result Comment: [...] is not recommended in the following populations: [facility] 3m2 Individuals with unstable creatinine concentrations, including [...] Lvl 8.6 mg/dL 8.5 - 10.5 05/18 [facility] CHEM PANEL CO2 24 meq/L 24 - 32 05/18 [facility] CHEM PANEL Total 7.1 g/dL 6.4 - 8.4 05/18 Protein [facility] CHEM PANEL Chloride Lvl 109 meq/L 95 - 109 05/18 [facility] CHEM PANEL Potassium 3.8 meq/L 3.5 - 5.1 05/18 Lvl [facility] CHEM PANEL A/G Ratio 0.8 0.7 - 1.6 05/18 [facility] CHEM PANEL Bili Total 0.2 mg/dL 0.2 - 1.3 05/18 [facility] CHEM PANEL Globulin 4.0 g/dL 2.0 - 4.0 05/18 [facility] CHEM PANEL B/C Ratio 15 6 - 25 05/18 [facility] CHEM PANEL AGAP 11.8 meq/L 10.0 - 05/18 20.0 [facility] CHEM PANEL Alk Phos 44 unit/L 39 - 136 05/18 [facility] CHEM PANEL AST 13 unit/L 0 - 37 05/18 [facility] CHEM PANEL ALT 15 unit/L 0 - 65 05/18 [facility] CHEM PANEL Sodium Lvl 141 meq/L 135 - 145 05/18 [facility] CHEM PANEL Creatinine 1.9 mg/dL 0.5 - 1.4 05/18 [facility] CHEM PANEL Albumin Lvl 3.1 g/dL 3.5 - 5.0 05/18 [facility] CHEM PANEL BUN 28 mg/dL 7 - 22 05/18 [facility] CHEM PANEL Glucose Lvl 197 mg/dL 70 - 99 05/18 5Interpretive Data: Adult reference range values reflect the clinical guidelines of the [place] [employer]. [facility] HEMATOLOGY MCH 27.4 pg 27.0 - 05/18 31.0 [facility] HEMATOLOGY RDW 17.6 % 11.5 - 05/18 14. [facility] HEMATOLOGY MCHC 33.2 g/dL 32.0 - 05/18 36.0 [facility] HEMATOLOGY MPV 10.8 fL 7.4 - 10.4 05/18 [facility] HEMATOLOGY Platelet 208 K/CMM 133 - 450 05/18 [facility] HEMATOLOGY WBC 4.6 K/CMM 3.7 - 10.4 05/18 [facility] HEMATOLOGY Hgb 9.4 g/dL 14.0 - 05/18 18.0 [facility] HEMATOLOGY RBC 3.43 M/CMM 4.70 - 05/18 Greater 6. [facility] HEMATOLOGY MCV 82.6 fL 80.0 - 05/18 [...] # 0.4 K/CMM 0.0 - 0.8 05/18 [facility] HEMATOLOGY Lymphocytes 29.4 % 20.0 - 05/18 MH Greater 40.0 HEMATOLOGY Monocytes 8.8 % 2.0 - 12.0 05/18 HEMATOLOGY Eosinophils 3.5 % 0.0 - 4.0 05/18 HEMATOLOGY Basophils 0.8 % 0.0 - 1.0 05/18 [facility] HEMATOLOGY Segs 57.5 % 45.0 - 05/18 MH Greater 75.0 [facility] Vital Signs Vital Sign Value Date Comments Source Systolic (mm Hg) 138 10/19/2017 [facility] Diastolic (mm Hg) 85 10/19/2017 [facility] Respitory Rate 10 10/19/2017 [facility] Systolic (mm Hg) 140 10/19/2017 [facility] Diastolic (mm Hg) 87 10/19/2017 [facility] Respitory Rate 15 10/19/2017 [facility] Systolic (mm Hg) 137 10/19/2017 [facility] Diastolic (mm Hg) 79 10/19/2017 [facility] Respitory Rate 19 10/19/2017 [facility] Heart Rate 65 10/19/2017 [facility] Heart Rate 61 10/19/2017 [facility] Temperature Oral (F) 97.7 F 10/19/2017 [facility] Heart Rate 58 10/19/2017 [facility] Temperature Oral (F) 98 F 10/19/2017 [facility] Temperature Oral (F) 97.5 F 10/19/2017 [facility] BMI Calculated 27.95 10/18/2017 [facility] Weight 90.909 10/18/2017 [facility] Height 180.34 cm 10/18/2017 [facility] Systolic (mm [...] [facility] [place] BMI Calculated 32.15 05/18/2014 [facility] Encounters Location Location Encounter Encounter Reason Attending ADM DC Status Source Details Type Number For Provider Date Date Visit [facility] OBS [id number] Samantha 05/18 05/20 Kenneth Observation [place] /2014 [facility] Day Surgery [id number] Eddie 06/08 06/08 Kenneth Butler /2016 [facility] Memorial Observation [id number] Youngestrella 09/18 09/19 Kenneth Randall /2016 [facility] Observation [id number] Gyanendra 10/18 10/19 Kenneth Bonds /2017 [facility] Procedures Procedure Code Date Perfomer Comments Source Adjustment of [id number] Greater intraluminal device [place] of arteriovenous fistula
--- NOTE | 2017-12-31 02:15 | EDPHYS ---
Physician Documentation [facility] Name: Juan Lozano Age: 57 yrs Sex: Male : 1960 Arrival Date: 12/30/2017 Time: 23:22 Bed 5 Private MD: ED Physician Phani Honeycutt Historical: - Allergies: 12/30 23:26 NKA; bp - Home Meds: 23:26 aspirin 81 mg Oral chew 1 tab once daily [Active]; cholecalciferol (vitamin D3) 1,000 bp unit Oral cap [Active]; cinacalcet 30 mg Oral 2 tabs once daily [Active]; Clonidine 0.3 mg/24hr Oral 0.3 mg [Active]; Depakote Sprinkles 125 mg Oral cpSP 2 caps every 12 hours [Active]; folic acid 1 mg Oral tab 1 tab once daily [Active]; tramadol 50 mg Oral tab 2 tabs every 6 hours [Active]; sorbitol-saliva stim cb#1-malic acid-Ca phos sun mon wed fri mucous membrane [Active]; sevelamer HCl 800 mg Oral 2 tabs 3 times per day [Active]; Risperdal 0.25 mg Oral tab 1 tabs 2 times per day [Active]; Protonix 40 mg Oral TbEC 1 tab once daily [Active]; metoprolol tartrate 100 mg Oral tab 1 tab once daily [Active]; isosorbide dinitrate 20 mg Oral tab 1 tab 3 times per day [Active]; Keppra 500 mg Oral tab 1 tab 2 times per day [Active]; levothyroxine 50 mcg tab 1 tab once daily [Active]; - PMHx: 23:26 Bipolar disorder; CVA; Diabetes - NIDDM; Dialysis; Hypertension; TIA; bp - Immunization history:: Adult Immunizations up to date. - Social history:: Smoking status: Patient/guardian denies using tobacco. - Ebola Screening: : Patient negative for fever greater than or equal to 101.5 degrees Fahrenheit, and additional compatible Ebola Virus Disease symptoms Patient denies exposure to infectious person Patient denies travel to an Ebola-affected area in the 21 days before illness onset No symptoms or risks identified at this time. Vital Signs: 23:26 BP 187 / 106; Pulse 83; Resp 18; Temp 98.7; Pulse Ox 97% on R/A; Weight 63.5 kg; Height bp 5 ft. 11 in. (180.34 cm); 23:26 Body Mass Index 19.53 (63.50 kg, 180.34 cm) bp MDM: 12/31 02:15 Patient medically screened. kdr 02:15 Data reviewed: vital signs, nurses notes. ED course: The patient refused to allow staff kdr to obtain blood. When awakened, he was able to state where he was and why he was sent here. He was speaking clearly and made his wish for no treatment very clear to myself and staff. He requested that he be sent back to the [facility] with no further intervention. He was discharged to the home facility in stable condition. 12/31 00:07 Order name: Chest Single View XRAY kdr 12/31 00:07 Order name: Accucheck kdr 12/31 00:07 Order name: Cardiac monitoring kdr 12/31 00:07 Order name: EKG - Nurse/Tech kdr 12/31 00:07 Order name: IV Saline Lock - Large Bore kdr 12/31 00:07 Order name: Labs collected and sent kdr 12/31 00:07 Order name: O2 Per Protocol kdr 12/31 00:07 Order name: O2 Sat Monitoring kdr 12/31 00:07 Order name: Urine Dipstick-Ancillary (obtain specimen) kdr Administered Medications: No medications were administered Disposition: 12/31/17 02:15 Discharged to Home. Impression: Altered mental status, unspecified. - Condition is Stable. - Discharge Instructions: Confusion. - Medication Reconciliation Form, Thank You Letter form. - Follow up: Private Physician; When: 2 - 3 days; Reason: If symptoms return, Further diagnostic work-up, Recheck today's complaints, Continuance of care, Re-evaluation by your physician. - Problem is an acute exacerbation. - Symptoms have improved. Addendum: 01/19/2018 23:41 Addendum: CC: Lethargic and poorly responsive HPI: The patient was sent from [facility] where he was reported to be poorly responsive and lethargic. On arrival to the ED, the patient stated that he did not know why they sent him here. He was A\T\Ox4. He appeared to be fully competent but unwilling to undergo gualberto testing or significant evolution and asked that he be sent back to the [facility] without further evaluation or treatment. . Addendum: ROS: Const: No fever, chills or weight loss, Eyes: no visual changes or c/o, Neck: no pain or injury, CV: no CP or palpitations, Resp: no SOB, cough or congestion, Abd: no n/v/d or pain, Back: no pain or injury, : no pain or bleeding, MS/Ext: no pain, injury, swelling, tingling, Skin: no lacerations, pain, injury, skin turgor good, Neuro: CN grossly intact and no other deficits, Psych: Appropriate for age, Allergy/Immunology: no rashes or other s/s, Endo: no evidence of polyuria, polydipsia, temperature control or other s/s . Addendum: Exam: Const: WDWN BM in NAD, Head/Face: no injury, pain or deformity, ENT: no pain, injury or bleeding, Neck: no pain, injury or deformity, full ROM, Chest/Axilla: No pain, injury or deformity, CV: no rubs, gallops, murmurs, regular rate, Resp: CTAB, regular rate, Abd/GI: soft, NT, BS present in all quads and normal, Back: no injury or deformity, full ROM, MS/Extremity: no injury or deformity, FROM, distal pulses good and equal, Skin: no rashes, ecchymosis skin turgor good, Neuro: CN grossly intact, no other neuro deficits, Psych: appropriate for age, no SI/HI, no depression . Addendum: MDM (Discharge) All VS and nursing notes reviewed. The patient was counseled on the results and need for follow-up. The patient was discharged in stable condition. They were happy with the care they received and the plan for d/c and follow-up. . Signatures: Dispatcher [employer] EDMS Phani Honeycutt MD MD kdr Leal, Jahala RN RN jl7 Benjamín Nixon RN RN bp Corrections: (The following items were deleted from the chart) 12/31 09:16 02:15 12/31/2017 02:15 Discharged to Home. Impression: Altered mental status, jl7 unspecified. Condition is Stable. Forms are Medication Reconciliation Form, Thank You Letter, Antibiotic Education, Prescription Opioid Use. Follow up: Private Physician; When: 2 - 3 days; Reason: If symptoms return, Further diagnostic work-up, Recheck today's complaints, Continuance of care, Re-evaluation by your physician. Problem is an acute exacerbation. Symptoms have improved. kdr
--- NOTE | 2017-12-31 02:15 | ER ---
Nurse's Notes [facility] Name: Juan Lozano Age: 57 yrs Sex: Male : 1960 Arrival Date: 12/30/2017 Time: 23:22 Bed 5 Private MD: Diagnosis: Altered mental status, unspecified Presentation: 12/30 23:22 Presenting complaint: EMS states: EXCESSIVE LETHARGY, PER [facility]. bp Transition of care: patient was received from another setting of care (long-term care facility), [facility]. Onset of symptoms is unknown. Risk Assessment: Do you want to hurt yourself or someone else? Patient reports no desire to harm self or others. Initial Sepsis Screen: Does the patient meet any 2 criteria? No. Patient's initial sepsis screen is negative. Does the patient have a suspected source of infection? No. Patient's initial sepsis screen is negative. Care prior to arrival: Glucose check: 112. 23:22 Method Of Arrival: EMS: [facility] bp 23:22 Acuity: DORIS 3 bp Triage Assessment: 23:26 General: Appears in no apparent distress. comfortable, Behavior is cooperative, bp appropriate for age, drowsy. Pain: Denies pain. EENT: No deficits noted. Neuro: Level of Consciousness is obeys commands, lethargic, Oriented to person, place, time, situation, Appropriate for age. Cardiovascular: No deficits noted. Rhythm is sinus rhythm. Respiratory: Airway is patent Respiratory effort is even, unlabored, Respiratory pattern is regular, symmetrical, Breath sounds are clear bilaterally. GI: No signs and/or symptoms were reported involving the gastrointestinal system. : No signs and/or symptoms were reported regarding the genitourinary system. Derm: No deficits noted. Musculoskeletal: Circulation, motion, and sensation intact. Range of motion: limited in left shoulder, left elbow and left wrist. Historical: - Allergies: 23:26 NKA; bp - Home Meds: 23:26 aspirin 81 mg Oral chew 1 tab once daily [Active]; cholecalciferol (vitamin D3) 1,000 bp unit Oral cap [Active]; cinacalcet 30 mg Oral 2 tabs once daily [Active]; Clonidine 0.3 mg/24hr Oral 0.3 mg [Active]; Depakote Sprinkles 125 mg Oral cpSP 2 caps every 12 hours [Active]; folic acid 1 mg Oral tab 1 tab once daily [Active]; tramadol 50 mg Oral tab 2 tabs every 6 hours [Active]; sorbitol-saliva stim cb#1-malic acid-Ca phos sun mon wed fri mucous membrane [Active]; sevelamer HCl 800 mg Oral 2 tabs 3 times per day [Active]; Risperdal 0.25 mg Oral tab 1 tabs 2 times per day [Active]; Protonix 40 mg Oral TbEC 1 tab once daily [Active]; metoprolol tartrate 100 mg Oral tab 1 tab once daily [Active]; isosorbide dinitrate 20 mg Oral tab 1 tab 3 times per day [Active]; Keppra 500 mg Oral tab 1 tab 2 times per day [Active]; levothyroxine 50 mcg tab 1 tab once daily [Active]; - PMHx: 23:26 Bipolar disorder; CVA; Diabetes - NIDDM; Dialysis; Hypertension; TIA; bp - Immunization history:: Adult Immunizations up to date. - Social history:: Smoking status: Patient/guardian denies using tobacco. - Ebola Screening: : Patient negative for fever greater than or equal to 101.5 degrees Fahrenheit, and additional compatible Ebola Virus Disease symptoms Patient denies exposure to infectious person Patient denies travel to an Ebola-affected area in the 21 days before illness onset No symptoms or risks identified at this time. Screenin:30 Abuse screen: Denies threats or abuse. Denies injuries from another. Nutritional bp screening: No deficits noted. Tuberculosis screening: No symptoms or risk factors identified. Fall Risk None identified. Assessment: 23:29 General: SEE TRIAGE NOTE. bp 12/31 01:25 Reassessment: pt refused IV start, swinging fist at nurse. ERP notified. . ak1 01:55 Reassessment: Dr Honeycutt at bedside refused care will discharge pt back to [facility]. Notified [facility] of need for transportation to facility they will arrange for transportation and will call back with ETA. 05:14 Reassessment: CONTACT WITH [facility], ETA 45 MIN. bp Vital Signs: 12/30 23:26 BP 187 / 106; Pulse 83; Resp 18; Temp 98.7; Pulse Ox 97% on R/A; Weight 63.5 kg; Height bp 5 ft. 11 in. (180.34 cm); 23:26 Body Mass Index 19.53 (63.50 kg, 180.34 cm) bp ED Course: 23:22 Patient arrived in ED. bp 23:23 Triage completed. bp 23:26 Arm band placed on. bp 23:30 Patient has correct armband on for positive identification. Placed in gown. Bed in low bp position. Call light in reach. Side rails up X2. 23:48 Benjamín Nixon, RN is Primary Nurse. bp 23:52 Phani Honeycutt MD is Attending Physician. kdr 12/31 00:48 Chest Single View XRAY In Process Unspecified. EDMS 02:23 No provider procedures requiring assistance completed. Patient did not have IV access bp during this emergency room visit. Administered Medications: No medications were administered Outcome: 02:15 Discharge ordered by . kdr 09:16 Patient left the ED. jl7 Signatures: Dispatcher [employer] EDMS Phani Honeycutt MD MD kdr Nichol Frazier, RN RN bb Diana Clements RN RN akAscencion Lemon RN RN jl7 Benjamín Nixon, RN RN bp
--- NOTE | 2017-12-31 11:08 | RAD REPORT ---
EXAM DESCRIPTION: RAD - Chest Single View - 12/31/2017 12:47 am CLINICAL HISTORY: Lethargy, shortness of breath, altered mental status COMPARISON: December 12, 2017 TECHNIQUE: AP portable chest image was obtained 0035 hours . FINDINGS: Exam is limited by rotation and motion artifact. Motion creates a hazy opacification throu ghout the lung wasserman. When adjusting for this artifact, there does appear to be some underlying inte rstitial and alveolar opacification compared to the earlier study. Shallow inspiration contributes to this appearance. Patient likely has a mild failure or volume overload pattern. Cardiomegaly is present similar to comparison. Vasculature is prominent. Double-lumen dialysis maria elena ter remains in place on the right side. No pneumothorax or large pleural effusion. No gross bony abno rmality seen. No acute aortic findings suspected. IMPRESSION: Exam is quite limited by several factors. However, there does appear to be a mild failur e or volume overload present.
== END 2017-12-31 09:16 | disposition home or self-care (01) ==
LOC: ER 23:18
DX: R41.82 Altered mental status, unspecified (principal); Z79.82 Long term (current) use of aspirin; I10 Essential (primary) hypertension; F31.9 Bipolar disorder, unspecified; E11.9 Type 2 diabetes mellitus without complications; Z86.73 Personal history of transient ischemic attack (TIA), and cerebral infarction without residual deficits
CPT/HCPCS: 71045; 99284

== ENCOUNTER 2018-01-01 16:26 | Observation (INO) | payer OTHER ==
--- OUTSIDE RECORDS SUMMARY | 2018-01-01 16:30 | XMS REPORT | Continuity of Care Document ---
[...] PAIN RULE Active 05/18/19 [facility] ACUTE [place] [facility] [place] CHEST PAIN Active 05/18/19 [facility] [place] Bipolar disorder Active Problem 10/22/2017 [facility] CAD (<span Resolved Problem 10/22/2017 ID="[id number]"> [place], Confirmed</span>) H [facility] CVA (<span Resolved Problem 10/22/2017 ID="[id number]"> [place], Confirmed</span>) H [facility] Diabetes mellitus Resolved Problem 10/22/2017 [place], [facility] DM (<span Active Problem 10/22/2017 ID="[id number]" [place] >Confirmed</span> ) 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 [place], H [facility] Diabetic Resolved Problem 10/22/2017 retinopathy [place], H [facility] ESRD (<span Active Problem 10/22/2017 ID="[id number]" [place] >Confirmed</span> ) Hyperlipemia Resolved Problem 10/22/2017 [place], [facility] Hyperlipidemia Active Problem 10/22/2017 [facility] Hypertension Resolved Problem 10/22/2017 [place], [facility] HTN (<span Active Problem 10/22/2017 ID="[id number]" [place] >Confirmed</span> ) Hypothyroidism Resolved Problem 10/22/2017 [place], H [facility] MO (<span Resolved Problem 10/22/2017 [facility] ID="[id number]"> [place], Confirmed</span>) H [facility] [place] Seizure disorder Active Problem 10/22/2017 [facility] Spasms, infantile Resolved Problem 10/22/2017 [facility], H [facility] END STAGE RENAL Active [facility] DISEASE [place] ANEMIA, Active [facility] UNSPECIFIED [place] HEMORRHAGE DUE TO Active [facility] VASCULAR PROSTH [place] DEV/GR Medications Medication Details Route Status Patient Ordering Order Source Instructions Provider Date Fentanyl 50 microgram, Inactive Route: IVP, 2017 [facility] Q5Min, Dosing Weight 90.909, kg, PRN Pain Score 7-10, Priority: Routine, Start date: 10/19/17 15:46:00 CDT, Duration: 2 doses or times, Stop date: Limited # of times Meperidine 12.5 mg, Route: Inactive 10/19[facility] IVP, Q30Min, 2017 [facility] Dosing Weight 90.909, kg, PRN Other -See Comment, For shivering, Start date: 10/19/17 15:46:00 CDT, Duration: 2 doses or times, Stop date: Limited # of times Ondansetron 4 mg, Route: Inactive 10/19[facility] IVP, ONCE, 2017 [facility] Dosing Weight 90.909, kg, PRN Nausea & Vomiting, Start date: 10/19/17 15:46:00 CDT Diphenhydramine 12.5 mg, Route: Inactive 10/19[facility] IVP, Drug form: 2017 [facility] INJ, Q6H, Dosing Weight 90.909, kg, PRN Itching, Start date: 10/19/17 15:46:00 CDT, Duration: 30 day, Stop date: 11/18/17 15:45:00 CDT Albuterol 0.83 2.49 mg, Route: Inactive MG/ML Inhalant NEB, Q20Min, 2017 [facility] Solution Dosing Weight 90.909, kg, PRN Wheezing, Priority: STAT, Start date: 10/19/17 15:46:00 CDT, Duration: 30 day, Stop date: 11/18/17 15:45:00 CDT Promethazine 6.25 mg, Route: Inactive 10/19[facility] IVPB, ONCE, 2017 [facility] Dosing Weight 90.909, kg, PRN Nausea & Vomiting, Start date: 10/19/17 15:46:00 CDT Naloxone 0.4 mg, Route: Inactive IVP, Q2MIN, 2017 [facility] Dosing Weight 90.909, kg, PRN Narcotic Reversal, Start date: 10/19/17 15:46:00 CDT, Duration: 8 doses or times, Stop date: Limited # of times Flumazenil 0.2 mg, Route: Inactive IVP, PRN, 2018 [facility] Dosing Weight 90.909, kg, PRN Benzodiazepine Reversal, Initial dose, Start date: 10/19/17 15:46:00 CDT, Duration: 30 day, Stop date: 11/18/17 15:45:00 CDT Hydralazine 10 mg, Route: Inactive IVP, Q20Min, 2017 [facility] Dosing Weight 90.909, kg, PRN Elevated BP, Start date: 10/19/17 15:46:00 CDT, Duration: 2 doses or times, Stop date: Limited # of times esmolol 10 mg, Route: Inactive IVP, Q5Min, 2017 [facility] Dosing Weight 90.909, kg, PRN Other -See Comment, Start date: 10/19/17 15:46:00 CDT, Duration: 5 doses or times, Stop date: Limited # of times Labetalol 10 mg, Route: Inactive IVP, Q5Min, 2017 [facility] Dosing Weight 90.909, kg, PRN Elevated BP, Start date: 10/19/17 15:46:00 CDT, Duration: 5 doses or times, Stop date: Limited # of times Calcium Chloride 1,000 mL, Rate: Inactive 0.0014 MEQ/ML / 125 ml/hr, 2017 [facility] Potassium Infuse over: 8 Chloride 0.004 hr, Route: IV, MEQ/ML / Sodium Dosing Weight Chloride 0.103 90.909 kg, MEQ/ML / Sodium Total Volume: Lactate 0.028 1,000, Start MEQ/ML Injectable date: 10/19/17 Solution 15:46:00 CDT, Duration: 30 day, Stop date: 11/18/17 15:45:00 CDT, 2.15, m2 Sodium Chloride 500 mL, Rate: Inactive 0.9% IV 500 mL 25 ml/hr, 2017 [facility] Infuse over: 20 hr, Route: IV, Dosing Weight 90.909 kg, Total Volume: 500, Start date: 10/19/17 14:29:00 CDT, Duration: 30 day, Stop date: 11/18/17 14:28:00 CDT, 2.15, m2 Albuterol 0.833 3 mL, Route: Inactive MG/ML / NEB, Dosing 2017 [facility] Ipratropium Weight 90.909, [place] 0.167 kg, ONCE, STAT, MG/ML Inhalant Start date: Solution 10/19/17 14:28:00 CDT, Stop date: 10/19/17 14:28:00 CDT Calcium Chloride 1,000 mL, Rate: Inactive 0.0014 MEQ/ML / 25 ml/hr, 2017 [facility] Potassium Infuse over: 40 Chloride 0.004 hr, Route: IV, MEQ/ML / Sodium Dosing Weight Chloride 0.103 90.909 kg, MEQ/ML / Sodium Total Volume: Lactate 0.028 1,000, Start MEQ/ML Injectable date: 10/19/17 Solution 14:28:00 CDT, Duration: 30 day, Stop date: 11/18/17 14:27:00 CDT, 2.15, m2 Sucralfate 1 gm, 1 tab, Inactive Route: PO, Drug 2017 [facility] form: TAB, TID, Dosing Weight 90.909, [...] No Longer Route: PO, Drug Active 2017 [facility] form: TAB, TID, Dosing Weight 90.909, kg, Start date: 10/19/17 9:00:00 CDT, Duration: 30 day, Stop date: 11/17/17 17:00:00 CDT Risperdal 0.25 mg, 1 tab, Inactive Route: PO, Drug 2017 [facility] form: TAB, Daily, Dosing Weight 90.909, kg, Start date: 10/19/17 9:00:00 CDT, Duration: 30 day, Stop date: 11/17/17 9:00:00 CDTNotes: (Same as: Risperdal) sevelamer 3,200 mg, 4 Inactive tab, Route: PO, 2017 [facility] Drug form: TAB, TID, Start date: 10/19/17 9:00:00 CDT, Duration: 30 day, Stop date: 11/17/17 17:00:00 CDTNotes: Same as: Renvela NIFEdipine 90 mg 90 mg, 1 tab, Inactive oral tablet, Route: PO, Drug 2017 [facility] extended release form: ERTAB, Daily, Dosing Weight 90.909, kg, Start date: 10/19/17 9:00:00 CDT, Duration: 30 day, Stop date: 11/17/17 9:00:00 CDTNotes: (Same as: Adalat CC,Procardia XL) "Do Not Crush" "Avoid grapefruit and grapefruit juice" Nephro-Pawan 1 tab, Route: Inactive PO, Drug Form: 2017 [facility] TAB, Dosing Weight 90.909, kg, Daily, Start date: 10/19/17 9:00:00 CDT, Duration: 30 day, Stop date: 11/17/17 9:00:00 CDTNotes: (Same as: Nephro-Pawan Rx and Diatx) Give with food. Levetiracetam 500 500 mg, 1 tab, Inactive MG Oral Tablet Route: PO, Drug 2017 [facility] [Keppra] form: TAB, BID, Dosing Weight 90.909, kg, Start date: 10/19/17 9:00:00 CDT, Duration: 30 day, Stop date: 11/17/17 17:00:00 CDTNotes: (Same as:Keppra) Isosorbide 20 mg, 2 tab, Inactive Route: PO, Drug 2017 [facility] form: TAB, TID, Dosing Weight 90.909, kg, Start date: 10/19/17 9:00:00 CDT, Duration: 30 day, Stop date: 11/17/17 17:00:00 CDTNotes: (Same as:[place]et) Take on empty stomach/ full glass of water Folic Acid 1 mg, 1 tab, Inactive Route: PO, Drug 2017 [facility] form: TAB, Daily, Dosing Weight 90.909, kg, Start date: 10/19/17 9:00:00 CDT, Duration: 30 day, Stop date: 11/17/17 9:00:00 CDTNotes: (Same as: Folvite) Divalproex Sodium 125 mg, 1 cap, Inactive 125 MG Enteric Route: PO, Drug 2017 [facility] Coated Capsule form: CAP, BID, [Depakote] Dosing Weight 90.909, kg, Start date: 10/19/17 9:00:00 CDT, Duration: 30 day, Stop date: 11/17/17 17:00:00 CDTNotes: (Same as: Depakote Sprinkles) Do not confuse with 250mg capsule or tablets Do not crush. May sprinkle on food. Sensipar 30 mg, 1 tab, Inactive Route: PO, Drug 2017 [facility] form: TAB, Daily, Dosing Weight 90.909, kg, Start date: 10/19/17 9:00:00 CDT, Duration: 30 day, Stop date: 11/17/17 9:00:00 CDTNotes: (Same as: Sensipar) Cholecalciferol 2,000 IntlUnit, Inactive 2000 UNT Oral 2 tab, Route: 2018 [facility] Tablet PO, Drug form: TAB, Daily, Dosing Weight 90.909, kg, Start date: 10/19/17 9:00:00 CDT, Duration: 30 day, Stop date: 11/17/17 9:00:00 CDTNotes: Same as : Vitamin D3 Protonix 40 mg, 1 tab, Inactive Route: PO, Drug 2017 [facility] form: ECTAB, Before Breakfast, Dosing Weight 90.909, kg, Start date: 10/19/17 7:30:00 CDT, Duration: 30 day, Stop date: 11/17/17 7:30:00 CDTNotes: Tablet should not be chewed or crushed. (Same as: Protonix) Thyroxine 50 microgram, 1 Inactive tab, Route: PO, 2017 [facility] Drug form: TAB, [id number], Dosing Weight [...] No Longer Route: PO, Drug Active 2017 [facility] form: TAB, BID, Dosing Weight 90.909, kg, Start date: 10/18/17 21:00:00 CDT, Duration: 30 day, Stop date: 11/17/17 9:00:00 CDTNotes: (Same as: Lopressor) Ergocalciferol 50,000 Inactive 68752 UNT Oral IntlUnit, 1 2017 [facility] Capsule cap, Route: PO, Drug form: CAP, qWeek, Dosing Weight 90.909, kg, Start date: 10/18/17 19:00:00 CDT, Duration: 30 day, Stop date: 11/15/17 9:00:00 CDT 168 HR Clonidine 1 patch, Route: No Longer 0.0125 MG/HR TOP, Drug Form: Active 2017 [facility] Transdermal Patch ERFILM, Dosing Weight 90.909, kg, qWeek, Start date: 10/18/17 19:00:00 CDT, Duration: 30 day, Stop date: 11/15/17 9:00:00 CDTNotes: Patch delivers 0.3 mg/24 hours; Patch is applied weekly. [id number] . "Remove old patch before application of new patch" Aspirin 81 mg, 1 tab, No Longer Route: PO, Drug Active 2017 [facility] form: ECTAB, Daily, Dosing Weight 90.909, [...] Longer capsular IM, Drug Form: Active 2017 [facility] polysaccharide INJ, ONCALL, type 1 vaccine / Start date: pneumococcal 10/18/17 capsular 17:06:15 CDT, polysaccharide Stop date: type 10A vaccine 11/17/17 / pneumococcal 17:01:15 capsular CDTNotes: (Same polysaccharide as: Pneumovax type 11A vaccine 23) / pneumococcal Refrigerate capsular polysaccharide type 12F vaccine / pneumococcal capsular polysacchar Risperdal 0.5 mg, 1 tab, Inactive Route: PO, Drug 2017 [facility] form: TAB, Daily, Dosing Weight 90.909, kg, Priority: STAT, Start date: 10/18/17 16:45:00 CDT, Duration: 30 day, Stop date: 11/17/17 9:00:00 CDTNotes: (Same as: Risperdal) Albuterol 0.83 20 mg, Route: Inactive MG/ML Inhalant NEB, ONCE, 2018 [facility] Solution Dosing Weight 90.909, kg, Priority: STAT, Start date: 10/18/17 11:11:00 CDT, Stop date: 10/18/17 11:11:00 CDT Calcium Gluconate 1 gm, 50 mL, Inactive Route: IVPB2017 [facility] Drug form: INJ, ONCE, Dosing Weight 90.909, kg, Priority: STAT, Start date: 10/18/17 11:11:00 CDT, Stop date: 10/18/17 11:11:00 CDTNotes: WASTE: F/P - Sink; E - Municipal Trash Bin Sodium 50 mEq, 50 mL, Inactive Bicarbonate Route: IVP2017 [facility] Drug form: INJ, ONCE, Dosing Weight 90.909, kg, Priority: STAT, Start date: 10/18/17 11:11:00 CDT, Stop date: 10/18/17 11:11:00 CDTNotes: (sodium bicarb 8.4% (1 mEq/ml) 50 ml syringe) Thiamine 50 mg, 0.5 tab, Inactive [facility] Route: PO, Drug 2016 [facility] form: TAB, Daily, Dosing Weight [...] Longer [facility] Route: PO, Drug Active 2016 [facility] form: ERTAB, Daily, Dosing Weight 109.091, kg, Start date: 09/19/16 9:00:00 CDT, Duration: 30 day, Stop date: 10/18/16 9:00:00 CDTNotes: (Same as:Imdur) "Do Not Crush" Take on empty stomach/ full glass of water. Do not crush Folic Acid 1 mg, 1 tab, Inactive [facility] Route: PO, Drug 2016 [facility] form: TAB, Daily, Dosing Weight [...] 1 tab, Inactive Route: PO, Drug 2016 [facility] form: TAB, Daily, Dosing Weight [...] No Longer [facility] IntlUnit, 1 Active 2016 [facility] cap, Route: PO, Drug form: CAP, QFri, Dosing Weight 109.091, kg, Start date: 09/18/16 21:00:00 CDT, Duration: 30 day, Stop date: 10/16/16 21:00:00 CDTNotes: (Same as: Vitamin D) "Do Not Crush" atorvastatin 40 mg, 1 tab, No Longer [facility] Route: PO, Drug Active 2016 [facility] form: TAB, Bedtime, Dosing Weight [...] CDTNotes: (Same As: Tomy) Calcium Carbonate 500 ky=817 mg elemental calcium Dose= mg calcium carbonate ( mg elemental calcium) Magnesium Sulfate 2 gm, 50 mL, No Longer [facility] Route: IV, Drug Active 2016 [facility] form: INJ, PRN, Dosing Weight 109.091, kg, PRN Abnormal Lab Result, Start date: 09/18/16 10:33:00 CDT, Duration: 30 day, Stop date: 10/18/16 10:32:00 CDT, to be given IV "PRN" only for s. magnesium if Notes: WASTE: F/P - Sink; E - [employer] Trash Bin Lactulose 667 20 gm, 30 [...] Greater chloride Route: PO, Drug Active 2016 [facility] form: ERTAB, PRN, Dosing Weight [...] 10:20:00 CDTNotes: (Same as: Procrit) epoetin aniket 06492 unit/1 ml VL. For dialysis use only. (Procrit) WASTE: F/P - Red; E -Red MEDICATION WASTE Product Size: 18468 unit Product Wasted: ___ unit sodium chloride 1,000 mL, Rate: No Longer [facility] 0.9% 1000 ml INJ prn on hdx only 2016 [facility] 1,000 mL ml/hr, Route: IV, Dosing Weight 109.091 kg, Total Volume: 1,000, Start date: 09/18/16 10:21:00 CDT, Duration: 30 day, Stop date: 10/18/16 10:20:00 CDT albumin human 25% 12.5 gm, 50 mL, No Longer [facility] intravenous Route: IVPB, Active 2016 [facility] solution Drug form: INJ, PRN, [...] Route: No Longer [facility] IM, Drug form: Clickst 2016 [facility] PDR/INJ, PRN, Dosing Weight 109.091, kg, PRN Blood Glucose Results, Start date: 09/18/16 2:25:00 CDT, Duration: 30 day, Stop date: 10/18/16 2:24:00 CDT Dextrose 50% 25 gm, 50 mL, No Longer [facility] Syringe Route: IVP, [facility] 2016 [facility] Drug Form: INJ, Dosing Weight 109.091, kg, PRN, PRN Blood Glucose Results, Start date: 09/18/16 2:25:00 CDT, Duration: 30 day, Stop date: 10/18/16 2:24:00 CDT Acetaminophen 650 mg, 2 tab, No Longer [facility] Route: PO, Drug [facility] 2016 [facility] form: TAB, Q4H, Dosing Weight 109.091, kg, PRN Pain 1-3/Temp > 100.4 F, Start date: 09/18/16 2:08:00 CDT, Duration: 30 day, Stop date: 10/18/16 2:07:00 CDTNotes: Do not exceed 4 gm/day. (Same as: Tylenol) Ondansetron 4 mg, 2 mL, No Longer [facility] Route: IVP, Active 2016 [facility] Drug form: INJ, Q6H, Dosing Weight 109.091, kg, PRN Nausea & Vomiting, Start date: 09/18/16 2:08:00 CDT, Duration: 30 day, Stop date: 10/18/16 2:07:00 CDTNotes: (Same as: Nicole) MEDICATION WASTE Product Size: 4 mg Product Wasted: ___ mg sodium chloride 250 mL, Rate: No Longer Greater 0.9% INJ 250 mL [employer] for use [facility] 2016 [facility] with blood product administration. , Dosing Weight 109.091, kg, Route: IV, Total Volume: 250, Priority: Routine, Start Date: 09/17/16 23:00:00 CDT, Duration: 30 day, Stop date: 10/17/16 22:59:00 CDT, Replace Every: 24 hr Hydralazine 10 mg, 0.5 mL, Inactive 06/08/ MH [facility] Route: IVP, 2016 [facility] Drug form: INJ, Q20Min, Dosing Weight 104, kg, PRN Elevated BP, Start date: 06/08/16 9:49:00 SCUTCHER TENDER, Duration: 2 doses or times, Stop date: Limited # of timesNotes: (Same as: Apresoline) Push over 5 minutes Hydromorphone 0.5 mg, 0.25 Inactive [facility] mL, Route: IVP2016 [facility] Drug form: INJ, Q5Min, Dosing Weight 104, kg, PRN Pain Score 7-10, Start date: 06/08/16 9:49:00 SCUTCHER TENDER, Duration: 4 doses or times, Stop date: Limited # of timesNotes: Same as Dilaudid Oxycodone 10 mg, 2 tab, Inactive [facility] Route: PO, Drug 2016 [facility] form: TAB, Q4H, Dosing Weight 104, kg, PRN Pain Score 7-10, Start date: 06/08/16 9:49:00 SCUTCHER TENDER, Duration: 30 day, Stop date: 07/08/16 9:48:00 CDTNotes: (Same as: Roxicodone) Labetalol 10 mg, 2 mL, Inactive [facility] Route: IVP2016 [facility] Drug form: INJ, Q5Min, Dosing Weight 104, kg, PRN Elevated BP, Start date: 06/08/16 9:49:00 SCUTCHER TENDER, Duration: 5 doses or times, Stop date: Limited # of times Ondansetron 4 mg, 2 mL, Inactive [facility] Route: IVP2016 [facility] Drug form: INJ, ONCE, Dosing Weight 104, kg, PRN Nausea & Vomiting, Start date: 06/08/16 9:49:00 CSTNotes: (Same as: Zofran) MEDICATION WASTE Product Size: 4 mg Product Wasted: ___ mg Naloxone 0.4 mg, 1 mL, Inactive [facility] Route: IVP, 2016 Drug form: INJ, Q2MIN, Dosing Weight 104, kg, PRN Narcotic Reversal, Start date: 06/08/16 9:49:00 SCUTCHER TENDER, Duration: 8 doses or times, Stop date: Limited # of timesNotes: Same as Narcan Flumazenil 0.2 mg, 2 mL, Inactive [facility] Route: IVP, 2016 Drug form: INJ, PRN, Dosing Weight 104, kg, PRN Benzodiazepine Reversal, Initial dose, Start date: 06/08/16 9:49:00 SCUTCHER TENDER, Duration: 30 day, Stop date: 07/08/16 10:48:00 [...] INJ, 2016 ONCE, Stop date: 06/08/16 9:22:00 SCUTCHER TENDER metoprolol (ANES) Route: IV, Drug Inactive 06/08/ MH [facility] form: INJ, 2016 ONCE, Stop date: 06/08/16 9:22:00 SCUTCHER TENDER ketAMINE (ANES) Route: IV, Drug Inactive 06/08/ [facility] form: INJ, 2016 ONCE, Stop date: 06/08/16 9:18:00 SCUTCHER TENDER propofol (ANES) Route: IV, Drug Inactive 02/20/ MH [facility] form: INJ, 2016 ONCE, Stop date: 06/08/16 9:03:00 SCUTCHER TENDER ceFAZolin (ANES) Route: IV, Drug Inactive [facility] form: INJ, 2016 ONCE, Stop date: 06/08/16 9:03:00 SCUTCHER TENDER ondansetron Route: IV, Drug Inactive [facility] (ANES) form: INJ, 2016 ONCE, Stop date: 06/08/16 9:02:00 SCUTCHER TENDER sodium chloride Route: IV, Inactive [facility] 0.9% 500 ml INJ Total Volume: 2016 (ANES) 500, Start date: 06/08/16 8:20:00 SCUTCHER TENDER, Stop date: 06/08/16 9:20:00 SCUTCHER TENDER Sodium Chloride 500 mL, Route: Inactive [facility] 0.154 MEQ/ML IV, ONCE, 2016 Injectable Dosing Weight Solution 104.545 kg, Start date: 06/08/16 7:52:00 SCUTCHER TENDER, Stop date: 06/08/16 7:52:00 SCUTCHER TENDER, Bolus thiamine 50 mg 50 mg=1 tab, Active Greater oral tablet PO, Daily, # 7 2016 [facility] tab, 0 Refill(s) Folic Acid 1 mg, PO, Active Greater Daily, 0 2016 [facility] Refill(s) clopidogrel 75 mg, PO, Active Greater Daily, 0 2016 [facility] Refill(s) 24 HR Nifedipine 30 mg=1 tab, Active Greater 30 MG Extended PO, Daily, # 30 2016 [facility] Release Tablet tab, 0 Refill(s) Furosemide 40 mg, PO, BID, Active Greater 0 Refill(s) 2016 Isosorbide 30 mg, PO, Active Greater Daily, 0 2016 [facility] Refill(s) ferrous sulfate 325 mg, PO, Active Greater Daily, 0 2016 [facility] Refill(s) Calcitriol 0.25 microgram, Active Greater PO, Daily, 0 2016 [facility] Refill(s) loperamide 1 mg/5 2 [...] 500 MG Chewable CHEW, TID, PRN 2016 [facility] Tablet for indigestion, # 30 tab, 0 Refill(s) Nystatin 100 1 appl, TOP, Active Greater UNT/MG Topical BID, # 30 gm, 1 2016 [facility] Powder Refill(s) Nephro-Pawan 1 tab, PO, Active Greater Daily, 0 2016 [facility] Refill(s) RenaGel 1,600 mg, PO, [...] Route: SUB-Q, Active 2014 Drug form: INJ, [id number], Dosing Weight 104.545, kg, Start date: 05/18/14 [...] Longer Greater Route: PO, Drug Active 2014 [facility] form: TAB, Q8H, Dosing Weight 104.545, kg, PRN Nausea & Vomiting, Start date: 05/18/14 10:08:00, Duration: 30 day, Stop date: 06/17/14 10:07:00Notes: (Same as: Zofran) Nitroglycerin 0.4 mg, 1 tab, No Longer Greater Route: SL, Drug Active 2014 [facility] form: TAB, Q5Min, Dosing Weight [...] type Reported NKDA Assertion Drug Active allergy [facility] Immunizations Immunization Date Given Site Status [...] is not recommended in the following populations: [facility] 3m2 Individuals with unstable creatinine concentrations, [...] Lvl 101 meq/L 95 - 109 10/19 [facility] CHEM PANEL Potassium 5.0 meq/L 3.5 - 5.1 10/19 MH Lvl [facility] CHEM PANEL Sodium Lvl 141 meq/L 135 - 145 10/19 [facility] CHEM PANEL Creatinine 9.89 mg/dL 0.50 - 10/19 [facility] Lvl 1.40 /2017 [facility] CHEM PANEL BUN 56 mg/dL 7 - 22 10/19 [facility] CHEM PANEL AGAP 17.0 meq/L 10.0 - 10/19 MH 20.0 [facility] CHEM PANEL Calcium Lvl 8.7 mg/dL 8.5 - 10.5 10/19 [facility] CHEM PANEL CO2 28 meq/L 24 - 32 10/19 [facility] CHEM PANEL Glucose Lvl 91 mg/dL 70 - 99 10/19 [facility] IMMUNOLOGY Hep Bs Ag Negative Negative 10/18 [facility] *NA* (10/18/17 12:25 PM) CHEM PANEL Uric Acid 4.3 mg/dL 3.8 - 8.0 09/18 [facility] IMMUNOLOGY Hep Bs Ag Negative Negative 09/18 [facility] *NA* (09/18/16 2:20 PM) BLOOD BANK ABO/Rh B POS 09/18 Greater RESULTS [facility] BLOOD BANK Antibody Negative 09/18 [facility] RESULTS Scrn [facility] (09/18/16 12:41 AM) BLOOD BANK RBC product Product available 09/18 Result Comment: 2016 01:53 [id number] Called [place] begum [facility] (09/17/16 11:00 PM) ELECTROLYT AGAP 14.2 meq/L 10.0 - 09/18 [facility] ES 20.0 [facility] ELECTROLYT B/C Ratio 7 6 - 25 09/18 Greater ES [facility] ELECTROLYT A/G Ratio 0.8 0.7 - 1.6 09/18 [facility] ES [facility] ELECTROLYT Globulin 3.7 g/dL 2.7 - 4.2 / MH Greater ES [facility] ELECTROLYT eGFR 6 09/18 Result [...] is not recommended in the following populations: [facility] 3m2 Individuals with unstable creatinine [...] g/dL 3.5 - 5.0 / MH Greater [facility] ELECTROLYT Bili Total 0.3 mg/dL 0.2 - 1.3 / MH Greater [facility] ELECTROLYT ALT 20 unit/L 0 - 65 / MH Greater [facility] ELECTROLYT AST 19 unit/L 0 - 37 / MH Greater ES [facility] ELECTROLYT Alk Phos 35 unit/L 39 - 136 / MH Greater ES [facility] ELECTROLYT Chloride Lvl 105 meq/L 95 - 109 / MH Greater [facility] ELECTROLYT Potassium 4.2 meq/L 3.5 - 5.1 / MH Greater ES Lvl [facility] ELECTROLYT Total 6.8 g/dL 6.4 - 8.4 / MH Greater ES [facility] ELECTROLYT Calcium Lvl 7.9 mg/dL 8.5 - 10.5 / MH Greater [facility] [facility] ELECTROLYT CO2 26 meq/L 24 - 32 06/ [facility] ELECTROLYT Sodium Lvl 141 meq/L 135 - 145 / [facility] ELECTROLYT BUN 79 mg/dL 7 - 22 06/ [facility] ELECTROLYT Creatinine 10.90 0.50 - [...] 87.5 fL 80.0 - 09/18 [facility] 94.0 [facility] HEMATOLOGY Hgb 6.3 g/dL 14.0 - 09/18 Result 18. Comment: [facility] Critical Result(s) called to Issa DEJESUS at 09/17/2016 22:10 by. Read back OK. HEMATOLOGY MCH 29.6 pg 27.0 - 09/18 [facility] 31.0 [facility] HEMATOLOGY MCHC 33.8 g/dL 32.0 - 09/18 36.0 [facility] CHEM PANEL eGFR 61 05/19 [...] is not recommended in the following populations: [facility] 3m2 Individuals with unstable creatinine [...] Potassium 4.0 meq/L 3.5 - 5.1 05/19 [facility] CHEM PANEL Chloride Lvl 112 meq/L 95 - 109 05/19 [facility] CHEM PANEL CO2 25 meq/L 24 - 32 05/19 [facility] CHEM PANEL Calcium Lvl 8.9 mg/dL 8.5 - 10.5 05/19 [facility] CHEM PANEL Sodium Lvl 144 meq/L 135 - 145 05/19 [facility] CHEM PANEL Glucose Lvl 121 mg/dL 70 - 99 05/19 4Interpretive Data: Adult reference range values reflect the clinical guidelines of the [place] [employer]. [facility] CHEM PANEL BUN 22 mg/dL 7 - 22 05/19 [facility] CHEM PANEL Creatinine 1.5 mg/dL 0.5 - 1.4 05/19 [facility] CHEM PANEL AGAP 11.0 meq/L [...] Total CK 105 unit/L 05/18 [facility] ENZYMES [facility] CHEM PANEL eGFR 46 05/18 [...] mg/dL 0.5 - 1.4 05/18 [facility] Lvl [facility] DRUG U Ruchi Scr Negative [...] Platelet 202 K/CMM 133 - 450 05/18 [facility] HEMATOLOGY PTT 36.5 s 22.9 - 05/18 9Interpretive [facility] 35.8 Data: Heparin [facility] Therapeutic Range: 57 - 92 Seconds HEMATOLOGY INR 1.02 0.85 - 05/18 7Interpretive Data: RECOMMENDED RANGES FOR PROTIME INR: [facility] 05.05 2.0-3.0 for most medical and surgical thromboembolic states. [facility] 2.5-3.5 for artificial heart valves and recurrent embolism. INR SHOULD BE USED ONLY FOR PATIENTS ON STABLE ANTICOAGULANT THERAPY. HEMATOLOGY PT 13.4 s 12.0 - 05/18 [facility] 14.7 [facility] LIPIDS VLDL 17 05/18 [facility] LIPIDS LDL 44 mg/dL <=99 mg/dL 05/18 [facility] (Calculated) [facility] LIPIDS Chol 103 mg/dL <=199 05/18 mg/dL LIPIDS Trig 85 mg/dL <=149 05/18 [facility] mg/dL [facility] LIPIDS HDL 42 mg/dL >=61 mg/dL 05/18 [facility] LIPIDS CHD Risk 2.45 4.00 - 05/18 [facility] 7. [facility] CARDIAC Troponin-I 0.02 ng/mL 0.00 - 05/18 [facility] ENZYMES 0.40 [facility] CARDIAC CK MB 1.3 ng/mL 0.5 - 3.6 05/18 [facility] ENZYMES [facility] CARDIAC Total CK 103 unit/L 12 - 191 05/18 ENZYMES [facility] CARDIAC CK MB Index 1.3 0.0 - 2.5 05/18 [facility] ENZYMES [facility] CHEM PANEL eGFR 46 05/18 [...] is not recommended in the following populations: [facility] 3m2 Individuals with unstable creatinine [...] Lvl 8.6 mg/dL 8.5 - 10.5 05/18 [facility] CHEM PANEL CO2 24 meq/L 24 - 32 05/18 [facility] CHEM PANEL Total 7.1 g/dL 6.4 - 8.4 05/18 Protein [facility] CHEM PANEL Chloride Lvl 109 meq/L 95 - 109 05/18 [facility] CHEM PANEL Potassium 3.8 meq/L 3.5 - 5.1 05/18 Lvl [facility] CHEM PANEL A/G Ratio 0.8 0.7 - 1.6 05/18 [facility] CHEM PANEL Bili Total 0.2 mg/dL 0.2 - 1.3 05/18 [facility] CHEM PANEL Globulin 4.0 g/dL 2.0 - 4.0 05/18 [facility] CHEM PANEL B/C Ratio 15 6 - 25 05/18 [facility] CHEM PANEL AGAP 11.8 meq/L 10.0 - 05/18 20.0 [facility] CHEM PANEL Alk Phos 44 unit/L 39 - 136 05/18 [facility] CHEM PANEL AST 13 unit/L 0 - 37 05/18 [facility] CHEM PANEL ALT 15 unit/L 0 - 65 05/18 [facility] CHEM PANEL Sodium Lvl 141 meq/L 135 - 145 05/18 [facility] CHEM PANEL Creatinine 1.9 mg/dL 0.5 - 1.4 05/18 [facility] CHEM PANEL Albumin Lvl 3.1 g/dL 3.5 - 5.0 05/18 [facility] CHEM PANEL BUN 28 mg/dL 7 - 22 05/18 [facility] CHEM PANEL Glucose Lvl 197 mg/dL 70 - 99 05/18 5Interpretive Data: Adult reference range values reflect the clinical guidelines of the [place] [employer]. [facility] HEMATOLOGY MCH 27.4 pg 27.0 - 05/18 31.0 [facility] HEMATOLOGY RDW 17.6 % 11.5 - 05/18 14. [facility] HEMATOLOGY MCHC 33.2 g/dL 32.0 - 05/18 36.0 [facility] HEMATOLOGY MPV 10.8 fL 7.4 - 10.4 05/18 [facility] HEMATOLOGY Platelet 208 K/CMM 133 - 450 05/18 [facility] HEMATOLOGY WBC 4.6 K/CMM 3.7 - 10.4 05/18 [facility] HEMATOLOGY Hgb 9.4 g/dL 14.0 - 05/18 18.0 [facility] HEMATOLOGY RBC 3.43 M/CMM 4.70 - 05/18 [facility] 6. [facility] HEMATOLOGY MCV 82.6 fL 80.0 [...] # 0.4 K/CMM 0.0 - 0.8 05/18 [facility] HEMATOLOGY Lymphocytes 29.4 % 20.0 - 05/18 [facility] 40.0 HEMATOLOGY Monocytes 8.8 % 2.0 - 12.0 05/18 HEMATOLOGY Eosinophils 3.5 % 0.0 - 4.0 05/18 HEMATOLOGY Basophils 0.8 % 0.0 - 1.0 05/18 [facility] HEMATOLOGY Segs 57.5 % 45.0 - 05/18 [facility] 75.0 [facility] Vital Signs Vital Sign Value Date Comments Source Systolic (mm Hg) 138 10/19/2017 [facility] Diastolic (mm Hg) 85 10/19/2017 [facility] Respitory Rate 10 10/19/2017 [facility] Systolic (mm Hg) 140 10/19/2017 [facility] Diastolic (mm Hg) 87 10/19/2017 [facility] Respitory Rate 15 10/19/2017 [facility] Systolic (mm Hg) 137 10/19/2017 [facility] Diastolic (mm Hg) 79 10/19/2017 [facility] Respitory Rate 19 10/19/2017 [facility] Heart Rate 65 10/19/2017 [facility] Heart Rate 61 10/19/2017 [facility] Temperature Oral (F) 97.7 F 10/19/2017 [facility] Heart Rate 58 10/19/2017 [facility] Temperature Oral (F) 98 F 10/19/2017 [facility] Temperature Oral (F) 97.5 F 10/19/2017 [facility] BMI Calculated 27.95 10/18/2017 [facility] Weight 90.909 10/18/2017 [facility] Height 180.34 cm 10/18/2017 [facility] Systolic (mm [...] [facility] [place] BMI Calculated 32.15 05/18/2014 [facility] Encounters Location Location Encounter Encounter Reason Attending ADM DC Status Source Details Type Number For Provider Date Date Visit [facility] [id number] Samantha 05/18 05/20 Kenneth Observation Maricruz /2014 [facility] Day Surgery [id number] Eddie 06/08 06/08 Kenneth Butler /2016 [facility] Observation [id number] Youngestrella 09/18 09/19 Kenneth Randall /2016 [facility] Observation [id number] Gyanendra 10/18 10/19 Kenneth Bonds /2017 [facility] Procedures Procedure Code Date Perfomer Comments Source Adjustment of [id number] [facility] intraluminal device [place] of arteriovenous fistula
[2018-01-01 17:12] LABS: Protime INR 1.06
--- NOTE | 2018-01-01 17:25 | RAD REPORT ---
EXAM DESCRIPTION: Carlene Single View01/01/2018 5:09 pm CLINICAL HISTORY: sob COMPARISON: December 31, 2017 FINDINGS: Mild bilateral interstitial pulmonary edema is suspected. The heart is moderately enlarge d. Central venous catheter remains in place IMPRESSION: Mild CHF
[2018-01-01 17:27] LABS: Albumin 4.2 g/dL (3.4-5.0); Bilirubin Direct 0.1 mg/dL (0-0.2); Bilirubin Total 0.5 mg/dL (0.2-1.0); Magnesium 2.5 mg/dL (1.8-2.4); Potassium 3.6 mmol/L (3.5-5.1); Protein, Total 9.6 g/dL (6.4-8.2); Troponin (Emerg Dept Use Only) 0.04 ng/mL (0.0-0.045)
--- NOTE | 2018-01-01 17:36 | RAD REPORT ---
EXAM DESCRIPTION: CT - Head Brain Wo Cont - 01/01/2018 5:10 pm CLINICAL HISTORY: Headache COMPARISON: November 2017 TECHNIQUE: Computed axial tomography of the head was obtained. IV contrast was not requested. All CT scans are performed using dose optimization technique as appropriate and may include automated exposure control or mA/KV adjustment according to patient size. FINDINGS: An intracranial bleed is not seen . The ventricles are normal in caliber. No extra-axial fluid collection is noted. 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 Low-density within the right caudate has the appearance of an old lacunar infarct. Small lacunar infarct of the right basal ganglia is suspected. Fluid within the sinuses/ mastoids is not seen. IMPRESSION: No acute intracranial abnormality is seen. If patient's symptoms persist MRI of the bra in would be recommended.
--- NOTE | 2018-01-01 17:51 | EDPHYS ---
Physician Documentation [facility] Name: Juan Lozano Age: 57 yrs Sex: Male : 1960 Arrival Date: 01/01/2018 Time: 16:27 Bed 4 Private MD: ED Physician John Moreno HPI: 01/01 17:38 This 57 yrs old Black Male presents to ER via EMS with complaints of Altered Mental jr8 Status. 17:38 The patient presents with confusion, decreased mental status, decreased responsiveness. jr8 Onset: The symptoms/episode began/occurred acutely, today. Possible causes: unknown. Associated signs and symptoms: Pertinent positives: headache. Current symptoms: In the emergency department the patient's symptoms are unchanged from the initial presentation. Patient's baseline: Neuro: alert and fully oriented, Motor: left-sided weakness, Ambulation: unable to walk, uses wheelchair, Speech: normal. It is unknown whether or not the patient has had similar symptoms in the past. The patient has been recently seen by a physician:. Patient was at dialysis. They stated that he was normal at the beginning of dialysis. Stated that he slept through dialysis. When waking him after dialysis was complete, noticed he was altered and confused. Patient upon arrival is alert to verbal stimulus. Recalled his name and where he was but confused as to how he got there and did not remember dialysis. Sluggish and slow to respond . Historical: - Allergies: 16:31 NKA; aa5 - Home Meds: 16:39 aspirin 81 mg Oral chew once daily [Active]; metoprolol tartrate 100 mg Oral tab 2 aa5 times per day [Active]; cholecalciferol (vitamin D3) 2,000 unit oral cap daily [Active]; minoxidil 2.5 mg Oral tab 2 times per day [Active]; clonidine 0.3 mg/24 hr transdermal ptwk once wkly [Active]; olopatadine 0.1 % ophthalmic drop every morning [Active]; Depakote ER 125mg Oral twice a day [Active]; folic acid 1 mg Oral tab 1 tab once daily [Active]; Protonix 40 mg Oral TbEC 1 tab once daily [Active]; hydralazine 50 mg Oral tab TID [Active]; isosorbide dinitrate 20 mg Oral tab 3 times per day [Active]; Renvela 800 mg oral tab take 5 tabs with each meal TID and 2 with snacks [Active]; Keppra 500 mg Oral tab 1 tab 2 times per day [Active]; risperidone 0.5 mg oral TbDL once daily [Active]; levothyroxine 50 mcg tab once daily [Active]; tramadol 50 mg Oral tab every 6 hours [Active]; - PMHx: 16:31 Bipolar disorder; CVA; Diabetes - NIDDM; Dialysis; Hypertension; TIA; Anemia; Chronic aa5 Ischemic heart disease; epilepsy; - PSHx: 16:31 Dialysis catheter to chest; aa5 - Immunization history:: Adult Immunizations unknown. - Ebola Screening: : No symptoms or risks identified at this time. - Social history:: Smoking status: unknown. ROS: 17:38 Constitutional: Negative for fever, chills, and weight loss, Eyes: Negative for injury, jr8 pain, redness, and discharge, ENT: Negative for injury, pain, and discharge, Neck: Negative for injury, pain, and swelling, Cardiovascular: Negative for chest pain, palpitations, and edema, Respiratory: Negative for shortness of breath, cough, wheezing, and pleuritic chest pain, Abdomen/GI: Negative for abdominal pain, nausea, vomiting, diarrhea, and constipation, Back: Negative for injury and pain, MS/Extremity: Negative for injury and deformity, Skin: Negative for injury, rash, and discoloration. 17:38 Neuro: Positive for altered mental status, headache. Exam: 17:38 Eyes: Pupils equal round and reactive to light, extra-ocular motions intact. Lids and jr8 lashes normal. Conjunctiva and sclera are non-icteric and not injected. Cornea within normal limits. Periorbital areas with no swelling, redness, or edema. ENT: Nares patent. No nasal discharge, no septal abnormalities noted. Tympanic membranes are normal and external auditory canals are clear. Oropharynx with no redness, swelling, or masses, exudates, or evidence of obstruction, uvula midline. Mucous membranes moist. Neck: Trachea midline, no thyromegaly or masses palpated, and no cervical lymphadenopathy. Supple, full range of motion without nuchal rigidity, or vertebral point tenderness. No Meningismus. Cardiovascular: Regular rate and rhythm with a normal S1 and S2. No gallops, murmurs, or rubs. Normal PMI, no JVD. No pulse deficits. Respiratory: Lungs have equal breath sounds bilaterally, clear to auscultation and percussion. No rales, rhonchi or wheezes noted. No increased work of breathing, no retractions or nasal flaring. Abdomen/GI: Soft, non-tender, with normal bowel sounds. No distension or tympany. No guarding or rebound. No evidence of tenderness throughout. Back: No spinal tenderness. No costovertebral tenderness. Full range of motion. Skin: Warm, dry with normal turgor. Normal color with no rashes, no lesions, and no evidence of cellulitis. MS/ Extremity: Pulses equal, no cyanosis. Neurovascular intact. Full, normal range of motion. Neuro: Alert to verbal stimulus. GCS of 14. Oriented to person, place only. Cranial nerves II-XII grossly intact. Motor strength 5/5 in all extremities. Sensory grossly intact. Cerebellar exam normal. Normal gait. Vital Signs: 16:27 BP 135 / 83; Pulse 66; Resp 14 S; Pulse Ox 96% on R/A; aa5 17:40 BP 150 / 85; Pulse 62; Resp 16; Temp 98.1; Pulse Ox 98% on R/A; la1 17:58 BP 133 / 81; Pulse 61; Resp 16; Pulse Ox 95% on R/A; la1 18:03 BP 123 / 79; Pulse 59; Resp 16; Pulse Ox 96% on R/A; la1 18:34 BP 139 / 83; Pulse 62; Resp 16; Pulse Ox 96% on R/A; la1 19:10 BP 151 / 95; Pulse 65; Resp 19; Pulse Ox 97% ; la1 MDM: 16:29 Patient medically screened. 8 17:48 Data reviewed: vital signs, nurses notes, lab test result(s), EKG, radiologic studies, jr CT scan, plain films. Data interpreted: Pulse oximetry: on room air is 98 %. Interpretation: normal. Counseling: I had a detailed discussion with the patient and/or guardian regarding: the historical points, exam findings, and any diagnostic results supporting the discharge/admit diagnosis, lab results, radiology results, the need for further work-up and treatment in the hospital. ED course: Dr. Jeter Consulted and admitted. To give to Dr. Bruce to see at shift change. 01/01 16:43 Order name: CPK; Complete Time: 17:45 01/01 16:43 Order name: Basic Metabolic Panel; Complete Time: 17:45 01/01 16:43 Order name: CBC with Diff 01/01 16:43 Order name: LFT's; Complete Time: 17:45 01/01 16:43 Order name: Magnesium; Complete Time: 17:45 01/01 16:43 Order name: NT PRO-BNP; Complete Time: 17:45 01/01 16:43 Order name: PT-INR; Complete Time: 17:29 01/01 16:43 Order name: Troponin (emerg Dept Use Only); Complete Time: 17:45 01/01 16:43 Order name: XRAY Chest (1 view); Complete Time: 17:29 01/01 16:43 Order name: EKG; Complete Time: 16:44 01/01 16:43 Order name: Cardiac monitoring; Complete Time: 16:48 01/01 16:43 Order name: EKG - Nurse/Tech; Complete Time: 16:51 01/01 16:43 Order name: IV Saline Lock; Complete Time: 16:48 01/01 16:43 Order name: CT Head Brain wo Cont; Complete Time: 17:37 01/01 16:43 Order name: Labs collected and sent; Complete Time: 16:48 01/01 16:43 Order name: O2 Per Protocol; Complete Time: 16:48 01/01 16:43 Order name: O2 Sat Monitoring; Complete Time: 16:48 Administered Medications: No medications were administered Point of Care Testing: Blood Glucose: 16:42 Blood Glucose: 118 mg/dL; la1 Ranges: Critical Glucose Levels:Adult <50 mg/dl or >400 mg/dl <40 mg/dl or >180 mg/dl Disposition: 01/01/18 17:50 Hospitalization ordered by Jame Bruce for Inpatient Admission. Preliminary diagnosis are Altered mental status, unspecified, Acute systolic (congestive) heart failure. - Bed requested for Telemetry/MedSurg (observation). - Status is Inpatient Admission. la1 - Condition is Stable. - Problem is new. - Symptoms are unchanged. UTI on Admission? No Addendum: 01/03/2018 08:01 Co-signature as Attending Physician, John Moreno MD I agree with the assessment and w a plan of care. Signatures: Dispatcher [employer] EDMakenna Sanchez, RN RN aa5 Naldo Avila PA PA jr8 Rober Hardy RN RN la1 John Moreno MD MD wa Corrections: (The following items were deleted from the chart) 01/01 18:08 17:50 Hospitalization Ordered by Jame Bruce MD for Inpatient Admission. Preliminary aa5 diagnosis is Altered mental status, unspecified; Acute systolic (congestive) heart failure. Bed requested for Telemetry/MedSurg (observation). Status is Inpatient Admission. Condition is Stable. Problem is new. Symptoms are unchanged. UTI on Admission? No. jr8 18:30 16:43 Urine Dipstick-Ancillary ordered. jr8 la1 19:15 18:08 01/01/2018 17:50 Hospitalization Ordered by Jame Bruce MD for Inpatient la1 Admission. Preliminary diagnosis is Altered mental status, unspecified; Acute systolic (congestive) heart failure. Bed requested for Telemetry/MedSurg (observation). Status is Inpatient Admission. Condition is Stable. Problem is new. Symptoms are unchanged. UTI on Admission? No. aa5
--- NOTE | 2018-01-01 17:51 | ER ---
Nurse's Notes [facility] Name: Juan Lozano Age: 57 yrs Sex: Male : 1960 Arrival Date: 01/01/2018 Time: 16:27 Bed 4 Private MD: Diagnosis: Altered mental status, unspecified;Acute systolic (congestive) heart failure Presentation: 01/01 16:27 Presenting complaint: EMS states: Pt was complaining of CALDWELL x 4 hrs ago and was given aa5 Tylenol 650mg PO by [facility]. Dialysis staff reported pt became lethargic and weak after completed dialysis. Pt currently A \T\ O x person only. Transition of care: [facility]. Onset of symptoms was January 01, 2018. 16:27 Method Of Arrival: EMS: [facility] aa5 16:27 Acuity: DORIS 2 aa5 16:27 Care prior to arrival: Glucose check: 137. aa5 16:48 Risk Assessment: Do you want to hurt yourself or someone else? Patient reports no la1 desire to harm self or others. Initial Sepsis Screen: Does the patient meet any 2 criteria? No. Patient's initial sepsis screen is negative. Does the patient have a suspected source of infection? No. Patient's initial sepsis screen is negative. Historical: - Allergies: 16:31 NKA; aa5 - Home Meds: 16:39 aspirin 81 mg Oral chew once daily [Active]; metoprolol tartrate 100 mg Oral tab 2 aa5 times per day [Active]; cholecalciferol (vitamin D3) 2,000 unit oral cap daily [Active]; minoxidil 2.5 mg Oral tab 2 times per day [Active]; clonidine 0.3 mg/24 hr transdermal ptwk once wkly [Active]; olopatadine 0.1 % ophthalmic drop every morning [Active]; Depakote ER 125mg Oral twice a day [Active]; folic acid 1 mg Oral tab 1 tab once daily [Active]; Protonix 40 mg Oral TbEC 1 tab once daily [Active]; hydralazine 50 mg Oral tab TID [Active]; isosorbide dinitrate 20 mg Oral tab 3 times per day [Active]; Renvela 800 mg oral tab take 5 tabs with each meal TID and 2 with snacks [Active]; Keppra 500 mg Oral tab 1 tab 2 times per day [Active]; risperidone 0.5 mg oral TbDL once daily [Active]; levothyroxine 50 mcg tab once daily [Active]; tramadol 50 mg Oral tab every 6 hours [Active]; - PMHx: 16:31 Bipolar disorder; CVA; Diabetes - NIDDM; Dialysis; Hypertension; TIA; Anemia; Chronic aa5 Ischemic heart disease; epilepsy; - PSHx: 16:31 Dialysis catheter to chest; aa5 - Immunization history:: Adult Immunizations unknown. - Ebola Screening: : No symptoms or risks identified at this time. - Social history:: Smoking status: unknown. Screenin:47 Abuse screen: Denies threats or abuse. Nutritional screening: No deficits noted. la1 Tuberculosis screening: No symptoms or risk factors identified. Fall Risk No fall in past 12 months (0 pts). Secondary diagnosis (15 points) IV access (20 points). Ambulatory Aid- None/Bed Rest/Nurse Assist (0 pts). Gait- Weak (10 pts.). Mental Status- Overestimates/Forgets Limitations (15 pts.). Total Hercules Fall Scale indicates High Risk Score (45 or more points). Side Rails Up X 2 Placed Close to Nursing Station. Assessment: 16:43 Reassessment: pt has left sided weakness from previous CVA. General: Appears la1 comfortable, Behavior is cooperative. Pain: Denies pain. Neuro: Level of Consciousness is awake, alert, obeys commands, confused, lethargic, Oriented to person. Cardiovascular: Heart tones S1 S2 present Capillary refill < 3 seconds Patient's skin is warm and dry. Dialysis shunt: in the right arm, with palpable thrill, with auscultated bruit, with no erythema, with no edema. Respiratory: Airway is patent Respiratory effort is even, unlabored, Respiratory pattern is regular, symmetrical, Breath sounds are diminished bilaterally. GI: Abdomen is non-distended, obese, Bowel sounds present X 4 quads. Abd is soft and non tender X 4 quads. : No signs and/or symptoms were reported regarding the genitourinary system. Musculoskeletal:. 17:40 Reassessment: Patient appears in no apparent distress at this time. No changes from la1 previously documented assessment. 17:58 Neuro: Level of Consciousness is awake, alert, confused, Oriented to person. la1 Cardiovascular: Heart tones S1 S2 present Capillary refill < 3 seconds Patient's skin is warm and dry. Respiratory: Airway is patent Respiratory effort is even, unlabored, Respiratory pattern is regular, symmetrical, Breath sounds are diminished bilaterally. GI: No signs and/or symptoms were reported involving the gastrointestinal system. : No signs and/or symptoms were reported regarding the genitourinary system. 18:22 Reassessment: attempted to call report x1, nurse will call back. la1 18:53 Reassessment: attempted to call report x3 from [phone]. Unable to get nurse on phone. la1 19:00 Reassessment: Report called to second floor receiving RN by Rober SARKAR. la1 Vital Signs: 16:27 BP 135 / 83; Pulse 66; Resp 14 S; Pulse Ox 96% on R/A; aa5 17:40 BP 150 / 85; Pulse 62; Resp 16; Temp 98.1; Pulse Ox 98% on R/A; la1 17:58 BP 133 / 81; Pulse 61; Resp 16; Pulse Ox 95% on R/A; la1 18:03 BP 123 / 79; Pulse 59; Resp 16; Pulse Ox 96% on R/A; la1 18:34 BP 139 / 83; Pulse 62; Resp 16; Pulse Ox 96% on R/A; la1 19:10 BP 151 / 95; Pulse 65; Resp 19; Pulse Ox 97% ; la1 ED Course: 16:27 Patient arrived in ED. aa5 16:28 Arm band placed on. aa5 16:29 Triage completed. aa5 16:29 [facility]ila [facility]. jr8 16:29 John Moreno MD is Attending Physician. jr8 16:40 Inserted saline lock: 22 gauge in left antecubital area, using aseptic technique. Blood ch collected. 16:42 Rober Hardy, ANTONINA is Primary Nurse. la1 16:47 Placed in gown. Bed in low position. Call light in reach. panel monitor on. Pulse ox la1 on. NIBP on. 17:09 X-ray completed. Patient tolerated procedure poorly. bb2 17:09 CT completed. Patient moved to CT via stretcher. Patient moved back from CT. sj 17:09 XRAY Chest (1 view) In Process Unspecified. EDMS 17:10 CT Head Brain wo Cont In Process Unspecified. EDMS 17:11 EKG done, by ED staff, reviewed by Naldo GARCIA. jb1 17:50 Jame Bruce MD is Hospitalizing Provider. jr8 18:30 No provider procedures requiring assistance completed. Patient admitted, IV remains in la1 place. Administered Medications: No medications were administered Point of Care Testing: Blood Glucose: 16:42 Blood Glucose: 118 mg/dL; la1 Ranges: Outcome: 17:50 Decision to Hospitalize by Provider. jr8 19:14 Admitted to Med/surg accompanied by tech, via stretcher, room 201, with chart, Report la1 called to Receiving nurse on second floor. 19:14 Condition: stable 19:14 Instructed on the need for admit. 19:15 Patient left the ED. la1 Signatures: Dispatcher [employer] EDMS Pee Prince jb1 Ying Lilly, RN RN Bia Carrion Audri RN RN hiren5 Naldo Avila PA PA jr8 Rober Hardy RN RN la1 Agnes Luna bb2 Corrections: (The following items were deleted from the chart) 16:40 16:30 BP 135 / 83; Pulse 66bpm; Resp 14bpm; Spontaneous; Pulse Ox 96% RA; aa5 aa5
[2018-01-01 19:52] LABS: Absolute Lymphocytes (CBC) 0.7 K/uL (0.7-4.9); Absolute Monocytes 1.1 K/uL (0.1-1.3); Absolute Neutrophil 7.1 K/uL (1.8-8.0); Basophils % 0.7 % (0-1.3); Eosinophils % 0.8 % (0-4.4); Hematocrit 37.2 % (39.6-49.0); Lymphocytes % 8.2 % (15.3-44.8); MCH 28.9 pg (27.0-35.0); MPV 8.8 fL (7.6-11.3); RBC Red Blood Cell Count 4.23 M/uL (4.33-5.43)
[2018-01-01] MEDS ORDERED: ACETAMINOPHEN 500 MG TAB PO PRN (20:00)
[2018-01-01] MEDS ORDERED: ONDANSETRON 4 MG/2 ML VIAL IV PRN (20:00)
[2018-01-01] MEDS ORDERED: NA CHLORIDE 0.9% 1,000 ML IV SCH (20:00)
[2018-01-02 00:47] LABS: Urine Appearance CLEAR; Urine Bilirubin NEGATIVE (NEG); Urine Blood NEGATIVE (NEG); Urine Color YELLOW; Urine Glucose TRACE (NEG); Urine Protein 3+ (NEG); Urine Urobilinogen 0.2 mg/dL (0.2-1.0)
[2018-01-02 00:59] LABS: Urine Microscopic Reflex ORDER UMIC
[2018-01-02 01:46] LABS: Urine Bacteria <20 /HPF (NONE SEEN); Urine RBC <5 /HPF (NONE SEEN)
[2018-01-02 01:47] LABS: Urine Amorphous Sediment 1+ /HPF (NONE SEEN); Urine Culture Reflex Order NOT NEEDED
[2018-01-02] MEDS ORDERED: ENOXAPARIN 30 MG/0.3 ML SQ SCH (09:00)
[2018-01-02] MEDS ORDERED: ASPIRIN EC 81 MG TAB PO SCH (09:00)
--- NOTE | 2018-01-02 09:47 | P.HP ---
Certification for Inpatient Patient admitted to: Inpatient With expected LOS: >2 Midnights Patient will require the following post-hospital care: None Practitioner: I am a practitioner with admitting privileges, knowledge of patient current condition, hospital course, and medical plan of care. Services: Services provided to patient in accordance with Admission requirements found in Title 42 Section 412.3 of the Code of Federal Regulations Patient History Date of Service: 01/01/18 Reason for admission: shortness of breath History of Present Illness: Patient is a 57-year-old gentleman with a history of end-stage renal disease who presented to the emergency room with altered mental status. Patient was also confused and lethargic initially on arrival. However, he started waking up in the emergency room and he was much more alert and awake. He did have some complaints of shortness of breath. He did not remember being dialyzed and did not remember coming into the emergency room. She appeared to be very sluggish and slow. Unsure as to if he had any episodes of hypotension while he was at hemodialysis. We will need to review his records while he was at hemodialysis. His workup in the emergency room did reveal an elevated BNP level. We will monitor his volume status closely. We will monitor his neuro status closely and get physical therapy evaluation. If his mentation does not improve we may need to get Neurology input. CT of the brain did not reveal any abnormalities. Patient has been more lower on the floors today. He has been more belligerent with the nursing staff this evening. We will monitor his neuro status closely . Patient does have a history of seizure disorder related to a history of conversion disorder. He has also been admitted a few months prior with altered mental status. He tends to be noncompliant with his medical and dialysis treatment. Will need to monitor him closely. Allergies No Known Allergies Allergy (Verified 01/02/18 00:27) Home Medications: Aspirin [Aspirin EC 81 MG] 81 mg PO DAILY 07/23/17 Cholecalciferol (Vitamin D3) [Vitamin D3] 3 cap PO DAILY 07/23/17 Clonidine Patch [Catapres-Tts 3*] 1 patch TD EVERY 7TH DAY 07/23/17 Folic Acid 1 mg PO DAILY 07/23/17 Isosorbide Dinit [Isordil*] 20 mg PO TID 07/23/17 Levetiracetam [Keppra] 500 mg PO BID 07/23/17 Levothyroxine [Synthroid*] 50 mcg PO DAILY 07/23/17 Metoprolol Tartrate [Lopressor] 100 mg PO BID 07/23/17 Pantoprazole Sodium [Protonix] 40 mg PO DAILY 07/23/17 Sevelamer HCl [Renagel] 2 tab PO TID 07/23/17 Tramadol HCl [Ultram] 50 mg PO Q6HR PRN 07/23/17 risperiDONE [Risperidone] 0.5 mg PO DAILY 07/23/17 Cinacalcet HCl [Sensipar] 60 mg PO BEDTIME 12/12/17 Divalproex Sodium [Depakote] 125 mg PO BID 12/12/17 Hydralazine [Apresoline*] 50 mg PO TID 12/12/17 - Past Medical/Surgical History Has patient received pneumonia vaccine in the past: No Diabetic: Yes -: Diabetes mellitus type 2 -: Hypertension -: History CVA with residual left-sided weakness -: End stage renal disease -: History of noncompliance -: Anxiety disorder -: Hypothyroidism -: Conversion disorder with seizures -: Anemia -: Chronic pain syndrome -: HD access graft Psychosocial/ Personal History: Patient in half-way. Patient recently paroled to the group home. - Family History Father Family History: Reviewed- Non-Contributory - Social History Smoking Status: Current every day smoker Alcohol use: No Place of Residence: Home Review of Systems 10-point ROS is otherwise unremarkable Physical Examination - Vital Signs Temperature: 97.8 F Blood Pressure: 145/82 Pulse: 67 Respirations: 20 Pulse Ox (%): 93 - Physical Exam General: Alert, In no apparent distress, Oriented x3 HEENT: Atraumatic, PERRLA, Mucous membr. moist/pink, EOMI, Sclerae nonicteric Neck: Supple, 2+ carotid pulse no bruit, No LAD, Without JVD or thyroid abnormality Respiratory: Diminished Cardiovascular: Regular rate/rhythm, Normal S1 S2, Systolic murmur Gastrointestinal: Normal bowel sounds, Soft and benign, Non-distended, No tenderness Musculoskeletal: No clubbing, No swelling, No tenderness Integumentary: No rashes Neurological: Normal gait, Normal speech, Normal strength at 5/5 x4 extr, Normal tone, Normal affect Lymphatics: No axilla or inguinal lymphadenopathy - Studies Laboratory Data (last 24 hrs) 01/01/18 16:50: PT 12.5, INR 1.06 01/01/18 16:50: Sodium 136, Potassium 3.6, BUN 52 H, Creatinine 9.10 H*, Glucose 110 H, Magnesium 2.5 H D, Total Bilirubin 0.5, AST 18, ALT 16, Alkaline Phosphatase 75 Assessment & Plan - Plan Assessment: 1. Altered mental status 2. Volume overload 3. End-stage renal disease 4. History of hypertension 5. History of conversion disorder with seizures/ pseudoseizures 6. Congestive heart failure 7. History of CVA with left-sided weakness 8. History of hypothyroidism 9. History of type 2 diabetes Plan: 1. Neuro checks q.4 hours 2. Seizure precautions. Refrain from antiepileptics but will monitor his seizure activity closely 3. Nephrology consultation for hemodialysis 4. Strict blood pressure and blood sugar control 5. Diurese gently as needed with Lasix if he has is short of breath and unable get hemodialysis right away 6. Monitored thyroid levels 7. Monitor for any infections 8. Monitor hemodynamics and allowed map to be closer to 90s 9. GI and DVT prophylaxis - Advance Directives Does patient have a Living Will: No Does patient have a Durable POA for Healthcare: No - Code Status/Comfort Care Code Status Assessed: Yes Code Status: Full Code Critical Care: No Time Spent Managing PTS Care (In Minutes): 55
[2018-01-02] MEDS: SEVELAMER CARBONATE 800 MG TABLET PO SCH ×2 (12:55→17:32)
[2018-01-02] MEDS ORDERED: HYDRALAZINE HCL 25 MG TABLET PO SCH (14:00)
[2018-01-02] MEDS ORDERED: ISOSORBIDE DINIT 20 MG TAB PO SCH (14:00)
[2018-01-02] MEDS ORDERED: DIVALPROEX NA 125 MG CAP PO SCH (21:00)
[2018-01-02] MEDS ORDERED: DIVALPROEX DR 250 MG TAB PO SCH (21:00)
[2018-01-02] MEDS ORDERED: METOPROLOL TAR 50 MG TAB PO SCH (21:00)
[2018-01-02] MEDS ORDERED: CINACALCET HCL 30 MG TAB PO SCH (21:00)
[2018-01-02] MEDS ORDERED: levETIRAcetam 500 MG TAB PO SCH (21:00)
--- NOTE | 2018-01-02 21:21 | CON ---
Date of Consultation: 01/02/2018 Consulting Physician: Dr. Jeter. Reason Of Consultation: Elevated BUN and creatinine, fluid over volume. History Of Present Illness: This is a pleasant 57-year-old black gentleman with significant past med ical history of end-stage renal disease on hemodialysis, TTS, at [facility], hypertension, coronary artery disease, obesity, hyperlipidemia, bipolar, diabetes complicated with neuropathy and nephropathy. The patient apparently after the dialysis got agitated, did not complet e the full dialysis. The patient transferred to the ER, in the ER found to be in altered mental stat us and agitated with over volume. For that reason been admitted and we have been consulted. On eval uation the patient had shortness of breath. Chest x-ray showing over volume. We took the patient fo r dialysis sequential of 2 hour. The patient denied any nausea, any vomiting. No fever or chills. Past Medical History: 1.Diabetes. 2.Hypertension complicated with congestive heart failure. 3.CVA with left-sided weakness. 4.Hypothyroidism. 5.Coronary artery disease. Home Medications: 1.Aspirin. 2.Cholecalciferol. 3.Isosorbide. 4.Keppra. 5.Levothyroxine. 6.Metoprolol 100 b.i.d. 7.Renvela. 8.Tramadol. 9.Hydralazine. Family History: Positive for diabetes. Social History: Active smoker. Denied alcohol. Denied drug abuse. Review of Systems: Head and Neck: No red eye. No ear pain. GI: No nausea, no vomiting. : No polyuria. No dysuria. No hematuria. SURGICAL SALES REPRESENTATIVE: Not applicable. Respiratory: Has shortness of breath. Cardiovascular: Has leg swelling. Endocrine: No polydipsia. Skin: No rash. Current Medication In The Hospital: Include Tylenol, Sensipar, Lovenox, isosorbide, Keppra, Zofran, pantoprazole, Risperdal and Renvela. Physical Examination: Vital Signs: Blood pressure 156/85, pulse of 72. Chest: Crackles bilateral. Heart: S1, S2. Systolic murmur. Abdomen: Soft, nontender. Extremities: Plus edema. Laboratory Data: WBC 9.1, H and H 12.2/37.2, platelets of 214, sodium 136, potassium 3.6, bicarb 22, BUN 52, creatinine 9, calcium 8.7. BNP 44987. Assessment And Plan: 1.End-stage renal disease, over volume. I am going to dialyze the patient today for a sequential 2 hour. We will challenge the patient. 2.Hypertension, controlled, not optimal. We will follow up blood pressure after ultrafiltration on the dialysis. 3.Secondary hyperparathyroidism. Continue Sensipar and Renvela. 4.Anemia. No need for KEEGAN. 5.Congestive heart failure. We will establish better volume control on the ultra filtration. 6.Diabetes as by primary. 7.Bipolar, stable. Follow up with his Psychiatry. MANPREET Voice ID: [id number] Report ID: [id number]
[2018-01-03] MEDS ORDERED: LEVOTHYROXINE SOD 0.05 MG TABLET PO SCH (06:30)
--- NOTE | 2018-01-03 06:56 | EKG ---
Test Date: 2018-01-01 Test Time: 16:51:23 Director Of Corporate Sponsorships: TYRESE MEASUREMENT RESULTS: Intervals: Rate: 66 ID: [id number] QRSD: 94 QT: 466 QTc: 488 [place]: P: 70 ID: [id number] QRS: -15 T: 32 INTERPRETIVE STATEMENTS: Sinus rhythm with premature atrial complexes Minimal voltage criteria for LVH, may be normal variant Prolonged QT Abnormal ECG Compared to ECG 12/12/2017 08:58:22 Atrial premature complex(es) now present Left ventricular hypertrophy now present Prolonged QT interval now present Left-axis deviation no longer present Electronically Signed On 01-03-18 06:51:37 CDT by Ricardo Ibanez
[2018-01-03] MEDS ORDERED: FOLIC ACID 1 MG TABLET PO SCH (09:00)
[2018-01-03] MEDS ORDERED: RISPERIDONE 0.25 MG TABLET PO SCH (09:00)
[2018-01-03] MEDS ORDERED: CLONIDINE 0.3 MG/PATCH TD SCH (09:00)
[2018-01-03] MEDS ORDERED: ASPIRIN EC 81 MG TAB PO SCH (09:00)
[2018-01-03] MEDS ORDERED: PANTOPRAZOLE 40MG TABLET PO SCH (09:00)
--- NOTE | 2018-01-03 11:43 | CON ---
Date of Consultation: 01/02/[address] Jeter's service on 01/01/2018, the patient was seen on 01/02/2018. Reason For Consultation: Congestive heart failure. History Of Present Illness: Mr. Lozano is a 57-year-old. He is a DNR, came in with congestive heart failure. Mental status was very altered. He was very difficult to obtain any history from. He had a chest x-ray showed congestive heart failure. In July of 2017, he was found to have diastolic con gestive heart failure. His EKG was normal. No chest pain reported. Creatinine [place] 9.1[place] [address]. No symptoms at this point. CT of his head was negative. Troponin is negative. Allergies: NONE. Review of Systems: Negative. Social History: Negative Medications: Aspirin, Catapres, Depakote, hydralazine, Isordil, Keppra, thyroid medicine, Lopressor, Protonix, Renagel. Past Medical History: Include end-stage renal disease, hypertension, seizure disorders, coronary art js disease, gastroesophageal reflux disease, congestive heart failure diastolic, diabetes, bipolar d isorder, CVA, TIA, and chronic anemia. Physical Examination: Vital Signs: Stable. He was afebrile, sinus rhythm. HEENT: Negative. Neck: Supple, no bruit. Chest: Clear. Cardiac: Revealed a regular rhythm and rate with an S4 gallops. Abdomen: Benign. Extremities: Revealed trace edema. Diagnostic Data: As stated earlier. Impression And Plan: 1.Guagx-gh-ltmwdek exacerbation of diastolic congestive heart failure, being treated appropriately. Asymptomatic now. No edema. No rales. Sinus rhythm. Negative troponin. Positive BNP consistent with end-stage renal disease. I agree with treatment. He can go home whenever is okay with michelle mckeon physician. 2.Hypertension, well controlled. 3.End-stage renal disease. 4.Coronary artery disease, stable. 5.Gastroesophageal reflux disease, stable. 6.Diabetes. 7.Bipolar disorder. 8.Anemia. 9.History of cerebrovascular accident. 10.Transient ischemic attack. 11.Chronic dementia. PEDRO/MODL Voice ID: [id number] Report ID: [id number]
--- NOTE | 2018-01-03 12:01 | DS ---
Date of Discharge: 01/02/2018 Discharge Diagnoses: 1.Noncompliance. 2.Mild volume overload secondary to missing dialysis. 3.End-stage renal disease, on hemodialysis. 4.Hypertension. 5.Conversion disorder with history of seizures and pseudoseizures. 6.Cerebrovascular accident with left-sided weakness. 7.Hypothyroidism. 8.History of diabetes mellitus. 9.Aggressive behavior. Consult: Nephrology. Procedure: Hemodialysis and CAT scan of the head and chest x-ray, which showed mild volume overload. CAT scan of the head, which was negative. History Of Present Illness: Please refer to Dr. Bruce's note admission from yesterday. Hospital Course: Initially, the patient presented with a progressive shortness of breath. Chest x-r ay in the emergency room showed mild CHF. The patient missed his dialysis. He does not recall when he had the last dialyzed. The patient admitted to observe overnight. His vital signs were stable. Nephrology consult requested. They will proceed with dialysis this morning and after dialysis, Nephkwadwo gaines advised to discharge the patient home. The patient was very aggressive throughout his hospital ization, inappropriate with the staff and nurse, screaming all along, "can I go home." Currently, he is on his way to dialysis. He is hemodynamically stable. After dialysis, he will be discharged mariama e in stable condition. To continue on home medications as before. He advised strongly to closely fo llow up with his field handyman and get his dialysis on a regular basis. He understand missing dialysi s can be life threatening. Discharge Condition: Stable. Discharge Diet: Renal. Discharge Followup: Primary care physician in 1 week. Follow up with field handyman on Wednesday or , whenever his dialysis scheduled. Discharge Medication: Same as admission medications with aspirin 81 mg once a day, vitamin D three t ablets once a day, Sensipar 60 mg at bedtime, clonidine 0.3 mg patch once every 7 days, Depakote 125 mg twice a day, folic acid 1 mg once a day, hydralazine 25 mg 3 times a day, Imdur times a day, Keppra 500 mg twice a day, Synthroid 0.05 mg once a day, metoprolol 100 mg twice a day, Proton ix 40 mg once a day, Renagel 800 mg orally 2 tablets 3 times a day, tramadol 50 mg every 6 hours as n eeded, risperidone 0.5 mg daily. Discharge Physical Examination: Vital Signs: Blood pressure is 145/82, respiratory rate 20, pulse 6 7, temperature 97.8, saturating 93% on room air. General: The patient is alert and oriented x3. Very aggressive, loud yelling, does not look in any distress. HEENT: Atraumatic, normocephalic. PERRLA. Oral mucosa is moist. Neck: Supple. No JVD. No carotid bruits. Chest: Clear to auscultation with bibasilar crackles. Heart: Regular rate and rhythm. S1, S2 normal. No gallop. Abdomen: Soft, nontender. No masses. No hepatosplenomegaly. Positive bowel sounds. Extremities: No clubbing, no cyanosis, or edema. No calf tenderness. Neurologic: Grossly intact. ELVER/LUPE Voice ID: [id number] Report ID: [id number]
== END 2018-01-02 19:30 ==
LOC: ER 16:26 → INTOOBSV 17:57 → ERHOLD 17:57 → 2ND 18:22
PROVIDERS: ADMIT Internal Medicine; ATTEND Hospitalist
PROC: 5A1D70Z Performance of Urinary Filtration, Intermittent, Less than 6 Hours Per Day (ICD-10-PCS; principal; 2018-01-02)
DX: I13.2 Hypertensive heart and chronic kidney disease with heart failure and with stage 5 chronic kidney disease, or end stage renal disease (principal); E11.22 Type 2 diabetes mellitus with diabetic chronic kidney disease; N18.6 End stage renal disease; I50.33 Acute on chronic diastolic (congestive) heart failure; Z99.2 Dependence on renal dialysis; I25.10 Atherosclerotic heart disease of native coronary artery without angina pectoris; K21.9 Gastro-esophageal reflux disease without esophagitis; F31.9 Bipolar disorder, unspecified; F03.90 Unspecified dementia, unspecified severity, without behavioral disturbance, psychotic disturbance, mood disturbance, and anxiety; Z91.15 Patient's noncompliance with renal dialysis; E03.9 Hypothyroidism, unspecified; I69.354 Hemiplegia and hemiparesis following cerebral infarction affecting left non-dominant side; F17.210 Nicotine dependence, cigarettes, uncomplicated
CPT/HCPCS: 36415; 70450; 71045; 80048; 80076; 81003; 81015; 82550; 82962; 83735; 83880; 84484; 85025; 85610; 87070; 87077; 87186; 87205; 93005; G0257; G0378; J1650; J7030

== ENCOUNTER 2018-03-15 10:38 | Inpatient (IN) | payer OTHER ==
--- OUTSIDE RECORDS SUMMARY | 2018-03-15 10:43 | XMS REPORT | Continuity of Care Document ---
:1960 Author Organization Interface Problems Problem Status Onset Classification Date Comments Source Date Reported UNK Active 02/03/20 18 [facility] ESRD NEEDING Active 10/19/19 DIALYSIS/HYPOKALE 18 [place] KUSHAL WEAKNESS Active 10/19/[address] SEVERE ANEMIA, Active 09/18/19 [facility] ESRD ON DIALYSIS, 17 [facility] BLEEDIN R ARM PAIN OR Active 09/18/19 [facility] INJURY 17 [facility] END STAGE RENAL Active 06/01/19 [facility] DISEASE 17 [facility] END STAGE RENAL Active 06/01/19 [facility] DISEASE 17 [facility] CHEST PAIN RULE Active 05/18/19 [facility] OUT ACUTE DE 15 [facility] CHEST PAIN Active 05/18/19 [facility] 15 [facility] Bipolar disorder Active Problem 10/22/2017 [facility] CAD (<span Resolved Problem 10/22/2017 [facility] ID="[id number]"> [facility] Confirmed</span>) [facility] CVA (<span Resolved Problem 10/22/2017 [facility] ID="[id number]"> [facility] Confirmed</span>) [facility] Diabetes mellitus Resolved Problem 10/22/2017 [facility] DM (<span Active Problem 10/22/2017 ID="[id number]" [place] >Confirmed</span> ) Diabetic Resolved Problem 10/22/2017 [facility] neuropathy [facility] Diabetic Resolved Problem 10/22/2017 [facility] retinopathy [facility] ESRD (<span Active Problem 10/22/2017 ID="[id number]" [place] >Confirmed</span> ) Hyperlipemia Resolved Problem 10/22/2017 [facility] Hyperlipidemia Active Problem 10/22/2017 [facility] Hypertension Resolved Problem 10/22/2017 [facility] HTN (<span Active Problem 10/22/2017 ID="[id number]" [place] >Confirmed</span> ) Hypothyroidism Resolved Problem 10/22/2017 [facility] [place] DE (<span Resolved Problem 10/22/2017 [facility] ID="[id number]"> [facility] Confirmed</span>) [place] Seizure disorder Active Problem 10/22/2017 [facility] Spasms, infantile Resolved Problem 10/22/2017 [facility] [place] ANEMIA, Active [facility] UNSPECIFIED [place] END STAGE RENAL Active [facility] DISEASE [place] HEMORRHAGE DUE TO Active [facility] VASCULAR PROSTH [place] DEV/GR Medications Medication Details Route Status Patient Ordering Order Source Instructions Provider Date Fentanyl 50 microgram, Inactive Route: IVP, [address] [place] [id number] Q5Min, Dosing Weight 90.909, kg, PRN Pain Score 7-10, Priority: Routine, Start date: 10/19/17 15:46:00 CDT, Duration: 2 doses or times, Stop date: Limited # of times Meperidine 12.5 mg, Route: Inactive 10/19[facility] IVP, Q30Min, 2017 [facility] Dosing Weight 90.909, kg, PRN Other -See Comment, For shivering, Start date: 10/19/17 15:46:00 CDT, Duration: 2 doses or times, Stop date: Limited # of times Ondansetron 4 mg, Route: Inactive 10/19[facility] IVP, ONCE, 2017 [facility] Dosing Weight 90.909, kg, PRN Nausea & Vomiting, Start date: 10/19/17 15:46:00 CDT Diphenhydramine 12.5 mg, Route: Inactive 10/19[facility] IVP, Drug form: 2017 [facility] INJ, Q6H, Dosing Weight 90.909, kg, PRN Itching, Start date: 10/19/17 15:46:00 CDT, Duration: 30 day, Stop date: 11/18/17 15:45:00 CDT Albuterol 0.83 2.49 mg, Route: Inactive 10/19[facility] MG/ML Inhalant NEB, Q20Min, 2017 [facility] Solution Dosing Weight 90.909, kg, PRN Wheezing, Priority: STAT, Start date: 10/19/17 15:46:00 CDT, Duration: 30 day, Stop date: 11/18/17 15:45:00 CDT Promethazine 6.25 mg, Route: Inactive 10/19[facility] IVPB, ONCE, 2017 [facility] Dosing Weight 90.909, kg, PRN Nausea & Vomiting, Start date: 10/19/17 15:46:00 CDT Naloxone 0.4 mg, Route: Inactive IVP, Q2MIN, 2017 [facility] Dosing Weight 90.909, kg, PRN Narcotic Reversal, Start date: 10/19/17 15:46:00 CDT, Duration: 8 doses or times, Stop date: Limited # of times Flumazenil 0.2 mg, Route: Inactive IVP, PRN, 2018 [facility] Dosing Weight 90.909, kg, PRN Benzodiazepine Reversal, Initial dose, Start date: 10/19/17 15:46:00 CDT, Duration: 30 day, Stop date: 11/18/17 15:45:00 CDT Hydralazine 10 mg, Route: Inactive IVP, Q20Min, 2017 [facility] Dosing Weight 90.909, kg, PRN Elevated BP, Start date: 10/19/17 15:46:00 CDT, Duration: 2 doses or times, Stop date: Limited # of times esmolol 10 mg, Route: Inactive IVP, Q5Min, 2017 [facility] Dosing Weight 90.909, kg, PRN Other -See Comment, Start date: 10/19/17 15:46:00 CDT, Duration: 5 doses or times, Stop date: Limited # of times Labetalol 10 mg, Route: Inactive IVP, Q5Min, 2017 [facility] Dosing Weight 90.909, kg, PRN Elevated BP, Start date: 10/19/17 15:46:00 CDT, Duration: 5 doses or times, Stop date: Limited # of times Calcium Chloride 1,000 mL, Rate: Inactive 0.0014 MEQ/ML / 125 ml/hr, 2017 [facility] Potassium Infuse over: 8 Chloride 0.004 hr, Route: IV, MEQ/ML / Sodium Dosing Weight Chloride 0.103 90.909 kg, MEQ/ML / Sodium Total Volume: Lactate 0.028 1,000, Start MEQ/ML Injectable date: 10/19/17 Solution 15:46:00 CDT, Duration: 30 day, Stop date: 11/18/17 15:45:00 CDT, 2.15, m2 Sodium Chloride 500 mL, Rate: Inactive 0.9% IV 500 mL 25 ml/hr, 2017 [facility] Infuse over: 20 hr, Route: IV, Dosing Weight 90.909 kg, Total Volume: 500, Start date: 10/19/17 14:29:00 CDT, Duration: 30 day, Stop date: 11/18/17 14:28:00 CDT, 2.15, m2 Albuterol 0.833 3 mL, Route: Inactive MG/ML / NEB, Dosing 2017 [facility] Ipratropium Weight 90.909, [place] 0.167 kg, ONCE, STAT, MG/ML Inhalant Start date: Solution 10/19/17 14:28:00 CDT, Stop date: 10/19/17 14:28:00 CDT Calcium Chloride 1,000 mL, Rate: Inactive 0.0014 MEQ/ML / 25 ml/hr, 2017 [facility] Potassium Infuse over: 40 Chloride 0.004 hr, Route: IV, MEQ/ML / Sodium Dosing Weight Chloride 0.103 90.909 kg, MEQ/ML / Sodium Total Volume: Lactate 0.028 1,000, Start MEQ/ML Injectable date: 10/19/17 Solution 14:28:00 CDT, Duration: 30 day, Stop date: 11/18/17 14:27:00 CDT, 2.15, m2 Sucralfate 1 gm, 1 tab, Inactive Route: PO, Drug 2017 [facility] form: TAB, TID, Dosing Weight 90.909, [...] No Longer Route: PO, Drug Active 2017 [facility] form: TAB, TID, Dosing Weight 90.909, kg, Start date: 10/19/17 9:00:00 CDT, Duration: 30 day, Stop date: 11/17/17 17:00:00 CDT Risperdal 0.25 mg, 1 tab, Inactive Route: PO, Drug 2017 [facility] form: TAB, Daily, Dosing Weight 90.909, kg, Start date: 10/19/17 9:00:00 CDT, Duration: 30 day, Stop date: 11/17/17 9:00:00 CDTNotes: (Same as: Risperdal) sevelamer 3,200 mg, 4 Inactive tab, Route: PO, 2017 [facility] Drug form: TAB, TID, Start date: 10/19/17 9:00:00 CDT, Duration: 30 day, Stop date: 11/17/17 17:00:00 CDTNotes: Same as: Renvela NIFEdipine 90 mg 90 mg, 1 tab, Inactive oral tablet, Route: PO, Drug 2017 [facility] extended release form: ERTAB, Daily, Dosing Weight 90.909, kg, Start date: 10/19/17 9:00:00 CDT, Duration: 30 day, Stop date: 11/17/17 9:00:00 CDTNotes: (Same as: Adalat CC,Procardia XL) "Do Not Crush" "Avoid grapefruit and grapefruit juice" Nephro-Pawan 1 tab, Route: Inactive PO, Drug Form: 2017 [facility] TAB, Dosing Weight 90.909, kg, Daily, Start date: 10/19/17 9:00:00 CDT, Duration: 30 day, Stop date: 11/17/17 9:00:00 CDTNotes: (Same as: Nephro-Pawan Rx and Diatx) Give with food. Levetiracetam 500 500 mg, 1 tab, Inactive MG Oral Tablet Route: PO, Drug 2017 [facility] [Keppra] form: TAB, BID, Dosing Weight 90.909, kg, Start date: 10/19/17 9:00:00 CDT, Duration: 30 day, Stop date: 11/17/17 17:00:00 CDTNotes: (Same as:Keppra) Isosorbide 20 mg, 2 tab, Inactive Route: PO, Drug 2017 [facility] form: TAB, TID, Dosing Weight 90.909, kg, Start date: 10/19/17 9:00:00 CDT, Duration: 30 day, Stop date: 11/17/17 17:00:00 CDTNotes: (Same as:[place]et) Take on empty stomach/ full glass of water Folic Acid 1 mg, 1 tab, Inactive Route: PO, Drug 2017 [facility] form: TAB, Daily, Dosing Weight 90.909, kg, Start date: 10/19/17 9:00:00 CDT, Duration: 30 day, Stop date: 11/17/17 9:00:00 CDTNotes: (Same as: Folvite) Divalproex Sodium 125 mg, 1 cap, Inactive 125 MG Enteric Route: PO, Drug 2017 [facility] Coated Capsule form: CAP, BID, [Depakote] Dosing Weight 90.909, kg, Start date: 10/19/17 9:00:00 CDT, Duration: 30 day, Stop date: 11/17/17 17:00:00 CDTNotes: (Same as: Depakote Sprinkles) Do not confuse with 250mg capsule or tablets Do not crush. May sprinkle on food. Sensipar 30 mg, 1 tab, Inactive Route: PO, Drug 2017 [facility] form: TAB, Daily, Dosing Weight 90.909, kg, Start date: 10/19/17 9:00:00 CDT, Duration: 30 day, Stop date: 11/17/17 9:00:00 CDTNotes: (Same as: Sensipar) Cholecalciferol 2,000 IntlUnit, Inactive 2000 [facility] Oral 2 tab, Route: 2018 [place] Tablet PO, Drug form: TAB, Daily, Dosing Weight 90.909, kg, Start date: 10/19/17 9:00:00 CDT, Duration: 30 day, Stop date: 11/17/17 9:00:00 CDTNotes: Same as : Vitamin D3 Protonix 40 mg, 1 tab, Inactive Route: PO, Drug 2017 [facility] form: ECTAB, Before Breakfast, Dosing Weight 90.909, kg, Start date: 10/19/17 7:30:00 CDT, Duration: 30 day, Stop date: 11/17/17 7:30:00 CDTNotes: Tablet should not be chewed or crushed. (Same as: Protonix) Thyroxine 50 microgram, 1 Inactive tab, Route: PO, 2017 [facility] Drug form: TAB, [id number], Dosing Weight [...] No Longer Route: PO, Drug Active 2017 [facility] form: TAB, BID, Dosing Weight 90.909, kg, Start date: 10/18/17 21:00:00 CDT, Duration: 30 day, Stop date: 11/17/17 9:00:00 CDTNotes: (Same as: Lopressor) Ergocalciferol 50,000 Inactive 58737 UNT Oral IntlUnit, 1 2017 [facility] Capsule cap, Route: PO, Drug form: CAP, qWeek, Dosing Weight 90.909, kg, Start date: 10/18/17 19:00:00 CDT, Duration: 30 day, Stop date: 11/15/17 9:00:00 CDT 168 HR Clonidine 1 patch, Route: No Longer 0.0125 MG/HR TOP, Drug Form: Active 2017 [facility] Transdermal Patch ERFILM, Dosing Weight 90.909, kg, qWeek, Start date: 10/18/17 19:00:00 CDT, Duration: 30 day, Stop date: 11/15/17 9:00:00 CDTNotes: Patch delivers 0.3 mg/24 hours; Patch is applied weekly. [id number] . "Remove old patch before application of new patch" Aspirin 81 mg, 1 tab, No Longer Route: PO, Drug Active 2017 [facility] form: ECTAB, Daily, Dosing Weight 90.909, [...] Longer capsular IM, Drug Form: Active 2017 [facility] polysaccharide INJ, ONCALL, type 1 vaccine / Start date: pneumococcal 10/18/17 capsular 17:06:15 CDT, polysaccharide Stop date: type 10A vaccine 11/17/17 / pneumococcal 17:01:15 capsular CDTNotes: (Same polysaccharide as: Pneumovax type 11A vaccine 23) / pneumococcal Refrigerate capsular polysaccharide type 12F vaccine / pneumococcal capsular polysacchar Risperdal 0.5 mg, 1 tab, Inactive Route: PO, Drug 2017 [facility] form: TAB, Daily, Dosing Weight 90.909, kg, Priority: STAT, Start date: 10/18/17 16:45:00 CDT, Duration: 30 day, Stop date: 11/17/17 9:00:00 CDTNotes: (Same as: Risperdal) Albuterol 0.83 20 mg, Route: Inactive MG/ML Inhalant NEB, ONCE, 2018 [facility] Solution Dosing Weight 90.909, kg, Priority: STAT, Start date: 10/18/17 11:11:00 CDT, Stop date: 10/18/17 11:11:00 CDT Calcium Gluconate 1 gm, 50 mL, Inactive Route: IVPB2017 [facility] Drug form: INJ, ONCE, Dosing Weight 90.909, kg, Priority: STAT, Start date: 10/18/17 11:11:00 CDT, Stop date: 10/18/17 11:11:00 CDTNotes: WASTE: F/P - Sink; E - Municipal Trash Bin Sodium 50 mEq, 50 mL, Inactive Bicarbonate Route: IVP2017 [facility] Drug form: INJ, ONCE, Dosing Weight 90.909, kg, Priority: STAT, Start date: 10/18/17 11:11:00 CDT, Stop date: 10/18/17 11:11:00 CDTNotes: (sodium bicarb 8.4% (1 mEq/ml) 50 ml syringe) Thiamine 50 mg, 0.5 tab, Inactive [facility] Route: PO, Drug 2016 [facility] form: TAB, Daily, Dosing Weight 109.091, kg, Start date: 09/19/16 9:00:00 CDT, Duration: 30 day, Stop date: 10/18/16 9:00:00 CDTNotes: (Same As: Vitamin B1) Nephro-Pawan 1 tab, Route: Inactive [facility] PO, Drug Form: 2016 TAB, Dosing Weight 109.091, kg, Daily, Start date: 09/19/16 9:00:00 CDT, Duration: 30 day, Stop date: 10/18/16 9:00:00 CDTNotes: (Same as: Nephro-Pawan Rx and Diatx) Give with food. Isosorbide 30 mg, 1 tab, No Longer [facility] Route: PO, Drug Active 2016 [place] form: ERTAB, Daily, Dosing Weight 109.091, kg, Start date: 09/19/16 9:00:00 CDT, Duration: 30 day, Stop date: 10/18/16 9:00:00 CDTNotes: (Same as:Imdur) "Do Not Crush" Take on empty stomach/ full glass of water. Do not crush Folic Acid 1 mg, 1 tab, Inactive [facility] Route: PO, Drug 2016 [place] form: TAB, Daily, Dosing Weight 109.091, kg, Start date: 09/19/16 9:00:00 CDT, Duration: 30 day, Stop date: 10/18/16 9:00:00 CDTNotes: (Same as: Folvite) ferrous sulfate 325 mg, 1 tab, Inactive [facility] Route: PO, Drug 2016 [facility] form: ECTAB, Daily, Dosing Weight 109.091, kg, Start date: 09/19/16 9:00:00 CDT, Duration: 30 day, Stop date: 10/18/16 9:00:00 CDTNotes: Give with food. "Do Not Crush" clopidogrel 75 mg, 1 tab, Inactive Route: PO, Drug 2016 [facility] form: TAB, Daily, Dosing Weight [...] No Longer Greater IntlUnit, 1 Active 2016 cap, Route: PO, Drug form: CAP, QFri, Dosing Weight 109.091, kg, Start date: 09/18/16 21:00:00 CDT, Duration: 30 day, Stop date: 10/16/16 21:00:00 CDTNotes: (Same as: Vitamin D) "Do Not Crush" atorvastatin 40 mg, 1 tab, No Longer [facility] Route: PO, Drug Active 2016 [facility] form: TAB, Bedtime, Dosing Weight [...] Longer Greater 500 MG Chewable tab, Route: Active 2016 Tablet CHEW, Drug form: CHEWTAB, TID, Dosing Weight 109.091, kg, PRN Indigestion, Start date: 09/18/16 12:12:00 CDT, Duration: 30 day, Stop date: 10/18/16 12:11:00 CDTNotes: (Same As: Tomy) Calcium Carbonate 500 rp=177 mg elemental calcium Dose= mg calcium carbonate ( mg elemental calcium) Magnesium Sulfate 2 gm, 50 mL, No Longer [facility] Route: IV, Drug Active 2016 form: INJ, PRN, Dosing Weight 109.091, kg, PRN Abnormal Lab Result, Start date: 09/18/16 10:33:00 CDT, Duration: 30 day, Stop date: 10/18/16 10:32:00 CDT, to be given IV "PRN" only for s. magnesium if Notes: WASTE: F/P - Sink; E - Municipal Trash Bin Lactulose 667 20 gm, 30 [...] Greater chloride Route: PO, Drug Active 2016 form: ERTAB, PRN, Dosing Weight 109.091, kg, [...] 10:20:00 CDTNotes: (Same as: Procrit) epoetin aniket 16473 unit/1 ml VL. For dialysis use only. (Procrit) WASTE: F/P - Red; E -Red MEDICATION WASTE Product Size: 78211 unit Product Wasted: ___ unit sodium chloride 1,000 mL, Rate: No Longer [facility] 0.9% 1000 ml INJ prn on hdx only Active 2016 [facility] 1,000 mL ml/hr, Route: IV, Dosing Weight 109.091 kg, Total Volume: 1,000, Start date: 09/18/16 10:21:00 CDT, Duration: 30 day, Stop date: 10/18/16 10:20:00 CDT albumin human 25% 12.5 gm, 50 mL, No Longer [facility] intravenous Route: IVPB, Active 2016 solution Drug form: INJ, PRN, Dosing Weight [...] Stop date: 10/18/16 10:20:00 CDTNotes: (Same as: Ildefonsomplar) MEDICATION WASTE Product Size: 5 microgram Product [...] Route: No Longer Greater IM, Drug form: [place] 2016 [facility] PDR/INJ, PRN, Dosing Weight 109.091, kg, PRN Blood Glucose Results, Start date: 09/18/16 2:25:00 CDT, Duration: 30 day, Stop date: 10/18/16 2:24:00 CDT Dextrose 50% 25 gm, 50 mL, No Longer Greater Syringe Route: IVP, [facility] 2016 [facility] Drug Form: INJ, Dosing Weight 109.091, kg, PRN, PRN Blood Glucose Results, Start date: 09/18/16 2:25:00 CDT, Duration: 30 day, Stop date: 10/18/16 2:24:00 CDT Acetaminophen 650 mg, 2 tab, No Longer [facility] Route: PO, Drug [facility] 2016 [facility] form: TAB, Q4H, Dosing Weight 109.091, kg, PRN Pain 1-3/Temp > 100.4 F, Start date: 09/18/16 2:08:00 CDT, Duration: 30 day, Stop date: 10/18/16 2:07:00 CDTNotes: Do not exceed 4 gm/day. (Same as: Tylenol) Ondansetron 4 mg, 2 mL, No Longer Greater Route: IVP, Active 2016 [facility] Drug form: INJ, Q6H, Dosing Weight 109.091, kg, PRN Nausea & Vomiting, Start date: 09/18/16 2:08:00 CDT, Duration: 30 day, Stop date: 10/18/16 2:07:00 CDTNotes: (Same as: Nicole) MEDICATION WASTE Product Size: 4 mg Product Wasted: ___ mg sodium chloride 250 mL, Rate: No Longer Greater 0.9% INJ 250 mL Development Vice President for use [facility] 2016 [facility] with blood product administration. , Dosing Weight 109.091, kg, Route: IV, Total Volume: 250, Priority: Routine, Start Date: 09/17/16 23:00:00 CDT, Duration: 30 day, Stop date: 10/17/16 22:59:00 CDT, Replace Every: 24 hr Hydralazine 10 mg, 0.5 mL, Inactive [facility] Route: IVP, 2016 Drug form: INJ, Q20Min, Dosing Weight 104, kg, PRN Elevated BP, Start date: 06/08/16 9:49:00 [employer], Duration: 2 doses or times, Stop date: Limited # of timesNotes: (Same as: Apresoline) Push over 5 minutes Hydromorphone 0.5 mg, 0.25 Inactive [facility] Greater mL, Route: IVP2016 Drug form: INJ, Q5Min, Dosing Weight 104, kg, PRN Pain Score 7-10, Start date: 06/08/16 9:49:00 [employer], Duration: 4 doses or times, Stop date: Limited # of timesNotes: Same as Dilaudid Oxycodone 10 mg, 2 tab, Inactive 06/08/ MH [facility] Route: PO, Drug 2016 form: TAB, Q4H, Dosing Weight 104, kg, PRN Pain Score 7-10, Start date: 06/08/16 9:49:00 [employer], Duration: 30 day, Stop date: 07/08/16 9:48:00 CDTNotes: (Same as: Roxicodone) Labetalol 10 mg, 2 mL, Inactive MH Route: IVP2016 Drug form: INJ, Q5Min, Dosing Weight 104, kg, PRN Elevated BP, Start date: 06/08/16 9:49:00 [employer], Duration: 5 doses or times, Stop date: Limited # of times Ondansetron 4 mg, 2 mL, Inactive MH Route: IVP2016 Drug form: INJ, ONCE, Dosing Weight 104, kg, PRN Nausea & Vomiting, Start date: 06/08/16 9:49:00 CSTNotes: (Same as: Zofran) MEDICATION WASTE Product Size: 4 mg Product Wasted: ___ mg Naloxone 0.4 mg, 1 mL, Inactive 02/20/ MH Greater Route: IVP2016 Drug form: INJ, Q2MIN, Dosing Weight 104, kg, PRN Narcotic Reversal, Start date: 06/08/16 9:49:00 [employer], Duration: 8 doses or times, Stop date: Limited # of timesNotes: Same as Narcan Flumazenil 0.2 mg, 2 mL, Inactive [facility] Greater Route: IVP2016 Drug form: INJ, PRN, Dosing Weight 104, kg, PRN Benzodiazepine Reversal, Initial dose, Start date: 06/08/16 9:49:00 [employer], Duration: 30 day, Stop date: 07/08/16 10:48:00 CDTNotes: (Same as: Romazicon) Dexamethasone 4 mg, 1 mL, Inactive [facility] Greater Route: IVP2016 Drug form: INJ, ONCE, Dosing Weight 104, [...] #3] heparin (ANES) Route: IV, Drug Inactive 06/08/ MH [facility] form: INJ, 2016 ONCE, Stop date: 06/08/16 9:22:00 [employer] metoprolol (ANES) Route: IV, Drug Inactive 06/08/ MH [facility] form: INJ, 2016 ONCE, Stop date: 06/08/16 9:22:00 [employer] ketAMINE (ANES) Route: IV, Drug Inactive 06/08/ MH Greater form: INJ, 2016 ONCE, Stop date: 06/08/16 9:18:00 [employer] propofol (ANES) Route: IV, Drug Inactive 06/08/ [facility] form: INJ, 2016 ONCE, Stop date: 06/08/16 9:03:00 [employer] ceFAZolin (ANES) Route: IV, Drug Inactive Greater form: INJ, 2016 ONCE, Stop date: 06/08/16 9:03:00 [employer] ondansetron Route: IV, Drug Inactive Greater (ANES) form: INJ, 2016 ONCE, Stop date: 06/08/16 9:02:00 [employer] sodium chloride Route: IV, Inactive [facility] 0.9% 500 ml INJ Total Volume: 2016 (ANES) 500, Start date: 06/08/16 8:20:00 [employer], Stop date: 06/08/16 9:20:00 [employer] Sodium Chloride 500 mL, Route: Inactive Greater 0.154 MEQ/ML IV, ONCE, 2016 [facility] Injectable Dosing Weight Solution 104.545 kg, Start date: 06/08/16 7:52:00 [employer], Stop date: 06/08/16 7:52:00 [employer], Bolus thiamine 50 mg 50 mg=1 tab, Active Greater oral tablet PO, Daily, # 7 2016 [facility] tab, 0 Refill(s) Folic Acid 1 mg, PO, Active Greater Daily, 0 2016 [facility] Refill(s) clopidogrel 75 mg, PO, Active Greater Daily, 0 2016 [facility] Refill(s) 24 HR Nifedipine 30 mg=1 tab, Active Greater 30 MG Extended PO, Daily, # 30 2016 [facility] Release Tablet tab, 0 Refill(s) Furosemide 40 mg, PO, BID, Active Greater 0 Refill(s) 2016 [facility] Isosorbide 30 mg, PO, Active Greater Daily, 0 2016 [facility] Refill(s) ferrous sulfate 325 mg, PO, Active Greater Daily, 0 2016 [facility] Refill(s) Calcitriol 0.25 microgram, Active Greater PO, Daily, 0 2016 [facility] Refill(s) loperamide 1 mg/5 2 mg=10 ml, PO, Active Greater mL oral liquid QID, PRN Loose 2016 [facility] Stools, # 120 ml, 0 Refill(s) Loperamide 2 mg, PO, Q4H, Active Greater PRN, 0 2016 Refill(s) tramadol 50 mg=1 tab, Active Greater hydrochloride 50 PO, Q6H, PRN 2016 [facility] Oral Tablet pain, # 20 tab, [Ultram] 0 Refill(s) Calcium Carbonate 1,000 mg=2 tab, Active Greater 500 MG Chewable CHEW, TID, PRN 2016 Tablet for indigestion, # 30 tab, 0 Refill(s) Nystatin 100 1 appl, TOP, Active Greater UNT/MG Topical BID, # 30 gm, 1 2016 Powder Refill(s) Nephro-Pawan 1 tab, PO, Active Greater Daily, 0 2016 Refill(s) RenaGel 1,600 mg, PO, Active Greater TID, 0 2016 Refill(s) Levetiracetam 500 mg, PO, Active Greater BID, 0 2016 Refill(s) Aspirin 81 MG 81 mg, 1 tab, Inactive Enteric Coated Route: PO, Drug 2014 Tablet [...] Route: SUB-Q, Active 2014 Drug form: INJ, [id number], Dosing Weight 104.545, kg, Start date: 05/18/14 [...] Greater Route: PO, Drug Active 2014 form: TAB, Q8H, Dosing Weight 104.545, kg, PRN Nausea & Vomiting, Start date: 05/18/14 10:08:00, Duration: 30 day, Stop date: 06/17/14 10:07:00Notes: (Same as: Zofran) Nitroglycerin 0.4 mg, 1 tab, No Longer Greater Route: SL, Drug Active 2014 form: TAB, Q5Min, Dosing Weight 104.545, kg, PRN Chest Pain, Start date: 05/18/14 10:08:00, Duration: 3 doses or times, Stop date: Limited # of timesNotes: (Same as:Nitroquick, Nitrostat) "Do Not Crush" Sublingual tablet metoprolol 50 mg, 1 tab, Inactive tartrate Route: PO, Drug 2014 form: TAB, ONCE, Dosing Weight 104.545, kg, Priority: STAT, Start date: 05/18/14 8:35:00, Stop date: 05/18/14 8:35:00Notes: (Same as: Lopressor) Allergies, Adverse Reactions, Alerts Substance Category Reaction Severity Reaction Status Date Comments Source type Reported Immunizations Immunization Date Given Site Status Last Updated Comments Source Results Order Name Results Value Reference Date Interpretation Comments Source Range CHEM PANEL eGFR 10/19 Result Comment: The eGFR is calculated using the CKD-EPI formula. In most young, healthy individuals the eGFR will be >90 mL/ min/1.73m2. The eGFR declines with age. An eGFR of 60-89 may be normal in [facility] mL/min/1.2018 some populations, particularly the elderly, for whom the CKD-EPI formula has not been extensively validated. Use of the eGFR is not recommended in the following populations: [facility] 3m2 Individuals with unstable creatinine concentrations, [...] Lvl 101 meq/L 95 - 109 10/19 [facility] CHEM PANEL Potassium 5.0 meq/L 3.5 - 5.1 10/19 [facility] Lvl /2017 [facility] CHEM PANEL Sodium Lvl 141 meq/L 135 - 145 10/19 [facility] CHEM PANEL Creatinine 9.89 mg/dL 0.50 - 10/19 [facility] Lvl 1.40 /2017 [facility] CHEM PANEL BUN 56 mg/dL 7 - 22 10/19 [facility] CHEM PANEL AGAP 17.0 meq/L 10.0 - 10/19 MH 20.0 /2017 [facility] CHEM PANEL Calcium Lvl 8.7 mg/dL 8.5 - 10.5 10/19 [facility] CHEM PANEL CO2 28 meq/L 24 - 32 10/19 [facility] CHEM PANEL Glucose Lvl 91 mg/dL 70 - 99 10/19 [facility] IMMUNOLOGY Hep Bs Ag Negative Negative 10/18 [facility] *NA* (10/18/17 12:25 PM) CHEM PANEL Uric Acid 4.3 mg/dL 3.8 - 8.0 09/18 [facility] IMMUNOLOGY Hep Bs Ag Negative Negative 09/18 [facility] *NA* (09/18/16 2:20 PM) BLOOD BANK ABO/Rh B POS 09/18 [facility] RESULTS [facility] BLOOD BANK Antibody Negative 09/18 [facility] RESULTS Scr [facility] (09/18/16 12:41 AM) BLOOD BANK RBC product Product available 09/18 Result Comment: 2016 01:53 [id number] Called [place] begum [facility] (09/17/16 11:00 PM) ELECTROLYT AGAP 14.2 meq/L 10.0 - 09/18 [facility] ES 20.0 [facility] ELECTROLYT B/C Ratio 7 6 - 25 09/18 [facility] ES [facility] ELECTROLYT A/G Ratio 0.8 0.7 - 1.6 09/18 [facility] Greater [facility] ELECTROLYT Globulin 3.7 g/dL 2.7 - 4.2 09/18 [facility] ELECTROLYT eGFR 6 09/18 Result Comment: The eGFR is calculated using the CKD-EPI formula. In most young, healthy individuals the eGFR will be >90 mL/ min/1.73m2. The eGFR declines with age. An eGFR of 60-89 may be normal in [facility] ES mL/min/1.7 some populations, particularly the elderly, for whom the CKD-EPI formula has not been extensively validated. Use of the eGFR is not recommended in the following populations: [facility] 3m2 Individuals with unstable creatinine [...] g/dL 3.5 - 5.0 / MH Greater [facility] ELECTROLYT Bili Total 0.3 mg/dL 0.2 - 1.3 / MH Greater [facility] ELECTROLYT ALT 20 unit/L 0 - 65 06/ MH Greater [facility] ELECTROLYT AST 19 unit/L 0 - 37 06/ MH Greater [facility] ELECTROLYT Alk Phos 35 unit/L 39 - 136 / MH Greater [facility] ELECTROLYT Chloride Lvl 105 meq/L 95 - 109 / MH Greater [facility] ELECTROLYT Potassium 4.2 meq/L 3.5 - 5.1 / MH [facility] ES Lvl [facility] ELECTROLYT Total 6.8 g/dL 6.4 - 8.4 / [facility] ES Protein [facility] ELECTROLYT Calcium Lvl 7.9 mg/dL 8.5 - 10.5 06/ MH Greater [facility] ELECTROLYT CO2 26 meq/L 24 - 32 06/ MH Greater [facility] ELECTROLYT Sodium Lvl 141 meq/L 135 - 145 06/ [facility] ELECTROLYT BUN 79 mg/dL 7 - 22 06/ [facility] Greater [facility] ELECTROLYT Creatinine 10.90 0.50 - 06/ [facility] ES Lvl mg/dL 1.40 /2016 [facility] ELECTROLYT Glucose Lvl 129 mg/dL 70 - 99 06/02 [facility] HEMATOLOGY RBC Morph Normal 09/18 (09/17/16 9:30 PM) HEMATOLOGY Plt Morph Normal 09/18 (09/17/16 9:30 PM) HEMATOLOGY Eosinophils 3.3 % 0.0 - 4.0 06/ HEMATOLOGY Basophils 1.1 % 0.0 - 1.0 06/ HEMATOLOGY Lymphocytes 18.5 % 20.0 - 06 [facility] 40.0 /2016 [place] HEMATOLOGY Basophils # 0.1 K/CMM 0.0 - 0.2 06/ HEMATOLOGY Segs-Bands # 3.3 K/CMM 1.5 - 8.1 06 HEMATOLOGY Lymphocytes 0.9 K/CMM 1.0 - 5.5 06 HEMATOLOGY Eosinophils 0.2 K/CMM 0.0 - 0.5 06 HEMATOLOGY Monocytes # 0.4 K/CMM 0.0 - 0.8 06 HEMATOLOGY Monocytes 7.9 % 2.0 - 12.0 06/ HEMATOLOGY Segs 69.2 % 45.0 - 06 [facility] 75.0 /2016 [place] HEMATOLOGY PTT 45.0 s 22.9 - 09/18 [facility] 35.8 /2016 HEMATOLOGY PT 13.2 s 12.0 - 09/18 [facility] 14.7 HEMATOLOGY INR 0.98 0.85 - 09/18 [facility] 1.17 HEMATOLOGY RDW 18.5 % 11.5 - 06 [facility] 14.5 [place] HEMATOLOGY Platelet 202 K/CMM 133 - 450 06 HEMATOLOGY MPV 8.5 fL 7.4 - 10.4 06 HEMATOLOGY RBC X 10x6 2.13 M/CMM 4.70 - 09/18 [facility] 6.10 HEMATOLOGY WBC X 10x3 4.8 K/CMM 3.7 - 10.4 06/02 HEMATOLOGY Hct 18.6 % 42.0 - 06/02 [facility] 54.0 /2016 [place] HEMATOLOGY MCV 87.5 fL 80.0 - 0602 [facility] 94.0 /2016 [place] HEMATOLOGY Hgb 6.3 g/dL 14.0 - 09/18 Result 18.0 Comment: [facility] Critical Result(s) called to Issa DEJESUS at 09/17/2016 22:10 by. Read back OK. HEMATOLOGY MCH 29.6 pg 27.0 - 09/18 [facility] 31.0 [facility] HEMATOLOGY MCHC 33.8 g/dL 32.0 - 09/18 [facility] 36.0 [facility] CHEM PANEL eGFR 61 05/19 [...] is not recommended in the following populations: [facility] 3m2 Individuals with unstable creatinine [...] Potassium 4.0 meq/L 3.5 - 5.1 05/19 [facility] CHEM PANEL Chloride Lvl 112 meq/L 95 - 109 05/19 [facility] CHEM PANEL CO2 25 meq/L 24 - 32 05/19 [facility] CHEM PANEL Calcium Lvl 8.9 mg/dL 8.5 - 10.5 05/19 [facility] CHEM PANEL Sodium Lvl 144 meq/L 135 - 145 05/19 [facility] CHEM PANEL Glucose Lvl 121 mg/dL 70 - 99 05/19 4Interpretive Data: Adult reference range values reflect the clinical guidelines of the [place] [employer]. [facility] CHEM PANEL BUN 22 mg/dL 7 - 22 05/19 [facility] CHEM PANEL Creatinine 1.5 mg/dL 0.5 - 1.4 05/19 [facility] CHEM PANEL AGAP 11.0 meq/L 10.0 - 05/19 [facility] 20.0 CARDIAC CK MB Index 1.2 0.0 - 2.5 05/19 [facility] [place] CARDIAC CK MB 1.2 ng/mL 0.5 - 3.6 05/19 [facility] [place] CARDIAC Troponin-I 0.02 ng/mL 0.00 - 05/19 [facility] ENZYMES 0.40 [facility] CARDIAC Total CK 97 unit/L - 05/19 [facility] [place] CARDIAC CK MB Index 1.0 0.0 - 2.5 05/18 [facility] [place] CARDIAC CK MB 1.1 ng/mL 0.5 - 3.6 05/18 [facility] [place] CARDIAC Troponin-I 0.02 ng/mL 0.00 - 05/18 [facility] ENZYMES 0.40 CARDIAC Total CK 105 unit/L - 05/18 [facility] ENZYMES [facility] CHEM PANEL eGFR 46 05/18 2Result Comment: The eGFR is calculated using the CKD-EPI formula. In most young, healthy individuals the eGFR will be >90 mL/ min/1.73m2. The eGFR declines with age. An eGFR of 60-89 may be normal in [facility] mL/min/1.7 some populations, particularly the elderly, for [...] mg/dL 0.5 - 1.4 05/18 [facility] Lvl [facility] DRUG U Ruchi Scr Negative Negative 05/18 [facility] SCREEN [place] *NA* (05/18/14 10:28 AM) [...] Platelet 202 K/CMM 133 - 450 05/18 [facility] HEMATOLOGY PTT 36.5 s 22.9 - 05/18 9Interpretive 35.8 Data: Heparin [facility] Therapeutic Range: 57 - 92 Seconds HEMATOLOGY INR 1.02 0.85 - 05/18 7Interpretive Data: RECOMMENDED RANGES FOR PROTIME INR: 1. 2.0-3.0 for most medical and surgical thromboembolic states. [facility] 2.5-3.5 for artificial heart valves and recurrent embolism. INR SHOULD BE USED ONLY FOR PATIENTS ON STABLE ANTICOAGULANT THERAPY. HEMATOLOGY PT 13.4 s 12.0 - 05/18 [facility] 14.7 [facility] LIPIDS VLDL 17 05/18 [facility] LIPIDS LDL 44 mg/dL <=99 mg/dL 05/18 MH (Calculated) [facility] LIPIDS Chol 103 mg/dL <=199 05/18 MH [facility] mg/dL LIPIDS Trig 85 mg/dL <=149 05/18 [facility] mg/dL LIPIDS HDL 42 mg/dL >=61 mg/dL 05/18 [facility] LIPIDS CHD Risk 2.45 4.00 - 05/18 [facility] 7. [facility] CARDIAC Troponin-I 0.02 ng/mL 0.00 - 05/18 [facility] ENZYMES 0.40 [facility] CARDIAC CK MB 1.3 ng/mL 0.5 - 3.6 05/18 [facility] ENZYMES [facility] CARDIAC Total CK 103 unit/L 12 - 191 05/18 EN[facility]YMES [facility] CARDIAC CK MB Index 1.3 0.0 - 2.5 05/18 EN[facility]ES [facility] CHEM PANEL eGFR 46 05/18 [...] is not recommended in the following populations: [facility] 3m2 Individuals with unstable creatinine [...] Lvl 8.6 mg/dL 8.5 - 10.5 05/18 [facility] CHEM PANEL CO2 24 meq/L 24 - 32 05/18 [facility] CHEM PANEL Total 7.1 g/dL 6.4 - 8.4 05/18 Protein [facility] CHEM PANEL Chloride Lvl 109 meq/L 95 - 109 05/18 [facility] CHEM PANEL Potassium 3.8 meq/L 3.5 - 5.1 05/18 Lvl [facility] CHEM PANEL A/G Ratio 0.8 0.7 - 1.6 05/18 [facility] CHEM PANEL Bili Total 0.2 mg/dL 0.2 - 1.3 05/18 [facility] CHEM PANEL Globulin 4.0 g/dL 2.0 - 4.0 05/18 [facility] CHEM PANEL B/C Ratio 15 6 - 25 05/18 [facility] CHEM PANEL AGAP 11.8 meq/L 10.0 - 05/18 20.0 [facility] CHEM PANEL Alk Phos 44 unit/L 39 - 136 05/18 [facility] CHEM PANEL AST 13 unit/L 0 - 37 05/18 [facility] CHEM PANEL ALT 15 unit/L 0 - 65 05/18 [facility] CHEM PANEL Sodium Lvl 141 meq/L 135 - 145 05/18 [facility] CHEM PANEL Creatinine 1.9 mg/dL 0.5 - 1.4 05/18 [facility] CHEM PANEL Albumin Lvl 3.1 g/dL 3.5 - 5.0 05/18 [facility] CHEM PANEL BUN 28 mg/dL 7 - 22 05/18 [facility] CHEM PANEL Glucose Lvl 197 mg/dL 70 - 99 05/18 5Interpretive Data: Adult reference range values reflect the clinical guidelines of the [place] [employer]. [facility] HEMATOLOGY MCH 27.4 pg 27.0 - 05/18 31.0 [facility] HEMATOLOGY RDW 17.6 % 11.5 - 05/18 14. [facility] HEMATOLOGY MCHC 33.2 g/dL 32.0 - 05/18 36.0 [facility] HEMATOLOGY MPV 10.8 fL 7.4 - 10.4 05/18 [facility] HEMATOLOGY Platelet 208 K/CMM 133 - 450 05/18 [facility] HEMATOLOGY WBC 4.6 K/CMM 3.7 - 10.4 05/18 [facility] HEMATOLOGY Hgb 9.4 g/dL 14.0 - 05/18 18.0 [facility] HEMATOLOGY RBC 3.43 M/CMM 4.70 - 05/18 [facility] 6. [facility] HEMATOLOGY MCV 82.6 fL 80.0 - 05/18 94.0 [facility] HEMATOLOGY Hct 28.3 % 42.0 - 05/18 54.0 [facility] HEMATOLOGY INR 0.96 0.85 - 05/18 8Interpretive Data: RECOMMENDED RANGES FOR PROTIME INR: . 2.0-3.0 for most medical and surgical thromboembolic states. [place] 2.5-3.5 for artificial heart valves and recurrent embolism. INR SHOULD BE USED ONLY FOR PATIENTS ON STABLE ANTICOAGULANT THERAPY. HEMATOLOGY PT 12.8 s 12.0 - 05/18 [facility] 14.7 HEMATOLOGY Basophils # 0.0 K/CMM 0.0 - 0.2 05/18 HEMATOLOGY Eosinophils 0.2 K/CMM 0.0 - 0.5 05/18 [facility] HEMATOLOGY Segs-Bands # 2.6 K/CMM 1.5 - 8.1 05/18 HEMATOLOGY Lymphocytes 1.4 K/CMM 1.0 - 5.5 05/18 MH HEMATOLOGY Monocytes # 0.4 K/CMM 0.0 - 0.8 05/18 HEMATOLOGY Lymphocytes 29.4 % 20.0 - 05/18 [facility] 40.0 [facility] HEMATOLOGY Monocytes 8.8 % 2.0 - 12.0 05/18 HEMATOLOGY Eosinophils 3.5 % 0.0 - 4.0 05/18 [facility] HEMATOLOGY Basophils 0.8 % 0.0 - 1.0 05/18 [facility] HEMATOLOGY Segs 57.5 % 45.0 - 05/18 [facility] 75.0 [facility] Vital Signs Vital Sign Value Date Comments Source Systolic (mm Hg) 138 10/19/2017 [facility] Diastolic (mm Hg) 85 10/19/2017 [facility] Respitory Rate 10 10/19/2017 [facility] Systolic (mm Hg) 140 10/19/2017 [facility] Diastolic (mm Hg) 87 10/19/2017 [facility] Respitory Rate 15 10/19/2017 [facility] Systolic (mm Hg) 137 10/19/2017 [facility] Diastolic (mm Hg) 79 10/19/2017 [facility] Respitory Rate 19 10/19/2017 [facility] Heart Rate 65 10/19/2017 [facility] Heart Rate 61 10/19/2017 [facility] Temperature Oral (F) 97.7 F 10/19/2017 [facility] Heart Rate 58 10/19/2017 [facility] Temperature Oral (F) 98 F 10/19/2017 [facility] Temperature Oral (F) 97.5 F 10/19/2017 [facility] BMI Calculated 27.95 10/18/2017 [facility] Weight 90.909 10/18/2017 [facility] Height 180.34 cm 10/18/2017 [facility] Systolic [...] [facility] [place] BMI Calculated 32.15 05/18/2014 [facility] Encounters Location Location Encounter Encounter Reason Attending ADM DC Status Source Details Type Number For Provider Date Date Visit [facility] [id number] Gordonyar 05/18 05/20 Kenneth Observation Lesviai /2014 [facility] [id number] Eddie 06/08 06/08 Kenneth Butler /2016 [facility] Observation [id number] Youngestrella 09/18 09/19 Kenneth Randall /2016 [facility] Observation [id number] Joshuaanendra 10/18 10/19 Kenneth Bonds /2017 [facility] Procedures Procedure Code Date Perfomer Comments Source Adjustment of [id number] [facility] intraluminal device [place] of arteriovenous fistula
--- NOTE | 2018-03-15 11:37 | RAD REPORT ---
EXAM DESCRIPTION: RAD - Chest Single View - 03/15/2018 11:20 am CLINICAL HISTORY: Cough COMPARISON: January 01 TECHNIQUE: AP portable chest image was obtained . FINDINGS: No focal consolidation. There is slight motion degradation on this examination. No signifi cant pulmonary edema or volume overload identifiable at this time. Right-sided dialysis catheter is i n place. Heart size is prominent with upper lobe vasculature within normal range. No measurable pleur al effusion and no pneumothorax. No acute bony abnormality seen. No acute aortic findings suspected. IMPRESSION: Heart, vasculature and lung markings appear to be baseline. No significant pulmonary marilee ma or volume overload at this time.
--- NOTE | 2018-03-15 12:09 | EKG ---
Test Date: 2018-03-15 Test Time: 10:55:57 Dry Janitor: ASHKAN MEASUREMENT RESULTS: Intervals: Rate: 51 [place]: QRSD: 138 QT: 476 QTc: 438 [place]: P: [place]: QRS: -64 T: 63 INTERPRETIVE STATEMENTS: Wide QRS rhythm Left axis deviation Nonspecific intraventricular block Abnormal ECG Compared to ECG 01/01/2018 16:51:23 Uncertain supraventricular rhythm now present Left-axis deviation now present Sinus rhythm no longer present Atrial premature complex(es) no longer present Left ventricular hypertrophy no longer present Prolonged QT interval no longer present Electronically Signed On 03-15-18 12:08:59 ARMATURE VARNISHER by Ricardo Ibanez
[2018-03-15 13:08] LABS: Absolute Lymphocytes (CBC) 0.4 K/uL (0.7-4.9); Absolute Monocytes 0.4 K/uL (0.1-1.3); Absolute Neutrophil 5.4 K/uL (1.8-8.0); Basophils % 0.5 % (0-1.3); Eosinophils % 0.6 % (0-4.4); Hematocrit 37.3 % (39.6-49.0); Lymphocytes % 6.8 % (15.3-44.8); MCH 30.3 pg (27.0-35.0); MCV 92.1 fL (80-100); MPV 8.2 fL (7.6-11.3); Monocytes % 6.5 % (3.3-12.3); RBC Red Blood Cell Count 4.05 M/uL (4.33-5.43)
--- NOTE | 2018-03-15 13:41 | EDPHYS ---
Physician Documentation [facility] Name: Juan Lozano Age: 57 yrs Sex: Male : 1960 Arrival Date: 03/15/2018 Time: 10:41 Bed 8 Private MD: ED Physician Eris Karimi HPI: 03/15 10:48 This 57 yrs old Black Male presents to ER via EMS with complaints of Altered Mental gail Status - Missed dialysis. 10:48 The patient presents with confusion, trouble concentrating. Onset: The symptoms/episode gail began/occurred 2 day(s) ago. Possible causes: unknown. Associated signs and symptoms: The patient has no apparent associated signs or symptoms. Current symptoms: In the emergency department the patient's symptoms have improved, moderately, is more alert. Patient's baseline: Neuro:. The patient has not experienced similar symptoms in the past. 10:52 missed 2 dialysis sessions, decreased loc. Severity of symptoms: At their worst the gail symptoms were mild in the emergency department the symptoms have improved moderately. Historical: - Allergies: 11:09 NKA; ph - Home Meds: 11: aspirin 81 mg Oral chew 1 tab once daily [Active]; cholecalciferol (vitamin D3) 1,000 ph unit Oral cap [Active]; clonidine 0.3 mg/24 hr transdermal ptwk once weekly on Mon [Active]; Depakote Sprinkles 125 mg Oral cpSP 2 caps every 12 hours [Active]; folic acid 1 mg Oral tab 1 tab once daily [Active]; hydralazine 50 mg Oral tab TID [Active]; isosorbide dinitrate 20 mg Oral tab 1 tab 3 times per day [Active]; Keppra 500 mg Oral tab 1 tab 2 times per day [Active]; levothyroxine 50 mcg tab 1 tab once daily [Active]; metoprolol tartrate 100 mg Oral tab 1 tab 2 times per day [Active]; tramadol 50 mg Oral tab 2 tabs every 6 hours [Active]; nystatin 100,000 unit/gram Topical oint 2 times per day [Active]; olopatadine 0.1 % ophthalmic drop every morning [Active]; Protonix 40 mg Oral TbEC 1 tab once daily [Active]; sevelamer HCl 800 mg Oral 2 tabs take 3 times a day, take 5 caps to equal 4000mg [Active]; sevelamer HCl oral 800 mg oral 2 tabs 3 times a day w/ snacks [Active]; Risperdal 0.25 mg Oral tab 1 tabs daily [Active]; risperidone 0.5 mg Oral TbDL once daily [Active]; cinacalcet 30 mg Oral 2 tabs nightly [Active]; trazodone 50 mg Oral tab nightly [Active]; Ativan 1 mg Oral tab 1 tab once daily [Active]; - PMHx: 11:09 Anemia; Bipolar disorder; Chronic ischemic heart disease; CVA; Diabetes - NIDDM; ph Dialysis; epilepsy; Hypertension; TIA; - PSHx: 11:09 Dialysis catheter to chest; ph - Immunization history:: Adult Immunizations unknown. - Social history:: Smoking status: Patient/guardian denies using tobacco. - Family history:: not pertinent. - Ebola Screening: : No symptoms or risks identified at this time. ROS: 10:49 Constitutional: Negative for fever, chills, and weight loss, Eyes: Negative for injury, gail pain, redness, and discharge, ENT: Negative for injury, pain, and discharge, Neck: Negative for injury, pain, and swelling, Cardiovascular: Negative for chest pain, palpitations, and edema, Respiratory: Negative for shortness of breath, cough, wheezing, and pleuritic chest pain, Abdomen/GI: Negative for abdominal pain, nausea, vomiting, diarrhea, and constipation, Back: Negative for injury and pain, : Negative for injury, bleeding, discharge, and swelling, MS/Extremity: Negative for injury and deformity, Skin: Negative for injury, rash, and discoloration, Psych: Negative for depression, anxiety, suicide ideation, homicidal ideation, and hallucinations, Allergy/Immunology: Negative for hives, rash, and allergies, Endocrine: Negative for neck swelling, polydipsia, polyuria, polyphagia, and marked weight changes, Hematologic/Lymphatic: Negative for swollen nodes, abnormal bleeding, and unusual bruising. 10:49 Neuro: Positive for altered mental status, weakness. Exam: 10:49 Constitutional: This is a well developed, well nourished patient who is awake, alert, gail and in no acute distress. Head/Face: Normocephalic, atraumatic. Eyes: Pupils equal round and reactive to light, extra-ocular motions intact. Lids and lashes normal. Conjunctiva and sclera are non-icteric and not injected. Cornea within normal limits. Periorbital areas with no swelling, redness, or edema. ENT: Nares patent. No nasal discharge, no septal abnormalities noted. Tympanic membranes are normal and external auditory canals are clear. Oropharynx with no redness, swelling, or masses, exudates, or evidence of obstruction, uvula midline. Mucous membranes moist. Neck: Trachea midline, no thyromegaly or masses palpated, and no cervical lymphadenopathy. Supple, full range of motion without nuchal rigidity, or vertebral point tenderness. No Meningismus. Chest/axilla: Normal chest wall appearance and motion. Nontender with no deformity. No lesions are appreciated. Cardiovascular: Regular rate and rhythm with a normal S1 and S2. No gallops, murmurs, or rubs. Normal PMI, no JVD. No pulse deficits. Respiratory: Lungs have equal breath sounds bilaterally, clear to auscultation and percussion. No rales, rhonchi or wheezes noted. No increased work of breathing, no retractions or nasal flaring. Abdomen/GI: Soft, non-tender, with normal bowel sounds. No distension or tympany. No guarding or rebound. No evidence of tenderness throughout. Back: No spinal tenderness. No costovertebral tenderness. Full range of motion. Male : Normal genitalia with no discharge or lesions. Skin: Warm, dry with normal turgor. Normal color with no rashes, no lesions, and no evidence of cellulitis. MS/ Extremity: Pulses equal, no cyanosis. Neurovascular intact. Full, normal range of motion. Neuro: Awake and alert, GCS 15, oriented to person, place, time, and situation. Cranial nerves II-XII grossly intact. Motor strength 5/5 in all extremities. Sensory grossly intact. Cerebellar exam normal. Normal gait. Psych: Awake, alert, with orientation to person, place and time. Behavior, mood, and affect are within normal limits. Vital Signs: 10:45 BP 178 / 104; Pulse 53; Resp 14; Temp 98.1(O); Pulse Ox 96% on R/A; ph 12:00 BP 187 / 99; Pulse 49; Resp 18 S; Pulse Ox 95% on R/A; Pain 0/10; sg 12:45 BP 167 / 94; Pulse 57; Resp 16; Pulse Ox 96% on R/A; ph 13:30 BP 147 / 87; Pulse 51; Resp 16; Pulse Ox 95% on R/A; ph 14:30 BP 154 / 94; Pulse 47; Resp 18; Pulse Ox 97% on R/A; ph 15:29 BP 122 / 70; Pulse 44; Resp 16; Pulse Ox 100% on Nebulizer Mask; ph 16:00 BP 154 / 87; Pulse 77; Resp 18; Temp 97.8; Pulse Ox 97% on R/A; ph NIH Stroke Scale Scores: 11:18 NIHSS Score: 0 [facility] Procedures: 13:03 Peripheral line: by aseptic technique a peripheral line was placed in the left external [facility] jugular vein. MDM: 10:42 Patient medically screened. [facility] 10:50 Data reviewed: vital signs, nurses notes, lab test result(s), EKG, radiologic studies, [facility] plain films. 03/15 10:42 Order name: Basic Metabolic Panel; Complete Time: 14:13 [facility] 03/15 10:42 Order name: CBC with Diff; Complete Time: 14:13 [facility] 03/15 10:42 Order name: LFT's; Complete Time: 14:13 [facility] 03/15 10:42 Order name: Magnesium; Complete Time: 14:13 [facility] 03/15 10:42 Order name: NT PRO-BNP; Complete Time: 14:13 [facility] 03/15 10:42 Order name: PT-INR; Complete Time: 13:31 [facility] 03/15 10:42 Order name: Troponin (emerg Dept Use Only); Complete Time: 14:13 [facility] 03/15 10:42 Order name: XRAY Chest (1 view); Complete Time: 12:01 [facility] 03/15 13:03 Order name: Depakote; Complete Time: 14:56 [facility] 03/15 13:12 Order name: CBC Smear Scan; Complete Time: 14:13 [facility] 03/15 14:55 Order name: Glucose, Ancillary Testing; Complete Time: 14:56 [facility] 03/15 15:23 Order name: Glucose, Ancillary Testing; Complete Time: 15:24 [facility] 03/15 15:25 Order name: Chem 7 [facility] 03/15 15:32 Order name: Basic Metabolic Panel [facility] 03/15 10:42 Order name: EKG; Complete Time: 10:43 [facility] 03/15 13:49 Order name: CONS Physician Consult [facility] 03/15 10:42 Order name: Cardiac monitoring; Complete Time: 10:58 [facility] 03/15 10:42 Order name: EKG - Nurse/Tech; Complete Time: 10:58 [facility] 03/15 10:42 Order name: IV Saline Lock; Complete Time: 15:20 [facility] 03/15 10:42 Order name: Labs collected and sent; Complete Time: 15:20 [facility] 03/15 10:42 Order name: O2 Per Protocol; Complete Time: 10:58 [facility] 03/15 10:42 Order name: O2 Sat Monitoring; Complete Time: 10:58 [facility] 03/15 15:17 Order name: Blood Glucose Level; Complete Time: 15:28 [facility] Administered Medications: 15:00 Drug: Calcium Gluconate 1 grams Route: IVPB; Infused Over: 20 mins; Site: left jugular; ph 15:20 Follow up: Response: No adverse reaction; IV Status: Completed infusion ph 15:01 Drug: D50W 50 ml Route: IVP; Site: left jugular; ph 16:23 Follow up: Response: No adverse reaction ph 15:03 Drug: Insulin Regular Human 10 units {Co-Signature: sg (Milo Patel RN).} Route: IVP; ph Site: right forearm; 16:24 Follow up: Response: No adverse reaction ph 15:04 Drug: Sodium Bicarbonate 1 amp Route: IVP; Site: left jugular; ph 15:30 Follow up: Response: No adverse reaction ph 15:06 Drug: Lasix 100 mg Route: IVP; Site: left jugular; ph 15:30 Follow up: Response: No adverse reaction ph 15:07 Drug: Kayexalate 60 grams Route: PO; ph 16:24 Follow up: Response: No adverse reaction ph 15:09 CANCELLED (Duplicate Order): Calcium Gluconate 1 grams IVPB once over 10 mins; (mix in [facility] NS 100 mL) 15:10 Drug: Albuterol 7.5 mg Route: Inhalation; ph 16:21 Follow up: Response: No adverse reaction ph 15:10 Drug: AtroVENT Aerosol 0.5 mg Route: Inhalation; ph 16:21 Follow up: Response: No adverse reaction ph 15:28 Drug: Calcium Gluconate 1 grams Route: IVPB; Infused Over: 10 mins; Site: left jugular; ph 15:40 Follow up: Response: No adverse reaction; IV Status: Completed infusion ph 15:28 Drug: Glucagon 1 mg Route: IVP; Site: right forearm; ph 15:45 Follow up: Response: No adverse reaction ph 15:29 Drug: Albuterol 2.5 mg Route: Inhalation; ph 19:30 Follow up: Response: No adverse reaction ph 15:29 Drug: D50W 50 ml Route: IVP; Site: left jugular; ph 16:23 Follow up: Response: No adverse reaction ph 15:29 Drug: Insulin Regular Human 10 units {Co-Signature: ss (Kailey Nguyen RN).} Route: IVP; ph Site: left jugular; 15:45 Follow up: Response: No adverse reaction ph Point of Care Testing: Blood Glucose: 15:21 Blood Glucose: 185 mg/dL; ph Ranges: Critical Glucose Levels:Adult <50 mg/dl or >400 mg/dl <40 mg/dl or >180 mg/dl Disposition: 03/15/18 13:40 Hospitalization ordered by Stella Miramontes for Inpatient Admission. Preliminary diagnosis are Altered mental status, unspecified, End stage renal disease, Hyperkalemia, Bradycardia, unspecified. - Bed requested for Intensive Care Unit. - Status is Inpatient Admission. ss - Condition is Serious. - Problem is new. - Symptoms are unchanged. UTI on Admission? No NIH Stroke Scale - NIH Stroke Score Date: 03/15/2018 Time: :18 Total Score = 0 1a. Level of Consciousness (LOC) - 0(Alert) 1b. Level of Consciousness (LOC) (Year \T\ Age) - 0(Both) 1c. LOC Commands (Open \T\ Closes Eyes/Supervisor Continuous [employer]) - 0(Both) 2. Best Gaze (Lateral Gaze Paresis) - 0(Normal) 3. Visual Field Loss - 0(No visual loss) 4. Facial Palsy - 0(Normal) 5a. Left Arm: Motor (10-second hold) - 0(No drift) 5b. Right Arm: Motor (10-second hold) - 0(No drift) 6a. Left Leg: Motor (5-second hold - always test supine) - 0(No drift) 6b. Right Leg: Motor (5-second hold - always test supine) - 0(No drift) 7. Limb Ataxia (finger/nose \T\ heel/calloway - test with eyes open) - 0(Absent) 8. Sensory Loss (pinprick arms/legs/face) - 0(Normal) 9. Best Language: Aphasia (description/naming/reading) - 0(No aphasia) 10. Dysarthria (speech clarity - read or repeat words) - 0(Normal) 11. Extinction and Inattention (visual/tactile/auditory/spatial/personal) - 0(No abnormality) Initials: [facility] Signatures: Dispatcher [employer] EDMS NkechiElizabeth ortiz Eris Magana MD MD cha Smirch, Shelby, RN RN Lamar Kelly RN RN Milo Patel RN Kailey Nguyen RN Corrections: (The following items were deleted from the chart) 14:33 13:40 Hospitalization Ordered by Stella Miramontes MD for Inpatient Admission. bd Preliminary diagnosis is Altered mental status, unspecified; End stage renal disease; Hyperkalemia; Bradycardia, unspecified. Bed requested for Intensive Care Unit. Status is Inpatient Admission. Condition is Serious. Problem is new. Symptoms are unchanged. UTI on Admission? No. gail 15:09 14:58 Calcium Gluconate 1 grams IVPB once over 10 mins; (mix in NS 100 mL) gail ordered. [facility] 16:30 14:33 03/15/2018 13:40 Hospitalization Ordered by Stella Miramontes MD for Inpatient ss Admission. Preliminary diagnosis is Altered mental status, unspecified; End stage renal disease; Hyperkalemia; Bradycardia, unspecified. Bed requested for Intensive Care Unit. Status is Inpatient Admission. Condition is Serious. Problem is new. Symptoms are unchanged. UTI on Admission? No. bd
--- NOTE | 2018-03-15 13:41 | ER ---
Nurse's Notes [facility] Name: Juan Lozano Age: 57 yrs Sex: Male : 1960 Arrival Date: 03/15/2018 Time: 10:41 Bed 8 Private MD: Diagnosis: Altered mental status, unspecified;End stage renal disease;Hyperkalemia;Bradycardia, unspecified Presentation: 03/15 10:41 Presenting complaint: EMS states: Pt from [facility], staff reports that pt has ph refused last two dialysis sessions, normally dialyzed M/W/F, initial BP 210/100, 12 lead shows LBB, pt normally A\T\O x 4, oriented to person and place only. Transition of care: patient was received from another setting of care (long-term care facility), [facility]. Onset of symptoms was March 15, 2018. Risk Assessment: Do you want to hurt yourself or someone else? Patient reports no desire to harm self or others. Initial Sepsis Screen: Does the patient meet any 2 criteria? No. Patient's initial sepsis screen is negative. Does the patient have a suspected source of infection? No. Patient's initial sepsis screen is negative. Care prior to arrival: Glucose check: 165. 10:41 Method Of Arrival: EMS: [facility] ph 10:41 Acuity: DORIS 2 ph Historical: - Allergies: 11:09 NKA; ph - Home Meds: 11:09 aspirin 81 mg Oral chew 1 tab once daily [Active]; cholecalciferol (vitamin D3) 1,000 ph unit Oral cap [Active]; clonidine 0.3 mg/24 hr transdermal ptwk once weekly on Mon [Active]; Depakote Sprinkles 125 mg Oral cpSP 2 caps every 12 hours [Active]; folic acid 1 mg Oral tab 1 tab once daily [Active]; hydralazine 50 mg Oral tab TID [Active]; isosorbide dinitrate 20 mg Oral tab 1 tab 3 times per day [Active]; Keppra 500 mg Oral tab 1 tab 2 times per day [Active]; levothyroxine 50 mcg tab 1 tab once daily [Active]; metoprolol tartrate 100 mg Oral tab 1 tab 2 times per day [Active]; tramadol 50 mg Oral tab 2 tabs every 6 hours [Active]; nystatin 100,000 unit/gram Topical oint 2 times per day [Active]; olopatadine 0.1 % ophthalmic drop every morning [Active]; Protonix 40 mg Oral TbEC 1 tab once daily [Active]; sevelamer HCl 800 mg Oral 2 tabs take 3 times a day, take 5 caps to equal 4000mg [Active]; sevelamer HCl oral 800 mg oral 2 tabs 3 times a day w/ snacks [Active]; Risperdal 0.25 mg Oral tab 1 tabs daily [Active]; risperidone 0.5 mg Oral TbDL once daily [Active]; cinacalcet 30 mg Oral 2 tabs nightly [Active]; trazodone 50 mg Oral tab nightly [Active]; Ativan 1 mg Oral tab 1 tab once daily [Active]; - PMHx: 11:09 Anemia; Bipolar disorder; Chronic ischemic heart disease; CVA; Diabetes - NIDDM; ph Dialysis; epilepsy; Hypertension; TIA; - PSHx: 11:09 Dialysis catheter to chest; ph - Immunization history:: Adult Immunizations unknown. - Social history:: Smoking status: Patient/guardian denies using tobacco. - Family history:: not pertinent. - Ebola Screening: : No symptoms or risks identified at this time. Screenin:12 Abuse screen: Denies threats or abuse. Denies injuries from another. Nutritional ph screening: No deficits noted. Tuberculosis screening: No symptoms or risk factors identified. Fall Risk No fall in past 12 months (0 pts). Secondary diagnosis (15 points) seizures, TIA, CVA, IV access (20 points). Ambulatory Aid- None/Bed Rest/Nurse Assist (0 pts). Gait- Impaired (20 pts.). Mental Status- Oriented to own ability (0 pts). Total Hercules Fall Scale indicates High Risk Score (45 or more points). Fall prevention measures have been instituted. Side Rails Up X 2 Placed Close to Nursing Station Frequent Obs/Assessments Occuring As available patient and family educated on Fall Prevention Program and Strategies. Assessment: 11:11 General: Appears in no apparent distress. comfortable, Behavior is calm, cooperative, ph drowsy, quiet. Pain: Denies pain. Neuro: Level of Consciousness is awake, obeys commands, confused, Oriented to person, place, Facial symmetry appears normal. Cardiovascular: Denies chest pain, nausea, shortness of breath, Capillary refill < 3 seconds in bilateral fingers Patient's skin is warm and dry. Rhythm is sinus bradycardia. 11:11 Respiratory: Airway is patent Respiratory effort is even, unlabored, Respiratory ph pattern is regular, symmetrical, Breath sounds are diminished in left posterior lower lobe, right posterior middle lobe and right posterior lower lobe Denies shortness of breath. GI: No signs and/or symptoms were reported involving the gastrointestinal system. Derm: Skin is intact, Skin is dry, Skin is normal, Skin temperature is warm. Musculoskeletal: Circulation, motion, and sensation intact. Range of motion: limited in L arm and L leg, r/t CVA. 12:05 Reassessment: Patient appears in no apparent distress at this time. Patient and/or ph family updated on plan of care and expected duration. Pain level reassessed. Pt awake and alert, oriented to person and place, pt cleaned of BM and placed in clean brief, repositioned in bed, denies pain or SOB at this time, unable to obtain blood for labs, lab contacted. 14:55 Reassessment: EKG changes noted, pauses and a rate of 35, EKG paged for repeat EKG, sg notified, at bedside at this time, pt medicated as ordered, remain at bedside and monitor pt condition. 15:20 Reassessment: pt HR noted to be 66 SR on the bedside monitor, at bedside, sg pt continues to drink PO Kayexelate as ordered, tolerating well, awaiting nurse for report to ICU bed 3, will continue to remain at bedside for pt monitoring. 15:40 Reassessment: Patient appears in no apparent distress at this time. pt HR noted to be sg Sinus Rodrigo with a rate of 35, orders to repeat calcium gluconate IV x1, glucagon, administer IV Reg Insulin 10 units, albuterol x1, D50 IVP, pt HR increased to 66 sinus rhythm, EKG at bedside , pt to be admitted to ICU bed 3 for emergency dialysis and further care. 16:05 Reassessment: Patient appears in no apparent distress at this time. Patient and/or ph family updated on plan of care and expected duration. Pain level reassessed. Cardiac remains in 70s, sinus rhythm on bedside monitor, other VSS as well, report called ANTONINA Crawford, preparing to transport pt to ICU. Vital Signs: 10:45 BP 178 / 104; Pulse 53; Resp 14; Temp 98.1(O); Pulse Ox 96% on R/A; ph 12:00 BP 187 / 99; Pulse 49; Resp 18 S; Pulse Ox 95% on R/A; Pain 0/10; sg 12:45 BP 167 / 94; Pulse 57; Resp 16; Pulse Ox 96% on R/A; ph 13:30 BP 147 / 87; Pulse 51; Resp 16; Pulse Ox 95% on R/A; ph 14:30 BP 154 / 94; Pulse 47; Resp 18; Pulse Ox 97% on R/A; ph 15:29 BP 122 / 70; Pulse 44; Resp 16; Pulse Ox 100% on Nebulizer Mask; ph 16:00 BP 154 / 87; Pulse 77; Resp 18; Temp 97.8; Pulse Ox 97% on R/A; ph NIH Stroke Scale Scores: 11:18 NIHSS Score: 0 gail ED Course: 10:41 Patient arrived in ED. ph 10:42 Eris Karimi MD is Attending Physician. gail 10:45 Triage completed. ph 10:57 Missed attempt(s): 22 gauge in right forearm. Bleeding controlled, band aid applied, ss catheter tip intact. 10:58 EKG done, by environmental engineering technician. reviewed by Eris Karimi MD. at1 11:10 Arm band placed on. ph 11:19 X-ray completed. Portable x-ray completed in exam room. Patient tolerated procedure jb2 well. 11:20 XRAY Chest (1 view) In Process Unspecified. EDMS 11:23 Inserted saline lock: 20 gauge in right forearm, using aseptic technique. Blood ss collected. 11:30 Assisted with urinal. no urine output noted at this time, pt reports still has the urge sg to pee. 11:41 Lamar Kelly, RN is Primary Nurse. ph 11:50 Assisted with urinal. no urine output noted at this time, pt reports still has the urge sg to pee. 12:00 Repositioned patient. Cleaned of incontinence. Linen changed. ph 12:05 Bladder scan completed. 0 mL. sg 12:10 Assisted with urinal. no urine output noted at this time, pt reports still has the urge sg to pee, bladder scanner indicates no urine in bladder at this time, with results of 0 mL. 12:14 Cleaned of incontinence. Linen changed. sg 12:15 Patient has correct armband on for positive identification. Placed in gown. Bed in low ph position. Call light in reach. Side rails up X2. equipment monitor phototypesetting on. Pulse ox on. NIBP on. Warm blanket given. 13:00 Inserted saline lock: 20 gauge in left EJ, using aseptic technique. ,using aseptic ph technique. inserted by Dr Karimi. 13:39 Stella Miramontes MD is Hospitalizing Provider. [facility] 16:00 No provider procedures requiring assistance completed. Patient admitted, IV remains in ph place. Administered Medications: 15:00 Drug: Calcium Gluconate 1 grams Route: IVPB; Infused Over: 20 mins; Site: left jugular; ph 15:20 Follow up: Response: No adverse reaction; IV Status: Completed infusion ph 15:01 Drug: D50W 50 ml Route: IVP; Site: left jugular; ph 16:23 Follow up: Response: No adverse reaction ph 15:03 Drug: Insulin Regular Human 10 units {Co-Signature: (Milo Patel RN).} Route: IVP; ph Site: right forearm; 16:24 Follow up: Response: No adverse reaction ph 15:04 Drug: Sodium Bicarbonate 1 amp Route: IVP; Site: left jugular; ph 15:30 Follow up: Response: No adverse reaction ph 15:06 Drug: Lasix 100 mg Route: IVP; Site: left jugular; ph 15:30 Follow up: Response: No adverse reaction ph 15:07 Drug: Kayexalate 60 grams Route: PO; ph 16:24 Follow up: Response: No adverse reaction ph 15:09 CANCELLED (Duplicate Order): Calcium Gluconate 1 grams IVPB once over 10 mins; (mix in [facility] NS 100 mL) 15:10 Drug: Albuterol 7.5 mg Route: Inhalation; ph 16:21 Follow up: Response: No adverse reaction ph 15:10 Drug: AtroVENT Aerosol 0.5 mg Route: Inhalation; ph 16:21 Follow up: Response: No adverse reaction ph 15:28 Drug: Calcium Gluconate 1 grams Route: IVPB; Infused Over: 10 mins; Site: left jugular; ph 15:40 Follow up: Response: No adverse reaction; IV Status: Completed infusion ph 15:28 Drug: Glucagon 1 mg Route: IVP; Site: right forearm; ph 15:45 Follow up: Response: No adverse reaction ph 15:29 Drug: Albuterol 2.5 mg Route: Inhalation; ph 19:30 Follow up: Response: No adverse reaction ph 15:29 Drug: D50W 50 ml Route: IVP; Site: left jugular; ph 16:23 Follow up: Response: No adverse reaction ph 15:29 Drug: Insulin Regular Human 10 units {Co-Signature: brayan (Kailey Nguyen RN).} Route: IVP; ph Site: left jugular; 15:45 Follow up: Response: No adverse reaction ph Point of Care Testing: Blood Glucose: 15:21 Blood Glucose: 185 mg/dL; ph Ranges: Outcome: 13:40 Decision to Hospitalize by Provider. gail 16:30 Patient left the ED. ss 16:30 Admitted to ICU accompanied by nurse, accompanied by karen, via stretcher, room 3, on ph monitor, with chart, Report called to Yvette SARKAR 16:30 critical 16:30 Instructed on the need for admit. NIH Stroke Scale - NIH Stroke Score Date: 03/15/2018 Time: 11:18 Total Score = 0 1a. Level of Consciousness (LOC) - 0(Alert) 1b. Level of Consciousness (LOC) (Year \T\ Age) - 0(Both) 1c. LOC Commands (Open \T\ Closes Eyes/Transportation Design Engineer) - 0(Both) 2. Best Gaze (Lateral Gaze Paresis) - 0(Normal) 3. Visual Field Loss - 0(No visual loss) 4. Facial Palsy - 0(Normal) 5a. Left Arm: Motor (10-second hold) - 0(No drift) 5b. Right Arm: Motor (10-second hold) - 0(No drift) 6a. Left Leg: Motor (5-second hold - always test supine) - 0(No drift) 6b. Right Leg: Motor (5-second hold - always test supine) - 0(No drift) 7. Limb Ataxia (finger/nose \T\ heel/calloway - test with eyes open) - 0(Absent) 8. Sensory Loss (pinprick arms/legs/face) - 0(Normal) 9. Best Language: Aphasia (description/naming/reading) - 0(No aphasia) 10. Dysarthria (speech clarity - read or repeat words) - 0(Normal) 11. Extinction and Inattention (visual/tactile/auditory/spatial/personal) - 0(No abnormality) Initials: gail Signatures: Dispatcher [employer] Milo Warren RN RN sg Anderson, Corey, MD MD cha Buechter, Jesse jb2 Smirch, Shelby, RN RN ss Marcia Castillo, refrigeration brazer/solderer EKG Tat1 Lamar Kelly RN RN Milo Nguyen RN
[2018-03-15 13:50] LABS: Blood Morphology Comment NOT SEEN (NOT SEEN); Platelet Estimate ADEQ; Urine White Blood Cell Casts OK
[2018-03-15 14:02] LABS: Albumin 3.6 g/dL (3.4-5.0); Bilirubin Direct 0.2 mg/dL (0-0.2); Bilirubin Total 0.4 mg/dL (0.2-1.0); Magnesium 3.3 mg/dL (1.8-2.4); Troponin (Emerg Dept Use Only) 0.08 ng/mL (0.0-0.045)
[2018-03-15 14:06] LABS: Potassium 9.3 mmol/L (3.5-5.1)
[2018-03-15] MEDS ORDERED: INSULIN -REGULAR HUMAN 50 UNIT/0.5 ML ML ONE ×2 (14:19→15:30)
[2018-03-15] MEDS ORDERED: ALBUTEROL 2.5 MG/3 ML NEB SOL ONE ×2 (14:20→15:31)
[2018-03-15] MEDS ORDERED: FUROSEMIDE 100 MG/10 ML VIAL IV ONE (14:20)
[2018-03-15] MEDS ORDERED: IPRATROPIUM BROM 0.5MG/2.5ML ONE (14:20)
[2018-03-15] MEDS ORDERED: D50W 25 GM/50 ML SYRINGE IV ONE ×2 (14:20→15:30)
[2018-03-15] MEDS ORDERED: SOD POLYSTYREN SUL 15 GM/60 ML UCUP ONE (14:20)
[2018-03-15] MEDS ORDERED: ONDANSETRON 4 MG/2 ML VIAL IV PRN (14:52)
[2018-03-15] MEDS ORDERED: ACETAMINOPHEN 500 MG TAB PO PRN (14:52)
[2018-03-15] MEDS ORDERED: CALCIUM GLUCONATE 1gm/100 ML NS (4.65 mEq/100mL) IV ONE ×4 (15:00→16:00)
[2018-03-15 15:31] LABS: Potassium 9.2 mmol/L (3.5-5.1)
[2018-03-15] MEDS ORDERED: GLUCAGON 1 MG/VIAL ONE (15:34)
[2018-03-15] MEDS: INSULIN -REGULAR HUMAN 50 UNIT/0.5 ML ML SQ SCH ×2 (16:30→21:00)
[2018-03-15] MEDS: ENOXAPARIN 30 MG/0.3 ML SQ SCH (19:21)
--- NOTE | 2018-03-15 19:38 | P.HP ---
Certification for Inpatient Patient admitted to: Inpatient With expected LOS: >2 Midnights Practitioner: I am a practitioner with admitting privileges, knowledge of patient current condition, hospital course, and medical plan of care. Services: Services provided to patient in accordance with Admission requirements found in Title 42 Section 412.3 of the Code of Federal Regulations Patient History Date of Service: 03/15/18 Reason for admission: hyperkalemia History of Present Illness: Mr Lozano is a 57 years with history of DM II, HTN, CAD, CVA ESRD on HD, who apparently miss his last 2 rounds of HD, because he refused to go for no clear reason. Today, staff from [facility], found the patient more lethargic, oriented x 1 only. No reported history of fever or chills. At arrival his lab work was significantly abnormal, potassium level was 9.3, EKG showed wide QRS with pick T waves, bradycardic. He received treatment with insulin/glucose, sodium bicarbonate, keyaxelate and calcium gluconate. CXR showed no acute abnormalities. Allergies No Known Allergies Allergy (Verified 01/02/18 00:27) Home medications list reviewed: Yes Home Medications: Aspirin [Aspirin EC 81 MG] 81 mg PO DAILY 07/23/17 Cholecalciferol (Vitamin D3) [Vitamin D3] 3 cap PO DAILY 07/23/17 Clonidine Patch [Catapres-Tts 3*] 1 patch TD EVERY 7TH DAY 07/23/17 Folic Acid 1 mg PO DAILY 07/23/17 Isosorbide Dinit [Isordil*] 20 mg PO TID 07/23/17 Levetiracetam [Keppra] 500 mg PO BID 07/23/17 Levothyroxine [Synthroid*] 50 mcg PO DAILY 07/23/17 Metoprolol Tartrate [Lopressor] 100 mg PO BID 07/23/17 Pantoprazole Sodium [Protonix] 40 mg PO DAILY 07/23/17 Sevelamer HCl [Renagel] 2 tab PO TID 07/23/17 Tramadol HCl [Ultram] 50 mg PO Q6HR PRN 07/23/17 risperiDONE [Risperidone] 0.5 mg PO DAILY 07/23/17 Cinacalcet HCl [Sensipar] 60 mg PO BEDTIME 12/12/17 Divalproex Sodium [Depakote] 125 mg PO BID 12/12/17 Hydralazine [Apresoline*] 50 mg PO TID 12/12/17 LORazepam [Ativan*] 1 mg PO DAILY 03/15/18 - Past Medical/Surgical History Diabetic: Yes -: Diabetes mellitus type 2 -: Hypertension -: History CVA with residual left-sided weakness -: End stage renal disease -: History of noncompliance -: Anxiety disorder -: Hypothyroidism -: Conversion disorder with seizures -: Anemia -: Chronic pain syndrome -: HD access graft Psychosocial/ Personal History: Patient in [facility]. Patient recently paroled to the skilled nursing. - Family History Family History: Reviewed- Non-Contributory - Social History Alcohol use: No CD- Drugs: No Caffeine use: Yes Place of Residence: Home Review of Systems 10-point ROS is otherwise unremarkable Physical Examination - Vital Signs Temperature: 98.0 F Blood Pressure: 145/94 Pulse: 73 Respirations: 12 Pulse Ox (%): 97 - Physical Exam General: Alert, In no apparent distress, Confused, Other (obtunded) HEENT: Atraumatic, PERRLA, Mucous membr. moist/pink, EOMI, Sclerae nonicteric Neck: Supple, 2+ carotid pulse no bruit, No LAD, Without JVD or thyroid abnormality Respiratory: Normal air movement, Diminished, Crackles/rales (fine bibasilar rales) Cardiovascular: Normal S1 S2, No gallops Gastrointestinal: Normal bowel sounds, No tenderness Musculoskeletal: No tenderness Integumentary: No rashes Neurological: Normal tone, Sensation intact, Normal affect Lymphatics: No axilla or inguinal lymphadenopathy - Studies Laboratory Data (last 24 hrs) 03/15/18 12:53: PT 11.8, INR 1.00 03/15/18 12:53: WBC 6.3, Hgb 12.3 L, Hct 37.3 L, Plt Count 190 03/15/18 12:53: Sodium 139, Potassium 9.3 H*, BUN 128 H, Creatinine 20.90 H*, Glucose 105, Magnesium 3.3 H D, Total Bilirubin 0.4, AST 15, ALT 16, Alkaline Phosphatase 63 Assessment and Plan - Problems (Diagnosis) (1) Acute encephalopathy Current Visit: Yes Status: Acute (2) ESRD on hemodialysis Onset Date: 12/13/17 Current Visit: No Status: Acute (3) Hyperkalemia Onset Date: 07/23/17 Current Visit: No Status: Acute (4) Diabetes mellitus Onset Date: 07/23/17 Current Visit: No Status: Chronic Qualifiers: Diabetes mellitus type: type 2 Diabetes mellitus nursing home insulin use: unspecified termite renewal inspector insulin use status Diabetes mellitus complication status : with other specified complication Qualified Code(s): E11.69 - Type 2 diabetes mellitus with other specified complication (5) Hypertension Onset Date: 07/23/17 Current Visit: No Status: Chronic Qualifiers: Hypertension type: essential hypertension Qualified Code(s): I10 - Essential (primary) hypertension - Plan The patient will be admitted to the hospital due to acute encephalopathy due to hyperkalemia in context of miss HD session. The patient is having emergent hemodyalisis. Will follow up lab work after finish HD. F/U nephrology team. - Advance Directives Does patient have a Living Will: No Does patient have a Durable POA for Healthcare: No - Code Status/Comfort Care Code Status Assessed: Yes Code Status: Full Code
[2018-03-15 21:03] LABS: Albumin 3.6 g/dL (3.4-5.0); Bilirubin Total 0.4 mg/dL (0.2-1.0); Magnesium 2.5 mg/dL (1.8-2.4); Potassium 4.3 mmol/L (3.5-5.1); Protein, Total 7.6 g/dL (6.4-8.2)
[2018-03-16] MEDS ORDERED: HYDRALAZINE HCL 20 MG/ML VIAL IV PRN (01:33)
[2018-03-16] MEDS ORDERED: METOPROLOL TAR 50 MG TAB PO ONE (05:08)
[2018-03-16 05:37] LABS: Albumin 3.6 g/dL (3.4-5.0); Bilirubin Total 0.5 mg/dL (0.2-1.0); Potassium 4.9 mmol/L (3.5-5.1); Protein, Total 7.7 g/dL (6.4-8.2)
[2018-03-16 05:52] LABS: Absolute Lymphocytes (CBC) 0.9 K/uL (0.7-4.9); Absolute Monocytes 0.6 K/uL (0.1-1.3); Absolute Neutrophil 3.8 K/uL (1.8-8.0); Basophils % 1.3 % (0-1.3); Eosinophils % 1.9 % (0-4.4); Hematocrit 36.5 % (39.6-49.0); Lymphocytes % 16.8 % (15.3-44.8); MCH 29.7 pg (27.0-35.0); MCV 90.6 fL (80-100); MPV 8.9 fL (7.6-11.3); Monocytes % 11.5 % (3.3-12.3); RBC Red Blood Cell Count 4.03 M/uL (4.33-5.43)
[2018-03-16 06:22] LABS: Anisocytosis 1+; Blood Morphology Comment NOTED (NOT SEEN); Platelet Estimate ADEQ; Urine White Blood Cell Casts OK
[2018-03-16 06:23] LABS: Ovalocytes 1+; Rouleau NOTED
[2018-03-16] MEDS: INSULIN -REGULAR HUMAN 50 UNIT/0.5 ML ML SQ SCH ×4 (07:30→21:00)
[2018-03-16] MEDS ORDERED: TRAMADOL HCL 50 MG TAB PO PRN (10:28)
[2018-03-16] MEDS ORDERED: CLONIDINE 0.3 MG/PATCH TD SCH (11:30)
[2018-03-16] MEDS: SEVELAMER CARBONATE 800 MG TABLET PO SCH ×2 (12:47→17:15)
--- NOTE | 2018-03-16 15:31 | PN ---
Date of Progress Note: 03/16/2018 History: The patient seen and examined. Chart reviewed and case discussed with RN. The patient muc h more awake and alert today. Per nursing staff, has been verbally abusive and has been yelling at s [facility]. Review of Systems: Negative except as above. Medications: List reviewed. Code Status: Full. Physical Examination: Vital Signs: Temperature 99.1, heart rate 117, blood pressure 117/75, respirations 17, O2 98% on ravin m air. General: Awake, alert, oriented x3, not in any acute distress, ill-appearing male, obese. CV: S1, S2. Peripheral pulses present. Regular rate and rhythm. Respiratory: Somewhat diminished breath sounds at the bases, otherwise moving air well. Gastrointestinal: Abdomen is soft, nontender, nondistended. Positive bowel sounds. Extremities: No clubbing, cyanosis, or edema. Neuro: Cranial nerves 2-12 intact grossly. The patient does have left arm weakness. Speech is norm al. Laboratory Data: Sodium 141, potassium 4.9, chloride 100, CO2 21, BUN 74, creatinine 15.8, glucose 6 9, calcium 8.6. WBC 5.5, H and H 12 and 36.5, platelets 182, neutrophils 68%. Assessment And Plan: A 57-year-old male with: 1.Acute metabolic encephalopathy secondary to electrolyte abnormalities secondary to missed hemodial ysis, improved. The patient seems to be back to baseline. 2.Hyperkalemia, corrected with dialysis and hyperkalemia cocktail. Continue to monitor potassium le vels. 3.End-stage renal disease, on hemodialysis. The patient was dialyzed yesterday emergently. Will be dialyzed again today. Appreciate Dr. Gallegos's input. 4.Diabetes mellitus type 2 with hyperglycemia with long-term use of insulin. We will continue Accu- Cheks and sliding scale insulin. 5.Essential hypertension. We will resume home medications as appropriate. 6.History of cerebrovascular accident with left-sided weakness, stable. We will continue aspirin. 7.Noncompliance, intentional. 8.Generalized anxiety disorder. 9.Hypothyroidism. We will continue Synthroid. 10.Conversion disorder with seizures. We will continue home medications. 11.Anemia of chronic disease secondary to chronic kidney disease. 12.Gastrointestinal, deep vein thrombosis prophylaxes addressed. Plan: Step down from ICU. Continue hemodialysis. Likely discharge back to long-term in 24-48 ho urs. VELASQUEZ/LUPE Voice ID: [id number] Report ID: [id number]
[2018-03-16] MEDS: HYDRALAZINE HCL 25 MG TABLET PO SCH ×2 (15:51→20:32)
[2018-03-16] MEDS: ISOSORBIDE DINIT 20 MG TAB PO SCH ×2 (15:54→20:33)
[2018-03-16] MEDS: ENOXAPARIN 30 MG/0.3 ML SQ SCH (17:00)
--- NOTE | 2018-03-16 18:46 | CON ---
Date of Consultation: 03/16/2018 NEPHROLOGY CONSULTATION History Of Present Illness: The patient's all the information has been obtained from the record as t he patient has altered mental status. This is a 57-year-old gentleman with significant past medical history of hypertension, end-stage renal disease, on hemodialysis, poor compliant with dialysis, [facility], the patient TTS at [facility], coronary artery disease with c ongestive heart failure, hyperlipidemia, bipolar, diabetes complicated with neuropathy and nephropath y, the patient as I mentioned missed 2 dialysis, came to the unit overvolume with respiratory distres s. For that reason, directed to the emergency room. In the emergency room, found to have potassium above 9, overvolume. The patient was medicated urgently as the patient had symptoms of the hyperkale reid with wide complex and bradycardia. The patient also was on beta steve for that reason. In the ER, we started the patient on the cocktail, including calcium gluconate, Kayexalate, D50 with albute rol and insulin. This cocktail, especially the calcium gluconate and the albuterol, we repeated ever y 15 to 30 minutes. Then, we got the patient on urgent dialysis. The patient was dialyzed on 2 K ba th for the first 2 hours, then 1 K bath. We managed to remove 3 L. The patient today still confused and agitated. Past Medical History: Include, 1.Diabetes complicated with neuropathy and nephropathy. 2.Coronary artery disease complicated with congestive heart failure. 3.Hypertension. 4.CVA with left-sided weakness. 5.Hypothyroidism. 6.End-stage renal disease, on hemodialysis, TTS at [facility]. Family History: Positive for diabetes and hypertension. Social History: Lives in [facility]. Active smoker. Denies alcohol. Denies drug abuse. Review of Systems: Not obtainable. Home Medications: Include, 1.Risperidone. 2.Tramadol. 3.Renvela 2 tablets with each meal. 4.Pantoprazole. 5.Metoprolol. 6.Lorazepam. 7.Keppra. 8.Hydralazine. 9.Sensipar. 10.Cholecalciferol. 11.Aspirin. Current medications in the hospital include Sensipar, clonidine, hydralazine, isosorbide, Keppra, met oprolol, Zofran, risperidone and Renvela. Physical Examination: Vital Signs: When I saw the patient, blood pressure of 172/85, pulse of 73, afebrile. Chest: Crackles bilateral. Heart: S1 and S2 regular. Abdomen: Soft. Nontender. Extremities: Trace edema. Neurologic: Alert. No focal. Not oriented. Laboratory Data: WBC 5.5, H and H of 12 and 36.5, platelets 183. Sodium 141, potassium 4.9, bicarb 21, BUN 73, creatinine 15.8, calcium 8.6, magnesium of 2.5, phosphorus 6.3. Assessment And Plan: 1.End-stage renal disease with hyperkalemia and overvolume, status post dialysis yesterday, missed 2 treatments. I can go ahead and arrange for another session of dialysis today and we will dialyze th e patient on 2 K bath. We will try to challenge the patient. 2.Hypertension, controlled, optimal. We will follow up blood pressure after dialysis today. 3.Secondary hyperparathyroidism, continue binder. 4.Anemia of chronic kidney disease. No need for KEEGAN. 5.Altered mental status, recovered. 6.Hyperkalemia secondary to poor compliance, recovered after dialysis. 7.Overvolume, better today. We will do another session of dialysis today to establish better volume control. Case discussed with Dr. Miramontes, hospitalist, agreed on the plan. We will follow up. MANPREET Voice ID: [id number] Report ID: [id number]
[2018-03-16] MEDS: METOPROLOL TAR 50 MG TAB PO SCH (20:32)
[2018-03-16] MEDS: levETIRAcetam 500 MG TAB PO SCH (20:32)
[2018-03-16] MEDS: NYSTATIN OINT 15 GM TUBE TOP SCH (20:33)
[2018-03-16] MEDS: DIVALPROEX DR 250 MG TAB PO SCH (20:33)
[2018-03-16] MEDS ORDERED: CINACALCET HCL 30 MG TAB PO SCH (21:00)
[2018-03-17 06:07] LABS: Absolute Lymphocytes (CBC) 0.7 K/uL (0.7-4.9); Absolute Monocytes 0.5 K/uL (0.1-1.3); Absolute Neutrophil 2.1 K/uL (1.8-8.0); Basophils % 2.5 % (0-1.3); Hematocrit 33.9 % (39.6-49.0); Lymphocytes % 20.2 % (15.3-44.8); MCH 30.1 pg (27.0-35.0); MCV 90.5 fL (80-100); MPV 8.6 fL (7.6-11.3); RBC Red Blood Cell Count 3.74 M/uL (4.33-5.43)
[2018-03-17] MEDS ORDERED: LEVOTHYROXINE SOD 0.05 MG TABLET PO SCH (06:30)
[2018-03-17 06:46] LABS: Albumin 3.4 g/dL (3.4-5.0); Bilirubin Total 0.5 mg/dL (0.2-1.0); Potassium 4.3 mmol/L (3.5-5.1); Protein, Total 7.4 g/dL (6.4-8.2)
[2018-03-17] MEDS: INSULIN -REGULAR HUMAN 50 UNIT/0.5 ML ML SQ SCH ×2 (07:30→11:30)
[2018-03-17] MEDS ORDERED: ASPIRIN EC 81 MG TAB PO SCH (09:00)
[2018-03-17] MEDS ORDERED: OLOPATADINE HCL OP SCH (09:00)
[2018-03-17] MEDS ORDERED: PANTOPRAZOLE 40MG TABLET PO SCH (09:00)
[2018-03-17] MEDS ORDERED: RISPERIDONE 0.25 MG TABLET PO SCH (09:00)
[2018-03-17] MEDS ORDERED: LORAZEPAM 1 MG TABLET PO SCH (09:00)
[2018-03-17] MEDS ORDERED: FOLIC ACID 1 MG TABLET PO SCH (09:00)
[2018-03-17] MEDS: levETIRAcetam 500 MG TAB PO SCH (10:07)
[2018-03-17] MEDS: SEVELAMER CARBONATE 800 MG TABLET PO SCH ×2 (10:07→12:00)
[2018-03-17] MEDS: ISOSORBIDE DINIT 20 MG TAB PO SCH ×2 (10:08→14:09)
[2018-03-17] MEDS: METOPROLOL TAR 50 MG TAB PO SCH (10:08)
[2018-03-17] MEDS: HYDRALAZINE HCL 25 MG TABLET PO SCH ×2 (10:09→14:09)
[2018-03-17] MEDS: NYSTATIN OINT 15 GM TUBE TOP SCH (10:20)
[2018-03-17] MEDS: DIVALPROEX DR 250 MG TAB PO SCH (10:52)
--- NOTE | 2018-03-17 13:09 | P.PN ---
Subjective Date of Service: 03/17/18 Chief Complaint: hyperkalemia HD pt who was admitted for AMS , Hyperkalemia and fluid overlaod Now at baseline , No SOB Physical Examination - Vital Signs Temperature: 98.0 F Blood Pressure: 133/69 Pulse: 55 Respirations: 17 Pulse Ox (%): 96 - Physical Exam General: Alert HEENT: Atraumatic Neck: Supple, Without JVD or thyroid abnormality Respiratory: Clear to auscultation bilaterally Cardiovascular: No edema, Regular rate/rhythm, Normal S1 S2 Assessment And Plan - Current Problems (Diagnosis) (1) Acute encephalopathy Onset Date: 03/16/18 Current Visit: Yes Status: Acute (2) ESRD on hemodialysis Onset Date: 12/13/17 Current Visit: No Status: Chronic (3) Hyperkalemia Onset Date: 07/23/17 Current Visit: No Status: Acute (4) Hypervolemia Onset Date: 01/03/18 Current Visit: No Status: Acute - Plan 1.End-stage renal disease Via Rt PC who missed 2 treatment had HD yesterday K now ok , no SOB Hypertension, controlled, optimal. Secondary hyperparathyroidism, continue binder. Altered mental status, recovered. Head CT: -ve resolved now Hyperemia resolved
--- NOTE | 2018-03-18 11:07 | DS ---
Date of Discharge: 03/17/2018 Consultants: Gisell Gallegos M.D. with Nephrology. Admitting Diagnoses: 1.Acute metabolic encephalopathy. 2.End-stage renal disease, on hemodialysis. 3.Hyperkalemia. 4.Diabetes mellitus type 2 with long-term use of insulin with hyperglycemia. 5.Essential hypertension. Discharge Diagnoses: 1.Acute metabolic encephalopathy secondary to electrolyte disturbances from missed hemodialysis, res olved. 2.Hyperkalemia, corrected. 3.End-stage renal disease, on hemodialysis. 4.Noncompliance, intentional. 5.Diabetes mellitus type 2 with hyperglycemia with long-term use of insulin. 6.Essential hypertension. 7.History of cerebrovascular accident with left-sided weakness, stable. 8.Generalized anxiety disorder, on Ativan. 9.Hypothyroidism, on Synthroid. 10.Conversion disorder with seizures. 11.Anemia of chronic disease secondary to chronic kidney disease. 12.Obesity. Body mass index 32.2. Hospital Course: The patient is a 57-year-old male with past medical history of diabetes; hypertensi on; heart disease; history of cerebrovascular accident; end-stage renal disease, on hemodialysis, who is a resident of a [facility], comes in with hyperkalemia, peaked T-waves on EKG, bradycardic. Th e patient is noncompliant with his dialysis and most of his other medications. The patient received treatment for his hyperkalemia acutely with insulin, glucose, bicarb, Kayexalate, and calcium glucona te. The patient's bradycardia resolved. His hyperkalemia was corrected. The patient was seen by [facility] bridge gang worker, and he was dialyzed back to back. The patient did improve with dialysis. His mental status also cleared up. The patient was counseled regarding his compliance. The patient does agree to continue with dialysis. He was given the option of hospice; however, he declined. He wants to c ontinue dialysis and does not wish to at this time, as he understands that without dialysis, his kidneys would shut down and would lead to . The patient was then transferred back to [facility] in a stable condition. Activity: As tolerated. Fall precautions, seizure precautions. Diet: Renal. Followup: Follow up with primary care physician in 2-3 days. Follow up with bridge gang worker, Dr. Rena arnett, in 2 weeks. Return to the ER for worsening condition. Medications: As per medication reconciliation list. Physical Examination: General: Awake, alert, oriented x3. No acute distress. Obese male. CV: S1, S2. No murmurs. Respiratory: Moving air well bilaterally. Abdomen: Soft, nontender, nondistended. Positive bowel sounds. Extremities: No clubbing, cyanosis, edema. Neuro: The patient has weakness from his stroke. Total time spent discharging the patient was 37 minutes. /LUPE Voice ID: [id number] Report ID: [id number]
== END 2018-03-17 16:18 | DRG 682 ==
LOC: ER 10:38 → ERHOLD 13:42 → 3RD-ICU 15:48 → 2ND 03-16 11:20
PROVIDERS: ADMIT Family Medicine; ATTEND Family Medicine
PROC: 5A1D70Z Performance of Urinary Filtration, Intermittent, Less than 6 Hours Per Day (ICD-10-PCS; principal; 2018-03-15)
PROC: 05HQ33Z Insertion of Infusion Device into Left External Jugular Vein, Percutaneous Approach (ICD-10-PCS; 2018-03-15)
PROC: 5A1D70Z Performance of Urinary Filtration, Intermittent, Less than 6 Hours Per Day (ICD-10-PCS; 2018-03-16)
DX: I12.0 Hypertensive chronic kidney disease with stage 5 chronic kidney disease or end stage renal disease (principal); N18.6 End stage renal disease; G93.41 Metabolic encephalopathy; I69.354 Hemiplegia and hemiparesis following cerebral infarction affecting left non-dominant side; N25.81 Secondary hyperparathyroidism of renal origin; E11.22 Type 2 diabetes mellitus with diabetic chronic kidney disease; Z99.2 Dependence on renal dialysis; Z91.15 Patient's noncompliance with renal dialysis; E03.9 Hypothyroidism, unspecified; G89.4 Chronic pain syndrome; E87.5 Hyperkalemia; E11.65 Type 2 diabetes mellitus with hyperglycemia; Z79.4 Long term (current) use of insulin; F41.1 Generalized anxiety disorder; D63.1 Anemia in chronic kidney disease; F44.5 Conversion disorder with seizures or convulsions; E11.21 Type 2 diabetes mellitus with diabetic nephropathy; E11.40 Type 2 diabetes mellitus with diabetic neuropathy, unspecified; F17.210 Nicotine dependence, cigarettes, uncomplicated; E66.9 Obesity, unspecified; Z68.32 Body mass index [BMI] 32.0-32.9, adult; Z91.19 Patient's noncompliance with other medical treatment and regimen
CPT/HCPCS: 36415; 71045; 80048; 80053; 80076; 80164; 82962; 83735; 83880; 84484; 85025; 85610; 90935; 93005; 99285; J0360; J0610; J1610; J1644; J1650

== ENCOUNTER 2018-05-02 18:33 | Emergency (ER) | payer OTHER ==
--- OUTSIDE RECORDS SUMMARY | 2018-05-02 18:36 | XMS REPORT | Continuity of Care Document ---
:1960 Author Organization Interface Problems Problem Status Onset Classification Date Comments Source Date Reported Conversion Active 07/24/19 Finding 07/24/[address] [facility] disorder with 18 [facility] seizures or [place] convulsions Diabetes mellitus Active 07/24/19 Finding 07/24/[address] [facility] [place] Chronic pain Active 07/24/19 Finding 07/24/[address] [facility] [place] Anxiety Active 07/24/19 Finding 07/24/[address] [facility] [place] Hypothyroidism Active 07/24/19 Finding 07/24/[address] [facility] [place] Encephalopathy Active 07/24/19 Finding 07/24/[address] [facility] [place] History of CVA Active 07/24/19 Finding 07/24/[address] [facility] with residual 18 [facility] - deficit [place] History of Active 07/24/19 Finding 07/24/[address] [facility] noncompliance with [facility] - medical treatment [place] Hypertension Active 07/24/19 Finding 07/24/[address] [facility] [place] End stage renal Active 07/24/19 Finding 07/24/[address] [facility] disease 18 [facility] [place] Hyperkalemia Active 07/24/19 Finding 07/24/[address] [facility] [place] End-stage renal Active 07/24/19 Finding 07/24/[address] [facility] disease 18 [facility] - [place] History of Active 07/24/19 Finding 07/24/[address] [facility] cerebrovascular 18 [facility] - accident with [place] residual deficit History of Active 07/24/19 Finding 07/24/[address] [facility] nonadherence to 18 [facility] - medical treatment [place] Medications Medication Details Route Status Patient Ordering Order Source Instructions Provider Date Aspirin DAILY [facility] [place] Clonidine Patch EVERY [address] [facility] DAYS 018 [facility] [place] Cholecalciferol DAILY Active [facility] (Vitamin D3) 0[facility] [place] Ergocalciferol EVERY [address] [facility] (Vitamin D2) DAYS 018 [facility] [place] Folic Acid DAILY Active [facility] [place] Levetiracetam TWICE Active [facility] DAILY 018 [facility] [place] Levothyroxine DAILY Active [facility] [place] Metoprolol TWICE Active [facility] Tartrate DAILY 018 [facility] [place] Nifedipine DAILY Active [facility] [place] Pantoprazole DAILY Active [facility] Sodium 018 [facility] [place] Isosorbide Dinit THREE Active [facility] TIMES A 018 [facility] - DAY [place] Risperidone DAILY Active [facility] [place] Sevelamer Hcl THREE Active [facility] TIMES A 018 [facility] - DAY [place] Sucralfate THREE [address] [facility] TIMES A 018 [facility] - DAY [place] Tramadol Hcl EVERY [address] [facility] [address] HOURS PRN 018 [facility] - For Pain [place] Allergies, Adverse Reactions, Alerts Substance Category Reaction Severity Reaction Status Date Comments Source type Reported No Known Shortness Allergy to Active [facility] Drug of breath Substance 8 [facility] - Allergies [place] Immunizations Immunization Date Given Site Status Last Updated Comments Source Results Order Name Results Value Reference Date Interpretation Comments Source Range Laboratory Bedside Glucose 188 mg/dl 65 - 120 07/24 [facility] Studies [facility] [place] Laboratory Magnesium Level 1.9 mg/dL 1.8 - 2.5 07/24 [facility] Studies [facility] [place] Laboratory Ammonia 23 umol/L 10 - 45 07/24 [facility] [place] Laboratory Phosphorus 6.3 mg/dL 2.5 - 4.3 07/24 [facility] Studies Level [facility] [place] Laboratory Sodium Level 137 mEq/L 135 - 145 07/24 [facility] Studies [facility] [place] Laboratory Potassium Level 4.1 mEq/L 3.6 - 5.0 04 [facility] Studies /2017 [facility] [place] Laboratory Glucose Level 112 mg/dL 65 - 120 07/24 [facility] Studies [facility] [place] Laboratory Estimat 9 mL/min 90 07/24 [facility] Studies Glomerular [facility] - Filtration Rate [place] Laboratory Creatinine 7.85 0.61 - 04 [facility] Studies mg/dL 1.24 [facility] [place] Laboratory Chloride Level 102 mEq/L 101 - 111 07/24 [facility] Studies /2017 [facility] [place] Laboratory Carbon Dioxide 26 mEq/L 21 - 31 07/24 [facility] Studies Level /2017 [facility] [place] Laboratory Calcium Level 8.8 mg/dL 8.5 - 10.5 07/24 [facility] Studies [facility] [place] Laboratory Blood Urea 55 mg/dL 6 - 20 07/24 [facility]. Studies Nitrogen /2017 [facility] [place] Laboratory White Blood 3.9 K/uL 4.3 - 10.9 07/24 [facility] Studies Count /2017 [facility] [place] Laboratory Red Cell 17.0 % 12.1 - 07/24 [facility]. Studies Distribution 15.2 [employer] - Width [place] Laboratory Red Blood Count 3.38 M/uL 4.33 - 04 [facility] Studies 5.43 /2017 [facility] [place] Laboratory Platelet Count 199 K/uL 152 - 406 07/24 [facility]. Studies [facility] [place] Laboratory Neutrophils % 61.5 % 41.7 - 07/24 [facility] Studies 73.7 [facility] - [place] Laboratory Monocytes % 11.6 % 3.3 - 12.3 07/24 [facility]. Studies [facility] [place] Laboratory Mean Platelet 8.8 fL 7.6 - 11.3 07/24 [facility]. Studies Volume /2017 [facility] [place] Laboratory Mean 82.9 fL 80 - 100 07/24 [facility] Studies Corpuscular /2017 [facility] - Volume [place] Laboratory Mean 32.6 g/dL 32.0 - 07/24 [facility]. Studies Corpuscular 36.0 [employer] - Hemoglobin [place] Concent Laboratory Mean 27.0 pg 27.0 - 07/[address] [facility] [address] Studies Corpuscular 35.0 /2017 [employer] - Hemoglobin [place] Laboratory Lymphocytes % 21.0 % 15.3 - 04 [facility] Studies 44.8 /2017 [facility] [place] Laboratory Hemoglobin 9.1 g/dL 13.6 - 07/24 [facility] Studies 17.9 /2017 [employer] - [place] Laboratory Hematocrit 28.0 % 39.6 - 04 [facility] Studies 49.0 /2017 [facility] [place] Laboratory Eosinophils % 4.0 % 0 - 4.4 07/24 [facility] Studies /2017 [facility] [place] Laboratory Basophils % 1.9 % 0 - 1.3 07/24 [facility] Studies /2017 [facility] [place] Laboratory Absolute 2.4 K/uL 1.8 - 8.0 07/24 [facility] Studies Neutrophil /2017 [facility] [place] Laboratory Absolute 0.5 K/uL 0.1 - 1.3 07/24 [facility] Studies Monocytes (CBC) /2017 [facility] [place] Laboratory Absolute 0.8 K/uL 0.7 - 4.9 07/24 [facility] Studies Lymphocytes /2017 [facility] - (CBC) [place] Laboratory Absolute 0.2 K/uL 0 - 0.5 07/24 [facility] Studies Eosinophils /2017 [facility] - (CBC) [place] Laboratory Absolute 0.1 K/uL 0 - 0.5 07/24 [facility] Studies Basophils (CBC) /2017 [employer] - [place] Laboratory Troponin I 0.14 07/23 [facility] Studies ng/mL /2017 [employer] - [place] Laboratory Creatine Kinase 9.7 ng/ml 0.3 - 4.0 04 [facility] Studies MB /2017 [employer] - [place] Laboratory Creatine Kinase 329 IU/L 22 - 269 04 [facility] Studies /2018 [facility] [place] Laboratory Triglycerides 82 mg/dL 35 - 160 04 [facility] Studies Level /2017 [employer] - [place] Laboratory Thyroid 1.48 0.34 - 04 [facility] Studies Stimulating uIU/mL 5.60 [employer] - Hormone (TSH) [place] Laboratory LDL 35 04 [facility] Studies Cholesterol, /2017 [facility] - Calculated [place] Laboratory HDL Cholesterol 45 mg/dL 27 - 67 04 [facility] Studies /2017 [employer] - [place] [facility] Free Thyroxine 0.90 0.58 - 04 [facility] Studies ng/dl 1.64 /2017 [employer] - [place] Laboratory Cholesterol/HDL 2.13 04 [facility] Studies Ratio /2017 [facility] [place] Laboratory Cholesterol 96 mg/dL 07/23 [facility] Studies Level /2017 [facility] [place] Laboratory Urine WBC null 07/22 St. Studies /2017 [facility] [place] Laboratory Urine null 07/22 [facility] Studies Urothelial /2017 [employer] - Cells [place] Laboratory Urine Squamous null 07/22 [facility]. Studies Epithelial /2017 [employer] - Cells [place] Laboratory Urine RBC Urine RBC 07/22 [facility]. Studies /2017 [employer] [facility] Urine Culture Urine 07/22 [facility]. Studies Reflexed Culture /2017 [facility] - Reflexed [facility] Laboratory Urine Bacteria Urine 07/22 [facility]. Studies Bacteria /2017 [employer] [facility] Procalcitonin 1.56 07/22 [facility] Studies ng/mL /2017 [employer] [facility] Total Bilirubin 0.7 mg/dL 0.3 - 1.2 07/22 [facility] Studies /2017 [facility] - [facility] Serum Total 7.4 g/dL 6.0 - 8.3 07/22 [facility] Studies Protein /2017 [employer] [facility] Lipase 82 U/L 22 - 51 07/22 [facility]. Studies [employer] - [place] Laboratory Globulin 3.5 g/dL 2.3 - 3.5 07/22 [facility] Studies [facility] - [facility] Direct 0.1 mg/dL 0 - 0.2 07/22 [facility]. Studies Bilirubin [facility] - [facility] Aspartate Amino 18 IU/L 10 - 42 07/22 [facility] Studies Transf /2017 [employer] - (AST/SGOT) [place] Laboratory Alkaline 63 IU/L 42 - 121 07/22 [facility]. Studies Phosphatase /2017 [employer] - [facility] Laboratory Albumin/Globuli 1.1 1.1 - 1.8 07/22 [facility] Studies n Ratio /2017 [employer] - [facility] Laboratory Albumin 3.9 g/dL 3.2 - 5.5 07/22 [facility] Studies /2018 [facility] [place] Laboratory Alanine 12 IU/L 10 - 60 07/22 [facility] Studies Aminotransferas /2017 [facility] - e (ALT/SGPT) [place] Laboratory B-Type 1591 07/22 [facility] Studies Natriuretic pg/ml /2017 [facility] - Peptide [place] Laboratory Rapid Troponin 0.11 07/22 [facility] Studies I ng/mL /2017 [facility] [place] Laboratory Lactic Acid 6.6 mg/dL 4.5 - 19.8 07/22 [facility] Studies Level /2017 [facility] [place] Laboratory Prothrombin 12.5 9.5 - 12.5 07/22 [facility] Studies Time SECONDS /2017 [facility] [place] Laboratory INR 1.06 07/22 [facility] Studies International /2017 [facility] - Normalized [place] Ratio Laboratory Activated 33.9 24.3 - 07/22 [facility] Studies Partial SECONDS 36.9 [facility] - Thromboplast [place] Time Vital Signs Vital Sign Value Date Comments Source Heart Rate 63 07/24/2017 [facility] [place] Systolic (mm Hg) 103 07/24/2017 [facility] [place] Diastolic (mm Hg) 60 07/24/2017 [facility] [place] Respitory Rate 13 07/24/2017 [facility]. [facility] - [place] Temperature Oral (F) 97.8 F 07/24/2017 [facility] [place] Height 73 07[facility]23/2017 [facility] Weight 179.00 07/23/2017 [facility] [place] Encounters Location Location Encounter Encounter Reason Attending ADM DC Status Source Details Type Number For Provider Date Date Visit [facility] Discharged [id number] 07/22 07/24 [facility] [place] [place] Procedures Procedure Code Date Perfomer Comments Source Chest Single [id number] [facility] - View 8 [place] Anaerobic Blood [id number] [facility] [place] Aerobic Blood [id number] [facility] [place] [facility] [address] [place] [id number] [facility] - 8 [place] Count [id number] [facility] - 8 [place] Head Brain Wo [id number] [facility] - Cont 8 [place] Chest Single [id number] [facility] - View 8 [place]
--- NOTE | 2018-05-02 20:10 | ER ---
Nurse's Notes [facility] Name: Juan Lozano Age: 57 yrs Sex: Male : 1960 Arrival Date: 05/02/2018 Time: 18:40 Bed 23 Private MD: Diagnosis: Nausea Presentation: 05/02 18:40 Presenting complaint: EMS states: patient has chest pain, headache, nausea and cough mg2 since 1745 today. aspirin 324 mg was given. patient is pain free now. discharged last week for CHF. Transition of care: patient was received from another setting of care (long-term care facility), [facility]. Onset of symptoms was May 02, 2018 at 17:45. Risk Assessment: Do you want to hurt yourself or someone else? Patient reports no desire to harm self or others. Initial Sepsis Screen: Does the patient meet any 2 criteria? No. Patient's initial sepsis screen is negative. Does the patient have a suspected source of infection? No. Patient's initial sepsis screen is negative. Care prior to arrival: Medication(s) given: ASA, 325 mg. 18:40 Method Of Arrival: EMS: [facility] mg2 18:40 Acuity: DORIS 3 mg2 Historical: - Allergies: 18:59 NKA; mg2 - Home Meds: 18:59 aspirin 81 mg Oral chew 1 tab once daily [Active]; aspirin 81 mg Oral chew once daily mg2 [Active]; Ativan 1 mg Oral tab 1 tab once daily [Active]; cholecalciferol (vitamin D3) 1,000 unit Oral cap [Active]; cholecalciferol (vitamin D3) 2,000 unit Oral cap daily [Active]; cinacalcet 30 mg Oral 2 tabs nightly [Active]; clonidine 0.3 mg/24 hr transdermal ptwk once weekly on Mon [Active]; Clonidine 0.3 mg/24hr Oral 0.3 mg [Active]; Depakote ER 125mg Oral twice a day [Active]; Depakote Sprinkles 125 mg Oral cpSP 2 caps every 12 hours [Active]; folic acid 1 mg Oral tab 1 tab once daily [Active]; folic acid 1 mg Oral tab 1 tab once daily [Active]; hydralazine 50 mg Oral tab TID [Active]; isosorbide dinitrate 20 mg Oral tab 1 tab 3 times per day [Active]; isosorbide dinitrate 20 mg Oral tab 3 times per day [Active]; Keppra 500 mg Oral tab 1 tab 2 times per day [Active]; Keppra 500 mg Oral tab 1 tab 2 times per day [Active]; levothyroxine 50 mcg tab 1 tab once daily [Active]; metoprolol tartrate 100 mg Oral tab 1 tab 2 times per day [Active]; minoxidil 2.5 mg Oral tab 2 times per day [Active]; nystatin 100,000 unit/gram Topical oint 2 times per day [Active]; olopatadine 0.1 % ophthalmic drop every morning [Active]; Protonix 40 mg Oral TbEC 1 tab once daily [Active]; Renvela 800 mg Oral tab take 5 tabs with each meal TID and 2 with snacks [Active]; Risperdal 0.25 mg Oral tab 1 tabs daily [Active]; risperidone 0.5 mg Oral TbDL once daily [Active]; sevelamer HCl 800 mg Oral 2 tabs take 3 times a day, take 5 caps to equal 4000mg [Active]; Protonix 40 mg Oral TbEC 1 tab once daily [Active]; sevelamer HCl 800 mg Oral 2 tabs 3 times a day w/ snacks [Active]; sorbitol-saliva stim cb#1-malic acid-Ca phos sun mon wed fri mucous membrane [Active]; tramadol 50 mg Oral tab 2 tabs every 6 hours [Active]; trazodone 50 mg Oral tab nightly [Active]; metoprolol tartrate 100 mg Oral tab 2 times per day [Active]; tramadol 50 mg Oral tab 2 tabs every 6 hours [Active]; levothyroxine 50 mcg tab once daily [Active]; - PMHx: 18:59 Anemia; Chronic ischemic heart disease; CVA; Bipolar disorder; Diabetes - NIDDM; mg2 epilepsy; Dialysis; Hypertension; TIA; ADD/ADHD; - PSHx: 18:59 None; mg2 - Immunization history:: Flu vaccine is up to date. - Social history:: Smoking status: Patient uses tobacco products, smokes one pack cigarettes per day. Patient/guardian denies using alcohol, street drugs, IV drugs. - Ebola Screening: : No symptoms or risks identified at this time. Screenin:01 Abuse screen: Denies threats or abuse. Denies injuries from another. Nutritional mg2 screening: No deficits noted. Tuberculosis screening: No symptoms or risk factors identified. Fall Risk Secondary diagnosis (15 points) seizures, TIA, impaired mobility, CVA, Ambulatory Aid- None/Bed Rest/Nurse Assist (0 pts). Gait- Normal/Bed Rest/Wheelchair (0 pts). Assessment: 19:02 General: Appears in no apparent distress. comfortable, Behavior is calm, cooperative. mg2 Pain: Denies pain. Neuro: Level of Consciousness is awake, alert, obeys commands, Oriented to person, place, time, situation. Cardiovascular: Capillary refill < 3 seconds Patient's skin is warm and dry. Cardiovascular: Reports chest pain, Rhythm is sinus bradycardia with PACs. Respiratory: Reports cough that is productive, Airway is patent Respiratory effort is even, unlabored, Respiratory pattern is regular, symmetrical. GI: Reports nausea. : No signs and/or symptoms were reported regarding the genitourinary system. EENT: No signs and/or symptoms were reported regarding the EENT system. Derm: Skin is intact, is healthy with good turgor, Skin is pink, warm \T\ dry. normal. Musculoskeletal: No signs and/or symptoms reported regarding the musculoskeletal system. 19:48 Reassessment: patient refused treatment. AMA form signed by the patient. Sister Priya gant was informed about the plan. Nurse citlaly Clements RN of [facility] was informed about the plan and she will call back about the transportation. 21:30 Reassessment: Patient appears in no apparent distress at this time. Patient and/or mg2 family updated on plan of care and expected duration. Pain level reassessed. Patient is alert, oriented x 3, equal unlabored respirations, skin warm/dry/pink. patient is being picked up by Ms Odalys Unger, of [facility]. Vital Signs: 18:42 BP 142 / 90; Pulse 63; Resp 18; Temp 98.6; Pulse Ox 98% on R/A; Weight 95.25 kg; Height mg2 5 ft. 11 in. (180.34 cm); Pain 0/10; 20:00 BP 130 / 75; Pulse 75; Resp 18; Pulse Ox 100% on R/A; Pain 0/10; mg2 21:00 BP 134 / 78; Pulse 64; Resp 18; Pulse Ox 100% on R/A; Pain 0/10; mg2 18:42 Body Mass Index 29.29 (95.25 kg, 180.34 cm) mg2 ED Course: 18:40 Patient arrived in ED. mg2 18:40 Keaton Christiansen MD is Attending Physician. tw4 18:42 Triage completed. mg2 19:00 Arm band placed on. mg2 19:02 No provider procedures requiring assistance completed. Patient did not have IV access mg2 during this emergency room visit. 19:04 Patient has correct armband on for positive identification. mg2 19:15 Bruce Layton, RN is Primary Nurse. mg2 Administered Medications: No medications were administered Outcome: 21:35 AMA AMA form signed mg2 21:35 Condition: stable 21:35 Discharge instructions given to patient, long term, Instructed on discharge instructions, follow up and referral plans. Demonstrated understanding of instructions, follow-up care. 21:36 Patient left the ED. mg2 Signatures: Keaton Christiansen MD MD tw4 Bruce aLyton, RN RN mg2
--- NOTE | 2018-05-03 12:27 | EKG ---
Test Date: 2018-05-02 Test Time: 18:46:33 Instructor Flying: MEASUREMENT RESULTS: Intervals: Rate: 58 MT: 180 QRSD: 92 QT: 440 QTc: 431 [place]: P: 68 MT: 180 QRS: 9 T: 32 INTERPRETIVE STATEMENTS: Sinus bradycardia with premature atrial complexes T wave abnormality, consider lateral ischemia Abnormal ECG Compared to ECG 03/15/2018 10:55:57 Atrial premature complex(es) now present T-wave abnormality now present Possible ischemia now present Uncertain supraventricular rhythm no longer present Left-axis deviation no longer present Electronically Signed On 05-03-18 12:25:43 [employer] by Ricardo Ibanez
--- NOTE | 2018-05-07 06:41 | EDPHYS ---
Physician Documentation [facility] Name: Juan Lozano Age: 57 yrs Sex: Male : 1960 Arrival Date: 05/02/2018 Time: 18:40 Bed 23 Private MD: ED Physician Keaton Christiansen Historical: - Allergies: 05/02 18:59 NKA; mg2 - Home Meds: 18:59 aspirin 81 mg Oral chew 1 tab once daily [Active]; aspirin 81 mg Oral chew once daily mg2 [Active]; Ativan 1 mg Oral tab 1 tab once daily [Active]; cholecalciferol (vitamin D3) 1,000 unit Oral cap [Active]; cholecalciferol (vitamin D3) 2,000 unit Oral cap daily [Active]; cinacalcet 30 mg Oral 2 tabs nightly [Active]; clonidine 0.3 mg/24 hr transdermal ptwk once weekly on Mon [Active]; Clonidine 0.3 mg/24hr Oral 0.3 mg [Active]; Depakote ER 125mg Oral twice a day [Active]; Depakote Sprinkles 125 mg Oral cpSP 2 caps every 12 hours [Active]; folic acid 1 mg Oral tab 1 tab once daily [Active]; folic acid 1 mg Oral tab 1 tab once daily [Active]; hydralazine 50 mg Oral tab TID [Active]; isosorbide dinitrate 20 mg Oral tab 1 tab 3 times per day [Active]; isosorbide dinitrate 20 mg Oral tab 3 times per day [Active]; Keppra 500 mg Oral tab 1 tab 2 times per day [Active]; Keppra 500 mg Oral tab 1 tab 2 times per day [Active]; levothyroxine 50 mcg tab 1 tab once daily [Active]; metoprolol tartrate 100 mg Oral tab 1 tab 2 times per day [Active]; minoxidil 2.5 mg Oral tab 2 times per day [Active]; nystatin 100,000 unit/gram Topical oint 2 times per day [Active]; olopatadine 0.1 % ophthalmic drop every morning [Active]; Protonix 40 mg Oral TbEC 1 tab once daily [Active]; Renvela 800 mg Oral tab take 5 tabs with each meal TID and 2 with snacks [Active]; Risperdal 0.25 mg Oral tab 1 tabs daily [Active]; risperidone 0.5 mg Oral TbDL once daily [Active]; sevelamer HCl 800 mg Oral 2 tabs take 3 times a day, take 5 caps to equal 4000mg [Active]; Protonix 40 mg Oral TbEC 1 tab once daily [Active]; sevelamer HCl 800 mg Oral 2 tabs 3 times a day w/ snacks [Active]; sorbitol-saliva stim cb#1-malic acid-Ca phos sun wed mucous membrane [Active]; tramadol 50 mg Oral tab 2 tabs every 6 hours [Active]; trazodone 50 mg Oral tab nightly [Active]; metoprolol tartrate 100 mg Oral tab 2 times per day [Active]; tramadol 50 mg Oral tab 2 tabs every 6 hours [Active]; levothyroxine 50 mcg tab once daily [Active]; - PMHx: 18:59 Anemia; Chronic ischemic heart disease; CVA; Bipolar disorder; Diabetes - NIDDM; mg2 epilepsy; Dialysis; Hypertension; TIA; ADD/ADHD; - PSHx: 18:59 None; mg2 - Immunization history:: Flu vaccine is up to date. - Social history:: Smoking status: Patient uses tobacco products, smokes one pack cigarettes per day. Patient/guardian denies using alcohol, street drugs, IV drugs. - Ebola Screening: : No symptoms or risks identified at this time. Vital Signs: 18:42 BP 142 / 90; Pulse 63; Resp 18; Temp 98.6; Pulse Ox 98% on R/A; Weight 95.25 kg; Height mg2 5 ft. 11 in. (180.34 cm); Pain 0/10; 20:00 BP 130 / 75; Pulse 75; Resp 18; Pulse Ox 100% on R/A; Pain 0/10; mg2 21:00 BP 134 / 78; Pulse 64; Resp 18; Pulse Ox 100% on R/A; Pain 0/10; mg2 18:42 Body Mass Index 29.29 (95.25 kg, 180.34 cm) mg2 MDM: 18:40 Patient medically screened. tw4 05/02 19:16 Order name: EKG - Nurse/Tech; Complete Time: 19:17 mg2 Administered Medications: No medications were administered Disposition: 05/02/18 20:09 Patient has left against medical advice. Impression: Nausea. - Patients states they are going to Home. - Condition is Stable. - Discharge Instructions: Nausea, Adult. Thank You Letter form. Follow up: Private Physician; When: Upon discharge from the Emergency Department; Reason: Recheck today's complaints, Continuance of care, Re-evaluation by your physician. - Problem is new. - Symptoms have improved. Addendum: 05/07/2018 06:29 Addendum: HPI: Pt comes to the ED with complaints of nausea per NH. Pt himself states t w4 that he "feels well" and does not have any complaints. Pt denies CP, SOB, abdominal pain and diarrhea. Pt denies fever, chills. Pt states that he wants to go home.. Addendum: ROS: Constitutional: l denies fever, chills HEENT: denies sore throat, ear pain Resp: denies SOB, cough, hemoptysis CV: denies chest pain, palpitations Abdominal: denies abdominal pain, nausea, vomiting diarrhea Ext: denies edema, injury Neuro: denies, numbness, weakness, speech changes. Addendum: PE: General: well developed elderly male in NAD HEENT: PERRLA, EOMI Neck: supple, nontender Resp: CTAB, no resp distress, CV: RRR, nl S1, S2, no murmurs no gallops Abdominal: nontender, nondistended, good BS Ext; no edema, nontender Neuro: alert and oriented times 3, CN grossly intact, moves all fours. Signatures: Dispatcher [employer] [facility] Keaton Christiansen MD MD tw4 Bruce Layton RN RN mg2 Corrections: (The following items were deleted from the chart) 05/02 19:46 19:17 Chest Single View+RAD.RAD.BRZ ordered. [facility] 21:36 20:09 05/02/2018 20:09 Patients has left against medical advice. Impression: Nausea. mg2 Patient states they are going to Home. Condition is Stable. Follow up: Private Physician; When: Upon discharge from the Emergency Department; Reason: Recheck today's complaints, Continuance of care, Re-evaluation by your physician. Problem is new. Symptoms have improved. tw4
== END 2018-05-02 21:36 | disposition left against medical advice (07) ==
LOC: ER 18:33
DX: R11.0 Nausea (principal)
CPT/HCPCS: 93005; 99284

== ENCOUNTER 2018-05-05 16:11 | Emergency (ER) | payer OTHER ==
--- OUTSIDE RECORDS SUMMARY | 2018-05-05 16:13 | XMS REPORT | Continuity of Care Document ---
[...] Reported No Known Shortness Allergy to Active [facility] Drug of breath Substance 8 [facility]ies [place] Immunizations Immunization Date Given Site Status Last Updated Comments Source Results Order Name Results Value Reference Date Interpretation Comments Source Range Laboratory Bedside Glucose 188 mg/dl 65 - 120 07/24 [facility] Studies [facility] [place] [facility] Magnesium Level 1.9 mg/dL 1.8 - 2.5 07/24 [facility] Studies [facility] [place] [facility] Ammonia 23 umol/L 10 - 45 07/24 [facility] [place] [facility] Phosphorus 6.3 mg/dL 2.5 - 4.3 07/24 [facility] Studies Level [facility] [place] [facility] Sodium Level 137 mEq/L 135 - 145 07/24 [facility] Studies [facility] [place] [facility] Potassium Level 4.1 mEq/L 3.6 - 5.0 04 [facility] Studies /2017 [facility] [place] [facility] Glucose Level 112 mg/dL 65 - 120 07/24 [facility] Studies [facility] [place] [facility] Estimat 9 mL/min 90 07/24 [facility] Studies Glomerular [facility] - Filtration Rate [place] [facility] Creatinine 7.85 0.61 - 04 [facility] Studies mg/dL 1.24 [facility] [place] [facility] Chloride Level 102 mEq/L 101 - 111 07/24 [facility] Studies /2017 [facility] [place] [facility] Carbon Dioxide 26 mEq/L 21 - 31 07/24 [facility] Studies Level /2017 [facility] [place] [facility] Calcium Level 8.8 mg/dL 8.5 - 10.5 07/24 [facility] Studies [facility] [place] [facility] Blood Urea 55 mg/dL 6 - 20 07/24 [facility]. Studies Nitrogen /2017 [facility] [place] [facility] White Blood 3.9 K/uL 4.3 - 10.9 07/24 [facility] Studies Count /2017 [facility] [place] [facility] Red Cell 17.0 % 12.1 - 07/24 [facility]. Studies Distribution 15.2 [facility] - Width [place] [facility] Red Blood Count 3.38 M/uL 4.33 - 04 [facility] Studies 5.43 /2017 [facility] [place] [facility] Platelet Count 199 K/uL 152 - 406 07/24 [facility]. Studies [facility] [place] [facility] Neutrophils % 61.5 % 41.7 - 07/24 [facility] Studies 73.7 [facility] [place] [facility] Monocytes % 11.6 % 3.3 - 12.3 07/24 [facility]. Studies [facility] [place] [facility] Mean Platelet 8.8 fL 7.6 - 11.3 07/24 [facility]. Studies Volume /2017 [facility] [place] [facility] Mean 82.9 fL 80 - 100 07/24 [facility] Studies Corpuscular /2017 [facility] - Volume [place] [facility] Mean 32.6 g/dL 32.0 - 07/24 [facility]. Studies Corpuscular 36.0 [facility] - Hemoglobin [place] [facility] Mean 27.0 pg 27.0 - 07/[address] [facility] [address] Studies Corpuscular 35.0 /2017 [facility] - Hemoglobin [place] [facility] Lymphocytes % 21.0 % 15.3 - 04 [facility] Studies 44.8 /2017 [facility] [place] [facility] Hemoglobin 9.1 g/dL 13.6 - 07/24 [facility] Studies 17.9 /2017 [facility] - [place] [facility] Hematocrit 28.0 % 39.6 - 04 [facility] Studies 49.0 /2017 [facility] [place] [facility] Eosinophils % 4.0 % 0 - 4.4 07/24 [facility] Studies /2017 [facility] [place] [facility] Basophils % 1.9 % 0 - 1.3 07/24 [facility] Studies /2017 [facility] [place] [facility] Absolute 2.4 K/uL 1.8 - 8.0 07/24 [facility] Studies Neutrophil /2017 [facility] [place] [facility] Absolute 0.5 K/uL 0.1 - 1.3 07/24 [facility] Studies Monocytes (CBC) /2017 [facility] [place] [facility] Absolute 0.8 K/uL 0.7 - 4.9 07/24 [facility] Studies Lymphocytes /2017 [facility] - (CBC) [place] [facility] Absolute 0.2 K/uL 0 - 0.5 07/24 [facility] Studies Eosinophils /2017 [facility] - (CBC) [place] [facility] Absolute 0.1 K/uL 0 - 0.5 07/24 [facility] Studies Basophils (CBC) /2017 [facility] - [place] [facility] Troponin I 0.14 07/23 [facility] Studies ng/mL /2017 [facility] - [place] [facility] Creatine Kinase 9.7 ng/ml 0.3 - 4.0 04 [facility] Studies MB /2017 [facility] - [place] [facility] Creatine Kinase 329 IU/L 22 - 269 04 [facility] Studies /2018 [facility] [place] [facility] Triglycerides 82 mg/dL 35 - 160 04 [facility] Studies Level /2017 [facility] - [place] [facility] Thyroid 1.48 0.34 - 04 [facility] Studies Stimulating uIU/mL 5.60 [facility] - Hormone (TSH) [place] [facility] LDL 35 04 [facility] Studies Cholesterol, /2017 [facility] - Calculated [place] [facility] HDL Cholesterol 45 mg/dL 27 - 67 04 [facility] Studies /2017 [facility] - [place] [facility] Free Thyroxine 0.90 0.58 - 04 [facility] Studies ng/dl 1.64 /2017 [facility] - [place] [facility] Cholesterol/HDL 2.13 04 [facility] Studies Ratio /2017 [facility] [place] [facility] Cholesterol 96 mg/dL 07/23 [facility] Studies Level /2017 [facility] [place] Laboratory Urine WBC null 07/22 St. Studies /2017 [facility] [place] [facility] Urine null 07/22 [facility] Studies Urothelial /2017 [facility] - Cells [place] [facility] Urine Squamous null 07/22 [facility]. Studies Epithelial /2017 [facility] - Cells [place] [facility] Urine RBC Urine RBC 07/22 [facility]. Studies /2017 [facility] Urine Culture Urine 07/22 [facility]. Studies Reflexed Culture /2017 [facility] - Reflexed [place] [facility] Urine Bacteria Urine 07/22 [facility]. Studies Bacteria /2017 [facility] Procalcitonin 1.56 07/22 [facility] Studies ng/mL /2017 [facility] Total Bilirubin 0.7 mg/dL 0.3 - 1.2 07/22 [facility] Studies /2017 [facility] Serum Total 7.4 g/dL 6.0 - 8.3 07/22 [facility] Studies Protein /2017 [facility] Lipase 82 U/L 22 - 51 07/22 [facility]. Studies [facility] - [place] Laboratory Globulin 3.5 g/dL 2.3 - 3.5 07/22 [facility] Studies [facility] Direct 0.1 mg/dL 0 - 0.2 07/22 [facility]. Studies Bilirubin [facility] Aspartate Amino 18 IU/L 10 - 42 07/22 [facility] Studies Transf /2017 [facility] - (AST/SGOT) [place] [facility] Alkaline 63 IU/L 42 - 121 07/22 [facility]. Studies Phosphatase /2017 [facility] - [facility] [facility] Albumin/Globuli 1.1 1.1 - 1.8 07/22 [facility] Studies n Ratio /2017 [facility] [facility] Albumin 3.9 g/dL 3.2 - 5.5 07/22 [facility] Studies /2018 [facility] [place] [facility] Alanine 12 IU/L 10 - 60 07/22 [facility] Studies Aminotransferas /2017 [facility] - e (ALT/SGPT) [place] [facility] B-Type 1591 07/22 [facility] Studies Natriuretic pg/ml /2017 [facility] - Peptide [place] Laboratory Rapid Troponin 0.11 07/22 [facility] Studies I ng/mL /2017 [facility] [place] [facility] Lactic Acid 6.6 mg/dL 4.5 - 19.8 07/22 [facility] Studies Level /2017 [facility] [place] Laboratory Prothrombin 12.5 9.5 - 12.5 07/22 [facility] Studies Time SECONDS /2017 [facility] [place] [facility] INR 1.06 07/22 [facility] Studies International /2017 [facility] - Normalized [place] Ratio Laboratory Activated 33.9 24.3 - 07/22 [facility] Studies Partial SECONDS 36.9 [facility] - Thromboplast [place] Time Vital Signs Vital Sign Value Date Comments Source Heart Rate 63 07/24/2017 [facility] [place] Systolic (mm Hg) 103 07/24/2017 [facility] [place] Diastolic (mm Hg) 60 07/24/2017 [facility] [place] Respitory Rate 13 07/24/2017 [facility]. [facility] - [place] Temperature Oral (F) 97.8 F [facility] Height 73 [facility] Weight 179.00 07/[facility]2017 [facility] En[facility]ters Location Location Encounter Encounter Reason Attending ADM DC Status Source Details Type Number For Provider Date Date Visit [facility] Discharged [id number] 07/22 07/24 [facility]. [facility] [place] Procedures Procedure Code Date Perfomer Comments Source Chest Single [id number] [facility] - View [facility] [place] Anaerobic Blood [id number] [facility] [place] [facility] Blood [id number] [facility] [address] [place] [id number] [facility] - 8 [place] Count [id number] [facility] 8 [place] Head Brain Wo [id number] [facility] - Cont 8 [place] Chest Single [id number] [facility] - View 8 [place]
--- NOTE | 2018-05-05 16:52 | RAD REPORT ---
EXAM DESCRIPTION: CT - Facial Bones W/ Mpr - 05/05/2018 4:40 pm CLINICAL HISTORY: Facial injury with facial pain status post fall COMPARISON: none TECHNIQUE: Computed axial tomography of the face was obtained. Coronal and sagittal reconstruction w as performed. All CT scans are performed using dose optimization technique as appropriate and may include automated exposure control or mA/KV adjustment according to patient size. FINDINGS: A fracture is not seen. Swelling involves the soft tissue of the left face. A TMJ dislocation is not noted. The globes are intact. Fluid within the sinuses is not seen. IMPRESSION: Negative for a facial fracture.
--- NOTE | 2018-05-05 16:56 | RAD REPORT ---
EXAM DESCRIPTION: CT - Head C Spine Mpr Wo Con - 05/05/2018 4:40 pm CLINICAL HISTORY: Head and neck injury status post fall. Head and neck pain COMPARISON: December [address] TECHNIQUE: Computed axial tomography of the head and cervical spine was obtained. Sagittal and coronal reconstruction was performed. All CT scans are performed using dose optimization technique as appropriate and may include automated exposure control or mA/KV adjustment according to patient size. FINDINGS: Bilateral cerebral cystic encephalomalacia probably secondary to old infarctions. An intracranial bleed is not seen. The ventricles are normal in caliber. An extra-axial fluid collect ion is not noted.Fluid within the visualized sinuses and mastoids is not seen A cervical fracture is not visualized. No dislocation is noted. IMPRESSION: No acute intracranial abnormality is seen. A cervical fracture is not visualized. If the patient continues to have symptoms to suggest intracra nial /spinal cord pathology then MRI would be recommended
--- NOTE | 2018-05-05 17:18 | ER ---
Nurse's Notes [facility] Name: Juan Lozano Age: 57 yrs Sex: Male : 1960 Arrival Date: 05/05/2018 Time: 16:05 Bed 26 Private MD: Diagnosis: Unspecified injury of head Presentation: 05/05 16:05 Presenting complaint: EMS states: pt from [facility], states yesterday at some point he fell, and today he started c/o headache during dialysis. pt got 2L of fluid pulled off, completed dialysis, got 2,000U of heparin during dialysis. bridger stated he c/o headache 1/2 way thru dialysis, so they called ems. Transition of care: patient was not received from another setting of care. Onset of symptoms was May 04, 2018. Risk Assessment: Do you want to hurt yourself or someone else? Patient reports no desire to harm self or others. Initial Sepsis Screen: Does the patient meet any 2 criteria? No. Patient's initial sepsis screen is negative. Does the patient have a suspected source of infection? No. Patient's initial sepsis screen is negative. Care prior to arrival: dialysis. 16:05 Method Of Arrival: EMS: [facility] ER 16:05 Acuity: DORIS 3 ch Triage Assessment: 17:50 Headache History: Denies prior headaches. General: Appears in no apparent distress. ch comfortable. Pain: Pain currently is 0 out of 10 on a pain scale. Pain began gradually, Also complains of. Historical: - Allergies: 16:11 NKA; ch - Home Meds: 16:11 aspirin 81 mg Oral chew 1 tab once daily [Active]; Ativan 1 mg Oral tab 1 tab once ch daily [Active]; cholecalciferol (vitamin D3) 1,000 unit Oral cap [Active]; cinacalcet 30 mg Oral 2 tabs nightly [Active]; clonidine 0.3 mg/24 hr transdermal ptwk once weekly on Mon [Active]; Clonidine 0.3 mg/24hr Oral 0.3 mg [Active]; Depakote Sprinkles 125 mg Oral cpSP 2 caps every 12 hours [Active]; folic acid 1 mg Oral tab 1 tab once daily [Active]; isosorbide dinitrate 20 mg Oral tab 1 tab 3 times per day [Active]; 16:22 hydralazine 50 mg Oral tab TID [Active]; isosorbide dinitrate 20 mg Oral tab 3 times ss per day [Active]; Keppra 500 mg Oral tab 1 tab 2 times per day [Active]; levothyroxine 50 mcg tab 1 tab once daily [Active]; metoprolol tartrate 100 mg Oral tab 1 tab 2 times per day [Active]; minoxidil 2.5 mg Oral tab 2 times per day [Active]; nystatin 100,000 unit/gram Topical oint 2 times per day [Active]; Protonix 40 mg Oral TbEC 1 tab once daily [Active]; Renvela 800 mg Oral tab take 5 tabs with each meal TID and 2 with snacks [Active]; Risperdal 0.25 mg Oral tab 1 tabs daily [Active]; sevelamer HCl 800 mg Oral 2 tabs take 3 times a day, take 5 caps to equal 4000mg [Active]; tramadol 50 mg Oral tab 2 tabs every 6 hours [Active]; trazodone 50 mg Oral tab nightly [Active]; - PMHx: 16:22 ADD/ADHD; Anemia; Bipolar disorder; Chronic ischemic heart disease; CVA; Diabetes - ss NIDDM; Dialysis; epilepsy; Hypertension; TIA; - PSHx: 16:22 dialysis port; ss - Immunization history:: Adult Immunizations up to date. - Social history:: Smoking status: Patient/guardian denies using tobacco. - Ebola Screening: : Patient negative for fever greater than or equal to 101.5 degrees Fahrenheit, and additional compatible Ebola Virus Disease symptoms Patient denies exposure to infectious person Patient denies travel to an Ebola-affected area in the 21 days before illness onset No symptoms or risks identified at this time. Screenin:22 Abuse screen: Denies threats or abuse. Denies injuries from another. Nutritional ss screening: No deficits noted. Tuberculosis screening: No symptoms or risk factors identified. Fall Risk None identified. Assessment: 16:17 General: Appears in no apparent distress. comfortable, Behavior is calm, cooperative. rv Pain: Complains of pain in head. Neuro: Level of Consciousness is awake, alert, obeys commands, Oriented to person. Cardiovascular: Capillary refill < 3 seconds. Respiratory: Airway is patent. GI: No signs and/or symptoms were reported involving the gastrointestinal system. : No signs and/or symptoms were reported regarding the genitourinary system. EENT: No signs and/or symptoms were reported regarding the EENT system. Derm: Skin is intact. Musculoskeletal: No signs and/or symptoms reported regarding the musculoskeletal system. 17:15 Reassessment: Report given to nurse at [facility] and reports he will ss arrange for transportation back to [facility]. PT states he is ready to go home now. Nurse at [facility] reports that he will call us back with an ETA of transportation . 17:48 Reassessment: Patient appears in no apparent distress at this time. Patient and/or ch family updated on plan of care and expected duration. Pain level reassessed. Patient is alert, oriented x 3, equal unlabored respirations, skin warm/dry/pink. pt ride is [facility] from [facility]. pt states he is ready to go home. no s/.s of distress. Patient states feeling better. Patient states symptoms have improved. Vital Signs: 16:11 BP 110 / 65; Pulse 62; Resp 16; Temp 98.6; Pulse Ox 99% ; Pain 0/10; ds4 17:48 BP 110 / 62; Pulse 81; Resp 14; Temp 98.5; Pulse Ox 99% on R/A; Pain 0/10; ch ED Course: 16:05 Patient arrived in ED. ch 16:09 Triage completed. 16:11 Sebastian Lopez PA is PHCP. [facility] 16:11 Phani Honeycutt MD is Attending Physician. [facility] 16:12 Arm band placed on left wrist. Patient placed in an exam room, on a stretcher, on pulse ch oximetry. 16:22 Patient has correct armband on for positive identification. Bed in low position. Call ss light in reach. Side rails up X 1. Pulse ox on. NIBP on. 16:[address] via stretcher. em2 16:39 CT completed. Patient tolerated procedure well. Patient moved back from CT. em2 16:41 CT Head C Spine In Process Unspecified. EDMS 16:41 CT Facial Bones W/O Con In Process Unspecified. EDMS 17:47 Ying Lilly, RN is Primary Nurse. ch 17:48 No provider procedures requiring assistance completed. Patient did not have IV access ch during this emergency room visit. Administered Medications: No medications were administered Outcome: 17:17 Discharge ordered by MD. brand 17:48 Discharged to home via wheelchair, with workers from [facility] 17:48 Condition: stable 17:48 Discharge instructions given to patient, Instructed on discharge instructions, follow up and referral plans. Demonstrated understanding of instructions, follow-up care. 17:50 Patient left the ED. Signatures: Dispatcher [employer] EDYing Lopez, RN RN Sebastian Lopez PA PA jmm Smirch, Shelby, RN RN Leobardo Espino2 Demetris Roth ds4 Andrea Higgins RN RN rv
--- NOTE | 2018-05-05 17:18 | EDPHYS ---
Physician Documentation [facility] Name: Juan Lozano Age: 57 yrs Sex: Male : 1960 Arrival Date: 05/05/2018 Time: 16:05 Bed 26 Private MD: ED Physician Phani Honeycutt HPI: 05/05 16:21 This 57 yrs old Black Male presents to ER via EMS with complaints of Headache > 24hrs jmm Old. 16:21 The patient or guardian reports injury. The complaints affect the left ear and left jmm advent. Onset: The symptoms/episode began/occurred acutely, yesterday. Associated signs and symptoms: Pertinent negatives: headache, neck pain, vomiting. This is a 57 year old male with a history of anemia, bipolar that presents to the ED with left sided facial swelling following a fall which occurred yesterday. patient denies headache or neck pain. patient denies other injury. . Historical: - Allergies: 16:11 NKA; ch - Home Meds: 16:11 aspirin 81 mg Oral chew 1 tab once daily [Active]; Ativan 1 mg Oral tab 1 tab once ch daily [Active]; cholecalciferol (vitamin D3) 1,000 unit Oral cap [Active]; cinacalcet 30 mg Oral 2 tabs nightly [Active]; clonidine 0.3 mg/24 hr transdermal ptwk once weekly on Mon [Active]; Clonidine 0.3 mg/24hr Oral 0.3 mg [Active]; Depakote Sprinkles 125 mg Oral cpSP 2 caps every 12 hours [Active]; folic acid 1 mg Oral tab 1 tab once daily [Active]; isosorbide dinitrate 20 mg Oral tab 1 tab 3 times per day [Active]; 16:22 hydralazine 50 mg Oral tab TID [Active]; isosorbide dinitrate 20 mg Oral tab 3 times ss per day [Active]; Keppra 500 mg Oral tab 1 tab 2 times per day [Active]; levothyroxine 50 mcg tab 1 tab once daily [Active]; metoprolol tartrate 100 mg Oral tab 1 tab 2 times per day [Active]; minoxidil 2.5 mg Oral tab 2 times per day [Active]; nystatin 100,000 unit/gram Topical oint 2 times per day [Active]; Protonix 40 mg Oral TbEC 1 tab once daily [Active]; Renvela 800 mg Oral tab take 5 tabs with each meal TID and 2 with snacks [Active]; Risperdal 0.25 mg Oral tab 1 tabs daily [Active]; sevelamer HCl 800 mg Oral 2 tabs take 3 times a day, take 5 caps to equal 4000mg [Active]; tramadol 50 mg Oral tab 2 tabs every 6 hours [Active]; trazodone 50 mg Oral tab nightly [Active]; - PMHx: 16:22 ADD/ADHD; Anemia; Bipolar disorder; Chronic ischemic heart disease; CVA; Diabetes - ss NIDDM; Dialysis; epilepsy; Hypertension; TIA; - PSHx: 16:22 dialysis port; ss - Immunization history:: Adult Immunizations up to date. - Social history:: Smoking status: Patient/guardian denies using tobacco. - Ebola Screening: : Patient negative for fever greater than or equal to 101.5 degrees Fahrenheit, and additional compatible Ebola Virus Disease symptoms Patient denies exposure to infectious person Patient denies travel to an Ebola-affected area in the 21 days before illness onset No symptoms or risks identified at this time. ROS: 16:21 Constitutional: Negative for fever, chills, and weight loss, Cardiovascular: Negative jmm for chest pain, palpitations, and edema, Respiratory: Negative for shortness of breath, cough, wheezing, and pleuritic chest pain, Skin: Negative for injury, rash, and discoloration, Neuro: Negative for headache, weakness, numbness, tingling, and seizure. 16:21 All other systems are negative. Exam: 16:21 Constitutional: This is a well developed, well nourished patient who is awake, alert, jmm and in no acute distress. 16:21 Neck: Trachea midline, Supple Chest/axilla: Normal chest wall appearance and motion. Cardiovascular: Regular rate and rhythm. No edema appreciated Respiratory: Normal respirations, no respiratory distress appreciated Abdomen/GI: Non distended, soft Skin: General appearance color normal MS/ Extremity: Moves all extremities, no obvious deformities appreciated, no edema noted to the lower extremities 16:21 Head/face: swelling noted to the left cheek, non tender to palpation. 16:21 Eyes: Extraocular movements: 16:21 Neuro: Orientation: is normal, Mentation: is normal. 16:21 Psych: Behavior/mood is pleasant, anxious. Vital Signs: 16:11 BP 110 / 65; Pulse 62; Resp 16; Temp 98.6; Pulse Ox 99% ; Pain 0/10; ds4 17:48 BP 110 / 62; Pulse 81; Resp 14; Temp 98.5; Pulse Ox 99% on R/A; Pain 0/10; ch MDM: 16:21 Patient medically screened. [facility] 17:15 ED course: CT negative. [facility] 17:16 Data reviewed: vital signs, nurses notes, radiologic studies, CT scan. Counseling: I sunday had a detailed discussion with the patient and/or guardian regarding: the historical points, exam findings, and any diagnostic results supporting the discharge/admit diagnosis, radiology results, the need for outpatient follow up, to return to the emergency department if symptoms worsen or persist or if there are any questions or concerns that arise at home. 05/05 16:22 Order name: CT Head C Spine; Complete Time: 16:58 [facility] 05/05 16:22 Order name: CT Facial Bones W/O Con; Complete Time: 16:57 [facility] Administered Medications: No medications were administered Disposition: 05/05/18 17:17 Discharged to Home. Impression: Unspecified injury of head. - Condition is Stable. - Discharge Instructions: Head Injury, Adult. - Medication Reconciliation Form, Thank You Letter, Antibiotic Education, Prescription Opioid Use, Work release form form. - Follow up: Private Physician; When: 2 - 3 days; Reason: Recheck today's complaints, Continuance of care, Re-evaluation by your physician. Addendum: 05/12/2018 09:32 Co-signature as Attending Physician, Phani Honeycutt MD I agree with the assessment and k dr plan of care. Signatures: Dispatcher [employer] EDYing Lopez RN RN Phani Honeycutt MD MD kdr Mickail, Joel, PA PA jm Kailey Nguyen RN RN ss Corrections: (The following items were deleted from the chart) 05/05 17:50 17:17 05/05/2018 17:17 Discharged to Home. Impression: Unspecified injury of head. ch Condition is Stable. Forms are Work release form, Medication Reconciliation Form, Thank You Letter, Antibiotic Education, Prescription Opioid Use. Follow up: Private Physician; When: 2 - 3 days; Reason: Recheck today's complaints, Continuance of care, Re-evaluation by your physician. sunday
== END 2018-05-05 17:50 | disposition home or self-care (01) ==
LOC: ER 16:11
DX: S09.90XA Unspecified injury of head, initial encounter (principal); W19.XXXA Unspecified fall, initial encounter; F31.9 Bipolar disorder, unspecified; F90.9 Attention-deficit hyperactivity disorder, unspecified type; I25.9 Chronic ischemic heart disease, unspecified; E11.9 Type 2 diabetes mellitus without complications; I10 Essential (primary) hypertension; Z86.73 Personal history of transient ischemic attack (TIA), and cerebral infarction without residual deficits
CPT/HCPCS: 70450; 70486; 72125; 76377

== ENCOUNTER 2018-05-07 14:10 | Emergency (ER) | payer OTHER ==
--- OUTSIDE RECORDS SUMMARY | 2018-05-07 14:12 | XMS REPORT | Continuity of Care Document ---
[...] Reported No Known Shortness Allergy to Active [facility] Drug of breath Substance 8 [facility] All[facility]ies [place] Immunizations Immunization Date Given Site Status Last Updated Comments Source Results Order Name Results Value Reference Date Interpretation Comments Source Range Laboratory Bedside Glucose 188 mg/dl 65 - 120 07/24 [facility] Studies [facility] [place] [facility] Magnesium Level 1.9 mg/dL 1.8 - 2.5 07/[address] [facility] Studies [facility] [place] [facility] Ammonia 23 umol/L 10 - 45 07/[address] [facility] [place] [facility] Phosphorus 6.3 mg/dL 2.5 - 4.3 07/24 [facility] Studies Level [facility] [place] [facility] Sodium Level 137 mEq/L 135 - 145 07/24 [facility] Studies [facility] [place] [facility] Potassium Level 4.1 mEq/L 3.6 - 5.0 04 [facility] Studies /2017 [facility] [place] [facility] Glucose Level 112 mg/dL 65 - 120 07/24 [facility] Studies [facility] [place] [facility] Estimat 9 mL/min 90 07/24 [facility] Studies Glomerular [facility] - Filtration Rate [place] [facility] Creatinine 7.85 0.61 - 04 [facility] Studies mg/dL 1.24 [facility] [place] [facility] Chloride Level 102 mEq/L 101 - 111 07/24 [facility] Studies /2017 [facility] [place] [facility] Carbon Dioxide 26 mEq/L 21 - 31 07/24 [facility] Studies Level /2017 [facility] [place] [facility] Calcium Level 8.8 mg/dL 8.5 - 10.5 07/24 [facility] Studies [facility] [place] [facility] Blood Urea 55 mg/dL 6 - 20 07/24 [facility]. Studies Nitrogen /2017 [facility] [place] [facility] White Blood 3.9 K/uL 4.3 - 10.9 07/24 [facility] Studies Count /2017 [facility] [place] [facility] Red Cell 17.0 % 12.1 - 07/24 [facility]. Studies Distribution 15.2 [facility] - Width [place] [facility] Red Blood Count 3.38 M/uL 4.33 - 04 [facility] Studies 5.43 /2017 [facility] [place] [facility] Platelet Count 199 K/uL 152 - 406 07/24 [facility]. Studies [facility] [place] [facility] Neutrophils % 61.5 % 41.7 - 07/24 [facility] Studies 73.7 [facility] [place] [facility] Monocytes % 11.6 % 3.3 - 12.3 07/24 [facility]. Studies [facility] [place] [facility] Mean Platelet 8.8 fL 7.6 - 11.3 07/24 [facility]. Studies Volume /2017 [facility] [place] [facility] Mean 82.9 fL 80 - 100 07/24 [facility] Studies Corpuscular /2017 [facility] - Volume [place] [facility] Mean 32.6 g/dL 32.0 - 07/24 [facility]. Studies Corpuscular 36.0 [facility] - Hemoglobin [place] [facility] Mean 27.0 pg 27.0 - 07/[address] [facility] [address] Studies Corpuscular 35.0 /2017 [facility] - Hemoglobin [place] [facility] Lymphocytes % 21.0 % 15.3 - 04 [facility] Studies 44.8 /2017 [facility] [place] [facility] Hemoglobin 9.1 g/dL 13.6 - 07/24 [facility] Studies 17.9 /2017 [facility] - [place] [facility] Hematocrit 28.0 % 39.6 - 04 [facility] Studies 49.0 /2017 [facility] [place] [facility] Eosinophils % 4.0 % 0 - 4.4 07/24 [facility] Studies /2017 [facility] [place] [facility] Basophils % 1.9 % 0 - 1.3 07/24 [facility] Studies /2017 [facility] [place] [facility] Absolute 2.4 K/uL 1.8 - 8.0 07/24 [facility] Studies Neutrophil /2017 [facility] [place] [facility] Absolute 0.5 K/uL 0.1 - 1.3 07/24 [facility] Studies Monocytes (CBC) /2017 [facility] [place] [facility] Absolute 0.8 K/uL 0.7 - 4.9 07/24 [facility] Studies Lymphocytes /2017 [facility] - (CBC) [place] [facility] Absolute 0.2 K/uL 0 - 0.5 07/24 [facility] Studies Eosinophils /2017 [facility] - (CBC) [place] [facility] Absolute 0.1 K/uL 0 - 0.5 07/24 [facility] Studies Basophils (CBC) /2017 [facility] - [place] [facility] Troponin I 0.14 07/23 [facility] Studies ng/mL /2017 [facility] - [place] [facility] Creatine Kinase 9.7 ng/ml 0.3 - 4.0 04 [facility] Studies MB /2017 [facility] - [place] [facility] Creatine Kinase 329 IU/L 22 - 269 [address] [facility] Studies /2018 [facility] [place] [facility] Triglycerides 82 mg/dL 35 - 160 [address] [facility] [address] Studies Level /2017 [facility] - [place] [facility] Thyroid 1.48 0.34 - 04 [facility] Studies Stimulating uIU/mL 5.60 [facility] - Hormone (TSH) [place] [facility] LDL 35 [address] [facility] Studies Cholesterol, /2017 [facility] Calculated [place] [facility] HDL Cholesterol 45 mg/dL 27 - 67 [address] [facility] Studies /2017 [facility] - [facility] Free Thyroxine 0.90 0.58 - 04 [facility] Studies ng/dl 1.64 /2017 [facility] - [place] [facility] Cholesterol/HDL 2.13 [address] [facility] [address] Studies Ratio /2017 [facility] [place] [facility] Cholesterol 96 mg/dL 07/23 [facility] Studies Level /2017 [facility] [place] [facility] Urine WBC null 07/22 St. Studies /2017 [facility] [place] [facility] Urine null 07/22 [facility] Studies Urothelial /2017 [facility] - Cells [place] Laboratory Urine Squamous null 07/22 [facility]. Studies Epithelial /2017 [facility] - Cells [place] Laboratory Urine RBC Urine RBC 07/22 [facility]. Studies /2017 [facility] Urine Culture Urine 07/22 [facility]. Studies Reflexed Culture /2017 [facility] - Reflexed [place] [facility] Urine Bacteria Urine 07/22 [facility]. Studies Bacteria /2017 [facility] Procalcitonin 1.56 07/22 [facility] Studies ng/mL /2017 [facility] Total Bilirubin 0.7 mg/dL 0.3 - 1.2 07/22 [facility] Studies /2017 [facility] - [facility] Serum Total 7.4 g/dL 6.0 - 8.3 07/22 [facility] Studies Protein /2017 [facility] Lipase 82 U/L 22 - 51 07/22 [facility]. Studies [facility] - [place] [facility] Globulin 3.5 g/dL 2.3 - 3.5 07/22 [facility] Studies [facility] Direct 0.1 mg/dL 0 - 0.2 07/22 [facility]. Studies Bilirubin [facility] Aspartate Amino 18 IU/L 10 - 42 07/22 [facility] Studies Transf /2017 [facility] - (AST/SGOT) [place] Laboratory Alkaline 63 IU/L 42 - 121 07/22 [facility]. Studies Phosphatase /2017 [facility] - [facility] [facility] Albumin/Globuli 1.1 1.1 - 1.8 07/22 [facility] Studies n Ratio /2017 [facility] - [facility] [facility] Albumin 3.9 g/dL 3.2 - 5.5 07/22 [facility] Studies /2018 [facility] [place] [facility] Alanine 12 IU/L 10 - 60 07/22 [facility] Studies Aminotransferas /2017 [facility] - e (ALT/SGPT) [place] Laboratory B-Type 1591 07/22 [facility] Studies Natriuretic pg/ml /2017 [facility] - Peptide [place] Laboratory Rapid Troponin 0.11 07/22 [facility] Studies I ng/mL /2017 [facility] [place] Laboratory Lactic Acid 6.6 mg/dL 4.5 - 19.8 07/22 [facility] Studies Level /2017 [facility] [place] Laboratory Prothrombin 12.5 9.5 - 12.5 07/22 [facility] Studies Time SECONDS /2017 [facility] [place] Laboratory INR 1.06 07/22 [facility] Studies International /2017 [facility] - Normalized [place] Ratio Laboratory Activated 33.9 24.3 - 07/22 [facility] Studies Partial SECONDS 36.9 [facility] - Thromboplast [place] Time Vital Signs Vital Sign Value Date Comments Source Heart Rate 63 07/24/[address] [facility] [place] Systolic (mm Hg) 103 07/24/[address] [facility] [place] Diastolic (mm Hg) 60 07/24/[address] [facility] [place] Respitory Rate 13 07/24/2017 [facility] [place] Temperature Oral (F) 97.8 [facility] Weight 179.00 [facility]/23[facility] En[facility] Location Location Encounter Encounter Reason Attending ADM DC Status Source Details Type Number For Provider Date Date Visit [facility] Discharged [id number] 07/22 07/24 [facility] [place] [place] Procedures Procedure Code Date Perfomer Comments Source Chest Single [id number] [facility] - View 8 [place] Anaerobic Blood [id number] [facility] [place] Aerobic Blood [id number] [facility] [place] [id number] [facility] [place] Count [id number] [facility] [place] Head Brain Wo [id number] [facility] - Cont 8 [place] Chest Single [id number] [facility] - View 8 [place]
--- NOTE | 2018-05-07 14:48 | ER ---
Nurse's Notes [facility] Name: Juan Lozano Age: 57 yrs Sex: Male : 1960 Arrival Date: 05/07/2018 Time: 14:17 Bed 3 Private MD: Diagnosis: Chest pain, unspecified Presentation: 05/07 14:29 Presenting complaint: EMS states: SENT FROM [facility] FOR MOMENTARY CP. NOW bp RESOLVED. PT STATES HUNGER ONLY ACUTE ISSUE. Transition of care: patient was received from another setting of care (long-term care facility), [facility]. Onset of symptoms was May 07, 2018 at 14:00. Risk Assessment: Do you want to hurt yourself or someone else?. Risk Assessment: Do you want to hurt yourself or someone else? Patient reports no desire to harm self or others. Initial Sepsis Screen: Does the patient meet any 2 criteria? Does the patient have a suspected source of infection? No. Patient's initial sepsis screen is negative. Care prior to arrival: Oxygen administered. via nasal cannula. 14:29 Method Of Arrival: EMS: [facility] bp 14:29 Acuity: DORIS 2 bp Triage Assessment: 14:29 General: Appears in no apparent distress. comfortable, Behavior is calm, cooperative, bp appropriate for age. Pain: Denies pain. Cardiovascular: Rhythm is sinus rhythm. Historical: - Allergies: 14:27 NKA; bp - Home Meds: 14:27 aspirin 81 mg Oral chew 1 tab once daily [Active]; Ativan 1 mg Oral tab 1 tab once bp daily [Active]; Clonidine 0.3 mg/24hr Oral 0.3 mg [Active]; Depakote ER 125mg Oral twice a day [Active]; folic acid 1 mg Oral tab 1 tab once daily [Active]; cholecalciferol (vitamin D3) 2,000 unit oral tab [Active]; hydralazine 50 mg Oral tab TID [Active]; Keppra 500 mg Oral tab 1 tab 2 times per day [Active]; metoprolol tartrate 100 mg Oral tab 1 tab 2 times per day [Active]; tramadol 50 mg Oral tab 2 tabs every 6 hours [Active]; sevelamer HCl 800 mg Oral 2 tabs 3 times a day w/ snacks [Active]; risperidone 0.5 mg Oral TbDL once daily [Active]; isosorbide dinitrate 20 mg Oral tab 3 times per day [Active]; cinacalcet 30 mg Oral 2 tabs nightly [Active]; olopatadine 0.1 % ophthalmic drop every morning [Active]; Protonix 40 mg Oral TbEC 1 tab once daily [Active]; - PMHx: 14:27 Anemia; Dialysis; ESRD; Diabetes - IDDM; Bipolar disorder; Chronic ischemic heart bp disease; CVA; epilepsy; Hypertension; ADD/ADHD; - Immunization history:: Adult Immunizations up to date. - Social history:: Smoking status: Patient/guardian denies using tobacco. - Ebola Screening: : Patient negative for fever greater than or equal to 101.5 degrees Fahrenheit, and additional compatible Ebola Virus Disease symptoms Patient denies exposure to infectious person Patient denies travel to an Ebola-affected area in the 21 days before illness onset No symptoms or risks identified at this time. Screenin:46 Abuse screen: Denies threats or abuse. Denies injuries from another. Nutritional bp screening: No deficits noted. Tuberculosis screening: No symptoms or risk factors identified. Fall Risk None identified. Assessment: 14:43 General: PT ASYMPTOMATIC AT THIS TIME. PT REFUSING TREATMENT AND EVALUATION. SIGNING bp OUT AMA. COUNSELED BY PROVIDER AND STAFF, BUT CONTINUED TO DECLINE. PT ADVISED TO RETURN IF S/S RETURN.. 14:47 Reassessment: [facility] CONTACTED, TRANSPORT EN ROUTE, ETA <45MIN. bp 16:21 Pain: Denies pain. Pain does not radiate. Pain began suddenly. bp 16:22 Reassessment: PT ANDREA WITH TRANSPORT. bp Vital Signs: 14:29 BP 164 / 79; Pulse 56; Resp 12; Temp 97.5; Pulse Ox 100% ; Weight 95 kg; bp ED Course: 14:17 Patient arrived in ED. bp 14:19 Ranjith Morris NP is PHCP. pm1 14:19 Eris Karimi MD is Attending Physician. pm1 14:32 Triage completed. bp 14:43 Arm band placed on. bp 14:46 Patient has correct armband on for positive identification. Bed in low position. Call bp light in reach. Side rails up X2. Pulse ox on. NIBP on. 14:48 Benjamín Nixon, ANTONINA is Primary Nurse. bp 15:38 Diet: Patient given snack. Patient given juice. Tolerated well. jp3 16:21 No provider procedures requiring assistance completed. Patient did not have IV access bp during this emergency room visit. Patient maintains SpO2 saturation greater than 95% on room air. Administered Medications: No medications were administered Outcome: 16:22 AMA AMA form signed bp 16:22 Condition: stable 16:23 Patient left the ED. bp Signatures: Ranjith Morris NP CUPOLA MELTER pm1 Benjamín Nixon RN RN bp Mika Giraldo jp3
--- NOTE | 2018-05-07 14:48 | EDPHYS ---
Physician Documentation [facility] Name: Juan Lozano Age: 57 yrs Sex: Male : 1960 Arrival Date: 05/07/2018 Time: 14:17 Bed 3 Private MD: ED Physician Eris Karimi HPI: 05/07 14:30 This 57 yrs old Black Male presents to ER via EMS with complaints of Chest Pain. pm1 14:30 The patient or guardian reports chest pain that is located primarily in the mid-sternal pm1 area. Onset: just prior to arrival. The pain does not radiate. Associated signs and symptoms: Pertinent negatives: abdominal pain, cough, dizziness, headache, nausea, near syncope, shortness of breath, syncope, vomiting. The chest pain is described as sharp. Duration: The patient or guardian reports a single episode, that is now resolved, that lasted 5 minute(s). Modifying factors: The symptoms are alleviated by nothing. the symptoms are aggravated by nothing. Severity of pain: in the emergency department the pain has resolved is a 0 / 10. EMS care prior to arrival includes: None. The patient has experienced similar episodes in the past, several times, with the last episode occurring yesterday. Patient just completed dialysis. Patient completed dialysis and reported chest pain. Lasted for 5 minutes and is now resolved. Does not have any other symptoms. Historical: - Allergies: 14:27 NKA; bp - Home Meds: 14:27 aspirin 81 mg Oral chew 1 tab once daily [Active]; Ativan 1 mg Oral tab 1 tab once bp daily [Active]; Clonidine 0.3 mg/24hr Oral 0.3 mg [Active]; Depakote ER 125mg Oral twice a day [Active]; folic acid 1 mg Oral tab 1 tab once daily [Active]; cholecalciferol (vitamin D3) 2,000 unit oral tab [Active]; hydralazine 50 mg Oral tab TID [Active]; Keppra 500 mg Oral tab 1 tab 2 times per day [Active]; metoprolol tartrate 100 mg Oral tab 1 tab 2 times per day [Active]; tramadol 50 mg Oral tab 2 tabs every 6 hours [Active]; sevelamer HCl 800 mg Oral 2 tabs 3 times a day w/ snacks [Active]; risperidone 0.5 mg Oral TbDL once daily [Active]; isosorbide dinitrate 20 mg Oral tab 3 times per day [Active]; cinacalcet 30 mg Oral 2 tabs nightly [Active]; olopatadine 0.1 % ophthalmic drop every morning [Active]; Protonix 40 mg Oral TbEC 1 tab once daily [Active]; - PMHx: 14:27 Anemia; Dialysis; ESRD; Diabetes - IDDM; Bipolar disorder; Chronic ischemic heart bp disease; CVA; epilepsy; Hypertension; ADD/ADHD; - Immunization history:: Adult Immunizations up to date. - Social history:: Smoking status: Patient/guardian denies using tobacco. - Ebola Screening: : Patient negative for fever greater than or equal to 101.5 degrees Fahrenheit, and additional compatible Ebola Virus Disease symptoms Patient denies exposure to infectious person Patient denies travel to an Ebola-affected area in the 21 days before illness onset No symptoms or risks identified at this time. ROS: 14:30 Constitutional: Negative for fever, chills, and weight loss, Eyes: Negative for injury, pm1 pain, redness, and discharge, ENT: Negative for injury, pain, and discharge, Neck: Negative for injury, pain, and swelling, Respiratory: Negative for shortness of breath, cough, wheezing, and pleuritic chest pain, Abdomen/GI: Negative for abdominal pain, nausea, vomiting, diarrhea, and constipation, Back: Negative for injury and pain. 14:30 : Negative for injury, bleeding, discharge, and swelling, MS/Extremity: Negative for injury and deformity, Skin: Negative for injury, rash, and discoloration, Neuro: Negative for headache, weakness, numbness, tingling, and seizure. 14:30 Cardiovascular: Positive for chest pain, Negative for edema, orthopnea, palpitations. Exam: 14:30 Constitutional: This is a well developed, well nourished patient who is awake, alert, pm1 and in no acute distress. Head/Face: Normocephalic, atraumatic. Eyes: Pupils equal round and reactive to light, extra-ocular motions intact. Lids and lashes normal. Conjunctiva and sclera are non-icteric and not injected. Cornea within normal limits. Periorbital areas with no swelling, redness, or edema. ENT: Nares patent. No nasal discharge, no septal abnormalities noted. Tympanic membranes are normal and external auditory canals are clear. Oropharynx with no redness, swelling, or masses, exudates, or evidence of obstruction, uvula midline. Mucous membranes moist. Neck: Trachea midline, no thyromegaly or masses palpated, and no cervical lymphadenopathy. Supple, full range of motion without nuchal rigidity, or vertebral point tenderness. No Meningismus. Chest/axilla: Normal chest wall appearance and motion. Nontender with no deformity. No lesions are appreciated. Cardiovascular: Regular rate and rhythm with a normal S1 and S2. No gallops, murmurs, or rubs. Normal PMI, no JVD. No pulse deficits. Respiratory: Lungs have equal breath sounds bilaterally, clear to auscultation and percussion. No rales, rhonchi or wheezes noted. No increased work of breathing, no retractions or nasal flaring. Abdomen/GI: Soft, non-tender, with normal bowel sounds. No distension or tympany. No guarding or rebound. No evidence of tenderness throughout. Back: No spinal tenderness. No costovertebral tenderness. Full range of motion. Skin: Warm, dry with normal turgor. Normal color with no rashes, no lesions, and no evidence of cellulitis. MS/ Extremity: Pulses equal, no cyanosis. Neurovascular intact. Full, normal range of motion. 14:30 Neuro: Orientation: is normal, Mentation: is normal. Vital Signs: 14:29 BP 164 / 79; Pulse 56; Resp 12; Temp 97.5; Pulse Ox 100% ; Weight 95 kg; bp MDM: 14:23 Patient medically screened. [facility] 14:46 Data reviewed: vital signs. Data interpreted: Pulse oximetry: on room air is 100 %. pm1 Interpretation: normal. 14:46 Refusal of service: The patient/guardian displays adequate decision making capability pm1 and despite a detailed discussion of alternatives, benefits, risks, and consequences refuses: Admission to the hospital for further work-up and treatment, all lab tests, all X-rays. 05/07 14:28 Order name: XRAY Chest (1 view) pm1 05/07 14:28 Order name: EKG; Complete Time: 14:29 pm1 05/07 14:28 Order name: Cardiac monitoring pm1 05/07 14:28 Order name: EKG - Nurse/Tech pm1 05/07 14:28 Order name: IV Saline Lock pm1 05/07 14:28 Order name: Labs collected and sent pm1 05/07 14:28 Order name: O2 Per Protocol pm1 05/07 14:28 Order name: O2 Sat Monitoring pm1 Administered Medications: No medications were administered Disposition: 05/07/18 14:47 Patient has left against medical advice. Impression: Chest pain, unspecified. - Patients states they are going to Home. - Condition is Undetermined. - Discharge Instructions: Nonspecific Chest Pain. Follow up: Emergency Department; When: As needed; Reason: Worsening of condition. Follow up: Private Physician; When: Upon discharge from the Emergency Department; Reason: Recheck today's complaints, Continuance of care, Re-evaluation by your physician. - Problem is new. - Symptoms are resolved. Addendum: 05/09/2018 07:44 Co-signature as Attending Physician, Eris Karimi MD I agree with the assessment and c dale plan of care. Signatures: Dispatcher [employer] EDOR Eris Karimi MD MD cha Marinas, Patrick, HEAVY LIFT RIGGER HEAVY LIFT RIGGER pm1 Benjamín Nixon, RN RN bp Corrections: (The following items were deleted from the chart) 05/07 16:23 14:47 05/07/2018 14:47 Patients has left against medical advice. Impression: Chest bp pain, unspecified. Patient states they are going to Home. Condition is Undetermined. Follow up: Emergency Department; When: As needed; Reason: Worsening of condition. Follow up: Private Physician; When: Upon discharge from the Emergency Department; Reason: Recheck today's complaints, Continuance of care, Re-evaluation by your physician. Problem is new. Symptoms are resolved. pm1
== END 2018-05-07 16:23 | disposition left against medical advice (07) ==
LOC: ER 14:10
DX: R07.9 Chest pain, unspecified (principal); E11.22 Type 2 diabetes mellitus with diabetic chronic kidney disease; I12.0 Hypertensive chronic kidney disease with stage 5 chronic kidney disease or end stage renal disease; N18.6 End stage renal disease; I25.9 Chronic ischemic heart disease, unspecified; F90.9 Attention-deficit hyperactivity disorder, unspecified type; G40.909 Epilepsy, unspecified, not intractable, without status epilepticus; Z99.2 Dependence on renal dialysis

== ENCOUNTER 2018-06-01 23:07 | Emergency (ER) | payer OTHER ==
--- OUTSIDE RECORDS SUMMARY | 2018-06-01 23:10 | XMS REPORT | Continuity of Care Document ---
[...] Reported No Known Shortness Allergy to Active [facility] Drug of breath Substance 8 [facility] - Allergies [place] Immunizations Immunization Date Given Site Status Last Updated Comments Source Results Order Name Results Value Reference Date Interpretation Comments Source Range Laboratory Bedside Glucose 188 mg/dl 65 - 120 07/[address] [facility] [address] Studies [facility] [place] [facility] Magnesium Level 1.9 mg/dL 1.8 - 2.5 07/[address] [facility] [address] [facility] [place] [facility] Ammonia 23 umol/L 10 - 45 07/[address] [facility] [address] [facility] [place] [facility] Phosphorus 6.3 mg/dL 2.5 - 4.3 07/[address] [facility] [address] Studies Level [facility] [place] [facility] Sodium Level 137 mEq/L 135 - 145 07/[address] [facility] [address] Studies [facility] [place] [facility] Potassium Level 4.1 mEq/L 3.6 - 5.[address] [facility] [address] Studies /2017 [facility] [place] [facility] Glucose Level 112 mg/dL 65 - 120 07/[address] [facility] [address] Studies [facility] [place] [facility] Estimat 9 mL/min 90 07/[address] [facility] [address] Studies Glomerular [facility] - Filtration Rate [place] [facility] Creatinine 7.85 0.61 - [address] [facility] [address] Studies mg/dL 1.24 [facility] [place] [facility] Chloride Level 102 mEq/L 101 - 111 07/[address] [facility] [address] Studies /2017 [facility] [place] [facility] Carbon Dioxide 26 mEq/L 21 - 31 07/[address] [facility] [address] Studies Level /2017 [facility] [place] [facility] Calcium Level 8.8 mg/dL 8.5 - 10.5 07/[address] [facility] [address] Studies [facility] [place] [facility] Blood Urea 55 mg/dL 6 - 20 07/24 [facility]. Studies Nitrogen /2017 [facility] [place] [facility] White Blood 3.9 K/uL 4.3 - 10.9 07/[address] [facility] [address] Studies Count /2017 [facility] [place] [facility] Red Cell 17.0 % 12.1 - 07/24 [facility]. Studies Distribution 15.2 [facility] - Width [place] [facility] Red Blood Count 3.38 M/uL 4.33 - [address] [facility] [address] Studies 5.43 /2017 [facility] [place] [facility] Platelet Count 199 K/uL 152 - 406 07/24 [facility]. Studies [facility] [place] [facility] Neutrophils % 61.5 % 41.7 - 07/[address] [facility] [address] Studies 73.7 [facility] [place] [facility] Monocytes % 11.6 % 3.3 - 12.3 07/24 [facility]. Studies [facility] [place] [facility] Mean Platelet 8.8 fL 7.6 - 11.3 07/24 [facility]. Studies Volume /2017 [facility] [place] [facility] Mean 82.9 fL 80 - 100 07/[address] [facility] [address] Studies Corpuscular /2017 [facility] - Volume [place] [facility] Mean 32.6 g/dL 32.0 - 07/24 [facility]. Studies Corpuscular 36.0 [facility] - Hemoglobin [place] [facility] Mean 27.0 pg 27.0 - 07/[address] [facility] [address] Studies Corpuscular 35.0 /2017 [facility] - Hemoglobin [place] [facility] Lymphocytes % 21.0 % 15.3 - [address] [facility] [address] Studies 44.8 /2017 [facility] [place] [facility] Hemoglobin 9.1 g/dL 13.6 - 07/[address] [facility] [address] Studies 17.9 /2017 [facility] - [place] [facility] Hematocrit 28.0 % 39.6 - [address] [facility] [address] Studies 49.0 /2017 [facility] [place] [facility] Eosinophils % 4.0 % 0 - 4.4 07/[address] [facility] [address] Studies /2017 [facility] [place] [facility] Basophils % 1.9 % 0 - 1.3 07/[address] [facility] [address] Studies /2017 [facility] [place] [facility] Absolute 2.4 K/uL 1.8 - 8.0 07/[address] [facility] [address] Studies Neutrophil /2017 [facility] [place] [facility] Absolute 0.5 K/uL 0.1 - 1.3 07/[address] [facility] [address] Studies Monocytes (CBC) /2017 [facility] [place] [facility] Absolute 0.8 K/uL 0.7 - 4.9 07/[address] [facility] [address] Studies Lymphocytes /2017 [facility] - (CBC) [place] [facility] Absolute 0.2 K/uL 0 - 0.5 07/[address] [facility] [address] Studies Eosinophils /2017 [facility] - (CBC) [place] [facility] Absolute 0.1 K/uL 0 - 0.5 07/[address] [facility] [address] Studies Basophils (CBC) /2017 [facility] [place] [facility] Troponin I 0.14 07/[address] [facility] [address] Studies ng/mL /2017 [facility] - [place] [facility] Creatine Kinase 9.7 ng/ml 0.3 - 4.0 [address] [facility] [address] Studies MB /2017 [facility] - [place] [facility] Creatine Kinase 329 IU/L 22 - 269 [address] [facility] [address] Studies /2018 [facility] [place] [facility] Triglycerides 82 mg/dL 35 - 160 [address] [facility] [address] Studies Level /2017 [facility] - [place] [facility] Thyroid 1.48 0.34 - [address] [facility] [address] Studies Stimulating uIU/mL 5.60 [facility] - Hormone (TSH) [place] [facility] LDL 35 [address] [facility] [address] Studies Cholesterol, /2017 [facility] - Calculated [place] [facility] HDL Cholesterol 45 mg/dL 27 - 67 [address] [facility] [address] Studies /2017 [facility] Free Thyroxine 0.90 0.58 - [address] [facility] [address] Studies ng/dl 1.64 /2017 [facility] - [place] [facility] Cholesterol/HDL 2.13 [address] [facility] [address] Studies Ratio /2017 [facility] [place] [facility] Cholesterol 96 mg/dL 07/[address] [facility] [address] Studies Level /2017 [facility] [place] [facility] Urine WBC null 07/22 St. Studies /2017 [facility] [place] [facility] Urine null 07/[address] [facility] [address] Studies Urothelial /2017 [facility] - Cells [place] [facility] Urine Squamous null 07/22 [facility]. Studies Epithelial /2017 [facility] - Cells [place] [facility] Urine RBC Urine RBC 07/22 [facility]. Studies /2017 [facility] Urine Culture Urine 07/22 [facility]. Studies Reflexed Culture /2017 [facility] - Reflexed [facility] Urine Bacteria Urine 07/22 [facility]. Studies Bacteria /2017 [facility] Laboratory Procalcitonin 1.56 07/[address] [facility] [address] Studies ng/mL /2017 [facility] Laboratory Total Bilirubin 0.7 mg/dL 0.3 - 1.2 07/[address] [facility] [address] Studies /2017 [facility] - [facility] [facility] Serum Total 7.4 g/dL 6.0 - 8.3 07/[address] [facility] [address] Studies Protein /2017 [facility] [facility] Lipase 82 U/L 22 - 51 07/22 [facility]. Studies [facility] [place] [facility] Globulin 3.5 g/dL 2.3 - 3.5 07/[address] [facility] [address] Studies [facility] [facility] Direct 0.1 mg/dL 0 - 0.2 07/22 [facility]. Studies Bilirubin [facility] Aspartate Amino 18 IU/L 10 - 42 07/[address] [facility] [address] Studies Transf /2017 [facility] - (AST/SGOT) [place] [facility] Alkaline 63 IU/L 42 - 121 07/22 [facility]. Studies Phosphatase /2017 [facility] Albumin/Globuli 1.1 1.1 - 1.8 07/[address] [facility] [address] Studies n Ratio /2017 [facility] Albumin 3.9 g/dL 3.2 - 5.5 07/[address] [facility] [address] Studies /2018 [facility] [place] [facility] Alanine 12 IU/L 10 - 60 07/[address] [facility] [address] Studies Aminotransferas /2017 [facility] - e (ALT/SGPT) [place] Laboratory B-Type 1591 07/[address] [facility] [address] Studies Natriuretic pg/ml /2017 [facility] Peptide [place] Laboratory Rapid Troponin 0.11 07/[address] [facility] [address] Studies I ng/mL /2017 [facility] [place] Laboratory Lactic Acid 6.6 mg/dL 4.5 - 19.8 07/[address] [facility] [address] Studies Level /2017 [facility] [place] Laboratory Prothrombin 12.5 9.5 - 12.5 07/[address] [facility] [address] Studies Time SECONDS /2017 [facility] [place] Laboratory INR 1.06 07/[address] [facility] [address] Studies International /2017 [facility] Normalized [place] Ratio Laboratory Activated 33.9 24.3 - 07/[address] [facility] [address] Studies Partial SECONDS 36.9 [facility] - Thromboplast [place] Time Vital Signs Vital Sign Value Date Comments Source Heart Rate 63 07/24/[address] [facility] [address] [facility] [place] Systolic (mm Hg) 103 07/24/[address] [facility] [facility] [place] Diastolic (mm Hg) 60 07/24/[address] [facility] [facility] [place] Respitory Rate 13 07/24/2017 [facility]. [facility] [place] Temperature Oral (F) 97.8 F [facility] Weight 179.00 07/23/[facility] En[facility]ters Location Location Encounter Encounter Reason Attending ADM DC Status Source Details Type Number For Provider Date Date Visit [facility] Discharged [id number] 07/22 07/24 [facility] [place] [facility] Procedures Procedure Code Date Perfomer Comments Source Chest Single [id number] [facility] - View 8 [place] [facility] [id number] [facility] [place] [facility] [id number] [facility] [place] [id number] [facility] - 8 [place] Point Count [id number] [facility] [place] Head Brain Wo [id number] [facility] - Cont 8 [place] Chest Single [id number] [facility] - View [facility] [place]
[2018-06-02] MEDS ORDERED: HYDROCODONE/APAP 10/325 TAB ONE (00:09)
--- NOTE | 2018-06-02 00:18 | ER ---
Nurse's Notes [facility] Name: Juan Lozano Age: 57 yrs Sex: Male : 1960 Arrival Date: 06/01/2018 Time: 23:08 Bed 2 Private MD: Diagnosis: Post surgical pain Presentation: 06/01 23:08 Presenting complaint: EMS states: pt had an AV fistula placed in his [place] at [address] today and has been c/o pain \T\ swelling to the site since the procedure. Mod swelling noted, pulse present. Transition of care: patient was not received from another setting of care. Onset of symptoms was June 01, 2018. Risk Assessment: Do you want to hurt yourself or someone else? Patient reports no desire to harm self or others. Initial Sepsis Screen: Does the patient meet any 2 criteria? No. Patient's initial sepsis screen is negative. Does the patient have a suspected source of infection? Yes: Skin breakdown/wound. Care prior to arrival: None. 23:08 Method Of Arrival: EMS: [facility] 23:08 Acuity: DORIS 3 aa1 Historical: - Allergies: 23:21 NKA; aa1 - Home Meds: 23:21 aspirin 81 mg Oral chew 1 tab once daily [Active]; Clonidine 0.3 mg/24hr Oral 0.3 mg aa1 weekly [Active]; folic acid 1 mg Oral tab 1 tab once daily [Active]; isosorbide dinitrate 20 mg Oral tab 3 times per day [Active]; Keppra 500 mg Oral tab 1 tab 2 times per day [Active]; levothyroxine 50 mcg tab 1 tab once daily [Active]; Protonix 40 mg Oral TbEC 1 tab once daily [Active]; risperidone 0.5 mg Oral TbDL once daily [Active]; olopatadine 0.1 % ophthalmic drop 1 drop every morning [Active]; hydralazine 50 mg Oral tab TID [Active]; metoprolol tartrate 100 mg Oral tab 1 tab 2 times per day [Active]; sevelamer HCl 800 mg Oral 2 tabs 3 times a day w/ snacks [Active]; cholecalciferol (vitamin D3) 2,000 unit Oral tab 3 cap daily [Active]; Depakote ER 125mg Oral 2 tabs twice a day [Active]; trazodone 100 mg Oral tab nightly [Active]; melatonin 3 mg Oral tab nightly [Active]; Ativan 1 mg Oral tab 1 tab once daily [Active]; tramadol 50 mg Oral tab 1 tab as needed [Active]; cinacalcet 30 mg Oral 2 tabs nightly [Active]; acetaminophen 325 mg Oral tab 2 tabs as needed [Active]; - PMHx: 23:21 ADD/ADHD; Anemia; Bipolar disorder; Chronic ischemic heart disease; CVA; Diabetes - aa1 IDDM; Dialysis; epilepsy; ESRD; Hypertension; TIA; Anxiety; Hyperlipidemia; Hypothyroidism; decubitus ulcer; - Immunization history:: Flu vaccine is up to date. - Social history:: Smoking status: Patient uses tobacco products, smokes one pack cigarettes per day. - Ebola Screening: : No symptoms or risks identified at this time. Screenin:10 Abuse screen: Denies threats or abuse. Denies injuries from another. Nutritional aa1 screening: No deficits noted. Tuberculosis screening: No symptoms or risk factors identified. Fall Risk Gait- Impaired (20 pts.). Assessment: 23:10 General: Appears in no apparent distress. comfortable, Behavior is calm, cooperative, aa1 appropriate for age. Pain: Complains of pain in right bicep Pain currently is 10 out of 10 on a pain scale. Quality of pain is described as sharp, throbbing, Pain began after AV fistula placement earlier today Is continuous. Neuro: Level of Consciousness is awake, alert, obeys commands, Oriented to person, place, situation, Moves all extremities. Speech is normal. Cardiovascular: Pulses are 2+ in right radial artery and left radial artery. Respiratory: Airway is patent Respiratory effort is even, unlabored, relaxed, Respiratory pattern is regular, symmetrical. GI: No signs and/or symptoms were reported involving the gastrointestinal system. : No signs and/or symptoms were reported regarding the genitourinary system. EENT: No signs and/or symptoms were reported regarding the EENT system. Derm: Skin is intact, is healthy with good turgor, Skin is pink, warm \T\ dry. Musculoskeletal: Circulation, motion, and sensation intact. Capillary refill < 3 seconds, Range of motion: intact in all extremities, Swelling present in right bicep. 06/02 00:21 Reassessment: Patient appears in no apparent distress at this time. No changes from aa1 previously documented assessment. Patient and/or family updated on plan of care and expected duration. Pain level reassessed. Pt states he is ready to go home. Report given to Prudence at [facility] and she will contact [facility] to transport pt back to their facility. 01:30 Reassessment: Patient appears in no apparent distress at this time. No changes from aa1 previously documented assessment. Patient and/or family updated on plan of care and expected duration. Pain level reassessed. Pt still awaiting transportation to [place]. 02:35 Reassessment: Patient appears in no apparent distress at this time. No changes from aa1 previously documented assessment. Patient and/or family updated on plan of care and expected duration. Pain level reassessed. Pt still awaiting transportation to [place]. 03:30 Reassessment: Patient appears in no apparent distress at this time. No changes from aa1 previously documented assessment. [facility] present to transport pt back to [place]. Dsg to AV fistula D\T\I. Radial pulses 2+ Patient states symptoms have improved. Vital Signs: 06/01 23:00 BP 177 / 96; Pulse 69; Resp 18; Temp 97.8; Pulse Ox 99% on R/A; Weight 102.06 kg; aa1 Height 5 ft. 11 in. (180.34 cm); Pain 10/10; 06/02 00:01 BP 164 / 90; Pulse 66; Resp 18; Pulse Ox 100% on R/A; aa1 01:00 BP 143 / 86; Pulse 61; Resp 18; Pulse Ox 98% on R/A; Pain 0/10; aa1 02:35 BP 134 / 75; Pulse 62; Resp 18; Pulse Ox 100% on R/A; Pain 0/10; aa1 03:30 BP 131 / 77; Pulse 69; Resp 16; Temp 98.0; Pulse Ox 99% on R/A; Pain 3/10; aa1 06/01 23:00 Body Mass Index 31.38 (102.06 kg, 180.34 cm) aa1 ED Course: 06/01 23:00 Arm band placed on left wrist. Patient placed in an exam room, on a stretcher. aa1 23:08 Patient arrived in ED. aa1 23:10 Triage completed. aa1 23:10 Patient has correct armband on for positive identification. Bed in low position. Call aa1 light in reach. Pulse ox on. NIBP on. 23:26 Katlin Hernandez RN is Primary Nurse. aa1 23:42 Ranjith Morris NP is PHCP. pm1 23:42 Eris Karimi MD is Attending Physician. pm1 06/02 03:32 No provider procedures requiring assistance completed. Patient did not have IV access aa1 during this emergency room visit. Administered Medications: 00:01 Drug: [place] 10 mg-325 mg 1 tabs Route: PO; aa1 Outcome: 00:14 Discharge ordered by . pm1 03:32 Discharged to intermediate. Report called to Prudence aa1 03:32 Condition: stable 03:32 Discharge instructions given to intermediate, Instructed on discharge instructions, medication usage, Demonstrated understanding of instructions, medications, Prescriptions given X 1. 03:33 Patient left the ED. aa1 Signatures: Katlin Hernandez RN RN aa1 Ranjith Morris NP REGIONAL DRIVER pm1
--- NOTE | 2018-06-02 00:18 | EDPHYS ---
Physician Documentation [facility] Name: Juan Lozano Age: 57 yrs Sex: Male : 1960 Arrival Date: 06/01/2018 Time: 23:08 Bed 2 Private MD: ED Physician Eris Karimi HPI: 06/02 00:00 This 57 yrs old Black Male presents to ER via EMS with complaints of Arm Pain - pm1 post-surgical. 00:00 The patient or guardian complains of pain, that is acute, swelling. The complaints pm1 affect the right bicep. Context: resulted from surgery, AV fistula at [facility]. Onset: The symptoms/episode began/occurred today. Treatment prior to arrival includes: tommy wrap. Modifying factors: The symptoms are alleviated by nothing. the symptoms are aggravated by nothing. Associated signs and symptoms: Pertinent positives: pain, swelling, Pertinent negatives: decreased range of motion, fever, numbness, tingling. Historical: - Allergies: 06/01 23:21 NKA; aa1 - Home Meds: 23:21 aspirin 81 mg Oral chew 1 tab once daily [Active]; Clonidine 0.3 mg/24hr Oral 0.3 mg aa1 weekly [Active]; folic acid 1 mg Oral tab 1 tab once daily [Active]; isosorbide dinitrate 20 mg Oral tab 3 times per day [Active]; Keppra 500 mg Oral tab 1 tab 2 times per day [Active]; levothyroxine 50 mcg tab 1 tab once daily [Active]; Protonix 40 mg Oral TbEC 1 tab once daily [Active]; risperidone 0.5 mg Oral TbDL once daily [Active]; olopatadine 0.1 % ophthalmic drop 1 drop every morning [Active]; hydralazine 50 mg Oral tab TID [Active]; metoprolol tartrate 100 mg Oral tab 1 tab 2 times per day [Active]; sevelamer HCl 800 mg Oral 2 tabs 3 times a day w/ snacks [Active]; cholecalciferol (vitamin D3) 2,000 unit Oral tab 3 cap daily [Active]; Depakote ER 125mg Oral 2 tabs twice a day [Active]; trazodone 100 mg Oral tab nightly [Active]; melatonin 3 mg Oral tab nightly [Active]; Ativan 1 mg Oral tab 1 tab once daily [Active]; tramadol 50 mg Oral tab 1 tab as needed [Active]; cinacalcet 30 mg Oral 2 tabs nightly [Active]; acetaminophen 325 mg Oral tab 2 tabs as needed [Active]; - PMHx: 23:21 ADD/ADHD; Anemia; Bipolar disorder; Chronic ischemic heart disease; CVA; Diabetes - aa1 IDDM; Dialysis; epilepsy; ESRD; Hypertension; TIA; Anxiety; Hyperlipidemia; Hypothyroidism; decubitus ulcer; - Immunization history:: Flu vaccine is up to date. - Social history:: Smoking status: Patient uses tobacco products, smokes one pack cigarettes per day. - Ebola Screening: : No symptoms or risks identified at this time. ROS: 06/02 00:00 Constitutional: Negative for fever, chills, and weight loss, Eyes: Negative for injury, pm1 pain, redness, and discharge, ENT: Negative for injury, pain, and discharge, Neck: Negative for injury, pain, and swelling, Cardiovascular: Negative for chest pain, palpitations, and edema, Respiratory: Negative for shortness of breath, cough, wheezing, and pleuritic chest pain, Abdomen/GI: Negative for abdominal pain, nausea, vomiting, diarrhea, and constipation, Back: Negative for injury and pain, : Negative for injury, bleeding, discharge, and swelling, Skin: Negative for injury, rash, and discoloration, Neuro: Negative for headache, weakness, numbness, tingling, and seizure. MS/extremity: Positive for pain, swelling, of the right bicep, Negative for bleeding from surgical site. Exam: 00:00 Constitutional: This is a well developed, well nourished patient who is awake, alert, pm1 and in no acute distress. Head/Face: Normocephalic, atraumatic. Eyes: Pupils equal round and reactive to light, extra-ocular motions intact. Lids and lashes normal. Conjunctiva and sclera are non-icteric and not injected. Cornea within normal limits. Periorbital areas with no swelling, redness, or edema. ENT: Nares patent. No nasal discharge, no septal abnormalities noted. Tympanic membranes are normal and external auditory canals are clear. Oropharynx with no redness, swelling, or masses, exudates, or evidence of obstruction, uvula midline. Mucous membranes moist. Neck: Trachea midline, no thyromegaly or masses palpated, and no cervical lymphadenopathy. Supple, full range of motion without nuchal rigidity, or vertebral point tenderness. No Meningismus. Chest/axilla: Normal chest wall appearance and motion. Nontender with no deformity. No lesions are appreciated. Cardiovascular: Regular rate and rhythm with a normal S1 and S2. No gallops, murmurs, or rubs. Normal PMI, no JVD. No pulse deficits. Respiratory: Lungs have equal breath sounds bilaterally, clear to auscultation and percussion. No rales, rhonchi or wheezes noted. No increased work of breathing, no retractions or nasal flaring. Abdomen/GI: Soft, non-tender, with normal bowel sounds. No distension or tympany. No guarding or rebound. No evidence of tenderness throughout. Back: No spinal tenderness. No costovertebral tenderness. Full range of motion. 00:00 MS/ Extremity: Pulses equal, no cyanosis. Neurovascular intact. Full, normal range of motion. mild swelling present to right upper arm. Radial pulse present to right hand and brisk capillary refill 00:00 Skin: cellulitis, is not appreciated, no bleeding present from surgical site. Vital Signs: 06/01 23:00 BP 177 / 96; Pulse 69; Resp 18; Temp 97.8; Pulse Ox 99% on R/A; Weight 102.06 kg; aa1 Height 5 ft. 11 in. (180.34 cm); Pain 10/10; 06/02 00:01 BP 164 / 90; Pulse 66; Resp 18; Pulse Ox 100% on R/A; aa1 01:00 BP 143 / 86; Pulse 61; Resp 18; Pulse Ox 98% on R/A; Pain 0/10; aa1 02:35 BP 134 / 75; Pulse 62; Resp 18; Pulse Ox 100% on R/A; Pain 0/10; aa1 03:30 BP 131 / 77; Pulse 69; Resp 16; Temp 98.0; Pulse Ox 99% on R/A; Pain 3/10; aa1 06/01 23:00 Body Mass Index 31.38 (102.06 kg, 180.34 cm) aa1 MDM: 06/01 23:42 Patient medically screened. pm1 23:48 Data reviewed: vital signs. Data interpreted: Pulse oximetry: on room air is 99 %. pm1 Interpretation: normal. 06/02 00:13 Counseling: I had a detailed discussion with the patient and/or guardian regarding: the pm1 historical points, exam findings, and any diagnostic results supporting the discharge/admit diagnosis, the need for outpatient follow up, to return to the emergency department if symptoms worsen or persist or if there are any questions or concerns that arise at home. Administered Medications: 00:01 Drug: [place] 10 mg-325 mg 1 tabs Route: PO; aa1 Disposition: 07:28 Co-signature as Attending Physician, Eris Karimi MD I agree with the assessment and gail plan of care. Disposition: 06/02/18 00:14 Discharged to Home. Impression: Post surgical pain. - Condition is Stable. - Prescriptions for Tramadol 50 mg Oral Tablet - take 1 tablet by ORAL route every 8 hours as needed; 12 tablet. - Medication Reconciliation Form, Thank You Letter, Antibiotic Education, Prescription Opioid Use, SBAR form form. - Follow up: Emergency Department; When: As needed; Reason: Worsening of condition. Follow up: Private Physician; When: 2 - 3 days; Reason: Recheck today's complaints, Continuance of care, Re-evaluation by your physician. - Problem is new. - Symptoms have improved. Signatures: Katlin Hernandez RN RN aa1 Eris Karimi MD MD cha Marinas, Patrick, NP MANAGER [employer]IAL WORK pm1 Corrections: (The following items were deleted from the chart) 03:33 00:14 06/02/2018 00:14 Discharged to Home. Impression: Post surgical pain. Condition is aa1 Stable. Forms are Medication Reconciliation Form, Thank You Letter, Antibiotic Education, Prescription Opioid Use. Follow up: Emergency Department; When: As needed; Reason: Worsening of condition. Follow up: Private Physician; When: 2 - 3 days; Reason: Recheck today's complaints, Continuance of care, Re-evaluation by your physician. Problem is new. Symptoms have improved. pm1
== END 2018-06-02 03:33 | disposition home or self-care (01) ==
LOC: ER 23:07
DX: G89.18 Other acute postprocedural pain (principal); I12.0 Hypertensive chronic kidney disease with stage 5 chronic kidney disease or end stage renal disease; E11.22 Type 2 diabetes mellitus with diabetic chronic kidney disease; N18.6 End stage renal disease; E03.9 Hypothyroidism, unspecified; E78.5 Hyperlipidemia, unspecified; G40.909 Epilepsy, unspecified, not intractable, without status epilepticus; F17.210 Nicotine dependence, cigarettes, uncomplicated; I51.9 Heart disease, unspecified; I25.9 Chronic ischemic heart disease, unspecified; Z79.82 Long term (current) use of aspirin; Z86.73 Personal history of transient ischemic attack (TIA), and cerebral infarction without residual deficits; Z99.2 Dependence on renal dialysis
CPT/HCPCS: 99284

== ENCOUNTER 2018-08-08 09:43 | Emergency (ER) | payer OTHER ==
--- OUTSIDE RECORDS SUMMARY | 2018-08-08 09:47 | XMS REPORT | Continuity of Care Document ---
[...] Reported No Known Shortness Allergy to Active [facility] St. Drug of breath Substance 8 [facility] All[facility]ies [place] Immunizations Immunization Date Given Site Status Last Updated Comments Source Results Order Name Results Value Reference Date Interpretation Comments Source Range Laboratory Bedside Glucose 188 mg/dl 65 - 120 07/[address] [facility] [address] Studies [facility] [place] [facility] Magnesium Level 1.9 mg/dL 1.8 - 2.5 07/[address] [facility] [address] Studies [facility] [place] [facility] Ammonia 23 umol/L 10 - 45 07/[address] [facility] [address] [facility] [place] [facility] Phosphorus 6.3 mg/dL 2.5 - 4.3 07/[address] [facility] [address] Studies Level [facility] [place] [facility] Sodium Level 137 mEq/L 135 - 145 07/[address] [facility] [address] Studies [facility] [place] [facility] Potassium Level 4.1 mEq/L 3.6 - 5.[address] [facility] [address] Studies /2017 [facility] [place] [facility] Glucose Level 112 mg/dL 65 - 120 07/[address] [facility] [address] Studies [facility] [place] [facility] Estimat 9 mL/min 90 07/[address] [facility] [address] Studies Glomerular [facility] - Filtration Rate [place] [facility] Creatinine 7.85 0.61 - [address] [facility] [address] Studies mg/dL 1.24 [facility] [place] [facility] Chloride Level 102 mEq/L 101 - 111 07/[address] [facility] [address] Studies /2017 [facility] [place] [facility] Carbon Dioxide 26 mEq/L 21 - 31 07/[address] [facility] [address] Studies Level /2017 [facility] [place] [facility] Calcium Level 8.8 mg/dL 8.5 - 10.5 07/[address] [facility] [address] Studies [facility] [place] [facility] Blood Urea 55 mg/dL 6 - 20 07/24 [facility]. Studies Nitrogen /2017 [facility] [place] [facility] White Blood 3.9 K/uL 4.3 - 10.9 07/[address] [facility] [address] Studies Count /2017 [facility] [place] [facility] Red Cell 17.0 % 12.1 - 07/24 [facility]. Studies Distribution 15.2 [employer] - Width [place] [facility] Red Blood Count 3.38 M/uL 4.33 - 04 [facility] [address] Studies 5.43 /2017 [facility] [place] [facility] Platelet Count 199 K/uL 152 - 406 07/24 [facility]. Studies [facility] [place] [facility] Neutrophils % 61.5 % 41.7 - 07/[address] [facility] [address] Studies 73.7 [facility] [place] [facility] Monocytes % 11.6 % 3.3 - 12.3 07/24 [facility]. Studies [facility] [place] [facility] Mean Platelet 8.8 fL 7.6 - 11.3 07/24 [facility]. Studies Volume /2017 [facility] [place] [facility] Mean 82.9 fL 80 - 100 07/[address] [facility] [address] Studies Corpuscular /2017 [facility] - Volume [place] [facility] Mean 32.6 g/dL 32.0 - 07/24 [facility]. Studies Corpuscular 36.0 [employer] - Hemoglobin [place] [facility] Mean 27.0 pg 27.0 - 07/[address] [facility] [address] Studies Corpuscular 35.0 /2017 [employer] - Hemoglobin [place] [facility] Lymphocytes % 21.0 % 15.3 - [address] [facility] [address] Studies 44.8 /2017 [facility] [place] [facility] Hemoglobin 9.1 g/dL 13.6 - 07/[address] [facility] [address] Studies 17.9 /2017 [employer] - [place] [facility] Hematocrit 28.0 % 39.6 - [address] [facility] [address] Studies 49.0 /2017 [facility] [place] [facility] Eosinophils % 4.0 % 0 - 4.4 07/[address] [facility] [address] Studies /2017 [facility] [place] [facility] Basophils % 1.9 % 0 - 1.3 07/[address] [facility] [address] Studies /2017 [facility] [place] [facility] Absolute 2.4 K/uL 1.8 - 8.0 07/[address] [facility] [address] Studies Neutrophil /2017 [facility] [place] [facility] Absolute 0.5 K/uL 0.1 - 1.3 07/[address] [facility] [address] Studies Monocytes (CBC) /2017 [facility] [place] [facility] Absolute 0.8 K/uL 0.7 - 4.9 07/[address] [facility] [address] Studies Lymphocytes /2017 [facility] - (CBC) [place] [facility] Absolute 0.2 K/uL 0 - 0.5 07/[address] [facility] [address] Studies Eosinophils /2017 [facility] - (CBC) [place] [facility] Absolute 0.1 K/uL 0 - 0.5 07/[address] [facility] [address] Studies Basophils (CBC) /2017 [employer] - [place] [facility] Troponin I 0.14 07/[address] [facility] [address] Studies ng/mL /2017 [employer] - [place] [facility] Creatine Kinase 9.7 ng/ml 0.3 - 4.[address] [facility] [address] Studies MB /2017 [employer] - [place] [facility] Creatine Kinase 329 IU/L 22 - [address] [facility] [address] Studies /2018 [facility] [place] [facility] Triglycerides 82 mg/dL 35 - [address] [facility] [address] Studies Level /2017 [employer] - [place] [facility] Thyroid 1.48 0.34 - 04 [facility] [address] Studies Stimulating uIU/mL 5.60 [employer] - Hormone (TSH) [place] [facility] LDL [address] [facility] [address] Studies Cholesterol, /2017 [facility] Calculated [place] [facility] HDL Cholesterol 45 mg/dL 27 - [address] [facility] [address] Studies /2017 [employer] - [facility] [place] [facility] Free Thyroxine 0.90 0.58 - 04 [facility] [address] Studies ng/dl 1.64 /2017 [employer] - [place] [facility] Cholesterol/HDL 2.[address] [facility] [address] Studies Ratio /2017 [facility] [place] [facility] Cholesterol 96 mg/dL 07/[address] [facility] [address] Studies Level /2017 [facility] [place] [facility] Urine WBC null 07/22 St. Studies /2017 [facility] [place] [facility] Urine null 07/[address] [facility] [address] Studies Urothelial /2017 [employer] - Cells [place] [facility] Urine Squamous null 07/22 [facility]. Studies Epithelial /2017 [employer] - Cells [place] [facility] Urine RBC Urine RBC 07/22 [facility]. Studies /2017 [employer] - [facility] Urine Culture Urine 07/22 [facility]. Studies Reflexed Culture /2017 [facility] - Reflexed [place] [facility] Urine Bacteria Urine 07/22 [facility]. Studies Bacteria /2017 [employer] - [facility] Procalcitonin 1.56 07/[address] [facility] [address] Studies ng/mL /2017 [employer] - [facility] Total Bilirubin 0.7 mg/dL 0.3 - 1.2 07/[address] [facility] [address] Studies /2017 [facility] - [facility] Serum Total 7.4 g/dL 6.0 - 8.3 07/[address] [facility] [address] Studies Protein /2017 [employer] - [facility] Lipase 82 U/L 22 - 51 07/22 [facility]. Studies [employer] - [place] [facility] Globulin 3.5 g/dL 2.3 - 3.5 07/[address] [facility] [address] Studies [facility] Direct 0.1 mg/dL 0 - 0.2 07/22 [facility]. Studies Bilirubin [facility] Aspartate Amino 18 IU/L 10 - 42 07/[address] [facility] [address] Studies Transf /2017 [employer] - (AST/SGOT) [place] [facility] Alkaline 63 IU/L 42 - 121 07/22 [facility]. Studies Phosphatase /2017 [employer] - [facility] [place] [facility] Albumin/Globuli 1.1 1.1 - 1.8 07/[address] [facility] [address] Studies n Ratio /2017 [employer] - [facility] [place] Albumin 3.9 g/dL 3.2 - 5.5 07/22 [facility] [address] Studies /2018 [facility] [place] [facility] Alanine 12 IU/L 10 - 60 07/[address] [facility] [address] Studies Aminotransferas /2017 [facility] - e (ALT/SGPT) [place] [facility] B-Type 1591 07/[address] [facility] [address] Studies Natriuretic pg/ml /2017 [facility] Peptide [place] [facility] Rapid Troponin 0.11 07/[address] [facility] [address] Studies I ng/mL /2017 [facility] [place] Laboratory Lactic Acid 6.6 mg/dL 4.5 - 19.8 07/[address] [facility] [address] Studies Level /2017 [facility] [place] Laboratory Prothrombin 12.5 9.5 - 12.5 07/[address] [facility] [address] Studies Time SECONDS /2017 [facility] [place] [facility] INR 1.06 07/[address] [facility] [address] Studies International /2017 [facility] Normalized [place] Ratio Laboratory Activated 33.9 24.3 - 07/[address] [facility] [address] Studies Partial SECONDS 36.9 [facility] - Thromboplast [place] Time Vital Signs Vital Sign Value Date Comments Source Heart Rate 63 07/24/[address] [facility] [address] [place] Systolic (mm Hg) 103 07/24/[address] [facility] [address] [place] Diastolic (mm Hg) 60 07/24/[address] [facility] [address] [place] Respitory Rate 13 07/24/2017 [facility]. [facility] [place] Temperature Oral (F[facility] 97.8 [facility] Weight 179.00 [facility] En[facility]ters Location Location Encounter Encounter Reason Attending ADM DC Status Source Details Type Number For Provider Date Date Visit [facility] Discharged [id number] 07/22 07/24 [facility] [place] Procedures Procedure Code Date Perfomer Comments Source Chest Single [id number] [facility] - View 8 [place] Anaerobic Blood [id number] [facility] [place] [facility] [place] [id number] [place] [facility] [address] [place] [id number] [facility] [place] [facility] [id number] [facility] [place] Brain [place] [id number] [facility] - Cont 8 [place] Chest Single [id number] [facility] - View [facility] [place]
--- NOTE | 2018-08-08 10:28 | RAD REPORT ---
EXAM DESCRIPTION: RAD - Chest Single View - 08/08/2018 10:22 am CLINICAL HISTORY: weakness Chest pain. COMPARISON: Chest Single View dated 03/15/2018; Chest Single View dated 01/01/2018; Chest Single View dated 12/31/2017; Chest Single View dated 12/12/2017 FINDINGS: Portable technique limits examination quality. Mild interstitial pulmonary edema is seen. The heart is moderately enlarged. Right-sided venous maria elena ter tip in the SVC. IMPRESSION: Mild CHF versus volume overload pattern.
--- NOTE | 2018-08-08 11:34 | ER ---
Nurse's Notes [facility] Name: Juan Lozano Age: 57 yrs Sex: Male : 1960 Arrival Date: 08/08/2018 Time: 09:47 Bed 6 Private MD: Diagnosis: Pain in right shoulder Presentation: 08/08 09:48 Presenting complaint: EMS states: NON-COMPLIANT DIALYSIS PATIENT, C/O BUTTOCK PAIN. bp Transition of care: patient was received from another setting of care (long-term care facility), [facility]. Onset of symptoms is unknown. Risk Assessment: Do you want to hurt yourself or someone else? Patient reports no desire to harm self or others. Initial Sepsis Screen: Does the patient meet any 2 criteria? Altered Mental Status. Does the patient have a suspected source of infection? No. Patient's initial sepsis screen is negative. Care prior to arrival: None. 09:48 Method Of Arrival: EMS: [facility] bp 09:48 Acuity: DORIS 3 bp Triage Assessment: 09:48 General: Appears in no apparent distress. uncomfortable, Behavior is agitated, anxious. bp Pain: Complains of pain in buttocks. EENT: No deficits noted. Neuro: Level of Consciousness is lethargic, Oriented to person, place, time, situation. Cardiovascular: Rhythm is sinus rhythm. Respiratory: Airway is patent Respiratory effort is even, unlabored, Respiratory pattern is regular, symmetrical. GI: No signs and/or symptoms were reported involving the gastrointestinal system. : No signs and/or symptoms were reported regarding the genitourinary system. Derm: No deficits noted. Musculoskeletal: Circulation, motion, and sensation intact. Range of motion: limited in left hip, left knee, left ankle, right hip, right knee and right ankle. Historical: - Allergies: 10:14 NKA; bp - Home Meds: 10:14 aspirin 81 mg Oral chew 1 tab once daily [Active]; Ativan 1 mg Oral tab 1 tab once bp daily [Active]; cholecalciferol (vitamin D3) 2,000 unit Oral tab 3 cap daily [Active]; Clonidine 0.3 mg/24hr Oral 0.3 mg WEEKLY [Active]; Depakote ER 125mg Oral 2 tabs twice a day [Active]; folic acid 1 mg Oral tab 1 tab once daily [Active]; hydralazine 50 mg Oral tab TID [Active]; hydroxyzine HCl 25 mg Oral tab 1 tab 3 times per day [Active]; isosorbide dinitrate 20 mg Oral tab 3 times per day [Active]; Keppra 500 mg Oral tab 1 tab 2 times per day [Active]; levothyroxine 50 mcg tab 1 tab once daily [Active]; melatonin 3 mg Oral tab nightly [Active]; metoprolol tartrate 100 mg Oral tab 1 tab 2 times per day [Active]; [place] 5-325 mg Oral tab 1 tab every 4 hours [Active]; olopatadine 0.1 % ophthalmic drop 1 drop every morning [Active]; Protonix 40 mg Oral TbEC 1 tab once daily [Active]; sevelamer HCl 800 mg Oral 2 tabs 3 times a day w/ snacks [Active]; risperidone 0.5 mg Oral TbDL once daily [Active]; tramadol 50 mg Oral tab 1 tab as needed [Active]; trazodone 100 mg Oral tab nightly [Active]; - PMHx: 10:14 TIA; CVA; ESRD; ADD/ADHD; Anemia; Anxiety; Bipolar disorder; Chronic ischemic heart bp disease; decubitus ulcer; Diabetes - IDDM; Dialysis; Hyperlipidemia; epilepsy; Hypertension; Hypothyroidism; - Immunization history:: Adult Immunizations unknown. - Social history:: Smoking status: Patient/guardian denies using tobacco. - Ebola Screening: : Patient negative for fever greater than or equal to 101.5 degrees Fahrenheit, and additional compatible Ebola Virus Disease symptoms Patient denies exposure to infectious person Patient denies travel to an Ebola-affected area in the 21 days before illness onset No symptoms or risks identified at this time. Screenin:52 Abuse screen: Denies threats or abuse. Denies injuries from another. Nutritional bp screening: No deficits noted. Tuberculosis screening: No symptoms or risk factors identified. Fall Risk Fall in past 12 months (25 points). Secondary diagnosis (15 points) TIA, No IV (0 pts). Ambulatory Aid- None/Bed Rest/Nurse Assist (0 pts). Gait- Normal/Bed Rest/Wheelchair (0 pts) Mental Status- Overestimates/Forgets Limitations (15 pts.). Total Hercules Fall Scale indicates High Risk Score (45 or more points). Fall prevention measures have been instituted. Side Rails Up X 2 Placed Close to Nursing Station Frequent Obs/Assessments Occuring As available patient and family educated on Fall Prevention Program and Strategies. Assessment: 09:55 General: SEE TRIAGE NOTE. bp 10:58 Reassessment: PT REFUSING PIV, MD NOTIFIED. PHLEBOTOMY ATTEMPT PENDING. bp 11:10 Reassessment: PHLEBOTOMY UNABLE TO OBTAIN LAB SPECIMEN. PT CONFIRMED TO BE ORIENTED, bp AOx3. SHOUTING AT STAFF "GET YOUR DAMN HANDS OFF ME" AND FLAILING ARMS AT PHLEBOTOMY STAFF. MD NOTIFIED. 11:29 Reassessment: PT REFUSING FURTHER CARE, STATES HE WISHES TO RETURN HOME. [facility] bp CONTACTED FOR TRANSPORT BACK. 12:00 Reassessment: PER MD, ATTEMPTED PIV ACCESS AND LAB SAMPLE AGAIN. PT UNCOOPERATIVE AND bp ACTIVELY REFUSING. 12:23 Reassessment: spoke with staff at [facility], was told she will check with her DON about iw calling [facility] for transport back to facility. 12:54 Reassessment: Spoke with Naomi, aids social worker at [facility], states she will send transport iw van in approx 10 minutes, will need assistance getting pt in van. 13:16 Reassessment: pt assisted to wheelchair, able to bear weight with right foot, pivoted iw into wheelchair with assistance, d/c to [facility] via wheelchair. Vital Signs: 09:48 BP 182 / 133; Pulse 78; Resp 20; Temp 98.3; Pulse Ox 94% ; Weight 108.86 kg; bp 10:47 BP 197 / 117; Pulse 70; Resp 16; Pulse Ox 98% ; bp ED Course: 09:47 Patient arrived in ED. bp 09:48 Arm band placed on. bp 09:49 Triage completed. bp 09:51 Phani Honeycutt MD is Attending Physician. kdr 09:52 Patient has correct armband on for positive identification. Bed in low position. Call bp light in reach. Side rails up X2. 09:56 Benjamín Nixon, ANTONINA is Primary Nurse. bp 10:20 X-ray completed. Portable x-ray completed in exam room. Patient tolerated procedure ls3 well. 10:21 XRAY Chest (1 view) In Process Unspecified. EDMS 10:23 EKG done, by senior technical writer. reviewed by Phani Honeycutt MD. at1 12:02 No provider procedures requiring assistance completed. Patient did not have IV access bp during this emergency room visit. Administered Medications: No medications were administered Outcome: 11:33 Discharge ordered by . kdr 13:15 Discharged to [facility]. Transfer form completed. iw 13:15 Condition: good 13:15 Discharge instructions given to [facility], Demonstrated understanding of instructions. 13:17 Patient left the ED. iw Signatures: Dispatcher [employer] EDMS Phani Honeycutt MD MD kdr Williams, Irene, RN RN iw Marcia Castillo, pattern puncher EKG Tat1 Benjamín Nixon RN RN Gladys Martell ls3
--- NOTE | 2018-08-08 11:34 | EDPHYS ---
Physician Documentation [facility] Name: Juan Lozano Age: 57 yrs Sex: Male : 1960 Arrival Date: 08/08/2018 Time: 09:47 Bed 6 Private MD: ED Physician Phani Honeycutt HPI: 08/08 09:53 This 57 yrs old Black Male presents to ER via EMS with complaints of Pain - GLUTEAL. kdr 09:53 The patient c/o pain to his buttock to EMS and nurses. To me, he was poorly arousable kdr and only c/o pain to the his right shoulder. He has no other apparent c/o or injury. Nursing reports that he last had dialysis two weeks ago.. 12:08 Onset: The symptoms/episode began/occurred at an unknown time. Severity of symptoms: At kdr their worst the symptoms were moderate in the emergency department the symptoms are unchanged. It is unknown whether or not the patient has had similar symptoms in the past. It is unknown whether or not the patient has recently seen a physician. The patient was sent from [place] for [place] pain. On my initial evaluation the patient was somnolent but responsive to assertive questioning. He stated that his right shoulder was hurting. He had no other c/o. He consistently has identified his location but he did not know the date or time. He was generally slow to respond until something was done to him that he did not want. Then, he would open his eyes and speak clearly and forcefully that he did not want to be bothered. When the nursing/lab staff subsequently tried to draw his labs, the patient attempted to swing at staff. I talked further with the patient and again, he was more than able to interact appropriately when pressed to open his eyes. The nursing staff again tried to draw blood but as soon as he was puncture with the needed, he began to pull his arm back and complain about the pain from the attempted IV start. At those times, he speech was clear, focused and direct to the staff. He was very clear about refusing any care and said he was ready to go back to the [facility]. Historical: - Allergies: 10:14 NKA; bp - Home Meds: 10:14 aspirin 81 mg Oral chew 1 tab once daily [Active]; Ativan 1 mg Oral tab 1 tab once bp daily [Active]; cholecalciferol (vitamin D3) 2,000 unit Oral tab 3 cap daily [Active]; Clonidine 0.3 mg/24hr Oral 0.3 mg WEEKLY [Active]; Depakote ER 125mg Oral 2 tabs twice a day [Active]; folic acid 1 mg Oral tab 1 tab once daily [Active]; hydralazine 50 mg Oral tab TID [Active]; hydroxyzine HCl 25 mg Oral tab 1 tab 3 times per day [Active]; isosorbide dinitrate 20 mg Oral tab 3 times per day [Active]; Keppra 500 mg Oral tab 1 tab 2 times per day [Active]; levothyroxine 50 mcg tab 1 tab once daily [Active]; melatonin 3 mg Oral tab nightly [Active]; metoprolol tartrate 100 mg Oral tab 1 tab 2 times per day [Active]; [place] 5-325 mg Oral tab 1 tab every 4 hours [Active]; olopatadine 0.1 % ophthalmic drop 1 drop every morning [Active]; Protonix 40 mg Oral TbEC 1 tab once daily [Active]; sevelamer HCl 800 mg Oral 2 tabs 3 times a day w/ snacks [Active]; risperidone 0.5 mg Oral TbDL once daily [Active]; tramadol 50 mg Oral tab 1 tab as needed [Active]; trazodone 100 mg Oral tab nightly [Active]; - PMHx: 10:14 TIA; CVA; ESRD; ADD/ADHD; Anemia; Anxiety; Bipolar disorder; Chronic ischemic heart bp disease; decubitus ulcer; Diabetes - IDDM; Dialysis; Hyperlipidemia; epilepsy; Hypertension; Hypothyroidism; - Immunization history:: Adult Immunizations unknown. - Social history:: Smoking status: Patient/guardian denies using tobacco. - Ebola Screening: : Patient negative for fever greater than or equal to 101.5 degrees Fahrenheit, and additional compatible Ebola Virus Disease symptoms Patient denies exposure to infectious person Patient denies travel to an Ebola-affected area in the 21 days before illness onset No symptoms or risks identified at this time. ROS: 12:08 Constitutional: The patient is a poor historian but has no focal c/o kdr 12:08 Unable to obtain ROS due to altered mental status, patient being uncooperative. Exam: 12:08 Constitutional: This is a well developed, well nourished patient who is awake, alert, kdr and in no acute distress. Head/Face: Normocephalic, atraumatic. Eyes: Pupils equal round and reactive to light, extra-ocular motions intact. Lids and lashes normal. Conjunctiva and sclera are non-icteric and not injected. Cornea within normal limits. Periorbital areas with no swelling, redness, or edema. Neck: Trachea midline, no thyromegaly or masses palpated, and no cervical lymphadenopathy. Supple, full range of motion without nuchal rigidity, or vertebral point tenderness. No Meningismus. Cardiovascular: Regular rate and rhythm with a normal S1 and S2. No gallops, murmurs, or rubs. Normal PMI, no JVD. No pulse deficits. Respiratory: Lungs have equal breath sounds bilaterally, clear to auscultation and percussion. No rales, rhonchi or wheezes noted. No increased work of breathing, no retractions or nasal flaring. Abdomen/GI: Soft, non-tender, with normal bowel sounds. No distension or tympany. No guarding or rebound. No evidence of tenderness throughout. Back: No spinal tenderness. No costovertebral tenderness. Full range of motion. Skin: Warm, dry with normal turgor. Normal color with no rashes, no lesions, and no evidence of cellulitis. 12:08 Chest/axilla: The is a dialysis catheter in the Right upper anterior chest that is apparently in appropriate place but does not appear to be sutured in place.. 12:08 Neuro: Orientation: to person, place, Not oriented to time, situation, Mentation: able to follow commands, slow to respond, Memory: unable to test, Cranial nerves: no acute changes, Cerebellar function: unable to test, Motor: The patient is uncooperative. Vital Signs: 09:48 BP 182 / 133; Pulse 78; Resp 20; Temp 98.3; Pulse Ox 94% ; Weight 108.86 kg; bp 10:47 BP 197 / 117; Pulse 70; Resp 16; Pulse Ox 98% ; bp MDM: 11:26 ED course: The patient continues to refuse treatment and blood draw. kdr 11:33 Patient medically screened. kdr 12:39 Data reviewed: vital signs, nurses notes. Counseling: I had a detailed discussion with kdr the patient and/or guardian regarding: the historical points, exam findings, and any diagnostic results supporting the discharge/admit diagnosis. ED course: The patient continues to be stable and refusing to cooperate with nursing staff. 08/08 10:04 Order name: Acetaminophen [facility] 08/08 10:03 Order name: XRAY Chest (1 view) [facility] 08/08 10:03 Order name: EKG; Complete Time: 10:04 kdr 08/08 10:03 Order name: Cardiac monitoring; Complete Time: 10:34 [facility] 08/08 10:03 Order name: EKG - Nurse/Tech; Complete Time: 10:46 [facility] 08/08 10:03 Order name: O2 Per Protocol; Complete Time: 10:34 kdr 08/08 10:03 Order name: O2 Sat Monitoring; Complete Time: 10:34 kdr Administered Medications: No medications were administered Disposition: 08/08/18 11:33 Discharged to Home. Impression: Pain in right shoulder. - Condition is Fair. - Discharge Instructions: Joint Pain, Shoulder Pain, [id number]. - Medication Reconciliation Form, Thank You Letter form. - Follow up: Private Physician; When: 2 - 3 days; Reason: If symptoms return, Further diagnostic work-up, Recheck today's complaints, Continuance of care, Re-evaluation by your physician. - Problem is an ongoing problem. - Symptoms are unchanged. Signatures: Dispatcher [employer] EDMS Phani Honeycutt MD MD kdr Ida Buck, RN RN iw Benjamín Nixon RN RN bp Corrections: (The following items were deleted from the chart) 13:17 11:33 08/08/2018 11:33 Discharged to Home. Impression: Pain in right shoulder. iw Condition is Fair. Forms are Medication Reconciliation Form, Thank You Letter, Antibiotic Education, Prescription Opioid Use. Follow up: Private Physician; When: 2 - 3 days; Reason: If symptoms return, Further diagnostic work-up, Recheck today's complaints, Continuance of care, Re-evaluation by your physician. Problem is an ongoing problem. Symptoms are unchanged. kdr
[2018-08-08 13:22] VITALS: TEMP 98.3
[2018-08-08 13:23] VITALS: BP 197/117; O2SAT 98
== END 2018-08-08 13:17 | disposition home or self-care (01) ==
LOC: ER 09:43
DX: M25.511 Pain in right shoulder (principal); E11.22 Type 2 diabetes mellitus with diabetic chronic kidney disease; I13.11 Hypertensive heart and chronic kidney disease without heart failure, with stage 5 chronic kidney disease, or end stage renal disease; N18.6 End stage renal disease; Z99.2 Dependence on renal dialysis; F31.9 Bipolar disorder, unspecified; E78.5 Hyperlipidemia, unspecified; E03.9 Hypothyroidism, unspecified; Z79.82 Long term (current) use of aspirin; Z79.4 Long term (current) use of insulin; Z86.73 Personal history of transient ischemic attack (TIA), and cerebral infarction without residual deficits
CPT/HCPCS: 71045; 93005; 99284

== ENCOUNTER 2018-08-08 21:04 | Inpatient (IN) | payer OTHER ==
--- OUTSIDE RECORDS SUMMARY | 2018-08-08 21:07 | XMS REPORT | Continuity of Care Document ---
[...] Reported No Known Shortness Allergy to Active [facility] St. Drug of breath Substance 8 [facility] Allergies [place] Immunizations Immunization Date Given Site Status Last Updated Comments Source Results Order Name Results Value Reference Date Interpretation Comments Source Range Laboratory Bedside Glucose 188 mg/dl 65 - 120 07/24 [facility] St[facility] Studies [facility] [place] [facility] Magnesium Level 1.9 mg/dL 1.8 - 2.5 07/24 [facility] St[facility] Studies [facility] [place] [facility] Ammonia 23 umol/L 10 - 45 07/[address] [facility] [place] [facility] Phosphorus 6.3 mg/dL 2.5 - 4.3 07/24 [facility] St. Studies Level [facility] [place] [facility] Sodium Level 137 mEq/L 135 - 145 07/24 [facility] St[facility] Studies [facility] [place] [facility] Potassium Level 4.1 mEq/L 3.6 - 5.0 04 [facility] St. Studies /2017 [facility] [place] [facility] Glucose Level 112 mg/dL 65 - 120 07/24 [facility] St[facility] Studies [facility] [place] [facility] Estimat 9 mL/min 90 07/24 [facility] St. Studies Glomerular [facility] - Filtration Rate [place] [facility] Creatinine 7.85 0.61 - 04 [facility] St. Studies mg/dL 1.24 [facility] [place] [facility] Chloride Level 102 mEq/L 101 - 111 07/24 [facility] St. Studies /2017 [facility] [place] [facility] Carbon Dioxide 26 mEq/L 21 - 31 07/24 [facility] St. Studies Level /2017 [facility] [place] [facility] Calcium Level 8.8 mg/dL 8.5 - 10.5 07/24 [facility] St[facility] Studies [facility] [place] [facility] Blood Urea 55 mg/dL 6 - 20 07/24 [facility]. Studies Nitrogen /2017 [facility] [place] [facility] White Blood 3.9 K/uL 4.3 - 10.9 07/24 [facility] St. Studies Count /2017 [facility] [place] [facility] Red Cell 17.0 % 12.1 - 07/24 [facility]. Studies Distribution 15.2 [facility] - Width [place] [facility] Red Blood Count 3.38 M/uL 4.33 - 04 [facility] St. Studies 5.43 /2017 [facility] [place] [facility] Platelet Count 199 K/uL 152 - 406 07/24 [facility]. Studies [facility] [place] [facility] Neutrophils % 61.5 % 41.7 - 07/24 [facility] St. Studies 73.7 [facility] [place] [facility] Monocytes % 11.6 % 3.3 - 12.3 07/24 [facility]. Studies [facility] [place] [facility] Mean Platelet 8.8 fL 7.6 - 11.3 07/24 [facility]. Studies Volume /2017 [facility] [place] [facility] Mean 82.9 fL 80 - 100 07/24 [facility] St. Studies Corpuscular /2017 [facility] Volume [place] [facility] Mean 32.6 g/dL 32.0 - 07/24 [facility]. Studies Corpuscular 36.0 [facility] - Hemoglobin [place] [facility] Mean 27.0 pg 27.0 - 07/[address] [facility] [address] Studies Corpuscular 35.0 /2017 [facility] - Hemoglobin [place] [facility] Lymphocytes % 21.0 % 15.3 - 04 [facility] St. Studies 44.8 /2017 [facility] [place] [facility] Hemoglobin 9.1 g/dL 13.6 - 07/24 [facility] St. Studies 17.9 /2017 [facility] - [place] [facility] Hematocrit 28.0 % 39.6 - 04 [facility] St. Studies 49.0 /2017 [facility] [place] [facility] Eosinophils % 4.0 % 0 - 4.4 07/24 [facility] St. Studies /2017 [facility] [place] [facility] Basophils % 1.9 % 0 - 1.3 07/24 [facility] St. Studies /2017 [facility] [place] [facility] Absolute 2.4 K/uL 1.8 - 8.0 07/24 [facility] St. Studies Neutrophil /2017 [facility] [place] [facility] Absolute 0.5 K/uL 0.1 - 1.3 07/24 [facility] St. Studies Monocytes (CBC) /2017 [facility] [place] [facility] Absolute 0.8 K/uL 0.7 - 4.9 07/24 [facility] St. Studies Lymphocytes /2017 [facility] - (CBC) [place] [facility] Absolute 0.2 K/uL 0 - 0.5 07/24 [facility] St. Studies Eosinophils /2017 [facility] - (CBC) [place] [facility] Absolute 0.1 K/uL 0 - 0.5 07/24 [facility] St. Studies Basophils (CBC) /2017 [facility] [place] [facility] Troponin I 0.14 07/23 [facility] St. Studies ng/mL /2017 [facility] - [place] [facility] Creatine Kinase 9.7 ng/ml 0.3 - 4.0 04 [facility] St. Studies MB /2017 [facility] - [place] [facility] Creatine Kinase 329 IU/L 22 - 269 04 [facility] St[facility] Studies /2018 [facility] [place] [facility] Triglycerides 82 mg/dL 35 - 160 04 [facility] [address] Studies Level /2017 [facility] - [place] [facility] Thyroid 1.48 0.34 - 04 [facility] St. Studies Stimulating uIU/mL 5.60 [facility] - Hormone (TSH) [place] [facility] LDL 35 04 [facility] [address] Studies Cholesterol, /2017 [facility] - Calculated [place] [facility] HDL Cholesterol 45 mg/dL 27 - 67 04 [facility] St[facility] Studies /2017 [facility] Free Thyroxine 0.90 0.58 - 04 [facility] St. Studies ng/dl 1.64 /2017 [facility] - [place] [facility] Cholesterol/HDL 2.13 04 [facility] [address] Studies Ratio /2017 [facility] [place] [facility] Cholesterol 96 mg/dL 07/23 [facility] St. Studies Level /2017 [facility] [place] Laboratory Urine WBC null 07/22 St. Studies /2017 [facility] [place] [facility] Urine null 07/22 [facility] St. Studies Urothelial /2017 [facility] - Cells [place] [facility] Urine Squamous null 07/22 [facility]. Studies Epithelial /2017 [facility] Cells [place] [facility] Urine RBC Urine RBC 07/22 [facility]. Studies /2017 [facility] Urine Culture Urine 07/22 [facility]. Studies Reflexed Culture /2017 [facility] - Reflexed [facility] Urine Bacteria Urine 07/22 [facility]. Studies Bacteria /2017 [facility] Procalcitonin 1.56 07/22 [facility] St. Studies ng/mL /2017 [facility] Total Bilirubin 0.7 mg/dL 0.3 - 1.2 07/22 [facility] St. Studies /2017 [facility] - [facility] Serum Total 7.4 g/dL 6.0 - 8.3 07/22 [facility] St. Studies Protein /2017 [facility] Lipase 82 U/L 22 - 51 07/22 [facility]. Studies [facility] [place] [facility] Globulin 3.5 g/dL 2.3 - 3.5 07/22 [facility] St. Studies [facility] Direct 0.1 mg/dL 0 - 0.2 07/22 [facility]. Studies Bilirubin [facility] Aspartate Amino 18 IU/L 10 - 42 07/22 [facility] St. Studies Transf /2017 [facility] - (AST/SGOT) [place] [facility] Alkaline 63 IU/L 42 - 121 07/22 [facility]. Studies Phosphatase /2017 [facility] Albumin/Globuli 1.1 1.1 - 1.8 07/22 [facility] St. Studies n Ratio /2017 [facility] Albumin 3.9 g/dL 3.2 - 5.5 07/22 [facility] St. Studies /2018 [facility] [place] Laboratory Alanine 12 IU/L 10 - 60 07/22 [facility] St. Studies Aminotransferas /2017 [facility] - e (ALT/SGPT) [place] Laboratory B-Type 1591 07/22 [facility] St. Studies Natriuretic pg/ml /2017 [facility] - Peptide [place] Laboratory Rapid Troponin 0.11 07/22 [facility] St. Studies I ng/mL /2017 [facility] [place] Laboratory Lactic Acid 6.6 mg/dL 4.5 - 19.8 07/22 [facility] St. Studies Level /2017 [facility] [place] Laboratory Prothrombin 12.5 9.5 - 12.5 07/22 [facility] St. Studies Time SECONDS /2017 [facility] [place] Laboratory INR 1.06 07/22 [facility] St. Studies International /2017 [facility] - Normalized [place] Ratio Laboratory Activated 33.9 24.3 - 07/22 [facility] St. Studies Partial SECONDS 36.9 [facility] - Thromboplast [place] Time Vital Signs Vital Sign Value Date Comments Source Heart Rate 63 07/24/2017 [facility] [place] Systolic (mm Hg) 103 07/24/2017 [facility] [place] Diastolic (mm Hg) 60 07/24/2017 [facility] [place] Respitory Rate 13 07/24/2017 [facility] [place] Temperature Oral (F) 97.8 F [facility] 73 [facility] Weight 179.00 07/23/[facility] [place] En[facility]ters Location Location Encounter Encounter Reason Attending ADM DC Status Source Details Type Number For Provider Date Date Visit [facility] St. Discharged [id number] 07/22 07/24 [facility] [place] Procedures [facility] Code Date Perfomer Comments Source Chest Single [id number] [facility] St[facility] - View 8 [place] Anaerobic Blood [id number] [facility] [place] Aerobic Blood [id number] [facility] [place] [id number] [facility] [place] Count [id number] [facility] 8 [place] Brain Wo [id number] [facility] - Cont 8 [place] Chest Single [id number] [facility] - View 8 [place]
[2018-08-08 21:55] LABS: Absolute Lymphocytes (CBC) 0.6 K/uL (0.7-4.9); Absolute Monocytes 0.4 K/uL (0.1-1.3); Absolute Neutrophil 3.8 K/uL (1.8-8.0); Basophils % 1.2 % (0-1.3); Eosinophils % 1.8 % (0-4.4); Hematocrit 32.4 % (39.6-49.0); Lymphocytes % 12.3 % (15.3-44.8); MPV 8.9 fL (7.6-11.3); Monocytes % 8.1 % (3.3-12.3); Protime INR 1.04; RBC Red Blood Cell Count 3.43 M/uL (4.33-5.43)
--- NOTE | 2018-08-08 21:56 | RAD REPORT ---
EXAM DESCRIPTION: RAD - Chest Single View - 08/08/2018 9:49 pm CLINICAL HISTORY: MALAISE Chest pain. COMPARISON: <Comparisons> FINDINGS: Portable technique limits examination quality. The interstitial lung markings are mildly prominent, however appear improved since examination perfor med earlier today. The heart is mildly enlarged. Right-sided venous catheter has tip in the SVC. No d isplaced fractures. IMPRESSION: Mild improvement in lung aeration since the comparative study.
[2018-08-08] MEDS ORDERED: HYDRALAZINE HCL 20 MG/ML VIAL ONE (22:28)
[2018-08-08 22:35] LABS: Albumin 3.8 g/dL (3.4-5.0); Bilirubin Direct 0.1 mg/dL (0-0.2); Bilirubin Total 0.4 mg/dL (0.2-1.0); Magnesium 3.1 mg/dL (1.8-2.4); Protein, Total 8.1 g/dL (6.4-8.2); Troponin (Emerg Dept Use Only) 0.3 ng/mL (0.0-0.045)
[2018-08-08 22:39] LABS: Potassium 7.4 mmol/L (3.5-5.1)
[2018-08-08 22:57] LABS: Arterial Blood Carboxyhemoglob 2.7 % (0-1.5); Blood Gas Oxyhemoglobin 90.2 % (94-97); Blood O2 Saturation 93.3 % (92-98.5)
[2018-08-08] MEDS ORDERED: ALBUTEROL 2.5 MG/3 ML NEB SOL ONE (23:31)
[2018-08-08] MEDS ORDERED: INSULIN -REGULAR HUMAN 50 UNIT/0.5 ML ML ONE (23:31)
[2018-08-08] MEDS ORDERED: D50W 25 GM/50 ML SYRINGE IV ONE (23:31)
[2018-08-08] MEDS ORDERED: Nicardipine/NS 25 MG/250 ML KIT IV ONE (23:32)
--- NOTE | 2018-08-08 23:41 | EDPHYS ---
Physician Documentation [facility] Name: Juan Lozano Age: 57 yrs Sex: Male : 1960 Arrival Date: 08/08/2018 Time: 21:05 Bed 8 Private MD: ED Physician Zbigniew Duggan HPI: 08/09 02:08 This 57 yrs old Black Male presents to ER via EMS with complaints of Altered Mental gs Status. 02:08 Onset: The symptoms/episode began/occurred yesterday. Possible causes: CVA or TIA, low gs blood sugar. Associated signs and symptoms: Pertinent positives: agitation. The patient has experienced similar episodes in the past, a few times. has refused dialysis for past 2 sessions. Historical: - Allergies: 08/08 21:18 NKA; tl2 - Home Meds: 21:18 aspirin 81 mg Oral chew 1 tab once daily [Active]; Ativan 1 mg Oral tab 1 tab once tl2 daily [Active]; cholecalciferol (vitamin D3) 2,000 unit Oral tab 3 cap daily [Active]; Clonidine 0.3 mg/24hr Oral 0.3 mg WEEKLY [Active]; Depakote ER 125mg Oral 2 tabs twice a day [Active]; folic acid 1 mg Oral tab 1 tab once daily [Active]; hydralazine 50 mg Oral tab TID [Active]; hydroxyzine HCl 25 mg Oral tab 1 tab 3 times per day [Active]; isosorbide dinitrate 20 mg Oral tab 3 times per day [Active]; Keppra 500 mg Oral tab 1 tab 2 times per day [Active]; levothyroxine 50 mcg tab 1 tab once daily [Active]; melatonin 3 mg Oral tab nightly [Active]; metoprolol tartrate 100 mg Oral tab 1 tab 2 times per day [Active]; Alicia 5-325 mg Oral tab 1 tab every 4 hours [Active]; olopatadine 0.1 % ophthalmic drop 1 drop every morning [Active]; Protonix 40 mg Oral TbEC 1 tab once daily [Active]; risperidone 0.5 mg Oral TbDL once daily [Active]; sevelamer HCl 800 mg Oral 2 tabs 3 times a day w/ snacks [Active]; tramadol 50 mg Oral tab 1 tab as needed [Active]; trazodone 100 mg Oral tab nightly [Active]; - PMHx: 21:18 ADD/ADHD; Anemia; Anxiety; Bipolar disorder; Chronic ischemic heart disease; CVA; tl2 decubitus ulcer; Diabetes - IDDM; Dialysis; epilepsy; ESRD; Hyperlipidemia; Hypertension; Hypothyroidism; TIA; - Immunization history:: Adult Immunizations up to date. - Social history:: Smoking status: Patient/guardian denies using tobacco. - Ebola Screening: : No symptoms or risks identified at this time. ROS: 08/09 02:08 Unable to obtain ROS due to baseline dementia. gs Exam: 02:08 Head/Face: Normocephalic, atraumatic. Eyes: Pupils equal round and reactive to light, gs extra-ocular motions intact. Lids and lashes normal. Conjunctiva and sclera are non-icteric and not injected. Cornea within normal limits. Periorbital areas with no swelling, redness, or edema. ENT: Nares patent. No nasal discharge, no septal abnormalities noted. Tympanic membranes are normal and external auditory canals are clear. Oropharynx with no redness, swelling, or masses, exudates, or evidence of obstruction, uvula midline. Mucous membranes moist. Neck: Trachea midline, no thyromegaly or masses palpated, and no cervical lymphadenopathy. Supple, full range of motion without nuchal rigidity, or vertebral point tenderness. No Meningismus. Chest/axilla: Normal chest wall appearance and motion. Nontender with no deformity. No lesions are appreciated. Cardiovascular: Regular rate and rhythm with a normal S1 and S2. No gallops, murmurs, or rubs. Normal PMI, no JVD. No pulse deficits. Respiratory: Lungs have equal breath sounds bilaterally, clear to auscultation and percussion. No rales, rhonchi or wheezes noted. No increased work of breathing, no retractions or nasal flaring. Abdomen/GI: Soft, non-tender, with normal bowel sounds. No distension or tympany. No guarding or rebound. No evidence of tenderness throughout. Back: No spinal tenderness. No costovertebral tenderness. Full range of motion. 02:08 Constitutional: The patient appears alert, awake. 02:08 Musculoskeletal/extremity: Extremities: the patient is contracted, in the left shoulder, left elbow, left wrist, left knee and left ankle, Perfusion: the patient is normally perfused throughout, warm. 02:08 Neuro: Orientation: to person, place. 02:08 ECG was reviewed by the Attending Physician. Vital Signs: 08/08 21:18 BP 189 / 107; Pulse 77; Resp 14; Temp 97.8; Pulse Ox 95% on R/A; Weight 113.4 kg; tl2 Height 5 ft. 10 in. (177.80 cm); 22:21 BP 238 / 118; Pulse 70; Resp 18; Pulse Ox 95% on R/A; ea 23:53 BP 222 / 117; Pulse 80; Resp 18; Pulse Ox 100% ; ea 08/09 00:00 BP 216 / 117; Pulse 84; Resp 17; Pulse Ox 97% on R/A; ea 00:33 BP 196 / 106; Pulse 85; Resp 16; Temp 98; Pulse Ox 98% on R/A; ea 00:55 BP 186 / 103; Pulse 80; Resp 16; Pulse Ox 97% on R/A; ea 08/08 21:18 Body Mass Index 35.87 (113.40 kg, 177.80 cm) tl2 MDM: 08/08 21:23 Patient medically screened. 08/09 02:08 Differential Diagnosis: electrolyte abnormality, hypoglycemia, intracranial bleed, gs pneumonia. Data reviewed: vital signs, nurses notes, old medical records, lab test result(s), EKG, radiologic studies. Response to treatment: the patient's symptoms have markedly improved after treatment, and as a result, I will admit patient. 08/08 21:26 Order name: Basic Metabolic Panel; Complete Time: 23:00 08/08 21: Order name: CBC with Diff; Complete Time: 23:00 08/08 20: Order name: LFT's; Complete Time: 23:00 08/08 21:26 Order name: Magnesium; Complete Time: 23:00 08/08 21:26 Order name: NT PRO-BNP; Complete Time: 23:00 08/08 21: Order name: PT-INR; Complete Time: 23:00 08/08 21: Order name: Troponin (emerg Dept Use Only); Complete Time: 23:00 08/08 21:26 Order name: AMMONIA; Complete Time: 23:00 08/08 22:34 Order name: ABG; Complete Time: 23:00 08/08 23:39 Order name: Basic Metabolic Panel EDMS 08/08 23:53 Order name: CBC with Automated Diff EDMS 08/08 23:53 Order name: CBC with Automated Diff EDMS 08/08 23:53 Order name: Comprehensive Metabolic Panel EDMS 08/08 23:53 Order name: Comprehensive Metabolic Panel EDMS 08/08 21:26 Order name: XRAY Chest (1 view); Complete Time: 23:00 08/08 21:26 Order name: EKG; Complete Time: 21:27 08/08 21:26 Order name: Cardiac monitoring; Complete Time: 21:40 08/08 21:26 Order name: CT Head Brain wo Cont 08/08 23:53 Order name: CONS Physician Consult EDMS 08/08 23:53 Order name: CONS Physician Consult EDMS 08/08 23:53 Order name: Renal EDMS 08/08 23:53 Order name: Magnesium EDMS 08/08 23:53 Order name: Magnesium EDMS 08/08 23:53 Order name: Phosphorus EDMS 08/08 23:53 Order name: Phosphorus EDMS 08/08 21:26 Order name: EKG - Nurse/Tech; Complete Time: 21:40 08/08 21:26 Order name: IV Saline Lock; Complete Time: 21:40 08/08 21:26 Order name: Labs collected and sent; Complete Time: 22:00 08/08 21:26 Order name: O2 Per Protocol; Complete Time: 22:00 08/08 21:26 Order name: O2 Sat Monitoring; Complete Time: 22:00 gs EC:08 Rate is 76 beats/min. Rhythm is regular. AR interval is normal. QRS interval is gs prolonged. T waves are Peaked. Clinical impression: Abnormal EKG without significant change. Interpreted by me. Administered Medications: 08/08 22:23 Drug: hydrALAZINE 20 mg {Note: Right EJ.} Route: IV; Rate: calculated rate; Site: Other; 23:00 Follow up: Response: Blood pressure is unchanged; IV Status: Completed infusion ea 23:48 Drug: Insulin Regular Human 10 units {Co-Signature: tl2 (Yoly Brito RN).} {Note: right ea EJ.} Route: IVP; Site: Other; 08/09 01:00 Follow up: Response: No adverse reaction 08/08 23:50 Drug: Albuterol 2.5 mg Route: Inhalation; 23:50 Drug: D50W 50 ml {Note: right EJ.} Route: IVP; Site: Other; 08/09 01:00 Follow up: Response: No adverse reaction 08/08 23:59 Drug: Cardene 5 mg/hr {Note: right EJ.} Route: IV; Rate: calculated rate; Site: Other; 08/09 01:00 Follow up: Response: No adverse reaction; IV Status: Infusion continued upon admission Disposition: 02:08 Critical Care:. Disposition: 08/08/18 23:39 Hospitalization ordered by Jame Bruce for Inpatient Admission. Preliminary diagnosis are Hyperkalemia, Hypertensive encephalopathy. - Bed requested for Intensive Care Unit. - Status is Inpatient Admission. ea - Condition is Stable. - Problem is new. - Symptoms have improved. UTI on Admission? No Critical care time excluding procedures: 02:08 Critical care time: Bedside Care: 10 minutes, Consultation: 10 minutes, Family gs Intervention: 10 minutes. Total time: 30 minutes Signatures: Dispatcher [employer] Odalys Henry RN RN cg Knox, Taylor, RN RN tl2 Clau Ragsdale RN RN ea Starr, Gregory, MD MD gs Taylor Knox RN tl2 Corrections: (The following items were deleted from the chart) 00:02 08/08 23:39 Hospitalization Ordered by Jame Bruce MD for Inpatient Admission. cg Preliminary diagnosis is Hyperkalemia; Hypertensive encephalopathy. Bed requested for Telemetry/MedSurg (Inpatient). Status is Inpatient Admission. Condition is Stable. Problem is new. Symptoms have improved. UTI on Admission? No. gs 08/09 00:02 00:02 08/08/2018 23:39 Hospitalization Ordered by Jame Bruce MD for Inpatient cg Admission. Preliminary diagnosis is Hyperkalemia; Hypertensive encephalopathy. Bed requested for Intensive Care Unit. Status is Inpatient Admission. Condition is Stable. Problem is new. Symptoms have improved. UTI on Admission? No. cg 01:13 00:02 08/08/2018 23:39 Hospitalization Ordered by Jame Bruce MD for Inpatient ea Admission. Preliminary diagnosis is Hyperkalemia; Hypertensive encephalopathy. Bed requested for Intensive Care Unit. Status is Inpatient Admission. Condition is Stable. Problem is new. Symptoms have improved. UTI on Admission? No. cg
--- NOTE | 2018-08-08 23:41 | ER ---
Nurse's Notes [facility] Name: Juan Lozano Age: 57 yrs Sex: Male : 1960 Arrival Date: 08/08/2018 Time: 21:05 Bed 8 Private MD: Diagnosis: Hyperkalemia;Hypertensive encephalopathy Presentation: 08/08 21:08 Presenting complaint: EMS states: Was discharged from ER today after a fall. [facility] tl2 [facility] states that he is more altered that normal. Pt is only oriented to person. Pt states his chest hurts, pain started today. Pt has been refusing dialysis since . Transition of care: patient was received from another setting of care (long-term care facility), [facility]. Onset of symptoms was August 08, 2018. Risk Assessment: Do you want to hurt yourself or someone else? Patient reports no desire to harm self or others. Initial Sepsis Screen: Does the patient meet any 2 criteria? No. Patient's initial sepsis screen is negative. Does the patient have a suspected source of infection? No. Patient's initial sepsis screen is negative. Care prior to arrival: None. 21:08 Method Of Arrival: EMS: [facility] tl2 21:08 Acuity: DORIS 2 tl2 Triage Assessment: 21:18 General: Appears in no apparent distress. uncomfortable, Behavior is drowsy. Pain: tl2 Complains of pain in chest. Neuro: Level of Consciousness is awake, confused, Oriented to person, Speech is normal. Respiratory: Airway is patent Respiratory effort is even, unlabored, Respiratory pattern is regular, symmetrical. Historical: - Allergies: 21:18 NKA; tl2 - Home Meds: 21:18 aspirin 81 mg Oral chew 1 tab once daily [Active]; Ativan 1 mg Oral tab 1 tab once tl2 daily [Active]; cholecalciferol (vitamin D3) 2,000 unit Oral tab 3 cap daily [Active]; Clonidine 0.3 mg/24hr Oral 0.3 mg WEEKLY [Active]; Depakote ER 125mg Oral 2 tabs twice a day [Active]; folic acid 1 mg Oral tab 1 tab once daily [Active]; hydralazine 50 mg Oral tab TID [Active]; hydroxyzine HCl 25 mg Oral tab 1 tab 3 times per day [Active]; isosorbide dinitrate 20 mg Oral tab 3 times per day [Active]; Keppra 500 mg Oral tab 1 tab 2 times per day [Active]; levothyroxine 50 mcg tab 1 tab once daily [Active]; melatonin 3 mg Oral tab nightly [Active]; metoprolol tartrate 100 mg Oral tab 1 tab 2 times per day [Active]; Ashley 5-325 mg Oral tab 1 tab every 4 hours [Active]; olopatadine 0.1 % ophthalmic drop 1 drop every morning [Active]; Protonix 40 mg Oral TbEC 1 tab once daily [Active]; risperidone 0.5 mg Oral TbDL once daily [Active]; sevelamer HCl 800 mg Oral 2 tabs 3 times a day w/ snacks [Active]; tramadol 50 mg Oral tab 1 tab as needed [Active]; trazodone 100 mg Oral tab nightly [Active]; - PMHx: 21:18 ADD/ADHD; Anemia; Anxiety; Bipolar disorder; Chronic ischemic heart disease; CVA; tl2 decubitus ulcer; Diabetes - IDDM; Dialysis; epilepsy; ESRD; Hyperlipidemia; Hypertension; Hypothyroidism; TIA; - Immunization history:: Adult Immunizations up to date. - Social history:: Smoking status: Patient/guardian denies using tobacco. - Ebola Screening: : No symptoms or risks identified at this time. Screenin:21 Abuse screen: Denies threats or abuse. Nutritional screening: No deficits noted. tl2 Tuberculosis screening: No symptoms or risk factors identified. Fall Risk Fall in past 12 months (25 points). Gait- Impaired (20 pts.). Mental Status- Overestimates/Forgets Limitations (15 pts.). Assessment: 21:15 General: Behavior is cooperative. Pain: Complains of pain in chest. Neuro: Level of ea Consciousness is confused, Oriented to person. Cardiovascular: Patient's skin is warm and dry. Respiratory: Airway is patent Respiratory effort is even, unlabored, Respiratory pattern is regular, symmetrical. GI: Abdomen is round distended. Derm: Skin is dry, Skin is normal, Skin temperature is warm. Musculoskeletal: Circulation, motion, and sensation intact. 22:35 Reassessment: Patient and/or family updated on plan of care and expected duration. Pain ea level reassessed. Pt confused, oriented to self. Respirations even and unlabored. Chest expansions even and symmetrical. No s/s of pain or discomfort noted at this time. 23:35 Reassessment: Patient and/or family updated on plan of care and expected duration. Pain ea level reassessed. Pt confused, IV catheter noted in sheets, catheter tip intact, no bleeding noted to right EJ. Provider notified, 20 G EJ inserted per provider, pt tolerated well. 08/09 00:01 Reassessment: Patient and/or family updated on plan of care and expected duration. Pain ea level reassessed. Pt resting with eyes closed, respirations even and unlabored. Chest expansions even and symmetrical, no s/s of pain or discomfort at this time. 00:35 Reassessment: Patient and/or family updated on plan of care and expected duration. Pain ea level reassessed. Pt resting with eyes closed, respirations even and unlabored, chest expansions even and symmetrical. no s/s of pain or discomfort noted at this time. 00:45 Reassessment: Patient and/or family updated on plan of care and expected duration. Pain ea level reassessed. Report given to Nataliya SARKAR in ICU. 01:00 Reassessment: Patient and/or family updated on plan of care and expected duration. Pain ea level reassessed. Pt resting with eyes closed, respirations even and unlabored. Chest expansions even and symmetrical. No s/s of pain or discomfort noted at this time. Pt taken to ICU via stretcher, per nurse tolerating well. Vital Signs: 08/08 21:18 BP 189 / 107; Pulse 77; Resp 14; Temp 97.8; Pulse Ox 95% on R/A; Weight 113.4 kg; tl2 Height 5 ft. 10 in. (177.80 cm); 22:21 BP 238 / 118; Pulse 70; Resp 18; Pulse Ox 95% on R/A; ea 23:53 BP 222 / 117; Pulse 80; Resp 18; Pulse Ox 100% ; ea 08/09 00:00 BP 216 / 117; Pulse 84; Resp 17; Pulse Ox 97% on R/A; ea 00:33 BP 196 / 106; Pulse 85; Resp 16; Temp 98; Pulse Ox 98% on R/A; ea 00:55 BP 186 / 103; Pulse 80; Resp 16; Pulse Ox 97% on R/A; ea 08/08 21:18 Body Mass Index 35.87 (113.40 kg, 177.80 cm) tl2 ED Course: 08/08 21:05 Patient arrived in ED. ds1 21:10 Triage completed. tl2 21:18 Arm band placed on right wrist. tl2 21:21 Patient has correct armband on for positive identification. Placed in gown. Bed in low tl2 position. Call light in reach. Side rails up X2. 21:23 Zbigniew Duggan MD is Attending Physician. gs 21:39 Clau Ragsdale RN is Primary Nurse. ea 21:40 Inserted saline lock: 20 gauge in right EJ, using aseptic technique. ,using aseptic ea technique. per Dr. Duggan Blood collected. 21:47 CT Head Brain wo Cont In Process Unspecified. EDMS 21:48 XRAY Chest (1 view) In Process Unspecified. EDMS 21:53 CT completed. Pt tolerated procedure poorly. Patient moved back from CT. vr 22:00 AMMONIA Sent. tl2 23:35 Inserted saline lock: 20 gauge in right EJ, using aseptic technique. IV catheter ea discontinued by patient, catheter tip intact, pt neck assessed for bleeding, no bleeding noted. 23:39 Jame Bruce MD is Hospitalizing Provider. 08/09 00:05 No provider procedures requiring assistance completed. ea Administered Medications: 08/08 22:23 Drug: hydrALAZINE 20 mg {Note: Right EJ.} Route: IV; Rate: calculated rate; Site: Other;ea 23:00 Follow up: Response: Blood pressure is unchanged; IV Status: Completed infusion ea 23:48 Drug: Insulin Regular Human 10 units {Co-Signature: tl2 (Yoly Brito RN).} {Note: right ea EJ.} Route: IVP; Site: Other; 08/09 01:00 Follow up: Response: No adverse reaction 08/08 23:50 Drug: Albuterol 2.5 mg Route: Inhalation; ea 23:50 Drug: D50W 50 ml {Note: right EJ.} Route: IVP; Site: Other; ea 08/09 01:00 Follow up: Response: No adverse reaction ea 08/08 23:59 Drug: Cardene 5 mg/hr {Note: right EJ.} Route: IV; Rate: calculated rate; Site: Other; ea 08/09 01:00 Follow up: Response: No adverse reaction; IV Status: Infusion continued upon admission jason Outcome: 08/08 23:39 Decision to Hospitalize by Provider. 08/09 00:10 Instructed on the need for admit. jason 00:45 Admitted to ICU accompanied by nurse, room 3, on monitor, with chart, Report called to jason An RN 00:45 Condition: stable 01:13 Patient left the ED. jason Signatures: Dispatcher [employer] EDOR HumphreysSahra xavier ds1 Michela Vasquez Taylor, RN RN tl2 Clau Ragsdale RN RN ea Starr, Gregory, MD MD gs Taylor Knox RN tl2 Corrections: (The following items were deleted from the chart) 08/08 21:21 21:08 Presenting complaint: EMS states: Was discharged from ER today after a fall. [facility] states that he is more altered that normal. Pt is only oriented to person. Pt states his chest hurts, pain started today. tl2
[2018-08-08] MEDS ORDERED: D50W 25 GM/50 ML SYRINGE IV PRN (23:46)
[2018-08-08] MEDS ORDERED: CALCIUM GLUC 10% INJ 4.65 MEQ in NA CHLORIDE 0.9% 100 ML IV PRN (23:46)
[2018-08-08] MEDS ORDERED: ONDANSETRON 4 MG/2 ML VIAL IV PRN (23:46)
[2018-08-08] MEDS ORDERED: ACETAMINOPHEN 500 MG TAB PO PRN (23:46)
[2018-08-09] MEDS ORDERED: SOD POLYSTYREN SUL 15 GM/60 ML UCUP PO SCH ×2 (01:00→07:00)
[2018-08-09] MEDS ORDERED: CLONIDINE 0.3 MG/PATCH TD SCH (01:00)
[2018-08-09] MEDS ORDERED: SOD POLYSTYREN SUL 15 GM/60 ML UCUP PO ONE (01:00)
[2018-08-09] MEDS: LORAZEPAM 1 MG TABLET PO PRN ×2 (01:24→08:34)
[2018-08-09] MEDS ORDERED: CLONIDINE HCL 0.3 MG TAB PO ONE (03:07)
[2018-08-09 03:39] VITALS: BMI 29.9
[2018-08-09 05:57] LABS: Absolute Lymphocytes (CBC) 0.5 K/uL (0.7-4.9); Absolute Monocytes 0.5 K/uL (0.1-1.3); Absolute Neutrophil 4.6 K/uL (1.8-8.0); Basophils % 0.9 % (0-1.3); Hematocrit 30.5 % (39.6-49.0); Lymphocytes % 9.3 % (15.3-44.8); MPV 9.2 fL (7.6-11.3); Monocytes % 9.3 % (3.3-12.3); RBC Red Blood Cell Count 3.28 M/uL (4.33-5.43)
[2018-08-09] MEDS ORDERED: FUROSEMIDE 40 MG/4 ML VIAL IV ONE (06:16)
[2018-08-09] MEDS: METOPROLOL TAR 50 MG TAB PO SCH ×2 (06:19→17:08)
[2018-08-09 06:22] LABS: Albumin 3.6 g/dL (3.4-5.0); Bilirubin Total 0.5 mg/dL (0.2-1.0); Magnesium 3.2 mg/dL (1.8-2.4); Phosphorus 6.5 mg/dL (2.5-4.9); Protein, Total 7.7 g/dL (6.4-8.2)
[2018-08-09 06:23] LABS: Potassium 6.6 mmol/L (3.5-5.1)
[2018-08-09] MEDS ORDERED: FUROSEMIDE 40 MG TABLET PO ONE (06:25)
[2018-08-09] MEDS: HYDROCODONE/APAP 10/325 TAB PO PRN ×3 (06:34→19:37)
[2018-08-09] MEDS ORDERED: RISPERIDONE 0.25 MG TABLET PO SCH (07:00)
[2018-08-09] MEDS ORDERED: ALBUTEROL 2.5 MG/3 ML NEB SOL NEB ONE (07:02)
--- NOTE | 2018-08-09 07:49 | EKG ---
Test Date: 2018-08-08 Test Time: 22:00:20 Weight Trainer: SABIHA MEASUREMENT RESULTS: Intervals: Rate: 76 GA: 178 QRSD: 104 QT: 436 QTc: 490 Darwin: P: 74 GA: 178 QRS: -1 T: 25 INTERPRETIVE STATEMENTS: Normal sinus rhythm Possible Left atrial enlargement Prolonged QT Abnormal ECG Compared to ECG 08/08/2018 10:18:56 Prolonged QT interval now present Electronically Signed On 08-09-18 07:48:54 CDT by Zachary Celis
[2018-08-09] MEDS: ISOSORBIDE DINIT 20 MG TAB PO SCH ×3 (08:34→15:36)
[2018-08-09] MEDS: PANTOPRAZOLE 40MG TABLET PO SCH (08:34)
[2018-08-09] MEDS: levETIRAcetam 500 MG TAB PO SCH (08:34)
[2018-08-09] MEDS: HEPARIN 5000 UNIT/ML 1 ML VIAL SQ SCH (08:35)
[2018-08-09] MEDS: DIVALPROEX NA 125 MG CAP PO SCH (08:35)
[2018-08-09] MEDS: RISPERIDONE 0.25 MG TABLET PO SCH (08:35)
[2018-08-09] MEDS ORDERED: MANNITOL 25% 12.5 GM/50 ML VIAL IV PRN (08:51)
[2018-08-09] MEDS ORDERED: NA CHLORIDE 0.9% 1,000 ML IV PRN (08:51)
[2018-08-09] MEDS ORDERED: EPOETIN ALFA 10,000 UNIT/ML VIAL IV SCH (09:00)
[2018-08-09] MEDS ORDERED: ALBUMIN HUMAN 25% 50 ML IV SCH (09:00)
[2018-08-09] MEDS ORDERED: DIVALPROEX DR 250 MG TAB PO SCH (09:00)
[2018-08-09] MEDS ORDERED: HYDRALAZINE HCL 25 MG TABLET PO SCH (09:00)
--- NOTE | 2018-08-09 09:10 | P.HP ---
Certification for Inpatient Patient admitted to: Inpatient With expected LOS: >2 Midnights Patient will require the following post-hospital care: None Practitioner: I am a practitioner with admitting privileges, knowledge of patient current condition, hospital course, and medical plan of care. Services: Services provided to patient in accordance with Admission requirements found in Title 42 Section 412.3 of the Code of Federal Regulations Patient History Date of Service: 08/09/18 Reason for admission: Hyperkalemia/noncompliant with HD / hypertensive ER History of Present Illness: Patient is a 57-year-old gentleman who is a poor historian. He is complaining of pain all over. He says he does not normally go to his dialysis regularly. His potassium level in the ER was 7.4. His blood pressure was very poorly controlled. It was 220/110. Nephrology was notified and plan to do hemodialysis in the morning. Patient was started on nicardipine drip. However , patient lost IV. We placed a Catapres patch as well as given him his home medications. His blood pressure is somewhat better. Is still 190/100. We will give him his Lopressor and Isordil early this morning. Hopefully his blood pressure gradually come down once his Catapres is back into his system. Await nephrology consultation and transfer to the floor after hemodialysis. Long-term prognosis is poor as patient is very noncompliant with his numerous medical conditions. Allergies No Known Allergies Allergy (Verified 01/02/18 00:27) Home Medications: Aspirin [Aspirin EC 81 MG] 81 mg PO DAILY 07/23/17 Cholecalciferol (Vitamin D3) [Vitamin D3] 3 cap PO DAILY 07/23/17 Clonidine Patch [Catapres-Tts 3*] 1 patch TD EVERY 7TH DAY 07/23/17 Folic Acid 1 mg PO DAILY 07/23/17 Isosorbide Dinit [Isordil*] 20 mg PO TID 07/23/17 Levetiracetam [Keppra] 500 mg PO BID 07/23/17 Levothyroxine [Synthroid*] 50 mcg PO DAILY 07/23/17 Metoprolol Tartrate [Lopressor] 100 mg PO BID 07/23/17 Pantoprazole Sodium [Protonix] 40 mg PO DAILY 07/23/17 Sevelamer HCl [Renagel] 5 tab PO TID 07/23/17 Tramadol HCl [Ultram] 50 mg PO Q6HR PRN 07/23/17 risperiDONE [Risperidone] 0.5 mg PO BEDTIME 07/23/17 Cinacalcet HCl [Sensipar] 60 mg PO BEDTIME 12/12/17 Hydralazine [Apresoline*] 50 mg PO TID 12/12/17 LORazepam [Ativan*] 1 mg PO DAILY 03/15/18 Olopatadine HCl [Pataday] 1 gtt OP DAILY 03/16/18 Acetaminophen [Tylenol Extra Strength] 500 mg PO Q6HP PRN 08/09/18 Acetaminophen with Codeine [Tylenol with Codeine #3 Tablet] 1 tab PO Q6HP PRN Divalproex [Depakote Sprinkle] 250 mg PO BID 08/09/18 Guaif/Dm [Robitussin Dm*] 10 ml PO TID 08/09/18 Hydrocodone 5/APAP 325 [Martin 5/325*] 2 tab PO Q4HP PRN 08/09/18 Hydroxyzine HCl [Atarax] 25 mg PO TID PRN 08/09/18 Loratadine [Claritin] 10 mg PO DAILY 08/09/18 Melatonin [Melatonin*] 3 mg PO BEDTIME 08/09/18 Trazodone [Desyrel*] 100 mg PO BEDTIME 08/09/18 risperiDONE [Risperidone] 1 tab PO T,TH,S 08/09/18 - Past Medical/Surgical History Has patient received pneumonia vaccine in the past: No Diabetic: Yes -: Diabetes mellitus type 2 -: Hypertension -: History CVA with residual left-sided weakness -: End stage renal disease on HD -: History of noncompliance -: Anxiety disorder -: Hypothyroidism -: Conversion disorder with seizures -: Anemia -: Chronic pain syndrome -: Hyperlipidemia -: TIA -: HD access graft Psychosocial/ Personal History: Patient in residential. Patient recently paroled to the [facility]. - Family History Father Family History: Reviewed- Non-Contributory - Social History Smoking Status: Unknown if ever smoked Alcohol use: No CD- Drugs: No Caffeine use: Yes Place of Residence: [place] Review of Systems 10-point ROS is otherwise unremarkable Physical Examination - Vital Signs Temperature: 97.4 F Blood Pressure: 180/93 Pulse: 76 Respirations: 15 Pulse Ox (%): 94 - Physical Exam General: Alert, In no apparent distress, Oriented x3 HEENT: Atraumatic, PERRLA, Mucous membr. moist/pink, EOMI, Sclerae nonicteric Neck: Supple, 2+ carotid pulse no bruit, No LAD, Without JVD or thyroid abnormality Respiratory: Crackles/rales Cardiovascular: Regular rate/rhythm, Normal S1 S2, No murmurs Gastrointestinal: Normal bowel sounds, Soft and benign, Non-distended, No tenderness Musculoskeletal: No clubbing, No swelling, No tenderness Integumentary: No rashes Neurological: Normal gait, Normal speech, Normal strength at 5/5 x4 extr, Normal tone, Sensation intact, Cranial nerves 3-12 intact, Normal affect Lymphatics: No axilla or inguinal lymphadenopathy - Studies Laboratory Data (last 24 hrs) 08/08/18 23:38: Sodium Cancelled, Potassium Cancelled, BUN Cancelled, Creatinine Cancelled, Glucose Cancelled 08/08/18 21:40: PT 12.2, INR 1.04 08/08/18 21:40: WBC 5.0, Hgb 10.2 L, Hct 32.4 L, Plt Count 198 08/08/18 21:40: Sodium 145, Potassium 7.4 H*, BUN 115 H, Creatinine 18.50 H*, Glucose 122 H, Magnesium 3.1 H D, Total Bilirubin 0.4, AST 20, ALT 15, Alkaline Phosphatase 47 Assessment & Plan - Problems (Diagnosis) (1) Altered mental status Onset Date: 01/03/18 Current Visit: No Status: Acute (2) CHF (congestive heart failure) Onset Date: 01/03/18 Current Visit: No Status: Acute (3) Hyperkalemia Onset Date: 07/23/17 Current Visit: No Status: Acute (4) Diabetes mellitus Onset Date: 07/23/17 Current Visit: No Status: Chronic Qualifiers: (5) ESRD on hemodialysis Onset Date: 12/13/17 Current Visit: No Status: Chronic (6) History of CVA with residual deficit Onset Date: 07/23/17 Current Visit: No Status: Chronic (7) Hypertension Onset Date: 07/23/17 Current Visit: No Status: Chronic Qualifiers: (8) Hypothyroidism Onset Date: 07/23/17 Current Visit: No Status: Chronic Qualifiers: - Plan PLAN: 1. nephrology consultation for hemodialysis 2. slowly bring blood pressure down 3. recheck potassium level and give Kayexalate, calcium, bicarb, D50 with insulin if greater than 6.0 4. monitor electrolytes closely 5. may need social work consultation to see if there is anything limiting him from getting his hemodialysis room as scheduled 6. GI and DVT prophylaxis Discharge Plan: Home Plan to discharge in: Greater than 2 days - Advance Directives Does patient have a Living Will: No Does patient have a Durable POA for Healthcare: No - Code Status/Comfort Care Code Status Assessed: Yes Code Status: Full Code Critical Care: No Time Spent Managing PTS Care (In Minutes): 45
--- NOTE | 2018-08-09 10:26 | RAD REPORT ---
EXAM DESCRIPTION: Head Brain Wo Cont CLINICAL HISTORY: 57 years Male MENTAL STATUS CHANGE COMPARISON: None TECHNIQUE: Images were obtained in axial, sagittal, and coronal planes. Moderate motion artifact. This exam was performed according to our departmental dose-optimization program which includes use of Automated Exposure Control, adjustment of the mA and/or kV according to patient size and/or use of i terative reconstruction technique. FINDINGS: Ventricular system is enlarged. Cavum septum pellucidum noted. Decreased attenuation right frontal and parietal regions as well as left occipital region consistent with more remote infarct and encephalomalacia. Punctate calcifications seen in this region on the rig ht. Marked prominence of the cortical sulci. Possible decreased attenuation left david. Old lacunar in farcts right basal ganglionic region. Infarct No abnormal areas of increased attenuation seen. No extra-axial fluid collections noted. No evidence for skull fracture. Unremarkable paranasal sinuses. IMPRESSION: No acute intracranial abnormality. No evidence for hemorrhage, mass lesion, or large acu te infarction. More remote infarct and encephalomalacia right frontal and parietal lobes as well as left occipital l obe. Old lacunar infarcts right basal ganglionic region possibly left david. Marked cerebral volume lo ss for patient's age. Electronically signed by: Trini Peralta MD 08/08/2018 10:00 PM CDT Due to temporary technical issues with the PACS/Fluency reporting system, reports are being signed by the in house radiologist as a courtesy to ensure prompt reporting. The interpreting radiologist is f ully responsible for the content of the report.
[2018-08-09] MEDS ORDERED: HYDRALAZINE HCL 20 MG/ML VIAL IV ONE (13:16)
[2018-08-09] MEDS: SEVELAMER CARBONATE 800 MG TABLET PO SCH (17:08)
--- NOTE | 2018-08-09 18:58 | CON ---
Date of Consultation: 08/09/2018 Reason For Consultation: Elevated BUN and creatinine over volume, hyperkalemia. History Of Present Illness: This is a pleasant 57, unfortunate black gentleman well known to me from the dialysis. All the information has been obtained from the record as the patient has altered ment al status. The patient has end-stage renal disease, on hemodialysis, TTS. Last dialysis was on last and he did not finish it. He dialyzed only for 2 hours. The patient is known for noncompl iance. He did not show up for Wednesday. The patient also had a coronary artery disease complicated with congestive heart failure, bipolar, diabetes complicated with neuropathy and nephropathy, hyperli pidemia, the patient started acting weird in the [facility]. For that reason was brought to the em ergency room. With the first visit to the emergency room, the patient was cleared as he was back to his baseline. When he went back to the [facility], still acting abnormal. For that reason he refe rred back, found to have elevated blood pressure. Systolic blood pressure was above 200, diastolic w as above 100. Primary workup show potassium above 7 with elevated BUN. For that reason, the patient was admitted and we have been consulted. We took the patient for urgent dialysis. We dialyzed the patient for 3-1/2 hours on 2 K, then we dropped it to 1 K. The patient tolerated the dialysis very w ell. We managed to remove almost 4 L. Blood pressure still elevated. The patient was on Cardene dr gallardo, but because the patient lost his IV access, Cardene was discontinued. The patient started going back close to his baseline, but still confused, received Ativan. Past Medical History: 1.Diabetes complicated with neuropathy and nephropathy. 2.Coronary artery disease complicated with congestive heart failure. 3.Hypertension. 4.CVA with left-sided weakness. 5.Hypothyroidism. 6.End-stage renal disease, poor compliant, on dialysis TTS through AV fistula at [facility]. Family History: Positive for diabetes and hypertension. Social History: Lives in [facility]. Denies smoking. Denies drinking. Denies drug abuse. Review of Systems: Not obtainable. Current Medications: In the hospital include risperidone, Pantoprazole, Lorazepam, albuterol, Epogen , clonidine, hydrocodone. Physical Examination: Vital Signs: When I saw the patient, blood pressure 179/89, pulse of 88. Chest: Crackles bilateral. Heart: S1, S2. Systolic murmur. Abdomen: Soft, nontender. Extremities: No edema. Laboratory Data: H and H 9.8/30.5. Sodium 147, potassium 7.4 trend down to 6.6, bicarb 19, BUN 121, creatinine 19.5, calcium 9.1, phos for 6.5, magnesium 3.2, albumin 3.6. Chest x-ray, cardiomegaly. Assessment And Plan: 1.End-stage renal disease, over volume with hyperkalemia. The patient was dialyzed on low-potassium bath. We will again do another session of dialysis tomorrow. We will challenge the patient. 2.Anemia of chronic kidney disease and controlled blood pressure. I am going to hold the Epogen for the time being. 3.Secondary hyperparathyroidism. We will start the patient on Renvela with each meal. 4.Hyperkalemia. Patient dialyzed on low-potassium bath. 5.Anemia of chronic kidney disease as above. 6.Hypertension, uncontrolled. I am going to switch giving the patient not cooperative. I am going to start the patient on clonidine patch and we will follow up the patient. We will follow up blood p ressure after challenging the patient. We will give the patient extra dose of hydralazine while he i s on dialysis. 7.Diabetes as by primary. 8.Altered mental status secondary to uremic state, so the patient is going to be dialyzed on a daily basis and we will follow up the patient. 9.Congestive heart failure with over volume. We will challenge the patient. Time spent between arranging the care and discussing the case with staff and the hospitalist, [facility] [place] CASE Voice ID: [id number] Report ID: [id number]
[2018-08-10] MEDS: MELATONIN 3 MG TABLET PO SCH ×2 (00:08→19:41)
[2018-08-10] MEDS: DIVALPROEX NA 125 MG CAP PO SCH ×4 (00:08→20:49)
[2018-08-10] MEDS: ISOSORBIDE DINIT 20 MG TAB PO SCH ×4 (00:08→19:40)
[2018-08-10] MEDS: HEPARIN 5000 UNIT/ML 1 ML VIAL SQ SCH ×3 (00:09→19:39)
[2018-08-10] MEDS: levETIRAcetam 500 MG TAB PO SCH ×3 (00:14→19:41)
[2018-08-10 05:58] LABS: Albumin 3.3 g/dL (3.4-5.0); Phosphorus 6.3 mg/dL (2.5-4.9); Potassium 4.4 mmol/L (3.5-5.1)
[2018-08-10] MEDS: METOPROLOL TAR 50 MG TAB PO SCH ×5 (06:24→20:17)
[2018-08-10] MEDS: SEVELAMER CARBONATE 800 MG TABLET PO SCH ×6 (08:00→20:14)
[2018-08-10] MEDS: PANTOPRAZOLE 40MG TABLET PO SCH (08:59)
[2018-08-10] MEDS: RISPERIDONE 0.25 MG TABLET PO SCH ×2 (08:59→20:38)
[2018-08-10] MEDS: HYDROCODONE/APAP 10/325 TAB PO PRN (09:56)
[2018-08-10] MEDS ORDERED: EPOETIN ALFA 10,000 UNIT/ML VIAL IV SCH (10:45)
--- NOTE | 2018-08-10 10:53 | P.PN ---
Subjective Date of Service: 08/10/18 Chief Complaint: Hyperkalemia/noncompliant with HD / hypertensive ER Subjective: Tolerating diet, Ambulating, Improving, Working w/ PT, Doing well, Other (In dialysis doing well overall. Denies having Fever, Chills, SOB or CP) Review of Systems 10-point ROS is otherwise unremarkable Physical Examination - Vital Signs Temperature: 97.7 F Blood Pressure: 189/91 Pulse: 58 Respirations: 18 Pulse Ox (%): 95 - Physical Exam General: Alert, In no apparent distress, Oriented x3 Respiratory: Clear to auscultation bilaterally, Normal air movement Cardiovascular: Regular rate/rhythm, Normal S1 S2 Gastrointestinal: Normal bowel sounds, No tenderness Musculoskeletal: No tenderness Integumentary: No rashes Neurological: Normal speech, Normal tone, Normal affect Lymphatics: No axilla or inguinal lymphadenopathy - Studies Medications List Reviewed: Yes Assessment And Plan - Current Problems (Diagnosis) (1) ESRD on hemodialysis Onset Date: 12/13/17 Current Visit: No Status: Chronic Plan: ESRD on HD with Missed dialysis 2.2 to Noncompliance -Currently Receiving HD here in the hospital -Nephrology consulted. appreciated Reccs -Symptoms and BUN/CR improving today -Will continue to Dialysis here in the hospital (2) Acute encephalopathy Onset Date: 03/16/18 Current Visit: No Status: Acute Plan: Acute metabolic Encephalopathy most likely 2.2 to elevated BP vs Uremia -Currently AAOX3 now -Monitor closely (3) CHF (congestive heart failure) Onset Date: 01/03/18 Current Visit: No Status: Chronic Plan: CHF currently stable now -On HD and Lasix for now Qualifiers: Heart failure type: diastolic Heart failure chronicity: chronic Qualified Code(s): I50.32 - Chronic diastolic (congestive) heart failure (4) Diabetes mellitus Onset Date: 07/23/17 Current Visit: No Status: Chronic Plan: ISS and accu checks Qualifiers: Diabetes mellitus type: type 2 Diabetes mellitus alf insulin use: with alf use Diabetes mellitus complication status: with kidney complications Diabetes mellitus complication detail: with chronic kidney disease Chronic kidney disease stage: on chronic dialysis Qualified Code(s) : E11.22 - Type 2 diabetes mellitus with diabetic chronic kidney disease; N18.6 - End stage renal disease; Z79.4 - termite inspector (current) use of insulin; Z99.2 - Dependence on renal dialysis (5) History of CVA with residual deficit Onset Date: 07/23/17 Current Visit: No Status: Chronic (6) Hypertension Onset Date: 07/23/17 Current Visit: No Status: Chronic Qualifiers: Hypertension type: essential hypertension (7) Hypothyroidism Onset Date: 07/23/17 Current Visit: No Status: Chronic Qualifiers: Hypothyroidism type: acquired Qualified Code(s): E03.9 - Hypothyroidism, unspecified Discharge Plan: Home Plan to discharge in: 72 Hours - Code Status/Comfort Care Code Status Assessed: Yes Critical Care: No
--- NOTE | 2018-08-10 15:26 | PN ---
Date of Progress Note: 08/10/2018 Subjective: The patient seen on dialysis. The patient was admitted with over volume, hyperkalemia, encephalopathy uremic because he misses dialysis. Physical Examination: Vital Signs: When I saw the patient blood pressure 167/90, pulse of 58, afebrile. Chest: Crackles bilateral. Heart: S1 and S2, regular. Systolic murmur. Abdomen: Soft and nontender. Extremities: Trace edema. Laboratory Data: H and H 9.8/30.5. Sodium 145, potassium 4.4, bicarb 27, BUN 62, creatinine 13.1, c alcium 8.9, phosphorus 6.3, albumin 3.3. Current Medications: The patient on its include: 1.Heparin. 2.Clonidine patch. 3.Hydralazine p.r.n. 4.Isosorbide. 5.Metoprolol. 6.Keppra. 7.Risperidone. 8.Lasix. 9.Renvela. 10.Pantoprazole. Assessment And Plan: 1.End-stage renal disease, over volume, hyperkalemia. I am going to continue dialysis. The patient dialyzed yesterday and today. We will dialyze tomorrow to put him back on his schedule, then we donnie l follow up the patient. 2.Hyperkalemia status post dialysis, resolved. 3.Acidosis, resolved. 4.Over volume status post daily dialysis. We will dialyze tomorrow and we will challenge the patien t again. We will follow up. 5.Hypertension, better controlled. We will follow up blood pressure after dialysis. 6.Anemia of chronic kidney disease given the blood pressure better controlled. Currently, I am kyle g to go ahead and resume Epogen. 7.Congestive heart failure as above. 8.Uremic encephalopathy, on recovery. We will follow up with the primary. BREANN/LUPE Voice ID: [id number] Report ID: [id number]
[2018-08-10] MEDS: LORATADINE 10 MG TAB PO SCH ×2 (18:09→20:38)
[2018-08-11] MEDS: HYDROCODONE/APAP 10/325 TAB PO PRN (02:39)
[2018-08-11 05:41] LABS: Albumin 3.3 g/dL (3.4-5.0); Phosphorus 6.8 mg/dL (2.5-4.9); Potassium 3.7 mmol/L (3.5-5.1)
[2018-08-11] MEDS: METOPROLOL TAR 50 MG TAB PO SCH (05:52)
[2018-08-11] MEDS ORDERED: LEVOTHYROXINE SOD 0.05 MG TABLET PO SCH (06:30)
[2018-08-11 06:39] VITALS: O2SAT 99
[2018-08-11] MEDS: ISOSORBIDE DINIT 20 MG TAB PO SCH ×2 (08:01→13:08)
[2018-08-11] MEDS: SEVELAMER CARBONATE 800 MG TABLET PO SCH ×2 (08:01→13:09)
[2018-08-11] MEDS: levETIRAcetam 500 MG TAB PO SCH (08:02)
[2018-08-11] MEDS: LORATADINE 10 MG TAB PO SCH (08:02)
[2018-08-11] MEDS: DIVALPROEX NA 125 MG CAP PO SCH (08:02)
[2018-08-11] MEDS: PANTOPRAZOLE 40MG TABLET PO SCH (08:02)
[2018-08-11] MEDS: RISPERIDONE 0.25 MG TABLET PO SCH (08:03)
[2018-08-11] MEDS: HEPARIN 5000 UNIT/ML 1 ML VIAL SQ SCH (08:35)
[2018-08-11] MEDS ORDERED: ASPIRIN EC 81 MG TAB PO SCH (09:00)
[2018-08-11] MEDS ORDERED: FOLIC ACID 1 MG TABLET PO SCH (09:00)
--- NOTE | 2018-08-11 11:09 | P.DS ---
Admission Date: 08/09/18 Discharge Date: 08/11/18 Disposition: ROUTINE DISCHARGE Discharge Condition: GOOD Reason for Admission: Hyperkalemia/noncompliant with HD / hypertensive ER Consultations: Nephrology - Problems (1) ESRD on hemodialysis Onset Date: 12/13/17 Current Visit: No Status: Chronic (2) Acute encephalopathy Onset Date: 03/16/18 Current Visit: No Status: Acute (3) CHF (congestive heart failure) Onset Date: 01/03/18 Current Visit: No Status: Chronic Qualifiers: Heart failure type: diastolic Heart failure chronicity: chronic Qualified Code(s): I50.32 - Chronic diastolic (congestive) heart failure (4) Diabetes mellitus Onset Date: 07/23/17 Current Visit: No Status: Chronic Qualifiers: Diabetes mellitus type: type 2 Diabetes mellitus jail insulin use: with jail use Diabetes mellitus complication status: with kidney complications Diabetes mellitus complication detail: with chronic kidney disease Chronic kidney disease stage: on chronic dialysis Qualified Code(s) : E11.22 - Type 2 diabetes mellitus with diabetic chronic kidney disease; N18.6 - End stage renal disease; Z79.4 - rn long term care (current) use of insulin; Z99.2 - Dependence on renal dialysis (5) History of CVA with residual deficit Onset Date: 07/23/17 Current Visit: No Status: Chronic (6) Hypertension Onset Date: 07/23/17 Current Visit: No Status: Chronic Qualifiers: Hypertension type: essential hypertension (7) Hypothyroidism Onset Date: 07/23/17 Current Visit: No Status: Chronic Qualifiers: Hypothyroidism type: acquired Qualified Code(s): E03.9 - Hypothyroidism, unspecified Brief History of Present Illness: 57 y/o M who was admitted to the hospital for AMS and Volume overload and Hyperkalemia after missing dialysis for several days. Hospital Course: The patient is a 57-year-old male with past medical history of diabetes; hypertension; heart disease; history of cerebrovascular accident; end-stage renal disease, on hemodialysis, who is a resident of a senior care, comes in with hyperkalemia, peaked T-waves on EKG and AMS. The patient is noncompliant with his dialysis and most of his other medications. The patient received treatment for his hyperkalemia acutely with insulin, glucose, bicarb, and calcium gluconate. His hyperkalemia was corrected. The patient was seen by his internet architect, and he was dialyzed for 3 days in the row which helped with Volume overload, Hyperkalemia and metabolic Encephalopathy. The patient did improve with dialysis. His mental status also cleared up. The patient was counseled regarding his compliance. The patient does agree to continue with dialysis. He was given the option of hospice; however, he declined. He wants to continue dialysis and does not wish to at this time, as he understands that without dialysis, his kidneys would shut down and would lead to . The patient was then transferred back to [facility] in a stable condition. Vital Signs/Physical Exam: Temp Pulse Resp BP Pulse Ox 97.8 F 57 16 135/62 95 08/11/18 07:33 08/11/18 07:33 08/11/18 07:33 08/11/18 07:33 08/11/18 07:33 General: Alert, In no apparent distress Neck: JVD distended Respiratory: Normal air movement, Rhonchi/gurgles Cardiovascular: Regular rate/rhythm, Normal S1 S2 Gastrointestinal: Normal bowel sounds, No tenderness Musculoskeletal: No tenderness Integumentary: No rashes Neurological: Normal speech, Normal tone, Normal affect, Other (Legally Blind. Only able to see blurry. ) Lymphatics: No axilla or inguinal lymphadenopathy Laboratory Data at Discharge: WBC 5.8 K/uL (4.3-10.9) D 08/09/18 05:24 Hgb 9.8 g/dL (13.6-17.9) L 08/09/18 05:24 Hct 30.5 % (39.6-49.0) L 08/09/18 05:24 Plt Count 189 K/uL (152-406) 08/09/18 05:24 PT 12.2 SECONDS (9.5-12.5) 08/08/18 21:40 INR 1.04 08/08/18 21:40 Sodium 142 mmol/L (136-145) 08/11/18 04:36 Potassium 3.7 mmol/L (3.5-5.1) 08/11/18 04:36 BUN 47 mg/dL (7-18) H 08/11/18 04:36 Creatinine 10.10 mg/dL (0.55-1.3) H* D 08/11/18 04:36 Glucose 95 mg/dL (74-106) 08/11/18 04:36 Phosphorus 6.8 mg/dL (2.5-4.9) H 08/11/18 04:36 Magnesium 3.2 mg/dL (1.8-2.4) H 08/09/18 05:24 Total Bilirubin 0.5 mg/dL (0.2-1.0) 08/09/18 05:24 AST 22 U/L (15-37) 08/09/18 05:24 ALT 13 U/L (12-78) 08/09/18 05:24 Alkaline Phosphatase 46 U/L (45-117) 08/09/18 05:24 Home Medications: Aspirin [Aspirin EC 81 MG] 81 mg PO DAILY 07/23/17 Cholecalciferol (Vitamin D3) [Vitamin D3] 3 cap PO DAILY 07/23/17 Clonidine Patch [Catapres-Tts 3*] 1 patch TD EVERY 7TH DAY 07/23/17 Folic Acid 1 mg PO DAILY 07/23/17 Isosorbide Dinit [Isordil*] 20 mg PO TID 07/23/17 Levetiracetam [Keppra] 500 mg PO BID 07/23/17 Levothyroxine [Synthroid*] 50 mcg PO DAILY 07/23/17 Metoprolol Tartrate [Lopressor] 100 mg PO BID 07/23/17 Pantoprazole Sodium [Protonix] 40 mg PO DAILY 07/23/17 Sevelamer HCl [Renagel] 5 tab PO TID 07/23/17 Tramadol HCl [Ultram] 50 mg PO Q6HR PRN 07/23/17 risperiDONE [Risperidone] 0.5 mg PO BEDTIME 07/23/17 Cinacalcet HCl [Sensipar] 60 mg PO BEDTIME 12/12/17 Hydralazine [Apresoline*] 50 mg PO TID 12/12/17 LORazepam [Ativan*] 1 mg PO DAILY 03/15/18 Olopatadine HCl [Pataday] 1 gtt OP DAILY 03/16/18 Acetaminophen [Tylenol Extra Strength] 500 mg PO Q6HP PRN 08/09/18 Acetaminophen with Codeine [Tylenol with Codeine #3 Tablet] 1 tab PO Q6HP PRN Divalproex [Depakote Sprinkle*] 250 mg PO BID 08/09/18 Guaif/Dm [Robitussin Dm*] 10 ml PO TID 08/09/18 Hydrocodone 5/APAP 325 [[place] 5/325*] 2 tab PO Q4HP PRN 08/09/18 Hydroxyzine HCl [Atarax] 25 mg PO TID PRN 08/09/18 Loratadine [Claritin*] 10 mg PO DAILY 08/09/18 Melatonin [Melatonin*] 3 mg PO BEDTIME 08/09/18 Trazodone [Desyrel*] 100 mg PO BEDTIME 08/09/18 risperiDONE [Risperidone] 1 tab PO ,,S 08/09/18 Diet: Regular Activity: Ad bernarda
[2018-08-11 13:08] VITALS: BP 132/71; TEMP 97.4
--- NOTE | 2018-08-11 20:38 | PN ---
Date of Progress Note: 08/11/2018 Subjective: The patient was admitted with altered mental status. Over volume and hyperkalemia. The patient was started on daily dialysis. This is his 3rd day of dialysis. The patient josé manuel ke, back to his baseline. Physical Examination: Vital Signs: Blood pressure 132/71, pulse of 64. Chest: Crackles in the base. Heart: S1 and S2, regular. Abdomen: Soft and nontender. Extremities: No edema. Laboratory Data: H and H 9.8/30.5. Sodium 142, potassium 3.7, bicarb 27, BUN 47, creatinine 10, glenn cium 9.1, phosphorus 6.8. Current Medications: The patient on its include: 1.Aspirin. 2.Clonidine patch. 3.Epogen. 4.Isosorbide. 5.Levothyroxine. 6.Metoprolol. Assessment And Plan: 1.End-stage renal disease, over volume, hyperkalemia back to baseline. Continue dialysis TTS. 2.Secondary hyperparathyroid. Continue binder. 3.Hypertension, better controlled. Currently on the lower side. I am going to discontinue clonidin e patch. 4.Anemia of chronic kidney disease. Continue Epogen. 5.Over volume, back to normal volume, back to his schedule of dialysis .. 6.Hyperkalemia, resolved. The patient cleared from the renal standpoint for discharge planning. Thank you. MANPREET Voice ID: [id number] Report ID: [id number]
[2018-08-15] MEDS ORDERED: CLONIDINE 0.2 MG/PATCH TD SCH (09:00)
== END 2018-08-11 14:23 | DRG 640 ==
LOC: ER 21:04 → ERHOLD 08-09 00:08 → 3RD-ICU 08-09 00:47 → 2ND 08-09 14:25
PROVIDERS: ADMIT Hospitalist; ATTEND Family Medicine
PROC: 5A1D70Z Performance of Urinary Filtration, Intermittent, Less than 6 Hours Per Day (ICD-10-PCS; principal; 2018-08-09)
DX: E87.70 Fluid overload, unspecified (principal); N18.6 End stage renal disease; G93.41 Metabolic encephalopathy; I13.2 Hypertensive heart and chronic kidney disease with heart failure and with stage 5 chronic kidney disease, or end stage renal disease; I50.32 Chronic diastolic (congestive) heart failure; E87.2 Acidosis; E87.5 Hyperkalemia; E11.22 Type 2 diabetes mellitus with diabetic chronic kidney disease; Z99.2 Dependence on renal dialysis; Z91.15 Patient's noncompliance with renal dialysis; E03.9 Hypothyroidism, unspecified; G89.4 Chronic pain syndrome; E11.40 Type 2 diabetes mellitus with diabetic neuropathy, unspecified; E11.21 Type 2 diabetes mellitus with diabetic nephropathy; I25.10 Atherosclerotic heart disease of native coronary artery without angina pectoris; D63.1 Anemia in chronic kidney disease; I69.30 Unspecified sequelae of cerebral infarction; Z79.82 Long term (current) use of aspirin
CPT/HCPCS: 36415; 70450; 71045; 80048; 80053; 80069; 80076; 82140; 82805; 82962; 83735; 83880; 84100; 84484; 85025; 85610; 90935; 93005; 94640; 96365; 96367; 96375; 97161; 97530; 99285; J0360; J0610; J1644; J2150; J7030; Q4081

== ENCOUNTER 2018-08-25 17:11 | Emergency (ER) | payer OTHER ==
--- OUTSIDE RECORDS SUMMARY | 2018-08-25 17:14 | XMS REPORT | Continuity of Care Document ---
[...] No Known Shortness Allergy to Active [facility] Drug of breath Substance 8 [facility] All[facility]ies [place] Immunizations Immunization Date Given Site Status Last Updated Comments Source Results Order Name Results Value Reference Date Interpretation Comments Source Range Laboratory Bedside Glucose 188 mg/dl 65 - 120 07/24 [facility] Studies [facility] [place] [facility] Magnesium Level 1.9 mg/dL 1.8 - 2.5 07/[address] [facility] Studies [facility] [place] [facility] Ammonia 23 umol/L 10 - 45 07/[address] [facility] [place] [facility] Phosphorus 6.3 mg/dL 2.5 - 4.3 07/24 [facility] Studies Level [facility] [place] [facility] Sodium Level 137 mEq/L 135 - 145 07/24 [facility] Studies [facility] [place] [facility] Potassium Level 4.1 mEq/L 3.6 - 5.0 04 [facility] Studies /2017 [facility] [place] [facility] Glucose Level 112 mg/dL 65 - 120 07/24 [facility] Studies [facility] [place] [facility] Estimat 9 mL/min 90 07/24 [facility] Studies Glomerular [facility] Filtration Rate [place] [facility] Creatinine 7.85 0.61 - 04 [facility] Studies mg/dL 1.24 [facility] [place] [facility] Chloride Level 102 mEq/L 101 - 111 07/24 [facility] Studies /2017 [facility] [place] [facility] Carbon Dioxide 26 mEq/L 21 - 31 07/24 [facility] Studies Level /2017 [facility] [place] [facility] Calcium Level 8.8 mg/dL 8.5 - 10.5 07/24 [facility] Studies [facility] [place] [facility] Blood Urea 55 mg/dL 6 - 20 07/24 [facility]. Studies Nitrogen /2017 [facility] [place] [facility] White Blood 3.9 K/uL 4.3 - 10.9 07/24 [facility] Studies Count /2017 [facility] [place] [facility] Red Cell 17.0 % 12.1 - 07/24 [facility]. Studies Distribution 15.2 [facility] - Width [place] [facility] Red Blood Count 3.38 M/uL 4.33 - 04 [facility] Studies 5.43 /2017 [facility] [place] [facility] Platelet Count 199 K/uL 152 - 406 07/24 [facility]. Studies [facility] [place] [facility] Neutrophils % 61.5 % 41.7 - 07/24 [facility] Studies 73.7 [facility] [place] [facility] Monocytes % 11.6 % 3.3 - 12.3 07/24 [facility]. Studies [facility] [place] [facility] Mean Platelet 8.8 fL 7.6 - 11.3 07/24 [facility]. Studies Volume /2017 [facility] [place] [facility] Mean 82.9 fL 80 - 100 07/24 [facility] Studies Corpuscular /2017 [facility] Volume [place] [facility] Mean 32.6 g/dL 32.0 - 07/24 [facility]. Studies Corpuscular 36.0 [facility] - Hemoglobin [place] [facility] Mean 27.0 pg 27.0 - 07/[address] [facility] [address] Studies Corpuscular 35.0 /2017 [facility] - Hemoglobin [place] [facility] Lymphocytes % 21.0 % 15.3 - 04 [facility] Studies 44.8 /2017 [facility] [place] [facility] Hemoglobin 9.1 g/dL 13.6 - 07/24 [facility] Studies 17.9 /2017 [facility] - [place] [facility] Hematocrit 28.0 % 39.6 - 04 [facility] Studies 49.0 /2017 [facility] [place] [facility] Eosinophils % 4.0 % 0 - 4.4 07/24 [facility] Studies /2017 [facility] [place] [facility] Basophils % 1.9 % 0 - 1.3 07/24 [facility] Studies /2017 [facility] [place] [facility] Absolute 2.4 K/uL 1.8 - 8.0 07/24 [facility] Studies Neutrophil /2017 [facility] [place] [facility] Absolute 0.5 K/uL 0.1 - 1.3 07/24 [facility] Studies Monocytes (CBC) /2017 [facility] [place] [facility] Absolute 0.8 K/uL 0.7 - 4.9 07/24 [facility] Studies Lymphocytes /2017 [facility] - (CBC) [place] [facility] Absolute 0.2 K/uL 0 - 0.5 07/24 [facility] Studies Eosinophils /2017 [facility] - (CBC) [place] [facility] Absolute 0.1 K/uL 0 - 0.5 07/24 [facility] Studies Basophils (CBC) /2017 [facility] [place] [facility] Troponin I 0.14 07/23 [facility] Studies ng/mL /2017 [facility] - [place] [facility] Creatine Kinase 9.7 ng/ml 0.3 - 4.0 04 [facility] Studies MB /2017 [facility] - [place] [facility] Creatine Kinase 329 IU/L 22 - 269 04 [facility] Studies /2018 [facility] [place] [facility] Triglycerides 82 mg/dL 35 - 160 04 [facility] Studies Level /2017 [facility] - [place] [facility] Thyroid 1.48 0.34 - 04 [facility] Studies Stimulating uIU/mL 5.60 [facility] - Hormone (TSH) [place] [facility] LDL 35 04 [facility] [address] Studies Cholesterol, /2017 [facility] Calculated [place] Laboratory HDL Cholesterol 45 mg/dL 27 - 67 04 [facility] [address] Studies /2017 [email or web address] [facility] Free Thyroxine 0.90 0.58 - 04 [facility] Studies ng/dl 1.64 /2017 [facility] - [place] [facility] Cholesterol/HDL 2.13 04 [facility] Studies Ratio /2017 [facility] [place] [facility] Cholesterol 96 mg/dL 07/23 [facility] Studies Level /2017 [facility] [place] Laboratory Urine WBC null 07/22 St. Studies /2017 [facility] [place] [facility] Urine null 07/22 [facility] Studies Urothelial /2017 [facility] - Cells [place] Laboratory Urine Squamous null 07/22 [facility]. Studies Epithelial /2017 [facility] - Cells [place] Laboratory Urine RBC Urine RBC 07/22 [facility]. Studies /2017 [facility] Urine Culture Urine 07/22 [facility]. Studies Reflexed Culture /2017 [facility] - Reflexed [facility] [facility] Urine Bacteria Urine 07/22 [facility]. Studies Bacteria /2017 [facility] Procalcitonin 1.56 07/22 [facility] Studies ng/mL /2017 [facility] Total Bilirubin 0.7 mg/dL 0.3 - 1.2 07/22 [facility] Studies /2017 [facility] Serum Total 7.4 g/dL 6.0 - 8.3 07/22 [facility] Studies Protein /2017 [facility] Lipase 82 U/L 22 - 51 07/22 [facility]. Studies [facility] [place] Laboratory Globulin 3.5 g/dL 2.3 - 3.5 07/22 [facility] [address] Studies [facility] Direct 0.1 mg/dL 0 - 0.2 07/22 [facility]. Studies Bilirubin [facility] Aspartate Amino 18 IU/L 10 - 42 07/22 [facility] Studies Transf /2017 [facility] - (AST/SGOT) [place] [facility] Alkaline 63 IU/L 42 - 121 07/22 [facility]. Studies Phosphatase /2017 [facility] [facility] Albumin/Globuli 1.1 1.1 - 1.8 07/22 [facility] Studies n Ratio /2017 [facility] Laboratory Albumin 3.9 g/dL 3.2 - 5.5 07/22 [facility] Studies /2018 [facility] [place] [facility] Alanine 12 IU/L 10 - 60 07/22 [facility] Studies Aminotransferas /2017 [facility] - e (ALT/SGPT) [place] Laboratory B-Type 1591 07/22 [facility] Studies Natriuretic pg/ml /2017 [facility] Peptide [place] Laboratory Rapid Troponin 0.11 07/22 [facility] Studies I ng/mL /2017 [facility] [place] Laboratory Lactic Acid 6.6 mg/dL 4.5 - 19.8 07/22 [facility] Studies Level /2017 [facility] [place] Laboratory Prothrombin 12.5 9.5 - 12.5 07/22 [facility] Studies Time SECONDS /2017 [facility] [place] Laboratory INR 1.06 07/22 [facility] Studies International /2017 [facility] Normalized [place] Ratio Laboratory Activated 33.9 24.3 - 07/22 [facility] Studies Partial SECONDS 36.9 [facility] - Thromboplast [place] Time Vital Signs Vital Sign Value Date Comments Source Heart Rate 63 07/24/[address] [facility] [place] Systolic (mm Hg) 103 07/24/[address] [facility] [place] Diastolic (mm Hg) 60 07/24/[address] [facility] [place] Respitory Rate 13 07/24/2017 [facility]. [facility] [place] Temperature Oral (F) 97.8 F [facility] Height 73 [facility] Weight 179.00 07/23/[facility] En[facility]ters Location Location Encounter Encounter Reason Attending ADM DC Status Source Details Type Number For Provider Date Date Visit [facility] Discharged [id number] 07/22 07/24 [facility] [place] Procedures Procedure Code Date Perfomer Comments Source Chest Single [id number] [facility] - View 8 [place] Anaerobic Blood [id number] [facility] [place] Aerobic Blood [id number] [facility] [place] [id number] [facility] [place] Count [id number] [facility] [place] Head Brain Wo [id number] [facility] - Cont 8 [place] Chest Single [id number] [facility] View 8 [place]
--- NOTE | 2018-08-25 19:00 | ER ---
Nurse's Notes [facility] Name: Juan Lozano Age: 57 yrs Sex: Male : 1960 Arrival Date: 08/25/2018 Time: 17:19 Bed 14 Private MD: Diagnosis: Essential (primary) hypertension Presentation: 08/25 17:22 Presenting complaint: EMS states: Pt. was at dialysis and had 1.5 Liter of output rb1 today. Pt. is A \T\ O x 1, more drowsy than usual. He is from [facility]. Dialysis reports BP 214/112, administered 0.2 mg Clonidine at 1407. BP 195/107 at recheck. EMS BP 231/124, P 66, R 18, 98% RA. Brian in right upper chest. Transition of care: patient was received from another setting of care (long-term care facility), [facility] Onset of symptoms was August 25, 2018 at 12:00. Risk Assessment: Do you want to hurt yourself or someone else? Patient reports no desire to harm self or others. Care prior to arrival: Medication(s) given: Tylenol, clonidine 0.2 mg x 1. 17:22 Method Of Arrival: EMS: [facility] rb1 17:22 Acuity: DORIS 3 rb1 17:22 Initial Sepsis Screen: Does the patient meet any 2 criteria? No. Patient's initial rb1 sepsis screen is negative. Does the patient have a suspected source of infection? No. Patient's initial sepsis screen is negative. Triage Assessment: 17:22 General: Appears in no apparent distress. comfortable, Behavior is drowsy. Neuro: Level rb1 of Consciousness is lethargic, Oriented to person. Cardiovascular: Capillary refill < 3 seconds is brisk in bilateral fingers. Respiratory: Airway is patent Respiratory effort is even, unlabored, Respiratory pattern is regular, symmetrical. GI: No signs and/or symptoms were reported involving the gastrointestinal system. : Dialysis T- - Wednesday. Derm: Skin is dry, Skin is normal, Skin temperature is warm. 17:22 Pain: Denies pain. rb1 Historical: - Allergies: 17:21 NKA; ss - PMHx: 17:21 ADD/ADHD; Anemia; decubitus ulcer; Chronic ischemic heart disease; Dialysis; ESRD; CVA; ss epilepsy; Diabetes - IDDM; Hypertension; Hyperlipidemia; Bipolar disorder; Hypothyroidism; Anxiety; TIA; - Immunization history:: Adult Immunizations up to date. - Social history:: Smoking status: Patient uses tobacco products, smokes one pack cigarettes per day. - Ebola Screening: : Patient negative for fever greater than or equal to 101.5 degrees Fahrenheit, and additional compatible Ebola Virus Disease symptoms. Screenin:22 Abuse screen: Denies threats or abuse. Nutritional screening: No deficits noted. rb1 Tuberculosis screening: No symptoms or risk factors identified. 17:22 Fall Risk None identified. rb1 Assessment: 17:22 General: See triage assessment. rb1 17:43 Reassessment: Pt. wakes easily when spoken to. rb1 18:18 Reassessment: Patient appears in no apparent distress at this time. Patient and/or rb1 family updated on plan of care and expected duration. Pain level reassessed. Patient is alert, oriented x 3, equal unlabored respirations, skin warm/dry/pink. Provider at bedside. Pt. denies pain at this time. 19:06 Reassessment: report given to nurse at [facility]. ss Vital Signs: 17:19 BP 185 / 95; Pulse 62; Resp 18; Temp 97.0(TE); Pulse Ox 91% on R/A; Weight 93.5 kg (R); rb1 Height 6 ft. 0 in. (182.88 cm) (R); 18:18 BP 130 / 80; Pulse 74; Resp 16; Temp 97.6(TE); Pulse Ox 94% on R/A; Pain 0/10; rb1 19:00 BP 122 / 85; Pulse 56; Resp 15; Pulse Ox 96% on R/A; ss 17:19 Body Mass Index 27.96 (93.50 kg, 182.88 cm) rb1 ED Course: 17:19 Patient arrived in ED. ss 17:21 Jossie Chen, RN is Primary Nurse. rb1 17:22 EKG done, by radiologic technology program director. reviewed by Phani Honeycutt MD. sm3 17:22 Patient has correct armband on for positive identification. Bed in low position. Call rb1 light in reach. Side rails up X2. Pulse ox on. NIBP on. 17:22 Arm band placed on right wrist. rb1 17:26 Triage completed. rb1 17:47 Naldo Avila PA is PHCP. jr8 17:47 Phani Honeycutt MD is Attending Physician. jr8 18:58 Report given to ANTONINA BOUCHER. rb1 19:08 No provider procedures requiring assistance completed. Patient did not have IV access ss during this emergency room visit. Administered Medications: No medications were administered Outcome: 18:59 Discharge ordered by . jr8 19:08 Discharged to long-term. Report called to [facility]. ss 19:08 Condition: good 19:08 Discharge instructions given to patient, EMS, Instructed on discharge instructions, follow up and referral plans. Demonstrated understanding of instructions, follow-up care. 19:10 Patient left the ED. ss Signatures: Kailey Nguyen RN RN Naldo Avila PA PA jr8 Jossie Chen RN RN rb1 Prisca Espino 3
--- NOTE | 2018-08-25 19:00 | EDPHYS ---
Physician Documentation [facility] Name: Juan Lozano Age: 57 yrs Sex: Male : 1960 Arrival Date: 08/25/2018 Time: 17:19 Bed 14 Private MD: ED Physician Phani Honeycutt HPI: 08/25 20:57 This 57 yrs old Black Male presents to ER via EMS with complaints of High Blood jr8 Pressure. 20:57 The patient has elevated blood pressure and discovered this during dialysis. Onset: The jr8 symptoms/episode began/occurred acutely, today. Modifying factors: The symptoms are aggravated by nothing, The symptoms are alleviated by prescription meds, clonidine. Associated signs and symptoms: The patient has no apparent associated signs or symptoms. Severity of symptoms: At its worst the blood pressure was moderate, in the emergency department the blood pressure is now normal. The blood pressure problem is resolved. It is unknown whether or not the patient has had similar symptoms in the past. The patient has not recently seen a physician. Patient was at dialysis and completed dialysis. Hypertensive in the 200s at that time. Was given a 0.2 clonidine and sent to ED for further evaluation. Upon arrival BP elevation had resolved. Patient asymptomatic currently. Denied every having symptoms . Historical: - Allergies: 17:21 NKA; ss - PMHx: 17:21 ADD/ADHD; Anemia; decubitus ulcer; Chronic ischemic heart disease; Dialysis; ESRD; CVA; ss epilepsy; Diabetes - IDDM; Hypertension; Hyperlipidemia; Bipolar disorder; Hypothyroidism; Anxiety; TIA; - Immunization history:: Adult Immunizations up to date. - Social history:: Smoking status: Patient uses tobacco products, smokes one pack cigarettes per day. - Ebola Screening: : Patient negative for fever greater than or equal to 101.5 degrees Fahrenheit, and additional compatible Ebola Virus Disease symptoms. ROS: 20:57 Eyes: Negative for injury, pain, redness, and discharge, ENT: Negative for injury, jr8 pain, and discharge, Neck: Negative for injury, pain, and swelling, Cardiovascular: Negative for chest pain, palpitations, and edema, Respiratory: Negative for shortness of breath, cough, wheezing, and pleuritic chest pain, Abdomen/GI: Negative for abdominal pain, nausea, vomiting, diarrhea, and constipation, Back: Negative for injury and pain, MS/Extremity: Negative for injury and deformity, Skin: Negative for injury, rash, and discoloration, Neuro: Negative for headache, weakness, numbness, tingling, and seizure. Exam: 20:57 Eyes: Pupils equal round and reactive to light, extra-ocular motions intact. Lids and jr8 lashes normal. Conjunctiva and sclera are non-icteric and not injected. Cornea within normal limits. Periorbital areas with no swelling, redness, or edema. ENT: Nares patent. No nasal discharge, no septal abnormalities noted. Tympanic membranes are normal and external auditory canals are clear. Oropharynx with no redness, swelling, or masses, exudates, or evidence of obstruction, uvula midline. Mucous membranes moist. Neck: Trachea midline, no thyromegaly or masses palpated, and no cervical lymphadenopathy. Supple, full range of motion without nuchal rigidity, or vertebral point tenderness. No Meningismus. Cardiovascular: Regular rate and rhythm with a normal S1 and S2. No gallops, murmurs, or rubs. Normal PMI, no JVD. No pulse deficits. Respiratory: Lungs have equal breath sounds bilaterally, clear to auscultation and percussion. No rales, rhonchi or wheezes noted. No increased work of breathing, no retractions or nasal flaring. Abdomen/GI: Soft, non-tender, with normal bowel sounds. No distension or tympany. No guarding or rebound. No evidence of tenderness throughout. Back: No spinal tenderness. No costovertebral tenderness. Full range of motion. Skin: Warm, dry with normal turgor. Normal color with no rashes, no lesions, and no evidence of cellulitis. MS/ Extremity: Pulses equal, no cyanosis. Neurovascular intact. Full, normal range of motion. Neuro: Awake and alert, GCS 15, oriented to person, place, time, and situation. Cranial nerves II-XII grossly intact. Motor strength 5/5 in all extremities. Sensory grossly intact. Vital Signs: 17:19 BP 185 / 95; Pulse 62; Resp 18; Temp 97.0(TE); Pulse Ox 91% on R/A; Weight 93.5 kg (R); rb1 Height 6 ft. 0 in. (182.88 cm) (R); 18:18 BP 130 / 80; Pulse 74; Resp 16; Temp 97.6(TE); Pulse Ox 94% on R/A; Pain 0/10; rb1 19:00 BP 122 / 85; Pulse 56; Resp 15; Pulse Ox 96% on R/A; ss 17:19 Body Mass Index 27.96 (93.50 kg, 182.88 cm) rb1 MDM: 18:02 Patient medically screened. jr8 20:59 Data reviewed: vital signs, nurses notes, and as a result, I will discharge patient. jr8 Data interpreted: Pulse oximetry: on room air is 96 %. Interpretation: normal. Counseling: I had a detailed discussion with the patient and/or guardian regarding: the historical points, exam findings, and any diagnostic results supporting the discharge/admit diagnosis, the need for outpatient follow up, a family practitioner, to return to the emergency department if symptoms worsen or persist or if there are any questions or concerns that arise at home. Administered Medications: No medications were administered Disposition: 08/26 06:46 Co-signature as Attending Physician, Phani Honeycutt MD I agree with the assessment and kdr plan of care. Disposition: 08/25/18 18:59 Discharged to Home. Impression: Essential (primary) hypertension. - Condition is Stable. - Discharge Instructions: Hypertension. - Medication Reconciliation Form, Thank You Letter, Antibiotic Education, Prescription Opioid Use form. - Follow up: Private Physician; When: As needed; Reason: Recheck today's complaints, Continuance of care, Re-evaluation by your physician. - Problem is new. - Symptoms have improved. Signatures: Phani Honeycutt MD MD [facility] Kailey Nguyen RN RN Naldo Avila PA PA jr8 Jossie Chen, RN RN rb1 Corrections: (The following items were deleted from the chart) 08/25 19:10 18:59 08/25/2018 18:59 Discharged to Home. Impression: Essential (primary) ss hypertension. Condition is Stable. Forms are Medication Reconciliation Form, Thank You Letter, Antibiotic Education, Prescription Opioid Use. Follow up: Private Physician; When: As needed; Reason: Recheck today's complaints, Continuance of care, Re-evaluation by your physician. Problem is new. Symptoms have improved. jr8
[2018-08-25 19:19] VITALS: TEMP 97.6
[2018-08-25 19:20] VITALS: BP 122/85; O2SAT 96
--- NOTE | 2018-08-26 14:44 | EKG ---
Test Date: 2018-08-25 Test Time: 17:22:21 [employer] Stitcher: TAISHA MEASUREMENT RESULTS: Intervals: Rate: 60 VT: 162 QRSD: 108 QT: 474 QTc: 474 Bells: P: 67 VT: 162 QRS: 3 T: 55 INTERPRETIVE STATEMENTS: Normal sinus rhythm with sinus arrhythmia Possible Left atrial enlargement Nonspecific ST and T wave abnormality Prolonged QT Abnormal ECG Compared to ECG 08/08/2018 22:00:20 ST (T wave) deviation now present Electronically Signed On 08-26-18 14:41:09 CDT by Ricardo Ibanez
== END 2018-08-25 19:10 | disposition home or self-care (01) ==
LOC: ER 17:11
DX: I13.11 Hypertensive heart and chronic kidney disease without heart failure, with stage 5 chronic kidney disease, or end stage renal disease (principal); E11.22 Type 2 diabetes mellitus with diabetic chronic kidney disease; N18.6 End stage renal disease; Z99.2 Dependence on renal dialysis; F17.210 Nicotine dependence, cigarettes, uncomplicated; D64.9 Anemia, unspecified; F90.9 Attention-deficit hyperactivity disorder, unspecified type; E78.5 Hyperlipidemia, unspecified; E03.9 Hypothyroidism, unspecified; G40.909 Epilepsy, unspecified, not intractable, without status epilepticus; F41.9 Anxiety disorder, unspecified; Z86.73 Personal history of transient ischemic attack (TIA), and cerebral infarction without residual deficits; Z79.4 Long term (current) use of insulin
CPT/HCPCS: 93005; 99283